=== PATIENT | female | born 1935 | race Caucasian/White ===

== ENCOUNTER 2018-04-06 16:25 | Inpatient (IN) | payer MEDICARE ==
[2018-04-06 17:24] LABS: Urine Bilirubin Negative (NEGATIVE); Urine Blood Negative /ul (NEGATIVE); Urine Ketone Negative (NEGATIVE); Urine Nitrite Negative (NEGATIVE); Urine Protein 30 mg/dL (NEGATIVE); Urine Specific Gravity 1.015 SP.GR. (1.005-1.010); Urine Urobilinogen Normal (NORMAL); Urine pH 5.5 pH (5.0-7.0)
[2018-04-06] MEDS ORDERED: KETOROLAC TROMETHAMINE 30 MG/ML VIAL IV ONE (17:29)
[2018-04-06] MEDS ORDERED: NORMAL SALINE 1,000 ML IV ONE (17:29)
[2018-04-06] MEDS ORDERED: ONDANSETRON HCL/PF 2 MG/ML VIAL IV ONE (17:29)
[2018-04-06] MEDS ORDERED: ONDANSETRON HCL/PF 2 MG/ML VIAL ONE (17:34)
[2018-04-06] MEDS ORDERED: KETOROLAC TROMETHAMINE 30 MG/ML VIAL ONE (17:34)
[2018-04-06 17:37] LABS: Urine Appearance Clear (CLEAR); Urine Bacteria TRACE; Urine Color Yellow
[2018-04-06 17:38] LABS: Urine Amorphous Sediment TRACE (NONE-FEW)
[2018-04-06 18:05] LABS: Hematocrit 32.2 % (37.0-47.0); Hemoglobin 10.3 gm/dL (12.5-16.0); Mean Cell Volume 81.5 fl (78-100); Mean Corpuscular Hemoglobin 26.1 pg (27-31); Mean Platelet Volume 9.2 fl (8-12.5); Neutrophil # 10.6 K/mm3 (1.3-6.0); Neutrophil % 89.7 % (42-75.0); Platelet Count 408 K/mm3 (150-450); Red Blood Count 3.95 M/mm3 (4.2-5.4); White Blood Count 11.9 K/mm3 (4.0-10.5)
[2018-04-06 18:16] LABS: Albumin * 2.5 gm/dl (3.4-5.0); BUN/Creatinine Ratio 30.5 (9.0-21.6); Bilirubin, Total 0.4 mg/dL (0.0-1.1); Ca. Corrected For Albumin 10.1 mg/dL (8.4-10.2); Calcium * 9.2 mg/dL (7.9-10.9); Total Protein 6.7 gm/dL (6.2-8.2)
[2018-04-06] MEDS ORDERED: POTASSIUM CHLORIDE IN WATER 100 ML IV ONE ×2 (18:31→23:15)
[2018-04-06] MEDS ORDERED: DIATRIZOATE MEGLUMINE, SODIUM 30 ML BTL PO ONE (19:41)
[2018-04-06] MEDS ORDERED: DIATRIZOATE MEGLUMINE, SODIUM 30 ML BTL ONE (19:44)
--- NOTE | 2018-04-06 20:00 | ERNOTE ---
ER Female HPI Date of Service: 04/06/18 Stated Complaint: UTI Presenting Symptoms: other - Blood in urine Time Seen by Provider: 04/06/18 17:22 Source: patient, family, RN notes reviewed Exam Limitations: other - Patient and son are poor historians Immunizations: IMMUNIZATION HX Immunizations Up to Date Yes History of Influenza Vaccine Yes Hx Pneumococcal Vaccination Yes Allergies/Adverse Reactions: Allergies pravastatin Adverse Reaction (Mild, Verified 04/06/18 16:35) Vomiting Home Medications: HOME MEDICATIONS Atorvastatin Calcium [Lipitor] 80 mg PO DAILY 12/15/15 [Last Taken Unknown] Calcium/Magnesium/Vit D3 [Calcium 500 mg Tablet] 1 each PO TID 12/15/15 [Last Taken Unknown] Chlorthalidone [Hygroton] 12.5 mg PO DAILY 12/15/15 [Last Taken Unknown] Cholecalciferol [Vitamin D] 1,000 unit PO DAILY 12/15/15 [Last Taken Unknown] Cyanocobalamin [Vitamin B-12] 1,000 mcg IJ Q30D 12/15/15 [Last Taken Unknown] Doxazosin Mesylate [Cardura] 1 mg PO HS 12/15/15 [Last Taken Unknown] Fenofibrate [Lofibra] 54 mg PO DAILY 12/15/15 [Last Taken Unknown] LORazepam [Ativan] 0.5 mg PO Q6H PRN 12/15/15 [Last Taken Unknown] Lisinopril [Zestril] 10 mg PO DAILY 12/15/15 [Last Taken 01/15/16 07:30] Metoprolol Succinate [Toprol Xl] 100 mg PO BID 12/15/15 [Last Taken 01/15/16 07: 30] Omeprazole [Prilosec] 20 mg PO DAILY 12/15/15 [Last Taken Unknown] Potassium Chloride [Klor-Con M10] 10 meq PO DAILY 12/15/15 [Last Taken Unknown] amLODIPine BESYLATE [Norvasc] 10 mg PO DAILY 12/15/15 [Last Taken 01/15/16 07:30 ] hydrALAZINE HCL [Apresoline] 25 mg PO BID 12/15/15 [Last Taken Unknown] - History of Present Illness Narrative: Ilana is a 82 year old female brought to the ED by her son for a possible urinary tract infection. The patient fell at home approximately 3 weeks ago. The son reports that she has been having blood in her urine since then, and at times has blood on her incontinence pads. She has also had back pain, lower abdominal pain, nausea and intermittent vomiting since. She was seen in another ER after her fall but it is not known what tests were done. The patient had a hysterectomy many years ago. She believes that her ovaries were removed at that time also, but she is not completely certain. Timing: Present: getting worse, intermittent Quality: Present: moderate, aching Onset Location: Present: suprapubic, other - low back Prior Abdominal Problems: Present: recent trauma Prior Treatment: Present: recently seen. Absent: currently on antibiotics Review of Systems - Review of Systems Constitutional: Present: fatigue, malaise, weight loss, other - poor appetite. Absent: fever EYE: Present: no symptoms reported ENT: Present: no symptoms reported Respiratory: Absent: shortness of breath, cough Cardiology: Absent: chest pain, palpitations, syncope Gastrointestinal/Abdominal: Present: nausea, vomiting, constipation, abdominal pain, eating less, drinking less. Absent: diarrhea Genitourinary: Present: hematuria. Absent: dysuria Musculoskeletal: Present: back pain. Absent: joint pain Skin: Absent: lesions, lumps Neurological: Absent: headache, dizziness/light-headedness Endocrine: Present: no symptoms reported Hematologic/Lymphatic: Absent: easy bruising, easy bleeding Psych: Present: no symptoms reported Medical History (Last Updated 04/06/18 @ 19:55 by Sinai Villa NP) History of hysterectomy Anxiety Depression GERD (gastroesophageal reflux disease) HTN (hypertension) Previous back surgery Surgical History: Surgical History (Last Updated 04/06/18 @ 16:35 by Van Tinajero RN) H/O heart artery stent Social History: Preferred Language Bahamian Smoking Status Never smoker Abuse History No History of abuse Psych History Hx of Anxiety,Currently on Meds Alcohol Use none Drug Use none Physical Exam - Physical Exam General Appearance: Present: alert, no apparent distress, thin, other - Pleasant , poor hygiene Head Exam: Present: normal inspection Neck: Present: normal inspection, nontender, supple Respiratory: Present: no respiratory distress, normal breath sounds, no accessory muscle use, lungs clear Cardiovascular/Chest: Present: regular rate, rhythm, normal peripheral pulses, systolic murmur Gastrointestinal/Abdominal: Present: normal bowel sounds, soft, tenderness - suprapubic, distended - mild, bloated appearing Pelvic Exam: Present: discharge - thick, yellow, blood tinged, other - pain with speculum exam, bimanual deferred Back Exam: Present: decreased range of motion, other - diffuse tenderness throughout lower back Extremity Exam: Present: normal inspection, normal range of motion, no edema Neurological Exam: Present: alert, oriented, normal mood/affect, no motor/ sensory deficits Skin Exam: Present: warm/dry, pallor ED Progress - Results and Orders Patient's Lab Results:: I have reviewed the patient's lab results. Results and Orders: Laboratory Tests 04/06/18 04/06/18 04/06/18 17:19 17:45 17:45 WBC 11.9 H RBC 3.95 L Hgb 10.3 L Hct 32.2 L MCV 81.5 MCH 26.1 L MCHC 32.0 RDW 19.0 H Plt Count 408 MPV 9.2 Immature Gran % (Auto) 1.40 H Immature Gran # (Auto) 0.17 H Neutrophils % 89.7 H Lymphocytes % 5.1 L Monocytes % 3.6 Eosinophils % 0.0 Basophils % 0.2 Nucleated RBC % 0.0 Neutrophils # 10.6 H Lymphocytes # 0.61 L Monocytes # 0.4 Eosinophils # 0.0 Absolute Basophils 0.0 Sodium 141 Plasma Sodium 142 Potassium 2.0 L* Chloride 103 Carbon Dioxide 30.0 Anion Gap 10.0 BUN 39 H Creatinine 1.28 Est GFR (Non-Af Amer) 42 L BUN/Creatinine Ratio 30.5 H Random Glucose 141 H Calcium 9.2 Calcium Adj for Albumin 10.1 Total Bilirubin 0.4 AST 20 ALT 10 L Alkaline Phosphatase 168 Total Protein 6.7 Albumin 2.5 L Urine Color Yellow Urine Appearance Clear Urine pH 5.5 Ur Specific [place] 1.015 Urine Protein 30 H Urine Glucose (UA) Negative Urine Ketones Negative Urine Blood Negative Urine Nitrate Negative Urine Bilirubin Negative Prot Sulfosalicylic Acd Negative Urine Urobilinogen Normal Ur Leukocyte Esterase 75 H Urine RBC 5-10 H Urine WBC 10-25 H Ur Epithelial Cells 0-5 Amorphous Sediment Trace Urine Bacteria Trace Urine Culture Comments Culture to follow - Vital Signs Patient's Vital Signs:: I have reviewed the patient's vital signs. Vital Signs: Vital Signs 04/06/18 16:26 04/06/18 16:53 04/06/18 17:12 Temperature 36.7 C Pulse Rate 96 89 88 Respiratory Rate 15 12 12 Blood Pressure 112/73 137/85 119/80 O2 Sat by Pulse Oximetry 94 99 97 04/06/18 17:40 04/06/18 17:56 04/06/18 18:59 Temperature Pulse Rate 81 84 88 Respiratory Rate 12 14 20 Blood Pressure 145/85 145/95 H 164/83 H O2 Sat by Pulse Oximetry 97 96 95 04/06/18 19:29 Temperature Pulse Rate 94 Respiratory Rate 16 Blood Pressure 162/80 H O2 Sat by Pulse Oximetry 97 - X-Ray X-Ray #1 X-Ray: abdomen Interpretation: Interp. by me X-ray Comments: Nonobstructive but abnormal bowel gas pattern - Progress/Reassessment Chief Complaint: Urinary Tract Problems Progress:: Unchanged Plan - Plan Plan: Toradol and Zofran given IV with some improvement in nausea, patient has not had any vomiting today. The source of her bleeding is not urinary as she had thought but is actually vaginal. Given the patient's remote history of a hysterectomy, I suspect that she has some sort of pelvic mass that has eroded through the vaginal wall. This was discussed with the patient. Her potassium is 2.0 and she is receiving 10 mEq IV currently. A CT of the abdomen and pelvis has been ordered, but this will be completed on the floor. Dr. Molina was contacted and the patient will be admitted. Departure Clinical Impression: Acute hypokalemia, Abnormal vaginal bleeding - Departure Disposition: Still a patient Condition: Serious
[2018-04-06] MEDS: traMADol HCL 50 MG TABLET PO PRN (23:47)
[2018-04-07] MEDS: POTASSIUM CHLORIDE IN WATER 100 ML IV SCH ×3 (02:00→04:03)
[2018-04-07] MEDS ORDERED: ACETAMINOPHEN WITH CODEINE 1 EACH TABLET PO PRN (10:36)
[2018-04-07 10:45] LABS: Hematocrit 28.4 % (37.0-47.0); Hemoglobin 8.7 gm/dL (12.5-16.0); Mean Corpuscular Hemoglobin 25.7 pg (27-31); Mean Corpuscular Hgb Conc 30.6 g/dl (32-36); Mean Platelet Volume 9.2 fl (8-12.5); Neutrophil # 7.4 K/mm3 (1.3-6.0); Neutrophil % 88.2 % (42-75.0); Platelet Count 320 K/mm3 (150-450); Red Blood Count 3.38 M/mm3 (4.2-5.4); Red Cell Distribution Width 19.3 % (11.5-14.0); White Blood Count 8.4 K/mm3 (4.0-10.5)
[2018-04-07] MEDS ORDERED: amLODIPine BESYLATE 5 MG TABLET PO SCH (10:45)
[2018-04-07] MEDS: amLODIPine BESYLATE 5 MG TABLET PO SCH (10:56)
[2018-04-07] MEDS: METOPROLOL TARTRATE 50 MG TABLET PO SCH ×2 (10:57→20:22)
[2018-04-07] MEDS: hydrALAZINE HCL 25 MG TABLET PO SCH ×2 (10:57→20:23)
--- NOTE | 2018-04-07 10:58 | HP ---
Chief Complaint - Chief Complaint Date of Service: 04/07/18 Time of Service: 08:20 Chief Complaint: Vaginal Bleeding History of Present Illness: Ilana is an 82 yo female that presents to the [facility] ER with 2 days of vaginal bleeding and discharge. She denies pain. No prior bladder, vaginal, or colon problems. She recalls her last colonoscopy being about 10 years ago and she was told she had diverticulosis. She denies any other bleeding. She chronically takes coumadin for atrial fibrillation. In the ER she had a vaginal exam that showed blood and yellow/brown discharge coming from an unknown source. A CT of the abdomen and pelvis was done showing a fistula in the pelvis communicating vagina to colon with a potential mass as well as the presence of diverticula. There was no evidence of diverticulitis. Medical History (Last Reviewed 04/14/18 @ 03:14 by Kiarra Baker RN) Acute renal failure (ARF) Anemia Anxiety Atrial fibrillation CAD (coronary artery disease) COPD (chronic obstructive pulmonary disease) Chronic kidney disease Dehydration Depression Esophageal stricture GERD (gastroesophageal reflux disease) HTN (hypertension) History 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 dilatation skilled nursing current use of anticoagulant therapy Osteoarthritis Surgical History: Surgical History (Last Reviewed 04/14/18 @ 03:14 by Kiarra Baker RN) H/O heart artery stent History of hysterectomy Previous back surgery Family History: Family History (Last Reviewed 04/14/18 @ 03:14 by Kiarra Baker RN) Father Myocardial infarction Hypertension Mother Colon cancer Social History: Patient Lives/Resources Home Utilized Occupation Retired Preferred Language Kazakh Do you have any jew or Yes: Hoahaoism cultural preference? Smoking Status Never smoker Have you smoked in the past 12 No months Do you dip or chew tobacco No Abuse History No History of abuse Psych History Hx of Anxiety,Currently on Meds Alcohol Use none Drug Use none Review Of Systems (GEN) - Review of Systems Generalized/Overall Review: Present: Weakness. Absent: Chills, Fever EENTM: Present: No Symptoms Reported Respiratory: Absent: Cough, Shortness of Breath Cardiac: Absent: Chest Pain, Edema, Palpitations, Syncope Abdominal: Absent: Nausea, Vomiting, Abdominal Pain, Constipation, Diarrhea, Melena, Bright blood from rectum Genitourinary: Present: Other - Vaginal Bleeding. Absent: Burning, Itching Musculoskeletal: Present: No Symptoms Reported Neurological: Present: No Symptoms Reported Skin: Present: No Symptoms Reported Endocrine: Present: No Symptoms Reported Immunizations: IMMUNIZATION HX Immunizations Up to Date Yes History of Influenza Vaccine Yes Hx Pneumococcal Vaccination Yes Allergies/Adverse Reactions: Allergies Allergy/AdvReac Type Severity Reaction Status Date / Time pravastatin AdvReac Mild Vomiting Verified 04/06/18 16:35 Home Medications: HOME MEDICATIONS amLODIPine BESYLATE [Norvasc] 5 mg PO DAILY 12/15/15 [Last Taken 04/13/18] hydrALAZINE HCL [Apresoline] 25 mg PO BID 12/15/15 [Last Taken 04/13/18] ALPRAZolam [Xanax] 0.25 mg PO Q6H PRN 04/07/18 [Last Taken 04/13/18] Acetaminophen with Codeine [Tylenol with Codeine #3 Tablet] 1 - 2 tab PO Q6H PRN 04/07/18 [Last Taken 04/13/18] Atorvastatin Calcium [Lipitor] 40 mg PO DAILY 04/07/18 [Last Taken 04/13/18] Citalopram Hydrobromide [Celexa] 10 mg PO DAILY 04/07/18 [Last Taken 04/13/18] Furosemide [Lasix] 20 mg PO BID 04/07/18 [Last Taken 04/13/18] Metoprolol Tartrate [Lopressor] 50 mg PO BID 04/07/18 [Last Taken 04/13/18] Pantoprazole Sodium [Protonix] 40 mg PO BID 04/07/18 [Last Taken 04/13/18] Folic Acid 1 mg PO DAILY #30 tab 04/20/18 [Last Taken Unknown] Exam - Exam Vital Signs: Vital Signs - Last Taken Temp 36.8 C 04/07/18 09:22 Pulse 101 H 04/07/18 09:22 Resp 18 04/07/18 09:22 BP 158/77 H 04/07/18 09:22 Pulse Ox 98 04/07/18 09:22 Constitutional: Present: Alert, Oriented x3, Cooperative ENT Exam: Present: hearing grossly normal Eye Exam: bilateral eye: normal inspection Respiratory: Present: lungs clear, normal breath sounds Cardiovascular/Chest: Present: no murmur, irregularly irregular Peripheral Pulses: radial (R): 2+, radial (L): 2+ Abdomen: Present: Normal bowel sounds, soft, nontender, nondistended, no rebound tenderness Extremity: Present: normal inspection Skin Exam: Present: normal color, warm/dry, no cyanosis Lymphatic: Present: no adenopathy Appearance: Present: appropriate appearance, appropriate insight Eye contact: Present: cooperative, good eye contact, normal speech Thoughts: Present: normal thought pattern, no apparent hallucination Diagnostic Studies: Abnormal Lab Results 04/06/18 04/06/18 04/06/18 Range/Units 17:19 17:45 17:45 WBC 11.9 H (4.0-10.5) K/mm3 RBC 3.95 L (4.2-5.4) M/mm3 Hgb 10.3 L (12.5-16.0) gm/dL Hct 32.2 L (37.0-47.0) % MCH 26.1 L (27-31) pg RDW 19.0 H (11.5-14.0) % Immature Gran % (Auto) 1.40 H (0.001-0.429) % Immature Gran # (Auto) 0.17 H (0.000-0.0310) K/mm3 Neutrophils % 89.7 H (42-75.0) % Lymphocytes % 5.1 L (20-51) % Neutrophils # 10.6 H (1.3-6.0) K/mm3 Lymphocytes # 0.61 L (1.5-3.5) k/mm3 Potassium 2.0 L* (3.4-4.6) mmol/L BUN 39 H (3-23) mg/dL Est GFR (Non-Af Amer) 42 L (60-130) mL/min BUN/Creatinine Ratio 30.5 H (9.0-21.6) Random Glucose 141 H (70-110) mg/dL ALT 10 L (19-67) U/L Albumin 2.5 L (3.4-5.0) gm/dl Urine Protein 30 H (NEGATIVE) mg/dL Ur Leukocyte Esterase 75 H (NEGATIVE) /ul Urine RBC 5-10 H (0-5) /hpf Urine WBC 10-25 H (0-5) /hpf Microbiology 04/06/18 15:40 Urine Culture - Preliminary Urine,Catheterized No Growth Laboratory Results WBC 11.9 K/mm3 (4.0-10.5) H 04/06/18 17:45 RBC 3.95 M/mm3 (4.2-5.4) L 04/06/18 17:45 Hgb 10.3 gm/dL (12.5-16.0) L 04/06/18 17:45 Hct 32.2 % (37.0-47.0) L 04/06/18 17:45 MCV 81.5 fl (78-100) 04/06/18 17:45 MCH 26.1 pg (27-31) L 04/06/18 17:45 MCHC 32.0 g/dl (32-36) 04/06/18 17:45 RDW 19.0 % (11.5-14.0) H 04/06/18 17:45 Plt Count 408 K/mm3 (150-450) 04/06/18 17:45 MPV 9.2 fl (8-12.5) 04/06/18 17:45 Immature Gran % (Auto) 1.40 % (0.001-0.429) H 04/06/18 17:45 Immature Gran # (Auto) 0.17 K/mm3 (0.000-0.0310) H 04/06/18 17:45 Neutrophils % 89.7 % (42-75.0) H 04/06/18 17:45 Lymphocytes % 5.1 % (20-51) L 04/06/18 17:45 Monocytes % 3.6 % (0.0-9) 04/06/18 17:45 Eosinophils % 0.0 % (0.0-3.0) 04/06/18 17:45 Basophils % 0.2 % (0.0-1.0) 04/06/18 17:45 Nucleated RBC % 0.0 k/mm3 (0-1) 04/06/18 17:45 Neutrophils # 10.6 K/mm3 (1.3-6.0) H 04/06/18 17:45 Lymphocytes # 0.61 k/mm3 (1.5-3.5) L 04/06/18 17:45 Monocytes # 0.4 k/mm3 (0.0-1.0) 04/06/18 17:45 Eosinophils # 0.0 k/mm3 (0.0-0.7) 04/06/18 17:45 Absolute Basophils 0.0 k/mm3 (0.0-0.1) 04/06/18 17:45 Sodium 141 mmol/L (132-142) 04/06/18 17:45 Plasma Sodium 142 mmol/L (130-142) 04/06/18 17:45 Potassium 2.0 mmol/L (3.4-4.6) L* 04/06/18 17:45 Chloride 103 mmol/L (97-106) 04/06/18 17:45 Carbon Dioxide 30.0 mmol/L (24-32.6) 04/06/18 17:45 Anion Gap 10.0 mmol/L (6.8-13.8) 04/06/18 17:45 BUN 39 mg/dL (3-23) H 04/06/18 17:45 Creatinine 1.28 mg/dL (0.4-1.4) 04/06/18 17:45 Est GFR (Non-Af Amer) 42 mL/min (60-130) L 04/06/18 17:45 BUN/Creatinine Ratio 30.5 (9.0-21.6) H 04/06/18 17:45 Random Glucose 141 mg/dL (70-110) H 04/06/18 17:45 Calcium 9.2 mg/dL (7.9-10.9) 04/06/18 17:45 Calcium Adj for Albumin 10.1 mg/dL (8.4-10.2) 04/06/18 17:45 Total Bilirubin 0.4 mg/dL (0.0-1.1) 04/06/18 17:45 AST 20 U/L (0-48) 04/06/18 17:45 ALT 10 U/L (19-67) L 04/06/18 17:45 Alkaline Phosphatase 168 U/L (50-170) 04/06/18 17:45 Total Protein 6.7 gm/dL (6.2-8.2) 04/06/18 17:45 Albumin 2.5 gm/dl (3.4-5.0) L 04/06/18 17:45 Urine Color Yellow 04/06/18 17:19 Urine Appearance Clear (CLEAR) 04/06/18 17:19 Urine pH 5.5 pH (5.0-7.0) 04/06/18 17:19 Ur Specific [place] 1.015 SP.GR. (1.005-1.010) 04/06/18 17:19 Urine Protein 30 mg/dL (NEGATIVE) H 04/06/18 17:19 Urine Glucose (UA) Negative mg/dL (NEGATIVE) 04/06/18 17:19 Urine Ketones Negative mg/dL (NEGATIVE) 04/06/18 17:19 Urine Blood Negative /ul (NEGATIVE) 04/06/18 17:19 Urine Nitrate Negative (NEGATIVE) 04/06/18 17:19 Urine Bilirubin Negative mg/dl (NEGATIVE) 04/06/18 17:19 Prot Sulfosalicylic Acd Negative mg/dL (0) 04/06/18 17:19 Urine Urobilinogen Normal EU/dl (NORMAL) 04/06/18 17:19 Ur Leukocyte Esterase 75 /ul (NEGATIVE) H 04/06/18 17:19 Urine RBC 5-10 /hpf (0-5) H 04/06/18 17:19 Urine WBC 10-25 /hpf (0-5) H 04/06/18 17:19 Ur Epithelial Cells 0-5 /hpf (0-5) 04/06/18 17:19 Amorphous Sediment Trace (NONE-FEW) 04/06/18 17:19 Urine Bacteria Trace (NONE) 04/06/18 17:19 Urine Culture Comments Culture to follow 04/06/18 17:19 Assessment/Plan - Narrative Narrative: Ilana is an 82 yo female with: 1) Hypokalemia - This appears to be secondary to poor dietary intake as she has not been eating well over the past week. Will replace and monitor. It is significantly low will take >2 midnights to replace, will admit to acute inpatient status to replace and monitor. 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 Will consult surgery, will make NPO for now. - Assessment/Plan (1) Colovaginal fistula Problem: Acute (2) Acute hypokalemia Problem: Acute (3) Abnormal vaginal bleeding Problem: Acute (4) Colonic mass Problem: Acute (5) Diverticulosis Problem: Chronic Qualifiers: Diverticulosis site: diverticulosis of large intestine (6) Atrial fibrillation Problem: Chronic Qualifiers: Atrial fibrillation type: chronic Qualified Code(s): I48.2 - Chronic atrial fibrillation
[2018-04-07 11:06] LABS: Albumin * 2.1 gm/dl (3.4-5.0); BUN/Creatinine Ratio 25.6 (9.0-21.6); Bilirubin, Total 0.4 mg/dL (0.0-1.1); Ca. Corrected For Albumin 9.6 mg/dL (8.4-10.2); Calcium * 8.4 mg/dL (7.9-10.9); Total Protein 5.5 gm/dL (6.2-8.2)
[2018-04-07 11:25] LABS: Prothrombin Time (Patient) 45.4 Seconds (9.0-11.0)
[2018-04-07 11:53] LABS: INR 4.47 INR (0.90-1.10)
[2018-04-07] MEDS: FUROSEMIDE 20 MG TABLET PO SCH ×2 (12:34→20:35)
--- NOTE | 2018-04-07 19:26 | CONS ---
[facility] - General Date of Service: 04/07/18 Source: patient, RN/, RN notes reviewed Exam Limitations: no limitations - History of Present Illness Initial Comments: She was brought to the emergency room by her son to investigate vaginal bleeding. She reports intermittent thin bloody vaginal discharge. She apparently has been having this off and on for some time but it has gotten more frequent. She states it is worse "if she stands for long time and feels like she has to go". It does not happen every time she sits on the commode to urinate or move her bowels. She has had a hysterectomy. She has had a colonoscopy but it was perhaps 10 years or so ago. She thinks it was done at the [facility]. They told her she would not need another one. She knows she has diverticulosis. She may have had diverticulitis in the past. She was treated for this by Dr. Rice with 2 antibiotics, 1 of them made her sick, so she did not take them. She was having pain at that time but has had not had pain or tenderness lately or with this new problem. She has had EGDs on 3 or 4 occasions. One was done in [place], the stretching did not work and she went to the [facility]. She has had dilation there at least twice--the last perhaps 4 years ago. She is still getting along fairly well from that but has to take small bites, chew thoroughly and drink liquids. She is on blood thinner for her A. fib. She bruises very easily She was found to have a low potassium. This is being corrected. Her INR today was 4.47. CT scan of the abdomen and pelvis reveals that most of her stomach is in her chest. 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 This seems to originate from the sigmoid colon with an area in the left pelvis which appears to contain contrast and not be bowel. There is also a cystic area in the right pelvis. Timing/Duration: unsure Severity: mild Allergies/Adverse Reactions: Allergies pravastatin Adverse Reaction (Mild, Verified 04/06/18 16:35) Vomiting Home Medications: Home Medications Medication Instructions Recorded Last Taken amLODIPine BESYLATE [Norvasc] 5 mg PO DAILY 12/15/15 01/15/16 07:30 hydrALAZINE HCL [Apresoline] 25 mg PO BID 12/15/15 Unknown ALPRAZolam [Xanax] 0.25 mg PO Q6H PRN 04/07/18 Unknown Acetaminophen with Codeine 1 - 2 tab PO Q6H PRN 04/07/18 Unknown [Tylenol with Codeine #3 Tablet] Atorvastatin Calcium [Lipitor] 40 mg PO DAILY 04/07/18 Unknown Citalopram Hydrobromide [Celexa] 10 mg PO DAILY 04/07/18 Unknown Clopidogrel Bisulfate [Plavix] 75 mg PO DAILY 04/07/18 Unknown Furosemide [Lasix] 20 mg PO BID 04/07/18 Unknown Metoprolol Tartrate [Lopressor] 50 mg PO BID 04/07/18 Unknown Pantoprazole Sodium [Protonix] 40 mg PO BID 04/07/18 Unknown Warfarin Sodium [Coumadin] 1 mg PO DAILY 04/07/18 Unknown Procedures Replacement of Left Lens with Synthetic Substitute, Percutaneous Approach (01/14) Replacement of Right Lens with Synthetic Substitute, Percutaneous Approach () Medications - Medications Current Medications: Current Medications Amlodipine Besylate (Norvasc) 5 mg PO DAILY FORD Stop: 05/07/18 11:01 Last Admin: 04/07/18 10:56 Dose: 5 mg Furosemide (Lasix) 20 mg PO BID FORD Stop: 05/07/18 10:46 Last Admin: 04/07/18 12:34 Dose: Not Given Hydralazine HCl (Apresoline) 25 mg PO BID FORD Stop: 05/07/18 10:46 Last Admin: 04/07/18 10:57 Dose: 25 mg Metoprolol Tartrate (Lopressor) 50 mg PO BID FORD Stop: 05/07/18 10:46 Last Admin: 04/07/18 10:57 Dose: 50 mg Tramadol HCl (Ultram) 50 mg PO Q6H PRN PRN Reason: Pain Stop: 05/06/18 22:31 Last Admin: 04/06/18 23:47 Dose: 50 mg Review of Systems - Review of Systems Generalized/Overall Review: Present: Fatigue. Absent: Chills, Fever EENTM: Present: No Symptoms Reported Respiratory: Absent: Shortness of Breath Cardiac: Absent: Chest Pain Abdominal: Present: Other - She takes a stool softener for her bowels which apparently alternate between hard and loose. She has not seen blood in her stool. Absent: Abdominal Pain Genitourinary: Absent: Burning Musculoskeletal: Present: No Symptoms Reported Neurological: Present: No Symptoms Reported Skin: Present: Bruising Physical Examination - Exam Vital Signs: Vital Signs - Last Taken Temp 36.8 C 04/07/18 16:21 Pulse 74 04/07/18 16:21 Resp 18 04/07/18 16:21 BP 118/62 04/07/18 16:21 Pulse Ox 96 04/07/18 16:21 O2 Oxygen Delivery Method Room Air Constitutional: Present: Alert, Oriented x3, Cooperative, No distress, Thin and frail ENT Exam: Present: normal ENT inspection Eye Exam: bilateral eye: normal inspection Neck: Present: supple Breasts: Present: Exam deferred Respiratory: Present: no respiratory distress Cardiovascular/Chest: Present: irregularly irregular Abdomen: Present: soft, nontender, other - She is very tympanitic to percussion and slightly protuberant. 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 Nursing notes state she ambulates with standby assist there is a gait belt and cane in the room Appearance: Present: appropriate appearance Eye contact: Present: cooperative, good eye contact, normal speech Thoughts: Present: normal thought pattern - Results and Findings: Lab/Microbiology results last 24 hrs: Abnormal/Pending Laboratory Last 24 HRS 04/07/18 04/07/18 04/07/18 10:27 10:27 10:25 RBC 3.38 L Hgb 8.7 L Hct 28.4 L MCH 25.7 L MCHC 30.6 L RDW 19.3 H Immature Gran % (Auto) 1.60 H Immature Gran # (Auto) 0.13 H Neutrophils % 88.2 H Lymphocytes % 5.7 L Neutrophils # 7.4 H Lymphocytes # 0.48 L PT 45.4 H INR (Anticoag Therapy) 4.47 H* Potassium 3.0 L D BUN/Creatinine Ratio 25.6 H ALT 10 L Total Protein 5.5 L Albumin 2.1 L Culture 04/06/18 15:40 Urine Culture - Preliminary Urine,Catheterized No Growth CT scan images were reviewed and report noted - Assessments/Findings (1) Colovaginal fistula Diagnosis(s): She has extensive diverticulosis and a possible past history of diverticulitis which might account for the origin of the colovesical fistula. Her body habitus and tortuosity of the sigmoid colon, which is lightly fixed in position , would make an exam very difficult and hazardous. Her current elevated INR would preclude any instrumentation at this point. She would be high risk for any surgical intervention. A pamphlet on diverticular disease was reviewed with her and given to her. I explained the nature of diverticulitis and colovesical fistula. She does not want any surgery and would prefer not to have endoscopy. Currently the white blood cell count has returned to normal and she has no tenderness. RECOMMENDATION: Her potassium is being corrected and her Coumadin has been held. I would defer any endoscopic evaluation of the colon at this point. Whether a vaginal exam would be helpful or not is unclear, and if nothing different will be done could be deferred at this time. She could be started on clear liquids with an Ensure supplement. This could be advanced if tolerated. I did recommend the use of Benefiber to her I will discuss the case with Dr. Molina and continue to follow the patient. Problem: Acute
[2018-04-07] MEDS: PANTOPRAZOLE SODIUM 40 MG TABLET.EC PO SCH (20:24)
[2018-04-07] MEDS ORDERED: POTASSIUM CHLORIDE 20 MEQ TABLET.SA PO ONE (20:32)
[2018-04-07] MEDS: ALPRAZolam 0.25 MG TABLET PO PRN (20:34)
[2018-04-08 06:06] LABS: INR 3.16 INR (0.90-1.10)
[2018-04-08] MEDS: traMADol HCL 50 MG TABLET PO PRN ×3 (06:51→19:08)
[2018-04-08] MEDS: PANTOPRAZOLE SODIUM 40 MG TABLET.EC PO SCH ×2 (06:51→20:54)
[2018-04-08] MEDS: CITALOPRAM HYDROBROMIDE 10 MG TABLET PO SCH (08:15)
[2018-04-08] MEDS: FUROSEMIDE 20 MG TABLET PO SCH ×2 (08:15→20:53)
[2018-04-08] MEDS: ROSUVASTATIN CALCIUM 20 MG TABLET PO SCH (08:15)
[2018-04-08] MEDS: hydrALAZINE HCL 25 MG TABLET PO SCH ×2 (08:16→20:52)
[2018-04-08] MEDS: amLODIPine BESYLATE 5 MG TABLET PO SCH (08:16)
[2018-04-08] MEDS: METOPROLOL TARTRATE 50 MG TABLET PO SCH ×2 (08:16→20:53)
[2018-04-08 09:02] LABS: Hematocrit 31.7 % (37.0-47.0); Hemoglobin 9.5 gm/dL (12.5-16.0); Mean Cell Volume 85.7 fl (78-100); Mean Corpuscular Hemoglobin 25.7 pg (27-31); Neutrophil # 9.8 K/mm3 (1.3-6.0); Neutrophil % 88.5 % (42-75.0); Platelet Count 343 K/mm3 (150-450); White Blood Count 11.1 K/mm3 (4.0-10.5)
[2018-04-08 09:45] LABS: Albumin * 2.1 gm/dl (3.4-5.0); Anion Gap 11.7 mmol/L (6.8-13.8); BUN/Creatinine Ratio 17.7 (9.0-21.6); Bilirubin, Total 0.5 mg/dL (0.0-1.1); Ca. Corrected For Albumin 10.1 mg/dL (8.4-10.2); Calcium * 8.9 mg/dL (7.9-10.9); Carbon Dioxide 24.7 mmol/L (24-32.6); Potassium 3.4 mmol/L (3.4-4.6); Total Protein 5.7 gm/dL (6.2-8.2)
[2018-04-08] MEDS: ALPRAZolam 0.25 MG TABLET PO PRN (20:53)
[2018-04-09 05:23] LABS: Prothrombin Time (Patient) 25.4 Seconds (9.0-11.0)
[2018-04-09 05:28] LABS: INR 2.52 INR (0.90-1.10)
[2018-04-09] MEDS: PANTOPRAZOLE SODIUM 40 MG TABLET.EC PO SCH (07:14)
[2018-04-09] MEDS: traMADol HCL 50 MG TABLET PO PRN (08:16)
[2018-04-09] MEDS: CITALOPRAM HYDROBROMIDE 10 MG TABLET PO SCH (08:18)
[2018-04-09] MEDS: METOPROLOL TARTRATE 50 MG TABLET PO SCH (08:18)
[2018-04-09] MEDS: amLODIPine BESYLATE 5 MG TABLET PO SCH (08:19)
[2018-04-09] MEDS: hydrALAZINE HCL 25 MG TABLET PO SCH (08:19)
[2018-04-09] MEDS: FUROSEMIDE 20 MG TABLET PO SCH (08:19)
[2018-04-09] MEDS: ROSUVASTATIN CALCIUM 20 MG TABLET PO SCH (08:20)
--- NOTE | 2018-04-09 08:34 | PN ---
Subjective - Date and Time Seen Date: 04/08/18 Time: 12:30 Subjective Narrative: Reports feeling well. No further vaginal discharge. She does not want to do any surgery for the fistula. Objective - Vitals Vitals: Last Vital Signs Selected Entries 04/08/18 07:17 Temperature 36.6 C Pulse Rate 72 Respiratory Rate 18 Blood Pressure 134/63 O2 Sat by Pulse Oximetry 96 Oxygen Delivery Method Room Air - Abnormal Lab Findings Abnormal Lab Findings: Abnormal Lab Results 04/08/18 04/08/18 Range/Units 08:40 08:40 WBC 11.1 H D (4.0-10.5) K/mm3 RBC 3.70 L (4.2-5.4) M/mm3 Hgb 9.5 L (12.5-16.0) gm/dL Hct 31.7 L (37.0-47.0) % MCH 25.7 L (27-31) pg MCHC 30.0 L (32-36) g/dl RDW 20.0 H (11.5-14.0) % Immature Gran % (Auto) 1.20 H (0.001-0.429) % Immature Gran # (Auto) 0.13 H (0.000-0.0310) K/mm3 Neutrophils % 88.5 H (42-75.0) % Lymphocytes % 5.7 L (20-51) % Neutrophils # 9.8 H (1.3-6.0) K/mm3 Lymphocytes # 0.63 L (1.5-3.5) k/mm3 PT (9.0-11.0) Seconds INR (Anticoag Therapy) (0.90-1.10) INR Chloride 107 H (97-106) mmol/L Est GFR (Non-Af Amer) 44 L D (60-130) mL/min Random Glucose 243 H D (70-110) mg/dL ALT 10 L (19-67) U/L Total Protein 5.7 L (6.2-8.2) gm/dL Albumin 2.1 L (3.4-5.0) gm/dl - Exam Constitutional: Present: Alert, Oriented x3, Cooperative ENT Exam: Present: hearing grossly normal Respiratory: Present: lungs clear, normal breath sounds Cardiovascular/Chest: Present: irregularly irregular Abdomen: Present: Normal bowel sounds, soft, nontender Skin Exam: Present: normal color, warm/dry, no cyanosis Assessment/Plan Plan Narrative: Potassium improved, still low with potassium of 3 today. Will continue to replace and monitor. Patient has discussed fistula with surgery. She declines any procedure. Her INR was elevated and this may have caused the vaginal bleeding. The fistula may have been present for some time. She wishes to proceed with no treatment for this at this time. - Problems/Diagnosis (1) Colovaginal fistula Problem: Acute (2) Acute hypokalemia Problem: Acute (3) Abnormal vaginal bleeding Problem: Acute (4) Colonic mass Problem: Acute (5) Diverticulosis Problem: Chronic Qualifiers: Diverticulosis site: diverticulosis of large intestine (6) Atrial fibrillation Problem: Chronic Qualifiers: Atrial fibrillation type: chronic Qualified Code(s): I48.2 - Chronic atrial fibrillation
--- NOTE | 2018-04-09 08:48 | DS ---
(1) Colovaginal fistula Problem: Acute (2) Acute hypokalemia Problem: Acute (3) Abnormal vaginal bleeding Problem: Acute (4) Colonic mass Problem: Acute (5) Diverticulosis Problem: Acute (6) Atrial fibrillation Problem: Chronic Qualifiers: Atrial fibrillation type: chronic Qualified Code(s): I48.2 - Chronic atrial fibrillation Description of Stay: Ilana is an 82 yo female that was admitted for hypokalemia of 2.0 and acute vaginal bleeding and discharge. Potassium was replaced. A CT was performed of her Abdomen and Pelvis showing a colovaginal fistula from either diverticula or colonic mass. General Surgery was consulted and discussed with the patient the options. She had an elevated INR of 4 on admission and it was discussed with her that any surgery would not be recommended at this time due to the elevated INR. Ilana expressed her wishes not to have any surgery or procedure. She reported not eating as well in the past week and this likely caused the low potassium and elevation in her INR. It is possible this fistula has been chronic and that the bleeding only occurred due to the elevated INR. Coumadin was held and INR monitored. It returned to her goal range of 2-3. She will be restarted on her Coumadin and she was encouraged to stay well nourished. The vaginal bleeding stopped and she felt well. She will be discharged to home today with home health with PT for strengthening. She will work on staying nourished and she will need an INR check early next week to adjust Coumadin as needed. She will be restarted on her home dose, but if her diet does not return to her baseline her coumadin dose will likely need to be adjusted. She was offered a follow up with general surgery but she declines any surgery or procedure in regards to her colon/fistula. Procedures Performed: none Results and Findings: Lab Pending Results 04/06/18 17:19: Urine Color Yellow, Urine Appearance Clear, Urine pH 5.5, Ur Specific [place] 1.015, Urine Protein 30 H, Urine Glucose (UA) Negative, Urine Ketones Negative, Urine Blood Negative, Urine Nitrate Negative, Urine Bilirubin Negative, Prot Sulfosalicylic Acd Negative, Urine Urobilinogen Normal, Ur Leukocyte Esterase 75 H, Urine RBC 5-10 H, Urine WBC 10-25 H, Ur Epithelial Cells 0-5, Amorphous Sediment Trace, Urine Bacteria Trace, Urine Culture Comments Culture to follow 04/06/18 17:45: WBC 11.9 H, RBC 3.95 L, Hgb 10.3 L, Hct 32.2 L, MCV 81.5, MCH 26.1 L, MCHC 32.0, RDW 19.0 H, Plt Count 408, MPV 9.2, Immature Gran % (Auto) 1.40 H, Immature Gran # (Auto) 0.17 H, Neutrophils % 89.7 H, Lymphocytes % 5.1 L , Monocytes % 3.6, Eosinophils % 0.0, Basophils % 0.2, Nucleated RBC % 0.0, Neutrophils # 10.6 H, Lymphocytes # 0.61 L, Monocytes # 0.4, Eosinophils # 0.0, Absolute Basophils 0.0 04/06/18 17:45: Sodium 141, Plasma Sodium 142, Potassium 2.0 L*, Chloride 103, Carbon Dioxide 30.0, Anion Gap 10.0, BUN 39 H, Creatinine 1.28, Est GFR (Non-Af Amer) 42 L, BUN/Creatinine Ratio 30.5 H, Random Glucose 141 H, Calcium 9.2, Calcium Adj for Albumin 10.1, Total Bilirubin 0.4, AST 20, ALT 10 L, Alkaline Phosphatase 168, Total Protein 6.7, Albumin 2.5 L 04/07/18 10:25: PT 45.4 H, INR (Anticoag Therapy) 4.47 H* 04/07/18 10:27: WBC 8.4 D, RBC 3.38 L, Hgb 8.7 L, Hct 28.4 L, MCV 84.0, MCH 25.7 L, MCHC 30.6 L, RDW 19.3 H, Plt Count 320, MPV 9.2, Immature Gran % (Auto) 1.60 H, Immature Gran # (Auto) 0.13 H, Neutrophils % 88.2 H, Lymphocytes % 5.7 L , Monocytes % 3.8, Eosinophils % 0.5, Basophils % 0.2, Nucleated RBC % 0.0, Neutrophils # 7.4 H, Lymphocytes # 0.48 L, Monocytes # 0.3, Eosinophils # 0.0, Absolute Basophils 0.0 04/07/18 10:27: Sodium 140, Plasma Sodium 140, Potassium 3.0 L D, Chloride 106, Carbon Dioxide 26.0, Anion Gap 11.0, BUN 23, Creatinine 0.90, Est GFR (Non-Af Amer) 64 D, BUN/Creatinine Ratio 25.6 H, Random Glucose 94 D, Calcium 8.4, Calcium Adj for Albumin 9.6, Total Bilirubin 0.4, AST 19, ALT 10 L, Alkaline Phosphatase 142, Total Protein 5.5 L, Albumin 2.1 L 04/08/18 05:55: PT 32.0 H, INR (Anticoag Therapy) 3.16 H 04/08/18 08:40: WBC 11.1 H D, RBC 3.70 L, Hgb 9.5 L, Hct 31.7 L, MCV 85.7, MCH 25.7 L, MCHC 30.0 L, RDW 20.0 H, Plt Count 343, MPV 9.0, Immature Gran % (Auto) 1.20 H, Immature Gran # (Auto) 0.13 H, Neutrophils % 88.5 H, Lymphocytes % 5.7 L , Monocytes % 3.2, Eosinophils % 0.9, Basophils % 0.5, Nucleated RBC % 0.0, Neutrophils # 9.8 H, Lymphocytes # 0.63 L, Monocytes # 0.4, Eosinophils # 0.1, Absolute Basophils 0.1 04/08/18 08:40: Sodium 140, Plasma Sodium 142, Potassium 3.4, Chloride 107 H, Carbon Dioxide 24.7, Anion Gap 11.7, BUN 22, Creatinine 1.24, Est GFR (Non-Af Amer) 44 L D, BUN/Creatinine Ratio 17.7, Random Glucose 243 H D, Calcium 8.9, Calcium Adj for Albumin 10.1, Total Bilirubin 0.5, AST 20, ALT 10 L, Alkaline Phosphatase 143, Total Protein 5.7 L, Albumin 2.1 L 04/09/18 05:10: PT 25.4 H, INR (Anticoag Therapy) 2.52 H Discharge Location: Home Disposition: Home Health Service Home Health Agency: [facility] Condition: Fair Face to Face Encounter completed per CMS Guidelines: Yes Discharge Activity: Activity as tolerated Discharge Diet: General/regular food Referrals: Lonnie Rice MD [Primary Care Provider] - One Week (Will need INR checked early next week.) Problem Oriented Discharge Instructions to Patient/Family: Hypokalemia Additional Patient Instructions (free text): -Please make TCM appointment unless snf discharge. Thank you! Leticia @ [phone]. [facility] new at discharge, please call and fax discharge orders. Resume prior Coumadin dosing and have INR checked 04/13/18. Complete Home Medications List: Complete Home Medication List: amLODIPine BESYLATE [Norvasc] 5 mg PO DAILY 12/15/15 hydrALAZINE HCL [Apresoline] 25 mg PO BID 12/15/15 ALPRAZolam [Xanax] 0.25 mg PO Q6H PRN 04/07/18 Acetaminophen with Codeine [Tylenol with Codeine #3 Tablet] 1 - 2 tab PO Q6H PRN 04/07/18 Atorvastatin Calcium [Lipitor] 40 mg PO DAILY 04/07/18 Citalopram Hydrobromide [Celexa] 10 mg PO DAILY 04/07/18 Clopidogrel Bisulfate [Plavix] 75 mg PO DAILY 04/07/18 Furosemide [Lasix] 20 mg PO BID 04/07/18 Metoprolol Tartrate [Lopressor] 50 mg PO BID 04/07/18 Pantoprazole Sodium [Protonix] 40 mg PO BID 04/07/18 Warfarin Sodium [Coumadin] 1 mg PO DAILY 04/07/18
[2018-04-09 11:00] VITALS: BP 158/67
== END 2018-04-09 11:10 | disposition home health service (06) | DRG 395 ==
LOC: ER 16:25 → MS 19:57
PROVIDERS: ADMIT Family Medicine; ATTEND Family Medicine
CPT/HCPCS: 36415; 74019; 74020; 74177; 80053; 81001; 85025; 85610; 87086; 96361; 96365; 96375; 99285; J2405

== ENCOUNTER 2018-04-14 02:32 | Inpatient (IN) | payer MEDICARE ==
--- NOTE | 2018-04-14 03:36 | ERNOTE ---
<Maureen Mcknight - Last Filed: 04/14/18 07:58> Abdominal HPI - Narrative Date of Service: 04/14/18 - General Chief Complaint: Abdominal Pain Time Seen by Provider: 04/14/18 03:33 Source: patient, family - Immun/Allergies/Home Medications Immunizatons: IMMUNIZATION HX Immunizations Up to Date Yes History of Influenza Vaccine Yes Hx Pneumococcal Vaccination Yes Allergies/Adverse Reactions: Allergies pravastatin Adverse Reaction (Mild, Verified 04/06/18 16:35) Vomiting Home Medications: HOME MEDICATIONS amLODIPine BESYLATE [Norvasc] 5 mg PO DAILY 12/15/15 [Last Taken 01/15/16 07:30] hydrALAZINE HCL [Apresoline] 25 mg PO BID 12/15/15 [Last Taken Unknown] ALPRAZolam [Xanax] 0.25 mg PO Q6H PRN 04/07/18 [Last Taken Unknown] Acetaminophen with Codeine [Tylenol with Codeine #3 Tablet] 1 - 2 tab PO Q6H PRN 04/07/18 [Last Taken Unknown] Atorvastatin Calcium [Lipitor] 40 mg PO DAILY 04/07/18 [Last Taken Unknown] Citalopram Hydrobromide [Celexa] 10 mg PO DAILY 04/07/18 [Last Taken Unknown] Clopidogrel Bisulfate [Plavix] 75 mg PO DAILY 04/07/18 [Last Taken Unknown] Furosemide [Lasix] 20 mg PO BID 04/07/18 [Last Taken Unknown] Metoprolol Tartrate [Lopressor] 50 mg PO BID 04/07/18 [Last Taken Unknown] Pantoprazole Sodium [Protonix] 40 mg PO BID 04/07/18 [Last Taken Unknown] Warfarin Sodium [Coumadin] 1 mg PO DAILY 04/07/18 [Last Taken Unknown] - History of Present Illness Narrative: Patient is a 82-year-old female who presents to the emergency room complaining of similar pain for the past several is. The patient was admitted to the hospital a week ago for a similar set a symptom of the time she was seen by Dr. Pugh, general surgery and after CAT scan was consistent with extensive diverticulosis. In addition she also had colovesical fistula. She was a candidate for surgery or colonoscopy at that time. She was discharged from the hospital and here she is. She reports being nauseated but no other symptom Associated Symptoms: Present: nausea. Absent: headache, back pain, chest pain, neck pain, diaphoresis, diarrhea-gross blood, diarrhea-mucous, fatigue, fever/ chills, heartburn, vomiting, loss of appetite, shortness of breath, swelling/ mass in abdomen, syncope, weakness Review of Systems - Review of Systems All Other Systems: All systems neg except as marked Medical History (Last Reviewed 04/14/18 @ 03:14 by Kiarra Baker RN) Acute renal failure (ARF) Anemia Anxiety Atrial fibrillation CAD (coronary artery disease) COPD (chronic obstructive pulmonary disease) Chronic kidney disease Dehydration Depression Esophageal stricture GERD (gastroesophageal reflux disease) HTN (hypertension) History 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 dilatation 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 current use of anticoagulant therapy Osteoarthritis Surgical History: Surgical History (Last Reviewed 04/14/18 @ 03:14 by Kiarra Baker RN) H/O heart artery stent History of hysterectomy Previous back surgery Family History: Family History (Last Reviewed 04/14/18 @ 03:14 by Kiarra Baker RN) Father Myocardial infarction Hypertension Mother Colon cancer Social History: Preferred Language Belgian Smoking Status Never smoker Have you smoked in the past 12 No months Abuse History No History of abuse Psych History Hx of Anxiety,Currently on Meds Alcohol Use none Drug Use none Physical Exam - Physical Exam General Appearance: Present: wd/wn, alert, no apparent distress Head Exam: Present: normal inspection, no evidence of injury Eye Exam: Normal inspection: bilateral, PERRL: bilateral, EOMI: bilateral Neck: Present: normal inspection, nontender Respiratory: Present: no respiratory distress, normal breath sounds Cardiovascular/Chest: Present: regular rate, rhythm, no murmur, normal peripheral pulses Gastrointestinal/Abdominal: Present: normal bowel sounds, other - appears to have diffuse tenderness of the abdomen when palpated. Abdominal contours. Appears scaphoid in nature. 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 - Vital Signs Patient's Vital Signs:: I have reviewed the patient's vital signs. Vital Signs: Vital Signs 04/14/18 02:38 Temperature 36.9 C Pulse Rate 86 Respiratory Rate 18 Blood Pressure 140/74 O2 Sat by Pulse Oximetry 97 - Progress/Reassessment Chief Complaint: Abdominal Pain - Transfer of Care Physician Sign Out: Maureen Mcknight Receiving Physician: Kelsie Fletcher Pending Results: CT/MRI results Departure Clinical Impression: Acute hypokalemia Pancreatitis, acute Qualifiers: Pancreatitis type: unspecified pancreatitis type Acute pancreatitis complication: unspecified Qualified Code(s): K85.90 - Acute pancreatitis without necrosis or infection, unspecified UTI (urinary tract infection) Qualifiers: Urinary tract infection type: acute cystitis Hematuria presence: with hematuria Qualified Code(s): N30.01 - Acute cystitis with hematuria Diverticulosis Qualifiers: Diverticulosis site: diverticulosis of large intestine Diverticulosis bleeding : diverticulosis without bleeding Qualified Code(s): K57.30 - Diverticulosis of large intestine without perforation or abscess without bleeding - Departure Disposition: Still a patient Condition: Stable <Kelsie Fletcher - Last Filed: 04/14/18 09:37> Abdominal HPI - Immun/Allergies/Home Medications Immunizatons: IMMUNIZATION HX Immunizations Up to Date Yes History of Influenza Vaccine Yes Hx Pneumococcal Vaccination Yes Medical History (Last Reviewed 04/14/18 @ 03:14 by Kiarra Baker RN) Acute renal failure (ARF) Anemia Anxiety Atrial fibrillation CAD (coronary artery disease) COPD (chronic obstructive pulmonary disease) Chronic kidney disease Dehydration Depression Esophageal stricture GERD (gastroesophageal reflux disease) HTN (hypertension) History 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 dilatation 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 current use of anticoagulant therapy Osteoarthritis Surgical History: Surgical History (Last Reviewed 04/14/18 @ 03:14 by Kiarra Baker, RN) H/O heart artery stent History of hysterectomy Previous back surgery Family History: Family History (Last Reviewed 04/14/18 @ 03:14 by Kiarra Baker, RN) Father Myocardial infarction Hypertension Mother Colon cancer Social History: Preferred Language Belgian Smoking Status Never smoker Have you smoked in the past 12 No months Abuse History No History of abuse Psych History Hx of Anxiety,Currently on Meds Alcohol Use none Drug Use none Physical Exam - Physical Exam General Appearance: Present: wd/wn, alert, no apparent distress Respiratory: Present: no respiratory distress, normal breath sounds Gastrointestinal/Abdominal: Present: normal bowel sounds, nondistended, soft, tenderness - upper abomen and suprapubic. Absent: guarding, rebound Neurological Exam: Present: alert, oriented, normal mood/affect Skin Exam: Present: normal color ED Progress - Results and Orders Patient's Lab Results:: I have reviewed the patient's lab results. - Vital Signs Patient's Vital Signs:: I have reviewed the patient's vital signs. Vital Signs: Vital Signs 04/14/18 02:38 04/14/18 02:47 04/14/18 03:44 Temperature 36.9 C Pulse Rate 86 84 77 Respiratory Rate 18 18 24 H Blood Pressure 140/74 136/75 130/69 O2 Sat by Pulse Oximetry 97 98 97 04/14/18 04:17 04/14/18 04:47 04/14/18 05:53 Temperature Pulse Rate 74 83 82 Respiratory Rate 22 H 22 H 20 Blood Pressure 140/71 141/70 131/60 O2 Sat by Pulse Oximetry 97 95 97 04/14/18 06:59 04/14/18 07:48 04/14/18 08:13 Temperature 36.7 C Pulse Rate 90 89 85 Respiratory Rate 20 21 H 17 Blood Pressure 128/86 142/82 142/85 O2 Sat by Pulse Oximetry 97 97 96 04/14/18 08:36 Temperature Pulse Rate 94 Respiratory Rate 22 H Blood Pressure 145/91 H O2 Sat by Pulse Oximetry 95 - CT/Ultrasound CT/Ultrasound Narrative: CT abdomen pelvis: pancreatic swelling concerning for pancreatitis, colonvaginal fistula, diverticulosis without diverticulitis - Progress/Reassessment Progress Note-Subjective: 04/14/18 08:53 discussed test results with patient, offered admission for pancreatitis, patient agreed states that she has had more upper abdominal pain for about a week was admitted for vaginal bleeding (felt to be due to colonvaginal fistula and over anticoagulation), no diverticulitis at that time, patient did not want any intervention, urine cultures neg 04/14/18 08:57 discussed with ivelisse Villalpando to admit for pancreatitis and UTI, keep NPO, start IV fluids, rocephin for UTI per correctional counselor/case manager [place]: acute admission
[2018-04-14 03:46] LABS: Hematocrit 31.7 % (37.0-47.0); Mean Cell Volume 83.2 fl (78-100); Mean Corpuscular Hemoglobin 26.2 pg (27-31); Mean Corpuscular Hgb Conc 31.5 g/dl (32-36); Mean Platelet Volume 8.7 fl (8-12.5); Neutrophil # 15.4 K/mm3 (1.3-6.0); Neutrophil % 92.9 % (42-75.0); Platelet Count 350 K/mm3 (150-450); Red Blood Count 3.81 M/mm3 (4.2-5.4); Red Cell Distribution Width 20.5 % (11.5-14.0); White Blood Count 16.6 K/mm3 (4.0-10.5)
[2018-04-14 03:59] LABS: Albumin * 2.4 gm/dl (3.4-5.0); Anion Gap 11.4 mmol/L (6.8-13.8); BUN/Creatinine Ratio 22.4 (9.0-21.6); Bilirubin, Total 0.4 mg/dL (0.0-1.1); Ca. Corrected For Albumin 9.4 mg/dL (8.4-10.2); Calcium * 8.4 mg/dL (7.9-10.9); Carbon Dioxide 27.8 mmol/L (24-32.6); Potassium 3.2 mmol/L (3.4-4.6); Total Protein 5.9 gm/dL (6.2-8.2)
[2018-04-14 04:09] LABS: Urine Bilirubin Negative (NEGATIVE); Urine Blood 50 /ul (NEGATIVE); Urine Ketone Negative (NEGATIVE); Urine Nitrite Negative (NEGATIVE); Urine Protein 30 mg/dL (NEGATIVE); Urine Specific Gravity 1.015 SP.GR. (1.005-1.010); Urine Urobilinogen Normal (NORMAL); Urine pH 5.5 pH (5.0-7.0)
[2018-04-14 04:15] LABS: Urine Appearance Slightly Cloudy (CLEAR); Urine Color Yellow
[2018-04-14 04:16] LABS: Urine Bacteria 2+
[2018-04-14] MEDS ORDERED: DIATRIZOATE MEGLUMINE, SODIUM 30 ML BTL ONE (04:52)
[2018-04-14] MEDS ORDERED: ONDANSETRON 4 MG TAB.RAPDIS ONE (04:52)
[2018-04-14] MEDS ORDERED: DIATRIZOATE MEGLUMINE, SODIUM 30 ML BTL PO ONE (04:53)
[2018-04-14] MEDS ORDERED: ONDANSETRON 4 MG TAB.RAPDIS PO ONE (04:54)
[2018-04-14 08:21] LABS: Prothrombin Time (Patient) 28.8 Seconds (9.0-11.0)
[2018-04-14 08:25] LABS: INR 2.85 INR (0.90-1.10)
[2018-04-14 08:50] LABS: Amylase * 893 U/L (25-115); Lipase 3445 U/L (73-393)
[2018-04-14] MEDS ORDERED: POTASSIUM CHLORIDE 40 MEQ in NORMAL SALINE 1,000 ML IV SCH (09:15)
[2018-04-14] MEDS: POTASSIUM CHLORIDE 40 MEQ in NORMAL SALINE 1,000 ML IV SCH ×2 (10:53→18:34)
--- NOTE | 2018-04-14 11:35 | HP ---
Chief Complaint - Chief Complaint Date of Service: 04/14/18 Time of Service: 11:35 Chief Complaint: abdominal pain History of Present Illness: Tirosint. Is an 81-year-old white female, patient of Dr. Rice, with past medical history of atrial fibrillation, coronary artery disease, COPD, chronic kidney disease, hypertension, diverticulosis, colovaginal fistula, who was admitted for abdominal pain. She describes the pain as 7-8/10, stomach ache like, diffuse. She has associated nausea but no vomiting, diarrhea, or constipation. She also denied fever and chills. The abdominal pain has been going on for several days and she was just recently discharged from our hospital for a colovaginal fistula. She was not a surgical candidate and she also did not want any aggressive intervention done. Her abdominal pain got worse and so she went back to our emergency room where a CT scan of her abdomen and pelvis showed possible acute pancreatitis. It also showed small gallstones. Her amylase and lipase were elevated. Her urinalysis showed urinary tract infection. She was then admitted for further evaluation and treatment. She is a DNR and wants only comfort care should the time comes. Medical History (Last Reviewed 04/14/18 @ 03:14 by Kiarra Baker RN) Acute renal failure (ARF) Anemia Anxiety Atrial fibrillation CAD (coronary artery disease) COPD (chronic obstructive pulmonary disease) Chronic kidney disease Dehydration Depression Esophageal stricture GERD (gastroesophageal reflux disease) HTN (hypertension) History 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 dilatation [facility] current use of anticoagulant therapy Osteoarthritis Surgical History: Surgical History (Last Reviewed 04/14/18 @ 03:14 by Kiarra Baker RN) H/O heart artery stent History of hysterectomy Previous back surgery Family History: Family History (Last Reviewed 04/14/18 @ 03:14 by Kiarra Baker RN) Father Myocardial infarction Hypertension Mother Colon cancer Social History: Preferred Language Bahamian Smoking Status Never smoker Have you smoked in the past 12 No months Abuse History No History of abuse Psych History Hx of Anxiety,Currently on Meds Alcohol Use none Drug Use none Review Of Systems (GEN) - Review of Systems Generalized/Overall Review: Present: Weakness. Absent: Chills, Fever Respiratory: Absent: Cough, Shortness of Breath, Orthopnea Cardiac: Absent: Chest Pain, Edema, Palpitations Abdominal: Present: Nausea, Abdominal Pain. Absent: Vomiting, Constipation, Diarrhea Genitourinary: Absent: Urgency, Frequency Musculoskeletal: Present: Joint Pain Immunizations: IMMUNIZATION HX Immunizations Up to Date Yes History of Influenza Vaccine Yes Hx Pneumococcal Vaccination Yes Allergies/Adverse Reactions: Allergies Allergy/AdvReac Type Severity Reaction Status Date / Time pravastatin AdvReac Mild Vomiting Verified 04/06/18 16:35 Home Medications: HOME MEDICATIONS amLODIPine BESYLATE [Norvasc] 5 mg PO DAILY 12/15/15 [Last Taken 04/13/18] hydrALAZINE HCL [Apresoline] 25 mg PO BID 12/15/15 [Last Taken 04/13/18] ALPRAZolam [Xanax] 0.25 mg PO Q6H PRN 04/07/18 [Last Taken 04/13/18] Acetaminophen with Codeine [Tylenol with Codeine #3 Tablet] 1 - 2 tab PO Q6H PRN 04/07/18 [Last Taken 04/13/18] Atorvastatin Calcium [Lipitor] 40 mg PO DAILY 04/07/18 [Last Taken 04/13/18] Citalopram Hydrobromide [Celexa] 10 mg PO DAILY 04/07/18 [Last Taken 04/13/18] Furosemide [Lasix] 20 mg PO BID 04/07/18 [Last Taken 04/13/18] Metoprolol Tartrate [Lopressor] 50 mg PO BID 04/07/18 [Last Taken 04/13/18] Pantoprazole Sodium [Protonix] 40 mg PO BID 04/07/18 [Last Taken 04/13/18] Warfarin Sodium [Coumadin] 2.5 mg PO DAILY 04/07/18 [Last Taken 04/13/18] Exam - Exam Vital Signs: Vital Signs - Last Taken Temp 36.7 C 04/14/18 08:13 Pulse 101 H 04/14/18 09:14 Resp 19 04/14/18 09:14 BP 147/76 04/14/18 09:14 Pulse Ox 97 04/14/18 09:14 Constitutional: Present: Oriented x3, Cooperative, Elderly, Thin and frail ENT Exam: Present: hearing grossly normal Eye Exam: bilateral eye: normal inspection, PERRL, EOMI Neck: Present: supple Respiratory: Present: normal breath sounds. Absent: No rales, No wheezing Cardiovascular/Chest: Present: no JVD, systolic murmur, extra beats Abdomen: Present: soft, tender - allover but mostly on LLQ, negative Traore sign , hypoactive Extremity: Present: no pedal edema, no calf tenderness Diagnostic Studies: Abnormal Lab Results 04/14/18 04/14/18 04/14/18 Range/Units 03:40 03:40 03:40 WBC 16.6 H (4.0-10.5) K/mm3 RBC 3.81 L (4.2-5.4) M/mm3 Hgb 10.0 L (12.5-16.0) gm/dL Hct 31.7 L (37.0-47.0) % MCH 26.2 L (27-31) pg MCHC 31.5 L (32-36) g/dl RDW 20.5 H (11.5-14.0) % Immature Gran % (Auto) 0.60 H (0.001-0.429) % Immature Gran # (Auto) 0.10 H (0.000-0.0310) K/mm3 Neutrophils % 92.9 H (42-75.0) % Lymphocytes % 3.3 L (20-51) % Neutrophils # 15.4 H (1.3-6.0) K/mm3 Lymphocytes # 0.55 L (1.5-3.5) k/mm3 PT (9.0-11.0) Seconds INR (Anticoag Therapy) (0.90-1.10) INR Potassium 3.2 L (3.4-4.6) mmol/L Chloride 96 L (97-106) mmol/L BUN 32 H (3-23) mg/dL Creatinine 1.43 H (0.4-1.4) mg/dL Est GFR (Non-Af Amer) 37 L (60-130) mL/min BUN/Creatinine Ratio 22.4 H (9.0-21.6) Random Glucose 129 H (70-110) mg/dL ALT 12 L (19-67) U/L Total Protein 5.9 L (6.2-8.2) gm/dL Albumin 2.4 L (3.4-5.0) gm/dl Amylase 893 H (25-115) U/L Lipase 3445 H (73-393) U/L Urine Protein (NEGATIVE) mg/dL Urine Blood (NEGATIVE) /ul Ur Leukocyte Esterase (NEGATIVE) /ul Urine RBC (0-5) /hpf Urine WBC (0-5) /hpf Urine Bacteria (NONE) 04/14/18 04/14/18 Range/Units 03:40 03:54 WBC (4.0-10.5) K/mm3 RBC (4.2-5.4) M/mm3 Hgb (12.5-16.0) gm/dL Hct (37.0-47.0) % MCH (27-31) pg MCHC (32-36) g/dl RDW (11.5-14.0) % Immature Gran % (Auto) (0.001-0.429) % Immature Gran # (Auto) (0.000-0.0310) K/mm3 Neutrophils % (42-75.0) % Lymphocytes % (20-51) % Neutrophils # (1.3-6.0) K/mm3 Lymphocytes # (1.5-3.5) k/mm3 PT 28.8 H (9.0-11.0) Seconds INR (Anticoag Therapy) 2.85 H (0.90-1.10) INR Potassium (3.4-4.6) mmol/L Chloride (97-106) mmol/L BUN (3-23) mg/dL Creatinine (0.4-1.4) mg/dL Est GFR (Non-Af Amer) (60-130) mL/min BUN/Creatinine Ratio (9.0-21.6) Random Glucose (70-110) mg/dL ALT (19-67) U/L Total Protein (6.2-8.2) gm/dL Albumin (3.4-5.0) gm/dl Amylase (25-115) U/L Lipase (73-393) U/L Urine Protein 30 H (NEGATIVE) mg/dL Urine Blood 50 H (NEGATIVE) /ul Ur Leukocyte Esterase 75 H (NEGATIVE) /ul Urine RBC 10-25 H (0-5) /hpf Urine WBC 10-25 H (0-5) /hpf Urine Bacteria 2+ H (NONE) Laboratory Results WBC 16.6 K/mm3 (4.0-10.5) H 04/14/18 03:40 RBC 3.81 M/mm3 (4.2-5.4) L 04/14/18 03:40 Hgb 10.0 gm/dL (12.5-16.0) L 04/14/18 03:40 Hct 31.7 % (37.0-47.0) L 04/14/18 03:40 MCV 83.2 fl (78-100) 04/14/18 03:40 MCH 26.2 pg (27-31) L 04/14/18 03:40 MCHC 31.5 g/dl (32-36) L 04/14/18 03:40 RDW 20.5 % (11.5-14.0) H 04/14/18 03:40 Plt Count 350 K/mm3 (150-450) 04/14/18 03:40 MPV 8.7 fl (8-12.5) 04/14/18 03:40 Immature Gran % (Auto) 0.60 % (0.001-0.429) H 04/14/18 03:40 Immature Gran # (Auto) 0.10 K/mm3 (0.000-0.0310) H 04/14/18 03:40 Neutrophils % 92.9 % (42-75.0) H 04/14/18 03:40 Lymphocytes % 3.3 % (20-51) L 04/14/18 03:40 Monocytes % 3.1 % (0.0-9) 04/14/18 03:40 Eosinophils % 0.0 % (0.0-3.0) 04/14/18 03:40 Basophils % 0.1 % (0.0-1.0) 04/14/18 03:40 Nucleated RBC % 0.0 k/mm3 (0-1) 04/14/18 03:40 Neutrophils # 15.4 K/mm3 (1.3-6.0) H 04/14/18 03:40 Lymphocytes # 0.55 k/mm3 (1.5-3.5) L 04/14/18 03:40 Monocytes # 0.5 k/mm3 (0.0-1.0) 04/14/18 03:40 Eosinophils # 0.0 k/mm3 (0.0-0.7) 04/14/18 03:40 Absolute Basophils 0.0 k/mm3 (0.0-0.1) 04/14/18 03:40 PT 28.8 Seconds (9.0-11.0) H 04/14/18 03:40 INR (Anticoag Therapy) 2.85 INR (0.90-1.10) H 04/14/18 03:40 Sodium 132 mmol/L (132-142) 04/14/18 03:40 Plasma Sodium 132 mmol/L (130-142) 04/14/18 03:40 Potassium 3.2 mmol/L (3.4-4.6) L 04/14/18 03:40 Chloride 96 mmol/L (97-106) L 04/14/18 03:40 Carbon Dioxide 27.8 mmol/L (24-32.6) 04/14/18 03:40 Anion Gap 11.4 mmol/L (6.8-13.8) 04/14/18 03:40 BUN 32 mg/dL (3-23) H 04/14/18 03:40 Creatinine 1.43 mg/dL (0.4-1.4) H 04/14/18 03:40 Est GFR (Non-Af Amer) 37 mL/min (60-130) L 04/14/18 03:40 BUN/Creatinine Ratio 22.4 (9.0-21.6) H 04/14/18 03:40 Random Glucose 129 mg/dL (70-110) H 04/14/18 03:40 Calcium 8.4 mg/dL (7.9-10.9) 04/14/18 03:40 Calcium Adj for Albumin 9.4 mg/dL (8.4-10.2) 04/14/18 03:40 Total Bilirubin 0.4 mg/dL (0.0-1.1) 04/14/18 03:40 AST 21 U/L (0-48) 04/14/18 03:40 ALT 12 U/L (19-67) L 04/14/18 03:40 Alkaline Phosphatase 147 U/L (50-170) 04/14/18 03:40 Total Protein 5.9 gm/dL (6.2-8.2) L 04/14/18 03:40 Albumin 2.4 gm/dl (3.4-5.0) L 04/14/18 03:40 Amylase 893 U/L (25-115) H 04/14/18 03:40 Lipase 3445 U/L (73-393) H 04/14/18 03:40 Urine Color Yellow 04/14/18 03:54 Urine Appearance Slightly cloudy (CLEAR) 04/14/18 03:54 Urine pH 5.5 pH (5.0-7.0) 04/14/18 03:54 Ur Specific [place] 1.015 SP.GR. (1.005-1.010) 04/14/18 03:54 Urine Protein 30 mg/dL (NEGATIVE) H 04/14/18 03:54 Urine Glucose (UA) Negative mg/dL (NEGATIVE) 04/14/18 03:54 Urine Ketones Negative mg/dL (NEGATIVE) 04/14/18 03:54 Urine Blood 50 /ul (NEGATIVE) H 04/14/18 03:54 Urine Nitrate Negative (NEGATIVE) 04/14/18 03:54 Urine Bilirubin Negative mg/dl (NEGATIVE) 04/14/18 03:54 Prot Sulfosalicylic Acd 1+ mg/dL (0) 04/14/18 03:54 Urine Urobilinogen Normal EU/dl (NORMAL) 04/14/18 03:54 Ur Leukocyte Esterase 75 /ul (NEGATIVE) H 04/14/18 03:54 Urine RBC 10-25 /hpf (0-5) H 04/14/18 03:54 Urine WBC 10-25 /hpf (0-5) H 04/14/18 03:54 Ur Epithelial Cells 0-5 /hpf (0-5) 04/14/18 03:54 Urine Bacteria 2+ (NONE) H 04/14/18 03:54 Urine Culture Comments Culture to follow 04/14/18 03:54 Assessment/Plan - Assessment/Plan (1) Abdominal pain Assessment: due to acute pancreatitis. continue with IV pain meds. Problem: Acute Qualifiers: Abdominal location: generalized Qualified Code(s): R10.84 - Generalized abdominal pain (2) Pancreatitis, acute Assessment: likely due to GB stones. does not take alcohol. will US of the Gb and biliary tree. if dilated bile ducts , will get an MRCP. Problem: Acute Qualifiers: Pancreatitis type: biliary Acute pancreatitis complication: unspecified Qualified Code(s): K85.10 - Biliary acute pancreatitis without necrosis or infection (3) UTI (urinary tract infection) Assessment: h/o colovaginal fistula. will cover with IV rocephin for now. Problem: Acute Qualifiers: Urinary tract infection type: acute cystitis Hematuria presence: with hematuria Qualified Code(s): N30.01 - Acute cystitis with hematuria (4) Colovaginal fistula Assessment: not a surgical candidate. Problem: Acute (5) Diverticulosis Problem: Acute (6) Atrial fibrillation Problem: Chronic Qualifiers: Atrial fibrillation type: chronic Qualified Code(s): I48.2 - Chronic atrial fibrillation (7) Acute hypokalemia Assessment: will replenish. Problem: Acute
[2018-04-14] MEDS: PANTOPRAZOLE SODIUM 40 MG in NORMAL SALINE 100 ML IV SCH (12:50)
[2018-04-14] MEDS: WARFARIN SODIUM 1 MG TABLET PO SCH (17:27)
[2018-04-14] MEDS: hydrALAZINE HCL 25 MG TABLET PO SCH (20:49)
[2018-04-15] MEDS: POTASSIUM CHLORIDE 40 MEQ in NORMAL SALINE 1,000 ML IV SCH ×3 (01:27→16:21)
[2018-04-15] MEDS: CLOPIDOGREL BISULFATE 75 MG TABLET PO SCH (08:36)
[2018-04-15] MEDS: amLODIPine BESYLATE 5 MG TABLET PO SCH (08:37)
[2018-04-15] MEDS: hydrALAZINE HCL 25 MG TABLET PO SCH ×2 (09:57→20:35)
[2018-04-15] MEDS: PANTOPRAZOLE SODIUM 40 MG in NORMAL SALINE 100 ML IV SCH (12:03)
[2018-04-15] MEDS: WARFARIN SODIUM 1 MG TABLET PO SCH (16:22)
[2018-04-15] MEDS: HYDROmorphone HCL 1 MG/ML DISP.SYRIN IV PRN (20:43)
[2018-04-15 21:04] LABS: Hemoglobin 8.3 gm/dL (12.5-16.0); Mean Cell Volume 89.2 fl (78-100); Mean Corpuscular Hemoglobin 26.4 pg (27-31); Mean Corpuscular Hgb Conc 29.6 g/dl (32-36); Mean Platelet Volume 8.8 fl (8-12.5); Neutrophil # 12.4 K/mm3 (1.3-6.0); Neutrophil % 93.8 % (42-75.0); Platelet Count 252 K/mm3 (150-450); Red Blood Count 3.14 M/mm3 (4.2-5.4); Red Cell Distribution Width 22.5 % (11.5-14.0); White Blood Count 13.2 K/mm3 (4.0-10.5)
[2018-04-15 21:24] LABS: Anion Gap 20.1 mmol/L (6.8-13.8); BUN/Creatinine Ratio 20.6 (9.0-21.6); Bilirubin, Total 0.5 mg/dL (0.0-1.1); Calcium * 8.7 mg/dL (7.9-10.9); Carbon Dioxide 16.3 mmol/L (24-32.6); Potassium 6.4 mmol/L (3.4-4.6); Total Protein 5.3 gm/dL (6.2-8.2)
--- NOTE | 2018-04-15 21:35 | PN ---
Subjective - Date and Time Seen Date: 04/15/18 Time: 21:31 Subjective Narrative: Patient does not feel like eating yet. Some epigastric discomfort. Objective - Review of Systems Generalized/Overall Review: Denies: Chills, Fever Respiratory: Denies: Cough, Shortness of Breath Cardiac: Denies: Chest Pain, Palpitations Abdominal: Reports: Abdominal Pain. Denies: Nausea, Vomiting Genitourinary Symptoms: Denies: Urgency, Frequency Musculoskeletal Complaints: Reports: Joint Pain - Vitals Vitals: Last Vital Signs Temp 37.9 C 04/15/18 20:37 Pulse 102 H 04/15/18 20:37 Resp 20 04/15/18 20:37 BP 152/71 H 04/15/18 20:37 Pulse Ox 96 04/15/18 20:37 - Abnormal Lab Findings Abnormal Lab Findings: Abnormal Lab Results 04/15/18 04/15/18 Range/Units 20:55 20:55 WBC 13.2 H D (4.0-10.5) K/mm3 RBC 3.14 L (4.2-5.4) M/mm3 Hgb 8.3 L (12.5-16.0) gm/dL Hct 28.0 L (37.0-47.0) % MCH 26.4 L (27-31) pg MCHC 29.6 L (32-36) g/dl RDW 22.5 H (11.5-14.0) % Immature Gran % (Auto) 0.60 H (0.001-0.429) % Immature Gran # (Auto) 0.08 H (0.000-0.0310) K/mm3 Neutrophils % 93.8 H (42-75.0) % Lymphocytes % 2.9 L (20-51) % Neutrophils # 12.4 H (1.3-6.0) K/mm3 Lymphocytes # 0.38 L (1.5-3.5) k/mm3 Sodium 146 H (132-142) mmol/L Plasma Sodium 145 H (130-142) mmol/L Potassium 6.4 H D (3.4-4.6) mmol/L Chloride 116 H (97-106) mmol/L Carbon Dioxide 16.3 L (24-32.6) mmol/L Anion Gap 20.1 H (6.8-13.8) mmol/L Est GFR (Non-Af Amer) 58 L D (60-130) mL/min Random Glucose 61 L D (70-110) mg/dL ALT 7 L (19-67) U/L Total Protein 5.3 L (6.2-8.2) gm/dL Albumin 2.0 L (3.4-5.0) gm/dl Amylase 220 H (25-115) U/L - Exam Constitutional: Present: Alert, Oriented x3, Cooperative, Elderly, Thin and frail ENT Exam: Present: hearing grossly normal Neck: Present: supple Respiratory: Present: decreased breath sounds, No rales, No wheezing Cardiovascular/Chest: Present: no JVD, no murmur, irregularly irregular Abdomen: Present: soft, nontender, distended - slightly, hypoactive Extremity: Present: no pedal edema, no calf tenderness Assessment/Plan - Problems/Diagnosis (1) Abdominal pain Problem: Acute Qualifiers: Abdominal location: generalized Qualified Code(s): R10.84 - Generalized abdominal pain Narrative: epigastric. in IV protonix. continue with pain meds PrN. (2) Pancreatitis, acute Problem: Acute Qualifiers: Pancreatitis type: biliary Acute pancreatitis complication: unspecified Qualified Code(s): K85.10 - Biliary acute pancreatitis without necrosis or infection Narrative: continue IVF and pain meds. US showed no acute cholecystitis or dilated bile ducts. ADDENDUM: Her Lipase is back to normal. will start clear liquids. (3) UTI (urinary tract infection) Problem: Acute Qualifiers: Urinary tract infection type: acute cystitis Hematuria presence: with hematuria Qualified Code(s): N30.01 - Acute cystitis with hematuria (4) Colovaginal fistula Problem: Acute (5) Diverticulosis Problem: Acute (6) Atrial fibrillation Problem: Chronic Qualifiers: Atrial fibrillation type: chronic Qualified Code(s): I48.2 - Chronic atrial fibrillation (7) Acute hypokalemia Problem: Resolved Narrative: K now on the high side- 6.4. d/c IVF with KCl. will get an EKG. will give kayexalate or IV Lasix.
[2018-04-15] MEDS: NORMAL SALINE 1,000 ML IV PRN (22:35)
[2018-04-16] MEDS: HYDROmorphone HCL 1 MG/ML DISP.SYRIN IV PRN ×3 (05:12→19:55)
[2018-04-16] MEDS: NORMAL SALINE 1,000 ML IV PRN (05:16)
[2018-04-16 05:25] LABS: Prothrombin Time (Patient) 44.3 Seconds (9.0-11.0)
[2018-04-16 05:46] LABS: INR 4.36 INR (0.90-1.10)
[2018-04-16 08:16] LABS: Hematocrit 31.4 % (37.0-47.0); Mean Cell Volume 91.5 fl (78-100); Mean Corpuscular Hemoglobin 26.2 pg (27-31); Mean Corpuscular Hgb Conc 28.7 g/dl (32-36); Neutrophil # 14.2 K/mm3 (1.3-6.0); Neutrophil % 90.7 % (42-75.0); Platelet Count 369 K/mm3 (150-450); Red Blood Count 3.43 M/mm3 (4.2-5.4); Red Cell Distribution Width 22.6 % (11.5-14.0); White Blood Count 15.7 K/mm3 (4.0-10.5)
[2018-04-16 08:19] LABS: Anion Gap 19.6 mmol/L (6.8-13.8); Carbon Dioxide 13.1 mmol/L (24-32.6); Estimated Creat Clear 37.1; Potassium 4.7 mmol/L (3.4-4.6)
--- NOTE | 2018-04-16 08:42 | PN ---
Subjective - Date and Time Seen Date: 04/16/18 Time: 08:38 Subjective Narrative: Tolerated clear liquid. has been having diarrhea. Objective - Review of Systems Generalized/Overall Review: Denies: Chills, Fever Respiratory: Denies: Cough, Shortness of Breath Cardiac: Denies: Chest Pain, Edema, Palpitations Abdominal: Reports: Diarrhea. Denies: Nausea, Vomiting Genitourinary Symptoms: Denies: Urgency, Frequency - Vitals Vitals: Last Vital Signs Temp 36.5 C 04/16/18 04:15 Pulse 102 H 04/16/18 04:15 Resp 16 04/16/18 04:15 BP 141/72 04/16/18 04:15 Pulse Ox 95 04/16/18 04:15 - Abnormal Lab Findings Abnormal Lab Findings: Abnormal Lab Results 04/15/18 04/15/18 04/16/18 Range/Units 20:55 20:55 05:05 WBC 13.2 H D (4.0-10.5) K/mm3 RBC 3.14 L (4.2-5.4) M/mm3 Hgb 8.3 L (12.5-16.0) gm/dL Hct 28.0 L (37.0-47.0) % MCH 26.4 L (27-31) pg MCHC 29.6 L (32-36) g/dl RDW 22.5 H (11.5-14.0) % Immature Gran % (Auto) 0.60 H (0.001-0.429) % Immature Gran # (Auto) 0.08 H (0.000-0.0310) K/mm3 Neutrophils % 93.8 H (42-75.0) % Lymphocytes % 2.9 L (20-51) % Neutrophils # 12.4 H (1.3-6.0) K/mm3 Lymphocytes # 0.38 L (1.5-3.5) k/mm3 PT 44.3 H (9.0-11.0) Seconds INR (Anticoag Therapy) 4.36 H* (0.90-1.10) INR Sodium 146 H (132-142) mmol/L Plasma Sodium 145 H (130-142) mmol/L Potassium 6.4 H D (3.4-4.6) mmol/L Chloride 116 H (97-106) mmol/L Carbon Dioxide 16.3 L (24-32.6) mmol/L Anion Gap 20.1 H (6.8-13.8) mmol/L Est GFR (Non-Af Amer) 58 L D (60-130) mL/min Random Glucose 61 L D (70-110) mg/dL ALT 7 L (19-67) U/L Total Protein 5.3 L (6.2-8.2) gm/dL Albumin 2.0 L (3.4-5.0) gm/dl Amylase 220 H (25-115) U/L 04/16/18 04/16/18 Range/Units 08:10 08:10 WBC 15.7 H (4.0-10.5) K/mm3 RBC 3.43 L (4.2-5.4) M/mm3 Hgb 9.0 L (12.5-16.0) gm/dL Hct 31.4 L (37.0-47.0) % MCH 26.2 L (27-31) pg MCHC 28.7 L (32-36) g/dl RDW 22.6 H (11.5-14.0) % Immature Gran % (Auto) 1.30 H (0.001-0.429) % Immature Gran # (Auto) 0.20 H (0.000-0.0310) K/mm3 Neutrophils % 90.7 H (42-75.0) % Lymphocytes % 5.7 L (20-51) % Neutrophils # 14.2 H (1.3-6.0) K/mm3 Lymphocytes # 0.89 L (1.5-3.5) k/mm3 PT (9.0-11.0) Seconds INR (Anticoag Therapy) (0.90-1.10) INR Sodium 145 H (132-142) mmol/L Plasma Sodium 145 H (130-142) mmol/L Potassium 4.7 H D (3.4-4.6) mmol/L Chloride 117 H (97-106) mmol/L Carbon Dioxide 13.1 L (24-32.6) mmol/L Anion Gap 19.6 H (6.8-13.8) mmol/L Est GFR (Non-Af Amer) (60-130) mL/min Random Glucose 114 H D (70-110) mg/dL ALT (19-67) U/L Total Protein (6.2-8.2) gm/dL Albumin (3.4-5.0) gm/dl Amylase (25-115) U/L - Exam Constitutional: Present: Alert, Oriented x3, Cooperative, Elderly, Thin and frail ENT Exam: Present: hearing grossly normal Neck: Present: supple Respiratory: Present: decreased breath sounds, No rales, No wheezing Cardiovascular/Chest: Present: no JVD, systolic murmur, irregularly irregular Abdomen: Present: soft, nontender, distended, hypoactive Extremity: Present: no pedal edema, no calf tenderness Assessment/Plan - Problems/Diagnosis (1) Abdominal pain Problem: Acute Qualifiers: Abdominal location: generalized Qualified Code(s): R10.84 - Generalized abdominal pain (2) Pancreatitis, acute Problem: Resolved Qualifiers: Pancreatitis type: biliary Acute pancreatitis complication: unspecified Qualified Code(s): K85.10 - Biliary acute pancreatitis without necrosis or infection Narrative: tlerated clear. will progress to full. (3) UTI (urinary tract infection) Problem: Acute Qualifiers: Urinary tract infection type: acute cystitis Hematuria presence: with hematuria Qualified Code(s): N30.01 - Acute cystitis with hematuria Narrative: UCS growing e. Coli and Klebsiella Pneumonia- sensitive to rocephin (4) Colovaginal fistula Problem: Acute Narrative: will try touch base with surgeon. (5) Diverticulosis Problem: Acute (6) Atrial fibrillation Problem: Chronic Qualifiers: Atrial fibrillation type: chronic Qualified Code(s): I48.2 - Chronic atrial fibrillation (7) Acute hypokalemia Problem: Resolved Narrative: K 4.7 today (8) Diarrhea Problem: Acute Qualifiers: Diarrhea type: presumed infectious Qualified Code(s): R19.7 - Diarrhea, unspecified Narrative: will do stool for culture and CDiff.
[2018-04-16] MEDS: CLOPIDOGREL BISULFATE 75 MG TABLET PO SCH (08:51)
[2018-04-16] MEDS: amLODIPine BESYLATE 5 MG TABLET PO SCH (08:51)
[2018-04-16] MEDS: hydrALAZINE HCL 25 MG TABLET PO SCH ×2 (08:52→20:55)
[2018-04-16] MEDS ORDERED: FUROSEMIDE 10 MG/ML VIAL IV ONE (09:00)
[2018-04-16] MEDS: FUROSEMIDE 10 MG/ML VIAL IV ONE ×2 (09:06→09:13)
[2018-04-16] MEDS: 0.5 NORMAL SALINE 1,000 ML IV PRN ×2 (11:24→19:51)
[2018-04-16] MEDS: PANTOPRAZOLE SODIUM 40 MG in NORMAL SALINE 100 ML IV SCH (11:26)
[2018-04-17] MEDS: 0.5 NORMAL SALINE 1,000 ML IV PRN ×3 (04:01→21:06)
[2018-04-17] MEDS: HYDROmorphone HCL 1 MG/ML DISP.SYRIN IV PRN (04:18)
[2018-04-17 05:40] LABS: Prothrombin Time (Patient) 57.5 Seconds (9.0-11.0)
[2018-04-17 06:00] LABS: INR 5.65 INR (0.90-1.10)
[2018-04-17 08:09] LABS: Hematocrit 31.8 % (37.0-47.0); Hemoglobin 9.3 gm/dL (12.5-16.0); Mean Cell Volume 89.3 fl (78-100); Mean Corpuscular Hemoglobin 26.1 pg (27-31); Mean Corpuscular Hgb Conc 29.2 g/dl (32-36); Neutrophil # 12.1 K/mm3 (1.3-6.0); Neutrophil % 89.3 % (42-75.0); Platelet Count 348 K/mm3 (150-450); Red Blood Count 3.56 M/mm3 (4.2-5.4); Red Cell Distribution Width 21.9 % (11.5-14.0); White Blood Count 13.5 K/mm3 (4.0-10.5)
[2018-04-17 08:18] LABS: Anion Gap 12.5 mmol/L (6.8-13.8); BUN/Creatinine Ratio 13.3 (9.0-21.6); Estimated Creat Clear 39.2; Potassium 3.5 mmol/L (3.4-4.6)
[2018-04-17] MEDS: amLODIPine BESYLATE 5 MG TABLET PO SCH (08:50)
[2018-04-17] MEDS: CLOPIDOGREL BISULFATE 75 MG TABLET PO SCH (08:50)
[2018-04-17] MEDS: hydrALAZINE HCL 25 MG TABLET PO SCH ×2 (08:50→21:07)
--- NOTE | 2018-04-17 10:47 | PN ---
Subjective - Date and Time Seen Date: 04/17/18 Time: 10:41 Subjective Narrative: Patient is complaining of back pain. Wants to know what can be done for her colovaginal fistula. Objective - Review of Systems Generalized/Overall Review: Reports: Weakness. Denies: Chills, Fever Respiratory: Denies: Cough, Shortness of Breath Cardiac: Denies: Chest Pain, Edema, Palpitations Abdominal: Denies: Nausea, Vomiting Musculoskeletal Complaints: Reports: Back Pain, Other - unsteady gait - Vitals Vitals: Last Vital Signs Temp 36.6 C 04/17/18 10:14 Pulse 105 H 04/17/18 10:14 Resp 18 04/17/18 10:14 BP 153/83 H 04/17/18 10:14 Pulse Ox 95 04/17/18 10:14 - Abnormal Lab Findings Abnormal Lab Findings: Abnormal Lab Results 04/17/18 04/17/18 04/17/18 Range/Units 05:30 07:51 07:51 WBC 13.5 H (4.0-10.5) K/mm3 RBC 3.56 L (4.2-5.4) M/mm3 Hgb 9.3 L (12.5-16.0) gm/dL Hct 31.8 L (37.0-47.0) % MCH 26.1 L (27-31) pg MCHC 29.2 L (32-36) g/dl RDW 21.9 H (11.5-14.0) % Immature Gran % (Auto) 1.00 H (0.001-0.429) % Immature Gran # (Auto) 0.13 H (0.000-0.0310) K/mm3 Neutrophils % 89.3 H (42-75.0) % Lymphocytes % 6.4 L (20-51) % Neutrophils # 12.1 H (1.3-6.0) K/mm3 Lymphocytes # 0.86 L (1.5-3.5) k/mm3 PT 57.5 H (9.0-11.0) Seconds INR (Anticoag Therapy) 5.65 H* (0.90-1.10) INR Chloride 110 H (97-106) mmol/L Carbon Dioxide 21.0 L (24-32.6) mmol/L - Exam Constitutional: Present: Alert, Oriented x3, Cooperative, Elderly, Thin and frail ENT Exam: Present: hearing grossly normal Neck: Present: supple Respiratory: Present: normal breath sounds, No rales, No wheezing Cardiovascular/Chest: Present: no JVD, no murmur, tachycardia, irregularly irregular Abdomen: Present: Normal bowel sounds, soft, tender, distended - slightly Extremity: Present: no pedal edema, no calf tenderness Assessment/Plan - Problems/Diagnosis (1) Abdominal pain Problem: Acute Qualifiers: Abdominal location: generalized Qualified Code(s): R10.84 - Generalized abdominal pain (2) Pancreatitis, acute Problem: Resolved Qualifiers: Pancreatitis type: biliary Acute pancreatitis complication: unspecified Qualified Code(s): K85.10 - Biliary acute pancreatitis without necrosis or infection (3) UTI (urinary tract infection) Problem: Acute Qualifiers: Urinary tract infection type: acute cystitis Hematuria presence: with hematuria Qualified Code(s): N30.01 - Acute cystitis with hematuria (4) Colovaginal fistula Problem: Acute (5) Diverticulosis Problem: Acute (6) Atrial fibrillation Problem: Chronic Qualifiers: Atrial fibrillation type: chronic Qualified Code(s): I48.2 - Chronic atrial fibrillation (7) Acute hypokalemia Problem: Resolved (8) Diarrhea Problem: Suspected Qualifiers: Diarrhea type: presumed infectious Qualified Code(s): R19.7 - Diarrhea, unspecified (9) Unsteady gait Problem: Acute Narrative: will refer to PT. will need a walker. (10) Low back pain Problem: Acute Narrative: will refer to PT
[2018-04-17] MEDS: PANTOPRAZOLE SODIUM 40 MG in NORMAL SALINE 100 ML IV SCH (12:29)
--- NOTE | 2018-04-17 15:08 | PN ---
Donald Note - Interim Date: 04/17/18 Time: 15:05 Narrative: 04/17/18 15:05 Her MMSE showed a score of 20/30. I talked to the son that Venkata talked to Dr. Rothman that theleast he can do is do a colostomy and hope the vaginal fistula closes off. This will prevent also recurrent UTI's . This is if they want ot be aggressive with thcare of his mother. He will think about it and talk with the mother.
[2018-04-17] MEDS: oxyCODONE HCL/ACETAMINOPHEN 1 TAB TABLET PO PRN ×2 (16:21→21:07)
[2018-04-18] MEDS: oxyCODONE HCL/ACETAMINOPHEN 1 TAB TABLET PO PRN ×4 (04:42→21:19)
[2018-04-18] MEDS: 0.5 NORMAL SALINE 1,000 ML IV PRN (05:20)
[2018-04-18 06:32] LABS: INR 3.55 INR (0.90-1.10)
[2018-04-18] MEDS: CLOPIDOGREL BISULFATE 75 MG TABLET PO SCH (08:53)
[2018-04-18] MEDS: hydrALAZINE HCL 25 MG TABLET PO SCH ×2 (08:54→21:19)
[2018-04-18] MEDS: amLODIPine BESYLATE 5 MG TABLET PO SCH (08:54)
[2018-04-18 09:25] LABS: Hematocrit 25.1 % (37.0-47.0); Mean Cell Volume 87.8 fl (78-100); Mean Corpuscular Hemoglobin 26.6 pg (27-31); Mean Corpuscular Hgb Conc 30.3 g/dl (32-36); Mean Platelet Volume 9.4 fl (8-12.5); Neutrophil # 8.7 K/mm3 (1.3-6.0); Neutrophil % 89.8 % (42-75.0); Platelet Count 251 K/mm3 (150-450); Red Blood Count 2.86 M/mm3 (4.2-5.4); Red Cell Distribution Width 20.9 % (11.5-14.0); White Blood Count 9.7 K/mm3 (4.0-10.5)
[2018-04-18 09:39] LABS: Hemoglobin 7.6 gm/dL (12.5-16.0)
--- NOTE | 2018-04-18 12:05 | PN ---
Subjective - Date and Time Seen Date: 04/18/18 Time: 12:02 Subjective Narrative: Patient is lightheaded and dizzy when she stands up and walk. She feels weak. Hb is down to 7.4. WBC back to normal . INR 3.55 Objective - Review of Systems Generalized/Overall Review: Reports: Weakness. Denies: Chills, Fever Respiratory: Denies: Shortness of Breath Cardiac: Denies: Chest Pain, Edema, Palpitations Abdominal: Denies: Nausea, Vomiting, Melena Genitourinary Symptoms: Denies: Urgency, Frequency, Hematuria Musculoskeletal Complaints: Reports: Joint Pain - Vitals Vitals: Last Vital Signs Temp 37.0 C 04/18/18 11:15 Pulse 127 H 04/18/18 11:15 Resp 16 04/18/18 11:15 BP 184/88 H 04/18/18 11:15 Pulse Ox 94 04/18/18 11:15 - Abnormal Lab Findings Abnormal Lab Findings: Abnormal Lab Results 04/18/18 04/18/18 Range/Units 05:40 Unknown RBC 2.86 L (4.2-5.4) M/mm3 Hgb 7.6 L* (12.5-16.0) gm/dL Hct 25.1 L (37.0-47.0) % MCH 26.6 L (27-31) pg MCHC 30.3 L (32-36) g/dl RDW 20.9 H (11.5-14.0) % Immature Gran % (Auto) 1.10 H (0.001-0.429) % Immature Gran # (Auto) 0.11 H (0.000-0.0310) K/mm3 Neutrophils % 89.8 H (42-75.0) % Lymphocytes % 4.5 L (20-51) % Neutrophils # 8.7 H (1.3-6.0) K/mm3 Lymphocytes # 0.44 L (1.5-3.5) k/mm3 PT 36.0 H (9.0-11.0) Seconds INR (Anticoag Therapy) 3.55 H (0.90-1.10) INR - Exam Constitutional: Present: Alert, Oriented x3, Cooperative, Elderly Neck: Present: supple Respiratory: Present: decreased breath sounds, No rales, No wheezing Cardiovascular/Chest: Present: no JVD, no murmur, irregularly irregular Abdomen: Present: Normal bowel sounds, nontender, no rebound tenderness, distended Extremity: Present: no pedal edema, no calf tenderness Assessment/Plan - Problems/Diagnosis (1) Abdominal pain Problem: Acute Qualifiers: Abdominal location: generalized Qualified Code(s): R10.84 - Generalized abdominal pain (2) Pancreatitis, acute Problem: Resolved Qualifiers: Pancreatitis type: biliary Acute pancreatitis complication: unspecified Qualified Code(s): K85.10 - Biliary acute pancreatitis without necrosis or infection (3) UTI (urinary tract infection) Problem: Acute Qualifiers: Urinary tract infection type: acute cystitis Hematuria presence: with hematuria Qualified Code(s): N30.01 - Acute cystitis with hematuria Narrative: Klebsiella Pneumonia and e. Coli sensitive to Rocephin. WBC back to normal. (4) Colovaginal fistula Problem: Acute Narrative: will make an appointment iw Dr. price as outpatient to talk about possible colostomy as an elective procedure. (5) Diverticulosis Problem: Acute (6) Atrial fibrillation Problem: Chronic Qualifiers: Atrial fibrillation type: chronic Qualified Code(s): I48.2 - Chronic atrial fibrillation (7) Acute hypokalemia Problem: Resolved (8) Diarrhea Problem: Suspected Qualifiers: Diarrhea type: presumed infectious Qualified Code(s): R19.7 - Diarrhea, unspecified (9) Unsteady gait Problem: Acute (10) Low back pain Problem: Acute (11) Anemia Problem: Acute Narrative: will do anemia work up and stool for occult blood. will give 2 units PRBC. possible discharge tomorrow or Friday.
[2018-04-18 12:26] LABS: Iron 19 mcg/dL (35-120); Transferrin Sat. (% Sat.) 15 % (15-55)
[2018-04-18 12:53] LABS: Folate 5.4 ng/mL (8.6-58.9)
[2018-04-18] MEDS: PANTOPRAZOLE SODIUM 40 MG in NORMAL SALINE 100 ML IV SCH (13:06)
[2018-04-18] MEDS ORDERED: METOPROLOL TARTRATE 1 MG/ML AMPUL IV ONE (13:54)
[2018-04-18] MEDS ORDERED: FUROSEMIDE 10 MG/ML VIAL IV ONE (16:00)
[2018-04-18] MEDS ORDERED: FUROSEMIDE 10 MG/ML VIAL ONE (18:23)
[2018-04-18] MEDS: METOPROLOL TARTRATE 25 MG TABLET PO SCH (21:20)
[2018-04-18] MEDS: POTASSIUM CHLORIDE 40 MEQ in NORMAL SALINE 1,000 ML IV SCH (21:31)
[2018-04-18 23:24] LABS: Hematocrit 39.2 % (37.0-47.0); Hemoglobin 12.8 gm/dL (12.5-16.0)
[2018-04-19] MEDS: oxyCODONE HCL/ACETAMINOPHEN 1 TAB TABLET PO PRN ×4 (04:01→20:24)
[2018-04-19 06:07] LABS: Prothrombin Time (Patient) 20.7 Seconds (9.0-11.0)
[2018-04-19 06:18] LABS: INR 2.05 INR (0.90-1.10)
[2018-04-19] MEDS: amLODIPine BESYLATE 5 MG TABLET PO SCH (08:20)
[2018-04-19] MEDS: CLOPIDOGREL BISULFATE 75 MG TABLET PO SCH (08:21)
[2018-04-19] MEDS: METOPROLOL TARTRATE 25 MG TABLET PO SCH (08:21)
[2018-04-19] MEDS: hydrALAZINE HCL 25 MG TABLET PO SCH ×2 (08:21→20:25)
--- NOTE | 2018-04-19 08:37 | PN ---
Subjective - Date and Time Seen Date: 04/19/18 Time: 08:30 Subjective Narrative: Patient received 2 units yesterday. BP on the high side. HR is in the 90's. Objective - Review of Systems Generalized/Overall Review: Reports: Weakness. Denies: Chills, Fever Respiratory: Denies: Cough, Shortness of Breath Cardiac: Denies: Chest Pain, Edema, Palpitations Abdominal: Denies: Nausea, Vomiting, Abdominal Pain Genitourinary Symptoms: Denies: Urgency, Frequency - Vitals Vitals: Last Vital Signs Temp 36.5 C 04/19/18 06:30 Pulse 95 04/19/18 08:21 Resp 12 04/19/18 06:30 BP 161/83 H 04/19/18 08:21 Pulse Ox 93 04/19/18 06:30 - Abnormal Lab Findings Abnormal Lab Findings: Abnormal Lab Results 04/18/18 04/18/18 04/18/18 Range/Units 05:40 05:40 12:00 RBC (4.2-5.4) M/mm3 Hgb (12.5-16.0) gm/dL Hct (37.0-47.0) % MCH (27-31) pg MCHC (32-36) g/dl RDW (11.5-14.0) % Immature Gran % (Auto) (0.001-0.429) % Immature Gran # (Auto) (0.000-0.0310) K/mm3 Neutrophils % (42-75.0) % Lymphocytes % (20-51) % Neutrophils # (1.3-6.0) K/mm3 Lymphocytes # (1.5-3.5) k/mm3 PT (9.0-11.0) Seconds INR (Anticoag Therapy) (0.90-1.10) INR Iron 19 L (35-120) mcg/dL TIBC 125 L (260-445) mcg/dL Folate 5.4 L (8.6-58.9) ng/mL Crossmatch See Detail 04/18/18 04/19/18 Range/Units Unknown 05:55 RBC 2.86 L (4.2-5.4) M/mm3 Hgb 7.6 L* (12.5-16.0) gm/dL Hct 25.1 L (37.0-47.0) % MCH 26.6 L (27-31) pg MCHC 30.3 L (32-36) g/dl RDW 20.9 H (11.5-14.0) % Immature Gran % (Auto) 1.10 H (0.001-0.429) % Immature Gran # (Auto) 0.11 H (0.000-0.0310) K/mm3 Neutrophils % 89.8 H (42-75.0) % Lymphocytes % 4.5 L (20-51) % Neutrophils # 8.7 H (1.3-6.0) K/mm3 Lymphocytes # 0.44 L (1.5-3.5) k/mm3 PT 20.7 H (9.0-11.0) Seconds INR (Anticoag Therapy) 2.05 H (0.90-1.10) INR Iron (35-120) mcg/dL TIBC (260-445) mcg/dL Folate (8.6-58.9) ng/mL Crossmatch - Exam Constitutional: Present: Alert, Oriented x3, Cooperative, Elderly, Thin and frail ENT Exam: Present: hearing grossly normal Neck: Present: supple Respiratory: Present: decreased breath sounds, No rales, No wheezing Cardiovascular/Chest: Present: no JVD, no murmur, irregularly irregular Abdomen: Present: Normal bowel sounds, soft, tender - sloght, distended - slight. Absent: rebound tenderness Extremity: Present: no pedal edema, no calf tenderness Assessment/Plan - Problems/Diagnosis (1) Abdominal pain Problem: Resolved Qualifiers: Abdominal location: generalized Qualified Code(s): R10.84 - Generalized abdominal pain (2) Pancreatitis, acute Problem: Resolved Qualifiers: Pancreatitis type: biliary Acute pancreatitis complication: unspecified Qualified Code(s): K85.10 - Biliary acute pancreatitis without necrosis or infection (3) UTI (urinary tract infection) Problem: Acute Qualifiers: Urinary tract infection type: acute cystitis Hematuria presence: with hematuria Qualified Code(s): N30.01 - Acute cystitis with hematuria Narrative: WBC down to normal. E.Mario and Klebsiella. Day #6 if IV rocephin. possible discharge tomorrow. (4) Colovaginal fistula Problem: Acute Narrative: will likely need colostomy (5) Diverticulosis Problem: Chronic Qualifiers: Diverticulosis site: diverticulosis of large intestine (6) Atrial fibrillation Problem: Chronic Qualifiers: Atrial fibrillation type: chronic Qualified Code(s): I48.2 - Chronic atrial fibrillation Narrative: had RVR yesterday (7) Acute hypokalemia Problem: Resolved (8) Diarrhea Problem: Resolved Qualifiers: Diarrhea type: presumed infectious Qualified Code(s): R19.7 - Diarrhea, unspecified (9) Unsteady gait Problem: Acute (10) Low back pain Problem: Acute (11) Anemia Problem: Acute Qualifiers: Anemia type: iron deficiency Narrative: will likely need colonoscopy/EGD as an outpatient (12) Dementia Problem: Acute Qualifiers: Dementia type: Alzheimer's disease Alzheimer's disease onset: late-onset Narrative: MMSE 20/30. keeps on forgetting what we discussed about what we are going to do aboput her colovaginafistula. I told her I already discussed with her son and will schedule her an appointment with Dr. Rothman when she gets discharge.
[2018-04-19 08:52] LABS: Hematocrit 41.4 % (37.0-47.0); Hemoglobin 13.6 gm/dL (12.5-16.0)
[2018-04-19 08:58] LABS: Anion Gap 10.7 mmol/L (6.8-13.8); BUN/Creatinine Ratio 11.3 (9.0-21.6); Calcium * 8.3 mg/dL (7.9-10.9); Estimated Creat Clear 44.1; Potassium 3.7 mmol/L (3.4-4.6)
[2018-04-19] MEDS ORDERED: METOPROLOL TARTRATE 25 MG TABLET PO ONE (09:00)
[2018-04-19] MEDS: PANTOPRAZOLE SODIUM 40 MG in NORMAL SALINE 100 ML IV SCH (11:35)
[2018-04-19] MEDS: METOPROLOL TARTRATE 50 MG TABLET PO SCH (20:24)
[2018-04-20] MEDS: oxyCODONE HCL/ACETAMINOPHEN 1 TAB TABLET PO PRN ×2 (04:12→13:11)
[2018-04-20 06:27] LABS: Prothrombin Time (Patient) 13.9 Seconds (9.0-11.0)
[2018-04-20 06:31] LABS: INR 1.39 INR (0.90-1.10)
--- NOTE | 2018-04-20 08:09 | DS ---
(1) Abdominal pain Problem: Resolved Qualifiers: Abdominal location: generalized Qualified Code(s): R10.84 - Generalized abdominal pain (2) Pancreatitis, acute Diagnosis(s): likely due to GB stone which spontaneously passed as lipase from 3000+ went back to normal the following day Problem: Resolved Qualifiers: Pancreatitis type: biliary Acute pancreatitis complication: unspecified Qualified Code(s): K85.10 - Biliary acute pancreatitis without necrosis or infection (3) UTI (urinary tract infection) Diagnosis(s): E.Coli and Klebsiella treated with Rocephin Problem: Resolved Qualifiers: Urinary tract infection type: acute cystitis Hematuria presence: with hematuria Qualified Code(s): N30.01 - Acute cystitis with hematuria (4) Colovaginal fistula Diagnosis(s): for possible colostomy on OPD basis electively Problem: Acute (5) Diverticulosis Problem: Chronic Qualifiers: Diverticulosis site: diverticulosis of large intestine (6) Atrial fibrillation Problem: Chronic Qualifiers: Atrial fibrillation type: chronic Qualified Code(s): I48.2 - Chronic atrial fibrillation (7) Acute hypokalemia Problem: Resolved (8) Diarrhea Problem: Resolved Qualifiers: Diarrhea type: presumed infectious Qualified Code(s): R19.7 - Diarrhea, unspecified (9) Unsteady gait Problem: Acute (10) Low back pain Problem: Acute (11) Anemia Diagnosis(s): s/p BT due to symptomatic anemia. will likely ly need endoscopic procedure on OPD basis. awaiting stool for occult blood. this could likely be due to anemia of chronic disease and folate deficieincy. ADDENDUM : patient was not able to give stool sample. Problem: Acute Qualifiers: Anemia type: iron deficiency (12) Dementia Problem: Acute Qualifiers: Dementia type: Alzheimer's disease Alzheimer's disease onset: late-onset Description of Stay: Ilana Nascimento, an 81-year-old white female, patient of Dr. Rice, with past medical history of atrial fibrillation, coronary artery disease, COPD , chronic kidney disease, hypertension, diverticulosis, colovaginal fistula, who was admitted for abdominal pain. She describes the pain as 7-8/10, stomach ache like, diffuse. She has associated nausea but no vomiting, diarrhea, or constipation. She also denied fever and chills. The abdominal pain has been going on for several days and she was just recently discharged from our hospital for a colovaginal fistula. She was not a surgical candidate and she also did not want any aggressive intervention done. Her abdominal pain got worse and so she went back to our emergency room where a CT scan of her abdomen and pelvis showed possible acute pancreatitis. It also showed small gallstones. Her amylase and lipase were elevated. Her urinalysis showed urinary tract infection. She was then admitted for further evaluation and treatment. She was a DNR and wants only comfort care should the time comes. Her lipase went back down to normal the following day likely due a GB stone which passed. Her GB US showed no acute cholecystitis and her biliary duct was not dilated. She was started on IV rocephin for UTI as well. It grew E.Coli and klebsiella. Her WBC notmalized on the 5 th day. her INR was went up to 5.8. She also had symptomatic anemia and received PRBC. She is stable now to be discharge and will make an appointment with Dr. Rothman for her colovaginalfistula and possible endoscopic procedure. She could not give us a sample for stool for occult blood today. Will also hold her Clopidrogel and Coumadin for now. Follow up with her PCP next week. She will need a follow up CBC and INR. Procedures Performed: none Results and Findings: Pending Mircobiology Results 04/16/18 Unknown Stool Stool Culture - Preliminary No Pathogens Isolated Lab Pending Results 04/14/18 03:40: WBC 16.6 H, RBC 3.81 L, Hgb 10.0 L, Hct 31.7 L, MCV 83.2, MCH 26.2 L, MCHC 31.5 L, RDW 20.5 H, Plt Count 350, MPV 8.7, Immature Gran % (Auto) 0.60 H, Immature Gran # (Auto) 0.10 H, Neutrophils % 92.9 H, Lymphocytes % 3.3 L , Monocytes % 3.1, Eosinophils % 0.0, Basophils % 0.1, Nucleated RBC % 0.0, Neutrophils # 15.4 H, Lymphocytes # 0.55 L, Monocytes # 0.5, Eosinophils # 0.0, Absolute Basophils 0.0 04/14/18 03:40: Sodium 132, Plasma Sodium 132, Potassium 3.2 L, Chloride 96 L, Carbon Dioxide 27.8, Anion Gap 11.4, BUN 32 H, Creatinine 1.43 H, Est GFR (Non- Af Amer) 37 L, BUN/Creatinine Ratio 22.4 H, Random Glucose 129 H, Calcium 8.4, Calcium Adj for Albumin 9.4, Total Bilirubin 0.4, AST 21, ALT 12 L, Alkaline Phosphatase 147, Total Protein 5.9 L, Albumin 2.4 L 04/14/18 03:40: Amylase 893 H, Lipase 3445 H 04/14/18 03:40: PT 28.8 H, INR (Anticoag Therapy) 2.85 H 04/14/18 03:54: Urine Color Yellow, Urine Appearance Slightly cloudy, Urine pH 5.5, Ur Specific [place] 1.015, Urine Protein 30 H, Urine Glucose (UA) Negative , Urine Ketones Negative, Urine Blood 50 H, Urine Nitrate Negative, Urine Bilirubin Negative, Prot Sulfosalicylic Acd 1+, Urine Urobilinogen Normal, Ur Leukocyte Esterase 75 H, Urine RBC 10-25 H, Urine WBC 10-25 H, Ur Epithelial Cells 0-5, Urine Bacteria 2+ H, Urine Culture Comments Culture to follow 04/15/18 20:55: WBC 13.2 H D, RBC 3.14 L, Hgb 8.3 L, Hct 28.0 L, MCV 89.2, MCH 26.4 L, MCHC 29.6 L, RDW 22.5 H, Plt Count 252, MPV 8.8, Immature Gran % (Auto) 0.60 H, Immature Gran # (Auto) 0.08 H, Neutrophils % 93.8 H, Lymphocytes % 2.9 L , Monocytes % 2.7, Eosinophils % 0.0, Basophils % 0.0, Nucleated RBC % 0.0, Neutrophils # 12.4 H, Lymphocytes # 0.38 L, Monocytes # 0.4, Eosinophils # 0.0, Absolute Basophils 0.0 04/15/18 20:55: Sodium 146 H, Plasma Sodium 145 H, Potassium 6.4 H D, Chloride 116 H, Carbon Dioxide 16.3 L, Anion Gap 20.1 H, BUN 20, Creatinine 0.97, Est GFR (Non-Af Amer) 58 L D, BUN/Creatinine Ratio 20.6, Random Glucose 61 L D, Calcium 8.7, Calcium Adj for Albumin 10.0, Total Bilirubin 0.5, AST 20, ALT 7 L , Alkaline Phosphatase 137, Total Protein 5.3 L, Albumin 2.0 L, Amylase 220 H, Lipase 200 04/16/18 05:05: PT 44.3 H, INR (Anticoag Therapy) 4.36 H* 04/16/18 08:10: Sodium 145 H, Plasma Sodium 145 H, Potassium 4.7 H D, Chloride 117 H, Carbon Dioxide 13.1 L, Anion Gap 19.6 H, BUN 19, Creatinine 0.95, Est GFR (Non-Af Amer) 60, BUN/Creatinine Ratio 20.0, Random Glucose 114 H D, Calcium 9.0 04/16/18 08:10: WBC 15.7 H, RBC 3.43 L, Hgb 9.0 L, Hct 31.4 L, MCV 91.5, MCH 26.2 L, MCHC 28.7 L, RDW 22.6 H, Plt Count 369, MPV 9.0, Immature Gran % (Auto) 1.30 H, Immature Gran # (Auto) 0.20 H, Neutrophils % 90.7 H, Lymphocytes % 5.7 L , Monocytes % 2.2, Eosinophils % 0.0, Basophils % 0.1, Nucleated RBC % 0.0, Neutrophils # 14.2 H, Lymphocytes # 0.89 L, Monocytes # 0.4, Eosinophils # 0.0, Absolute Basophils 0.0 04/16/18 : Stl C.difficile Tox A&B Negative 04/17/18 05:30: PT 57.5 H, INR (Anticoag Therapy) 5.65 H* 04/17/18 07:51: WBC 13.5 H, RBC 3.56 L, Hgb 9.3 L, Hct 31.8 L, MCV 89.3, MCH 26.1 L, MCHC 29.2 L, RDW 21.9 H, Plt Count 348, MPV 9.0, Immature Gran % (Auto) 1.00 H, Immature Gran # (Auto) 0.13 H, Neutrophils % 89.3 H, Lymphocytes % 6.4 L , Monocytes % 2.9, Eosinophils % 0.2, Basophils % 0.2, Nucleated RBC % 0.0, Neutrophils # 12.1 H, Lymphocytes # 0.86 L, Monocytes # 0.4, Eosinophils # 0.0, Absolute Basophils 0.0 04/17/18 07:51: Sodium 140, Plasma Sodium 140, Potassium 3.5 D, Chloride 110 H , Carbon Dioxide 21.0 L, Anion Gap 12.5, BUN 12, Creatinine 0.90, Est GFR (Non- Af Amer) 64, BUN/Creatinine Ratio 13.3, Random Glucose 105, Calcium 9.0 04/18/18 05:40: PT 36.0 H, INR (Anticoag Therapy) 3.55 H 04/18/18 05:40: Iron 19 L, TIBC 125 L, Transferrin % Sat 04/18/18 05:40: Ferritin 237, Vitamin B12 970, Folate 5.4 L 04/18/18 12:00: Blood Type O Positive, Antibody Screen Negative, Crossmatch See Detail 04/18/18 23:20: Hgb 12.8, Hct 39.2 04/18/18 : WBC 9.7 D, RBC 2.86 L, Hgb 7.6 L*, Hct 25.1 L, MCV 87.8, MCH 26.6 L , MCHC 30.3 L, RDW 20.9 H, Plt Count 251, MPV 9.4, Immature Gran % (Auto) 1.10 H , Immature Gran # (Auto) 0.11 H, Neutrophils % 89.8 H, Lymphocytes % 4.5 L, Monocytes % 4.1, Eosinophils % 0.4, Basophils % 0.1, Nucleated RBC % 0.0, Neutrophils # 8.7 H, Lymphocytes # 0.44 L, Monocytes # 0.4, Eosinophils # 0.0, Absolute Basophils 0.0 04/19/18 05:55: PT 20.7 H, INR (Anticoag Therapy) 2.05 H 04/19/18 : Hgb 13.6, Hct 41.4 04/19/18 : Sodium 135, Plasma Sodium 135, Potassium 3.7, Chloride 105, Carbon Dioxide 23.0 L, Anion Gap 10.7, BUN 9, Creatinine 0.80, Est GFR (Non-Af Amer) 73 , BUN/Creatinine Ratio 11.3, Random Glucose 88, Calcium 8.3 04/20/18 06:00: PT 13.9 H, INR (Anticoag Therapy) 1.39 H Discharge Location: Home Disposition: Home Health Service Home Health Agency: [facility] Condition: Stable Discharge Activity: Activity as tolerated Discharge Diet: General/regular food Referrals: Lonnie Rice MD [Primary Care Provider] - Additional Patient Instructions (free text): Resume [facility] at discharge. Nursing, bath aide, PT. Please call her nurse, Angela, with report at [phone]. She will see patient tomorrow. Follow up with Dr. Rice 04/27 at 11:30am. Follow up with Dr. Rothman 04/29 at 1:30pm. Prescriptions (Any new or edited meds): Folic Acid 1 mg PO DAILY #30 tab Complete Home Medications List: Complete Home Medication List: amLODIPine BESYLATE [Norvasc] 5 mg PO DAILY 12/15/15 hydrALAZINE HCL [Apresoline] 25 mg PO BID 12/15/15 ALPRAZolam [Xanax] 0.25 mg PO Q6H PRN 04/07/18 Acetaminophen with Codeine [Tylenol with Codeine #3 Tablet] 1 - 2 tab PO Q6H PRN 04/07/18 Atorvastatin Calcium [Lipitor] 40 mg PO DAILY 04/07/18 Citalopram Hydrobromide [Celexa] 10 mg PO DAILY 04/07/18 Furosemide [Lasix] 20 mg PO BID 04/07/18 Metoprolol Tartrate [Lopressor] 50 mg PO BID 04/07/18 Pantoprazole Sodium [Protonix] 40 mg PO BID 04/07/18 Folic Acid 1 mg PO DAILY #30 tab 04/20/18
[2018-04-20] MEDS: hydrALAZINE HCL 25 MG TABLET PO SCH (09:34)
[2018-04-20] MEDS: METOPROLOL TARTRATE 50 MG TABLET PO SCH (09:34)
[2018-04-20] MEDS: amLODIPine BESYLATE 5 MG TABLET PO SCH (09:35)
[2018-04-20] MEDS: CLOPIDOGREL BISULFATE 75 MG TABLET PO SCH (09:35)
[2018-04-20] MEDS ORDERED: FOLIC ACID 1 MG TABLET PO SCH (11:15)
[2018-04-20] MEDS: PANTOPRAZOLE SODIUM 40 MG in NORMAL SALINE 100 ML IV SCH (11:55)
[2018-04-20 15:28] VITALS: BP 158/85
== END 2018-04-20 16:00 | disposition home health service (06) | DRG 439 ==
LOC: ER 02:32 → MS 09:06
PROVIDERS: ADMIT Internal Medicine; ATTEND Internal Medicine
CPT/HCPCS: 36415; 74177; 76705; 80048; 80053; 81001; 82150; 82607; 82728; 82746; 83540; 83550; 83690; 84466; 85014; 85018; 85025; 85610; 86850; 86900; 87045; 87046; 87077; 87086; 87186; 87493; 93005; 96365; 97116; 97162; 99283; P9016

== ENCOUNTER 2018-08-05 19:32 | Observation (INO) ==
--- NOTE | 2018-08-05 20:10 | ERNOTE ---
Medical Problem HPI - General Chief Complaint: General Assessment Time Seen by Provider: 08/05/18 19:50 Source: patient Exam Limitations: no limitations - Immun/Allergies/Home Medications Immunizations: IMMUNIZATION HX Immunizations Up to Date Yes History of Influenza Vaccine Yes Hx Pneumococcal Vaccination Yes Allergies/Adverse Reactions: Allergies pravastatin Adverse Reaction (Mild, Verified 08/05/18 19:45) Vomiting Home Medications: HOME MEDICATIONS hydrALAZINE HCL [Apresoline] 25 mg PO BID 12/15/15 [Last Taken 04/13/18] ALPRAZolam [Xanax] 0.25 mg PO Q6H PRN 04/07/18 [Last Taken 04/13/18] Acetaminophen with Codeine [Tylenol with Codeine #3 Tablet] 1 - 2 tab PO Q6H PRN 04/07/18 [Last Taken 04/13/18] Atorvastatin Calcium [Lipitor] 40 mg PO DAILY 04/07/18 [Last Taken 04/13/18] Citalopram Hydrobromide [Celexa] 10 mg PO DAILY 04/07/18 [Last Taken 04/13/18] Furosemide [Lasix] 20 mg PO BID 04/07/18 [Last Taken 04/13/18] Metoprolol Tartrate [Lopressor] 50 mg PO BID 04/07/18 [Last Taken 04/13/18] Pantoprazole Sodium [Protonix] 40 mg PO BID 04/07/18 [Last Taken 04/13/18] Potassium Chloride [K-Dur] 20 meq PO DAILY #10 tab 05/13/18 [Last Taken Unknown] Sulfamethoxazole/Trimethoprim [Bactrim Ds] 1 tab PO BID #14 tab 05/13/18 [Last Taken Unknown] folic acid 1 mg tablet 1 mg PO DAILY #30 tab 05/13/18 [Last Taken Unknown] Ciprofloxacin HCl [Cipro] 250 mg PO BID #10 tab 07/29/18 [Last Taken Unknown] - History of Present History Narrative: Pt was seen in this ED approx a week ago and given cipro for UTI. She states she has only gotten worse. She is very fatigued Timing: getting worse Severity: moderate Review of Systems - Review of Systems Constitutional: Present: recent illness. Absent: fever, chills EYE: Absent: vision changes ENT: Absent: nasal drainage Respiratory: Present: cough - minimal. Absent: shortness of breath Cardiology: Absent: chest pain Gastrointestinal/Abdominal: Present: nausea, diarrhea, abdominal pain Genitourinary: Present: hematuria. Absent: frequency Musculoskeletal: Present: muscle pain. Absent: back pain Skin: Absent: rash Endocrine: Present: unexplained weight loss. Absent: excessive sweating Hematologic/Lymphatic: Present: easy bruising Medical History (Last Reviewed 08/05/18 @ 20:05 by Reji Rogers DO) Acute renal failure (ARF) Anemia Anxiety Atrial fibrillation CAD (coronary artery disease) COPD (chronic obstructive pulmonary disease) Chronic kidney disease Dehydration Depression Esophageal stricture GERD (gastroesophageal reflux disease) HTN (hypertension) History 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 dilatation [facility] current use of anticoagulant therapy Osteoarthritis UTI (urinary tract infection) Surgical History: Surgical History (Last Reviewed 08/05/18 @ 20:06 by Reji Rogers DO) H/O heart artery stent History of hysterectomy Previous back surgery Family History: Family History (Last Reviewed 08/05/18 @ 20:06 by Reji Rogers DO) Father Myocardial infarction Hypertension Mother Colon cancer Social History: Preferred Language Guatem[place] Smoking Status Never smoker Abuse History No History of abuse Psych History Hx of Anxiety,Currently on Meds Alcohol Use none Drug Use none (Last Updated 05/01/18 @ 13:01 by Juan Rothman MD) No Social History Section defined Physical Exam - Physical Exam General Appearance: Present: wd/wn, alert, no apparent distress Head Exam: Present: normal inspection, no evidence of injury Eye Exam: Normal inspection: bilateral, PERRL: bilateral Ears, Nose, Throat: Present: normal ENT inspection, normal pharynx Neck: Present: normal inspection, nontender, supple Respiratory: Present: no respiratory distress, normal breath sounds, lungs clear Cardiovascular/Chest: Present: regular rate, rhythm, no murmur, normal peripheral pulses Gastrointestinal/Abdominal: Present: nondistended, soft, tenderness - diffuse, abnormal bowel sounds - hyperactive. Absent: guarding, rebound Back Exam: Present: normal inspection, no CVA tenderness, no vertebral tenderness Extremity Exam: Present: normal inspection Neurological Exam: Present: alert, oriented, normal mood/affect, no motor/sensory deficits Skin Exam: Present: warm/dry, other - mulitple bruises on forearms bilaterally Progress - Results and Orders Patient's Lab Results:: I have reviewed the patient's lab results. Results and Orders: Laboratory Tests 08/05/18 08/05/18 08/05/18 20:20 20:20 20:21 WBC 13.3 H Hgb 12.9 Hct 41.1 Plt Count 363 Neutrophils % 86.8 H Sodium 138 Potassium 4.7 H Chloride 103 Carbon Dioxide 23.3 L BUN 62 H D Creatinine 1.77 H D Random Glucose 126 H Calcium 8.7 Total Bilirubin 0.2 AST 29 ALT 18 L Alkaline Phosphatase 360 H Total Protein 5.6 L Albumin 1.6 L Urine Color Urine Appearance Urine pH Ur Specific [place] Urine Protein Urine Glucose (UA) Urine Ketones Urine Blood Urine Nitrate Urine Bilirubin Urine Urobilinogen Ur Leukocyte Esterase Urine RBC Urine WBC Ur Epithelial Cells Urine Bacteria Hyaline Casts Urine Culture Comments Influenza Type A Ag Negative Influenza Type B Ag Negative 08/05/18 20:55 WBC Hgb Hct Plt Count Neutrophils % Sodium Potassium Chloride Carbon Dioxide BUN Creatinine Random Glucose Calcium Total Bilirubin AST ALT Alkaline Phosphatase Total Protein Albumin Urine Color Yellow Urine Appearance Clear Urine pH 5.0 Ur Specific [place] 1.020 Urine Protein Negative Urine Glucose (UA) Negative Urine Ketones Negative Urine Blood Negative Urine Nitrate Negative Urine Bilirubin Negative Urine Urobilinogen Normal Ur Leukocyte Esterase Negative Urine RBC None seen Urine WBC None seen Ur Epithelial Cells Trace Urine Bacteria Trace Hyaline Casts 0-5 H Urine Culture Comments Culture to follow Influenza Type A Ag Influenza Type B Ag - Vital Signs Patient's Vital Signs:: I have reviewed the patient's vital signs. Vital Signs: Vital Signs 08/05/18 19:36 Temperature 36.6 C Pulse Rate 65 Respiratory Rate 22 H Blood Pressure 143/83 O2 Sat by Pulse Oximetry 100 - CT/Ultrasound CT/Ultrasound Narrative: Ct abd/ pelvis with oral contrast: large right and moderate left pleural effusion with associated dependent atelectasis. new aspirated oral contrast in the lower lobe bronchi bilateral worse on the left. otherwise unchanged from previous scans. - Progress/Reassessment Chief Complaint: General Assessment Progress:: Unchanged Progress Note-Subjective: 08/06/18 01:[address] Molina and he agrees with observation admission. Departure Clinical Impression: Pleural effusion Aspiration into lower respiratory tract Qualifiers: Encounter type: initial encounter Qualified Code(s): T17.800A - Unspecified foreign body in other parts of respiratory tract causing asphyxiation, initial encounter - Departure Disposition: Still a patient Condition: Good
[2018-08-05 20:21] LABS: Hematocrit 41.1 % (37.0-47.0); Hemoglobin 12.9 gm/dL (12.5-16.0); Mean Corpuscular Hgb Conc 31.4 g/dl (32-36); Neutrophil # 11.5 K/mm3 (1.3-6.0); Neutrophil % 86.8 % (42-75.0); Platelet Count 363 K/mm3 (150-450); Red Blood Count 4.03 M/mm3 (4.2-5.4); Red Cell Distribution Width 15.9 % (11.5-14.0); White Blood Count 13.3 K/mm3 (4.0-10.5)
[2018-08-05 20:35] LABS: Albumin * 1.6 gm/dl (3.4-5.0); Anion Gap 16.4 mmol/L (6.8-13.8); Bilirubin, Total 0.2 mg/dL (0.0-1.1); Ca. Corrected For Albumin 10.3 mg/dL (8.4-10.2); Calcium * 8.7 mg/dL (7.9-10.9); Carbon Dioxide 23.3 mmol/L (24-32.6); Potassium 4.7 mmol/L (3.4-4.6); Total Protein 5.6 gm/dL (6.2-8.2)
[2018-08-05 20:59] LABS: Urine Bilirubin Negative (NEGATIVE); Urine Blood Negative /ul (NEGATIVE); Urine Ketone Negative (NEGATIVE); Urine Nitrite Negative (NEGATIVE); Urine Protein Negative (NEGATIVE); Urine Urobilinogen Normal (NORMAL)
[2018-08-05 21:07] LABS: Urine Appearance Clear (CLEAR); Urine Color Yellow; Urine RBC None Seen /hpf (0-5); Urine WBC None Seen /hpf (0-5)
[2018-08-05 21:08] LABS: Urine Bacteria TRACE; Urine Hyaline Cast 0-5 /LPF
[2018-08-05] MEDS ORDERED: DIATRIZOATE MEGLUMINE, SODIUM 30 ML BTL PO ONE (23:01)
[2018-08-06] MEDS ORDERED: NORMAL SALINE 500 ML IV ONE (00:45)
[2018-08-06] MEDS: NORMAL SALINE 1,000 ML IV PRN ×2 (04:03→18:49)
[2018-08-06] MEDS ORDERED: ALPRAZolam 0.25 MG TABLET PO PRN (08:31)
[2018-08-06 08:58] LABS: Hematocrit 39.5 % (37.0-47.0); Hemoglobin 12.5 gm/dL (12.5-16.0); Mean Cell Volume 100.3 fl (78-100); Mean Corpuscular Hemoglobin 31.7 pg (27-31); Mean Corpuscular Hgb Conc 31.6 g/dl (32-36); Mean Platelet Volume 8.9 fl (8-12.5); Neutrophil # 13.2 K/mm3 (1.3-6.0); Neutrophil % 92.1 % (42-75.0); Platelet Count 295 K/mm3 (150-450); Red Blood Count 3.94 M/mm3 (4.2-5.4); Red Cell Distribution Width 15.9 % (11.5-14.0); White Blood Count 14.3 K/mm3 (4.0-10.5)
[2018-08-06 09:10] LABS: Albumin * 1.4 gm/dl (3.4-5.0); Anion Gap 15.1 mmol/L (6.8-13.8); BUN/Creatinine Ratio 39.7 (9.0-21.6); Bilirubin, Total 0.2 mg/dL (0.0-1.1); Ca. Corrected For Albumin 10.2 mg/dL (8.4-10.2); Calcium * 8.4 mg/dL (7.9-10.9); Carbon Dioxide 22.8 mmol/L (24-32.6); Potassium 3.9 mmol/L (3.4-4.6)
[2018-08-06] MEDS: hydrALAZINE HCL 25 MG TABLET PO SCH ×2 (09:58→20:39)
[2018-08-06] MEDS: FOLIC ACID 1 MG TABLET PO SCH (09:58)
[2018-08-06] MEDS: METOPROLOL TARTRATE 50 MG TABLET PO SCH ×2 (09:58→20:40)
[2018-08-06] MEDS: CITALOPRAM HYDROBROMIDE 10 MG TABLET PO SCH (09:58)
[2018-08-06] MEDS: PANTOPRAZOLE SODIUM 40 MG TABLET.EC PO SCH ×2 (09:58→20:44)
[2018-08-06] MEDS: ACETAMINOPHEN WITH CODEINE 1 EACH TABLET PO PRN ×2 (10:02→18:49)
[2018-08-06] MEDS ORDERED: ROSUVASTATIN CALCIUM 20 MG TABLET PO SCH (21:00)
--- NOTE | 2018-08-06 21:08 | HP ---
Chief Complaint - Chief Complaint Date of Service: 08/06/18 Time of Service: 15:00 Chief Complaint: Abdominal Pain History of Present Illness: Ilana is an 83 yo female that presented to the [facility] ER with abdominal pain and increasing fatigue. She was evaluated with labs and a CT. During the CT she had a choking episode while drinking the contrast and imaging showed possible aspiration of contrast. She had no respiratory distress following episode. ER contacted medicine to monitor the patient's respiratory status over night due to aspiration of contrast. She currently denies coughing, shortness of breath, or chest pain. She has known gall bladder disease and has previously spoken with surgery about this. 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 She has no interest in surgery at this time. 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 Smoking Status Never smoker Have you smoked in the past 12 No months Do you dip or chew tobacco No Abuse History No History of abuse Psych History Hx of Anxiety,Currently on Meds Alcohol Use none Drug Use none (Last Updated 05/01/18 @ 13:01 by Juan Rothman MD) No Social History Section defined Review Of Systems (GEN) - Review of Systems Generalized/Overall Review: Present: Weakness, Fatigue. Absent: Chills, Fever EENTM: Present: No Symptoms Reported Respiratory: Absent: Cough, Shortness of Breath, Stridor, Wheezing Cardiac: Absent: Chest Pain, Edema, Palpitations Abdominal: Present: Abdominal Pain. Absent: Nausea, Vomiting Genitourinary: Present: No Symptoms Reported Musculoskeletal: Present: No Symptoms Reported Neurological: Present: No Symptoms Reported Skin: Present: No Symptoms Reported Immunizations: IMMUNIZATION HX Immunizations Up to Date Yes History of Influenza Vaccine Yes Hx Pneumococcal Vaccination Yes Allergies/Adverse Reactions: Allergies Allergy/AdvReac Type Severity Reaction Status Date / Time pravastatin AdvReac Mild Vomiting Verified 08/05/18 19:45 Home Medications: HOME MEDICATIONS hydrALAZINE HCL [Apresoline] 25 mg PO BID 12/15/15 [Last Taken 08/06/18] ALPRAZolam [Xanax] 0.25 mg PO Q6H PRN 04/07/18 [Last Taken 04/13/18] Atorvastatin Calcium [Lipitor] 40 mg PO DAILY 04/07/18 [Last Taken 08/06/18] Citalopram Hydrobromide [Celexa] 10 mg PO DAILY 04/07/18 [Last Taken 08/06/18] Furosemide [Lasix] 20 mg PO BID 04/07/18 [Last Taken 04/13/18] Metoprolol Tartrate [Lopressor] 50 mg PO BID 04/07/18 [Last Taken 08/06/18] Pantoprazole Sodium [Protonix] 40 mg PO BID 04/07/18 [Last Taken 08/06/18] Potassium Chloride [K-Dur] 20 meq PO DAILY #10 tab 05/13/18 [Last Taken Unknown] Sulfamethoxazole/Trimethoprim [Bactrim Ds] 1 tab PO BID #14 tab 05/13/18 [Last Taken Unknown] folic acid 1 mg tablet 1 mg PO DAILY #30 tab 05/13/18 [Last Taken 08/06/18] Wheat Dextrin [Benefiber] 1 ea PO QAM 08/06/18 [Last Taken Unknown] Acetaminophen with Codeine [Tylenol with Codeine #3 Tablet] 1 - 2 tab PO Q6H PRN #60 tab 08/07/18 [Last Taken Unknown] Exam - Exam Vital Signs: Vital Signs - Last Taken Temp 36.4 C 08/06/18 21:00 Pulse 76 08/06/18 21:00 Resp 16 08/06/18 21:00 BP 152/70 H 08/06/18 21:00 Pulse Ox 100 08/06/18 21:00 Constitutional: Present: Alert, Oriented x3, Cooperative ENT Exam: Present: hearing grossly normal Eye Exam: bilateral eye: normal inspection Respiratory: Present: lungs clear, normal breath sounds Cardiovascular/Chest: Present: regular rate, rhythm, no murmur Abdomen: Present: Normal bowel sounds, soft, nontender, nondistended Skin Exam: Present: normal color, warm/dry, no cyanosis Diagnostic Studies: Abnormal Lab Results 08/05/18 08/06/18 08/06/18 Range/Units 20:55 08:45 08:45 WBC 14.3 H (4.0-10.5) K/mm3 RBC 3.94 L (4.2-5.4) M/mm3 MCV 100.3 H (78-100) fl MCH 31.7 H (27-31) pg MCHC 31.6 L (32-36) g/dl RDW 15.9 H (11.5-14.0) % Immature Gran % (Auto) 0.60 H (0.001-0.429) % Immature Gran # (Auto) 0.08 H (0.000-0.0310) K/mm3 Neutrophils % 92.1 H (42-75.0) % Lymphocytes % 5.0 L (20-51) % Neutrophils # 13.2 H (1.3-6.0) K/mm3 Lymphocytes # 0.71 L (1.5-3.5) k/mm3 Chloride 108 H (97-106) mmol/L Carbon Dioxide 22.8 L (24-32.6) mmol/L Anion Gap 15.1 H (6.8-13.8) mmol/L BUN 60 H (3-23) mg/dL Creatinine 1.51 H (0.4-1.4) mg/dL Est GFR (Non-Af Amer) 35 L D (60-130) mL/min BUN/Creatinine Ratio 39.7 H (9.0-21.6) Alkaline Phosphatase 382 H (50-170) U/L Total Protein 5.0 L (6.2-8.2) gm/dL Albumin 1.4 L (3.4-5.0) gm/dl Hyaline Casts 0-5 H (NONE) /LPF Laboratory Results WBC 14.3 K/mm3 (4.0-10.5) H 08/06/18 08:45 RBC 3.94 M/mm3 (4.2-5.4) L 08/06/18 08:45 Hgb 12.5 gm/dL (12.5-16.0) 08/06/18 08:45 Hct 39.5 % (37.0-47.0) 08/06/18 08:45 MCV 100.3 fl (78-100) H 08/06/18 08:45 MCH 31.7 pg (27-31) H 08/06/18 08:45 MCHC 31.6 g/dl (32-36) L 08/06/18 08:45 RDW 15.9 % (11.5-14.0) H 08/06/18 08:45 Plt Count 295 K/mm3 (150-450) 08/06/18 08:45 MPV 8.9 fl (8-12.5) 08/06/18 08:45 Immature Gran % (Auto) 0.60 % (0.001-0.429) H 08/06/18 08:45 Immature Gran # (Auto) 0.08 K/mm3 (0.000-0.0310) H 08/06/18 08:45 Neutrophils % 92.1 % (42-75.0) H 08/06/18 08:45 Lymphocytes % 5.0 % (20-51) L 08/06/18 08:45 Monocytes % 2.2 % (0.0-9) 08/06/18 08:45 Eosinophils % 0.0 % (0.0-3.0) 08/06/18 08:45 Basophils % 0.1 % (0.0-1.0) 08/06/18 08:45 Nucleated RBC % 0.0 k/mm3 (0-1) 08/06/18 08:45 Neutrophils # 13.2 K/mm3 (1.3-6.0) H 08/06/18 08:45 Lymphocytes # 0.71 k/mm3 (1.5-3.5) L 08/06/18 08:45 Monocytes # 0.3 k/mm3 (0.0-1.0) 08/06/18 08:45 Eosinophils # 0.0 k/mm3 (0.0-0.7) 08/06/18 08:45 Absolute Basophils 0.0 k/mm3 (0.0-0.1) 08/06/18 08:45 Sodium 142 mmol/L (132-142) 08/06/18 08:45 Plasma Sodium 142 mmol/L (130-142) 08/06/18 08:45 Potassium 3.9 mmol/L (3.4-4.6) 08/06/18 08:45 Chloride 108 mmol/L (97-106) H 08/06/18 08:45 Carbon Dioxide 22.8 mmol/L (24-32.6) L 08/06/18 08:45 Anion Gap 15.1 mmol/L (6.8-13.8) H 08/06/18 08:45 BUN 60 mg/dL (3-23) H 08/06/18 08:45 Creatinine 1.51 mg/dL (0.4-1.4) H 08/06/18 08:45 Est GFR (Non-Af Amer) 35 mL/min (60-130) L D 08/06/18 08:45 BUN/Creatinine Ratio 39.7 (9.0-21.6) H 08/06/18 08:45 Random Glucose 77 mg/dL (70-110) D 08/06/18 08:45 Calcium 8.4 mg/dL (7.9-10.9) 08/06/18 08:45 Calcium Adj for Albumin 10.2 mg/dL (8.4-10.2) 08/06/18 08:45 Total Bilirubin 0.2 mg/dL (0.0-1.1) 08/06/18 08:45 AST 33 U/L (0-48) 08/06/18 08:45 ALT 19 U/L (19-67) 08/06/18 08:45 Alkaline Phosphatase 382 U/L (50-170) H 08/06/18 08:45 Total Protein 5.0 gm/dL (6.2-8.2) L 08/06/18 08:45 Albumin 1.4 gm/dl (3.4-5.0) L 08/06/18 08:45 Urine Color Yellow 08/05/18 20:55 Urine Appearance Clear (CLEAR) 08/05/18 20:55 Urine pH 5.0 pH (5.0-7.0) 08/05/18 20:55 Ur Specific [place] 1.020 SP.GR. (1.005-1.010) 08/05/18 20:55 Urine Protein Negative mg/dL (NEGATIVE) 08/05/18 20:55 Urine Glucose (UA) Negative mg/dL (NEGATIVE) 08/05/18 20:55 Urine Ketones Negative mg/dL (NEGATIVE) 08/05/18 20:55 Urine Blood Negative /ul (NEGATIVE) 08/05/18 20:55 Urine Nitrate Negative (NEGATIVE) 08/05/18 20:55 Urine Bilirubin Negative mg/dl (NEGATIVE) 08/05/18 20:55 Urine Urobilinogen Normal EU/dl (NORMAL) 08/05/18 20:55 Ur Leukocyte Esterase Negative /ul (NEGATIVE) 08/05/18 20:55 Urine RBC None seen /hpf (0-5) 08/05/18 20:55 Urine WBC None seen /hpf (0-5) 08/05/18 20:55 Ur Epithelial Cells Trace /hpf (0-5) 08/05/18 20:55 Urine Bacteria Trace (NONE) 08/05/18 20:55 Hyaline Casts 0-5 /LPF (NONE) H 08/05/18 20:55 Urine Culture Comments Culture to follow 08/05/18 20:55 Influenza Type A Ag Negative (NEGATIVE) 08/05/18 20:21 Influenza Type B Ag Negative (NEGATIVE) 08/05/18 20:21 Assessment/Plan - Narrative Narrative: Ilana is an 83 yo female with aspiration of contrast material. She is having no respiratory symptoms. Will admit to observation and monitor respi ratory status. Cholelithiasis and fistula are chronic. Discussed again that if these cause her more problems and she decides to consider surgery we would have her talk with surgery again. Will give albuterol nebulizers prn, however not currently having any respiratory symptoms. - Assessment/Plan (1) Aspiration into lower respiratory tract Problem: Acute Qualifiers: Encounter type: initial encounter Qualified Code(s): T17.800A - Unspecified foreign body in other parts of respiratory tract causing asphyxiation, initial encounter (2) Colovaginal fistula Problem: Chronic (3) Pleural effusion Problem: Chronic (4) Cholelithiasis Problem: Chronic Qualifiers: Cholelithiasis location: gallbladder Cholecystitis presence: without cholecystitis Biliary obstruction: without biliary obstruction Qualified Code(s): K80.20 - Calculus of gallbladder without cholecystitis without obstruction
[2018-08-07] MEDS: hydrALAZINE HCL 25 MG TABLET PO SCH (08:18)
[2018-08-07] MEDS: CITALOPRAM HYDROBROMIDE 10 MG TABLET PO SCH (08:19)
[2018-08-07] MEDS: FOLIC ACID 1 MG TABLET PO SCH (08:19)
[2018-08-07] MEDS: METOPROLOL TARTRATE 50 MG TABLET PO SCH (08:19)
[2018-08-07] MEDS: PANTOPRAZOLE SODIUM 40 MG TABLET.EC PO SCH (08:19)
[2018-08-07] MEDS: NORMAL SALINE 1,000 ML IV PRN (08:21)
--- NOTE | 2018-08-07 13:28 | DS ---
(1) Aspiration into lower respiratory tract Problem: Acute Qualifiers: Encounter type: initial encounter Qualified Code(s): T17.800A - Unspecified foreign body in other parts of respiratory tract causing asphyxiation, initial encounter (2) Cholelithiasis Problem: Chronic Qualifiers: Cholelithiasis location: gallbladder Cholecystitis presence: without cholecystitis Biliary obstruction: without biliary obstruction Qualified Code(s): K80.20 - Calculus of gallbladder without cholecystitis without obstruction (3) Pleural effusion Problem: Chronic (4) Colovaginal fistula Problem: Chronic Description of Stay: Ilana is an 83 yo female that was admitted to observation after suspected aspiration of contrast that she was drinking for abdominal/pelvis CT scan. She was having the scan for abdominal pain. The CT scan showed abdominal pain was likely caused from cholelithiasis without obstruction. Discussed with patient that she will likely continue to have symptoms unless the gall bladder is surgically removed. Ilana is currently not interested in surgery and will see how things go. During her observation she had no respiratory distress. She will be discharged to home. She is weak and will continue to work with strengthening with home health. Procedures Performed: none Results and Findings: Pending Mircobiology Results 08/05/18 20:55 Urine,Catheterized Urine Culture - Preliminary No Growth Lab Pending Results 08/05/18 20:20: WBC 13.3 H, RBC 4.03 L, Hgb 12.9, Hct 41.1, MCV 102.0 H, MCH 32.0 H, MCHC 31.4 L, RDW 15.9 H, Plt Count 363, MPV 9.0, Immature Gran % (Auto) 0.50 H, Immature Gran # (Auto) 0.06 H, Neutrophils % 86.8 H, Lymphocytes % 8.8 L, Monocytes % 3.7, Eosinophils % 0.1, Basophils % 0.1, Nucleated RBC % 0.0, Neutrophils # 11.5 H, Lymphocytes # 1.17 L, Monocytes # 0.5, Eosinophils # 0.0, Absolute Basophils 0.0 08/05/18 20:20: Sodium 138, Plasma Sodium 138, Potassium 4.7 H, Chloride 103, Carbon Dioxide 23.3 L, Anion Gap 16.4 H, BUN 62 H D, Creatinine 1.77 H D, Est GFR (Non-Af Amer) 29 L D, BUN/Creatinine Ratio 35.0 H, Random Glucose 126 H, Calcium 8.7, Calcium Adj for Albumin 10.3 H, Total Bilirubin 0.2, AST 29, ALT 18 L, Alkaline Phosphatase 360 H, Total Protein 5.6 L, Albumin 1.6 L 08/05/18 20:21: Influenza Type A Ag Negative, Influenza Type B Ag Negative 08/05/18 20:55: Urine Color Yellow, Urine Appearance Clear, Urine pH 5.0, Ur Specific [place] 1.020, Urine Protein Negative, Urine Glucose (UA) Negative, Urine Ketones Negative, Urine Blood Negative, Urine Nitrate Negative, Urine Bilirubin Negative, Urine Urobilinogen Normal, Ur Leukocyte Esterase Negative, Urine RBC None seen, Urine WBC None seen, Ur Epithelial Cells Trace, Urine Bacteria Trace, Hyaline Casts 0-5 H, Urine Culture Comments Culture to follow 08/06/18 08:45: WBC 14.3 H, RBC 3.94 L, Hgb 12.5, Hct 39.5, MCV 100.3 H, MCH 31.7 H, MCHC 31.6 L, RDW 15.9 H, Plt Count 295, MPV 8.9, Immature Gran % (Auto) 0.60 H, Immature Gran # (Auto) 0.08 H, Neutrophils % 92.1 H, Lymphocytes % 5.0 L, Monocytes % 2.2, Eosinophils % 0.0, Basophils % 0.1, Nucleated RBC % 0.0, Neutrophils # 13.2 H, Lymphocytes # 0.71 L, Monocytes # 0.3, Eosinophils # 0.0, Absolute Basophils 0.0 08/06/18 08:45: Sodium 142, Plasma Sodium 142, Potassium 3.9, Chloride 108 H, Carbon Dioxide 22.8 L, Anion Gap 15.1 H, BUN 60 H, Creatinine 1.51 H, Est GFR (Non-Af Amer) 35 L D, BUN/Creatinine Ratio 39.7 H, Random Glucose 77 D, Calcium 8.4, Calcium Adj for Albumin 10.2, Total Bilirubin 0.2, AST 33, ALT 19, Alkaline Phosphatase 382 H, Total Protein 5.0 L, Albumin 1.4 L Discharge Location: Home Disposition: Home Health Service Home Health Agency: [facility] Condition: Good Discharge Activity: Activity as tolerated Discharge Diet: Low fat/chol Referrals: Lonnie Rice MD [Primary Care Provider] - One Week Problem Oriented Discharge Instructions to Patient/Family: Cholelithiasis, [id number] Additional Patient Instructions (free text): -Please make TCM appointment unless residential discharge. Thank you! Leticia @ ext:[phone]. [facility] on going, please call and fax discharge information. Prescriptions (Any new or edited meds): Acetaminophen with Codeine [Tylenol with Codeine #3 Tablet] 1 - 2 tab PO Q6H PRN #60 tablet PRN Reason: Pain Complete Home Medications List: Complete Home Medication List: hydrALAZINE HCL [Apresoline] 25 mg PO BID 12/15/15 ALPRAZolam [Xanax] 0.25 mg PO Q6H PRN 04/07/18 Atorvastatin Calcium [Lipitor] 40 mg PO DAILY 04/07/18 Citalopram Hydrobromide [Celexa] 10 mg PO DAILY 04/07/18 Furosemide [Lasix] 20 mg PO BID 04/07/18 Metoprolol Tartrate [Lopressor] 50 mg PO BID 04/07/18 Pantoprazole Sodium [Protonix] 40 mg PO BID 04/07/18 Potassium Chloride [K-Dur] 20 meq PO DAILY #10 tab 05/13/18 Sulfamethoxazole/Trimethoprim [Bactrim Ds] 1 tab PO BID #14 tab 05/13/18 folic acid 1 mg tablet 1 mg PO DAILY #30 tab 05/13/18 Wheat Dextrin [Benefiber] 1 ea PO QAM 08/06/18 Acetaminophen with Codeine [Tylenol with Codeine #3 Tablet] 1 - 2 tab PO Q6H PRN #60 tablet 08/07/18
[2018-08-07 14:07] VITALS: BP 138/65
== END 2018-08-07 14:55 | disposition home health service (06) ==
LOC: ER 19:32 → MS 19:32
PROVIDERS: ADMIT Family Medicine; ATTEND Family Medicine
CPT/HCPCS: 36415; 74019; 74020; 74176; 80053; 81001; 85025; 87086; 87400; 87449; 96365; 96366; 99285; G0378

== ENCOUNTER 2018-12-08 22:57 | Inpatient (IN) ==
[2018-12-08] MEDS ORDERED: ALBUTEROL SULFATE/IPRATROPIUM 3 ML NEBU IH ONE (23:12)
--- NOTE | 2018-12-08 23:13 | ERNOTE ---
Dyspnea - General Presenting Symptoms: shortness of breath Time Seen by Provider: 12/08/18 23:00 Source: patient Exam Limitations: no limitations - Immun/Allergies/Home Medications Immunizations: IMMUNIZATION HX Immunizations Up to Date Yes History of Influenza Vaccine Yes Hx Pneumococcal Vaccination Yes Allergies/Adverse Reactions: Allergies pravastatin Adverse Reaction (Mild, Verified 08/05/18 19:45) Vomiting Home Medications: HOME MEDICATIONS Citalopram Hydrobromide [Celexa] 10 mg PO DAILY 04/07/18 [Last Taken 08/06/18] Furosemide [Lasix] 20 mg PO BID 04/07/18 [Last Taken 04/13/18] Metoprolol Tartrate [Lopressor] 100 mg PO BID 04/07/18 [Last Taken 08/06/18] Pantoprazole Sodium [Protonix] 40 mg PO BID 04/07/18 [Last Taken 08/06/18] folic acid 1 mg tablet 1 mg PO DAILY #30 tab 05/13/18 [Last Taken 08/06/18] Amlodipine Besylate 2.5 mg PO DAILY 12/08/18 [Last Taken Unknown] - History of Present Illness Narrative: Pt had onset of difficulty breathing this evening. Brought in by EMS she was given 2 albuterol treatments with only limited benefit. Severity: severe Treatment QUALITY SYSTEMS MANAGER: paramedics, albuterol Initiating event: Reports: other - Pt states she did miss a dose of medications this morning. Frequency of episodes: Reports: occassional episodes Modifying Factors - (Improves): Reports: albuterol, oxygen Modifying Factors (Worsens): Reports: activity Associated Symptoms-Dyspnea: Denies: fever/chills Review of Systems - Review of Systems Constitutional: Absent: recent illness, fever ENT: Absent: nose congestion, nasal drainage Respiratory: Present: See HPI, shortness of breath, cough Cardiology: Absent: chest pain, palpitations Gastrointestinal/Abdominal: Absent: nausea, vomiting Neurological: Present: dizziness/light-headedness Endocrine: Absent: excessive sweating Psych: Present: anxiety Medical History (Updated 12/09/18 @ 01:50 by Reji Rogers DO) Acute renal failure (ARF) Anemia Anxiety Atrial fibrillation CAD (coronary artery disease) COPD (chronic obstructive pulmonary disease) Chronic kidney disease Dehydration Depression Esophageal stricture GERD (gastroesophageal reflux disease) HTN (hypertension) History 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 dilatation [facility] current use of anticoagulant therapy Osteoarthritis UTI (urinary tract infection) Surgical History: Surgical History (Updated 08/20/18 @ 00:54 by Joseph Molina DO) H/O heart artery stent History of hysterectomy Previous back surgery Family History: Family History (Last Reviewed 12/09/18 @ 05:36 by Reji Rogers DO) Father Myocardial infarction Hypertension Mother Colon cancer Social History: Preferred Language Faroese Smoking Status Never smoker Abuse History No History of abuse Psych History Hx of Anxiety,Currently on Meds (Last Updated 05/01/18 @ 13:01 by Juan Rothman MD) No Social History Section defined Physical Exam - Physical Exam General Appearance: Present: wd/wn, alert, no apparent distress Head Exam: Present: normal inspection, no evidence of injury Respiratory: Present: accessory muscle use, wheezing - inspiratory and expiratory throughout Cardiovascular/Chest: Present: tachycardia Gastrointestinal/Abdominal: Present: normal bowel sounds, nontender, nondistended, soft Back Exam: Present: normal inspection, normal range of motion Extremity Exam: Present: normal inspection, normal range of motion, no edema Neurological Exam: Present: alert, oriented, normal mood/affect, no motor/sensory deficits Skin Exam: Present: normal color, warm/dry Lymphatic Exam: Present: no adenopathy Progress - Results and Orders Patient's Lab Results:: I have reviewed the patient's lab results. Results and Orders: Laboratory Tests 12/08/18 12/08/18 12/08/18 23:19 23:19 23:35 WBC 20.2 H Hgb 12.3 L Hct 40.7 Plt Count 494 H Neutrophils % 83.1 H pCO2 48.1 H pO2 54.5 L ABG pH 7.26 L ABG O2 Sat (Measured) 83.4 L Sodium 138 Potassium 3.7 Chloride 101 BUN 38 H Creatinine 1.49 H Random Glucose 196 H Calcium 9.1 Total Bilirubin 0.2 AST 25 ALT 13 L Alkaline Phosphatase 139 Total Protein 7.6 Albumin 2.8 L Laboratory Tests 12/08/18 23:19 Lactic Acid, Venous 2.3 H* - Vital Signs Patient's Vital Signs:: I have reviewed the patient's vital signs. - EKG EKG #1 EKG: NSR, nonspecific ST T wave changes EKG read: Interp. by me - X-Ray X-Ray #1 X-Ray: chest Interpretation: Interp. by me - bilateral pleural effusions - Progress/Reassessment Progress:: Improved Progress Note-Subjective: 12/09/18 01:[address] Weir and she agrees with admission. Lasix 40 mg IV given and Rocephin started in the ER. Departure Clinical Impression: Hypoxia Pneumonia Qualifiers: Pneumonia type: due to unspecified organism Laterality: right Lung location: lower lobe of lung Qualified Code(s): J18.1 - Lobar pneumonia, unspecified organism CHF (congestive heart failure) Qualifiers: Heart failure type: systolic Heart failure chronicity: acute on chronic Qualified Code(s): I50.23 - Acute on chronic systolic (congestive) heart failure Sepsis Qualifiers: Sepsis type: sepsis due to unspecified organism Qualified Code(s): A41.9 - Sepsis, unspecified organism - Departure Disposition: Still a patient Condition: Fair
[2018-12-08 23:23] LABS: Hematocrit 40.7 % (37.0-47.0); Hemoglobin 12.3 gm/dL (12.5-16.0); Mean Cell Volume 92.1 fl (78-100); Mean Corpuscular Hemoglobin 27.8 pg (27-31); Mean Corpuscular Hgb Conc 30.2 g/dl (32-36); Mean Platelet Volume 9.3 fl (8-12.5); Neutrophil # 16.8 K/mm3 (1.3-6.0); Neutrophil % 83.1 % (42-75.0); Platelet Count 494 K/mm3 (150-450); Red Blood Count 4.42 M/mm3 (4.2-5.4); Red Cell Distribution Width 15.9 % (11.5-14.0); White Blood Count 20.2 K/mm3 (4.0-10.5)
[2018-12-08 23:37] LABS: Albumin * 2.8 gm/dl (3.4-5.0); Anion Gap 17.1 mmol/L (6.8-13.8); BUN/Creatinine Ratio 25.5 (9.0-21.6); Bilirubin, Total 0.2 mg/dL (0.0-1.1); Ca. Corrected For Albumin 9.7 mg/dL (8.4-10.2); Calcium * 9.1 mg/dL (7.9-10.9); Carbon Dioxide 23.6 mmol/L (24-32.6); Potassium 3.7 mmol/L (3.4-4.6); Total Protein 7.6 gm/dL (6.2-8.2)
[2018-12-09] MEDS ORDERED: cefTRIAXone SODIUM 1,000 MG/100 ML BAG IV ONE (01:36)
[2018-12-09] MEDS ORDERED: FUROSEMIDE 10 MG/ML VIAL IV ONE (01:36)
[2018-12-09] MEDS ORDERED: ALBUTEROL SULFATE 2.5 MG/0.5 ML VIAL.NEB IH PRN (02:06)
[2018-12-09] MEDS: ALBUTEROL SULFATE/IPRATROPIUM 3 ML NEBU IH SCH ×2 (07:19→13:00)
[2018-12-09] MEDS: amLODIPine BESYLATE 5 MG TABLET PO SCH (08:47)
[2018-12-09] MEDS: METOPROLOL TARTRATE 100 MG TABLET PO SCH ×2 (08:48→21:06)
[2018-12-09] MEDS ORDERED: ALBUTEROL SULFATE/IPRATROPIUM 3 ML NEBU IH SCH (09:00)
[2018-12-09] MEDS: ACETAMINOPHEN 500 MG TABLET PO PRN ×2 (10:24→17:37)
--- NOTE | 2018-12-09 10:58 | HP ---
Chief Complaint - Chief Complaint Date of Service: 12/09/18 Time of Service: 09:40 Chief Complaint: Cough and SOB History of Present Illness: 83-year-old female with a past medical history of acute renal failure, anemia, atrial fibrillation, CAD, CKD, COPD, depression, GERD, hypertension, osteoarthritis presents with complaints of a 2 to 3-day history of shortness of breath associated with nonproductive cough. She states that at home she experienced worsening cough and shortness of breath when lying flat.She states her symptoms worsened overnight and she was brought to the emergency department by EMS. Chest x-ray positive for pulmonary vascular congestion. Lactic acid of 2.3., BNP 21,000. She received a dose of 40 mg Lasix IV in the emergency department. She was admitted for CHF exacerbation. Medical History (Updated 12/09/18 @ 11:06 by Ricarda Ward MD) Acute renal failure (ARF) Anemia Anxiety Atrial fibrillation CAD (coronary artery disease) COPD (chronic obstructive pulmonary disease) Chronic kidney disease Dehydration Depression Esophageal stricture GERD (gastroesophageal reflux disease) HTN (hypertension) History 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 dilatation [facility] current use of anticoagulant therapy Osteoarthritis UTI (urinary tract infection) Surgical History: Surgical History (Updated 08/20/18 @ 00:54 by Joseph Molina DO) H/O heart artery stent History of hysterectomy Previous back surgery Family History: Family History (Last Reviewed 12/09/18 @ 05:36 by Reji Rogers DO) Father Myocardial infarction Hypertension Mother Colon cancer Social History: Patient Lives/Resources With Son Utilized 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 Smoking Status Never smoker Have you smoked in the past 12 No months Do you dip or chew tobacco No Abuse History No History of abuse Psych History Hx of Anxiety,Currently on Meds Alcohol Use none Drug Use none (Last Updated 05/01/18 @ 13:01 by Juan Rothman MD) No Social History Section defined Review Of Systems (GEN) - Review of Systems Generalized/Overall Review: Absent: Chills, Fever EENTM: Absent: Eye Pain Respiratory: Present: Cough - Nonproductive, Shortness of Breath Cardiac: Absent: Chest Pain Abdominal: Absent: Abdominal Pain Musculoskeletal: Present: Back Pain Misc: All systems neg except as marked Immunizations: IMMUNIZATION HX Immunizations Up to Date Yes History of Influenza Vaccine Yes Hx Pneumococcal Vaccination Yes Allergies/Adverse Reactions: Allergies Allergy/AdvReac Type Severity Reaction Status Date / Time pravastatin AdvReac Mild Vomiting Verified 08/05/18 19:45 Home Medications: HOME MEDICATIONS Citalopram Hydrobromide [Celexa] 10 mg PO DAILY 04/07/18 [Last Taken 08/06/18] Furosemide [Lasix] 20 mg PO BID 04/07/18 [Last Taken 04/13/18] Metoprolol Tartrate [Lopressor] 100 mg PO BID 04/07/18 [Last Taken 08/06/18] Pantoprazole Sodium [Protonix] 40 mg PO BID 04/07/18 [Last Taken 08/06/18] folic acid 1 mg tablet 1 mg PO DAILY #30 tab 05/13/18 [Last Taken 08/06/18] Amlodipine Besylate 2.5 mg PO DAILY 12/08/18 [Last Taken Unknown] Exam - Exam Vital Signs: Vital Signs - Last Taken Temp 36.5 C 12/09/18 06:34 Pulse 85 12/09/18 08:48 Resp 26 H 12/09/18 06:34 BP 178/97 H 12/09/18 08:48 Pulse Ox 90 L 12/09/18 06:34 Constitutional: Present: Alert, Cooperative, No distress, Elderly, Thin and frail. Absent: Well nourished ENT Exam: Present: hearing grossly normal, moist mucous membranes Eye Exam: bilateral eye: normal inspection Neck: Present: non-tender, trachea midline. Absent: lymphadenopathy (R), lymphadenopathy (L) Back Exam: Present: normal inspection Respiratory: Present: no respiratory distress, crackles, No wheezing. Absent: rhonchi Cardiovascular/Chest: Present: regular rate, rhythm, no edema, no murmur Peripheral Pulses: dorsalis-pedis (R): 1+, dorsalis-pedis (L): 1+ Abdomen: Present: Normal bowel sounds, soft, nontender Extremity: Present: no pedal edema Skin Exam: Present: normal color, warm/dry Neurologic: Present: alert, normal mood/affect Appearance: Present: appropriate appearance, appropriate insight Eye contact: Present: cooperative, good eye contact Thoughts: Present: normal thought pattern, normal mood /affect Diagnostic Studies: Abnormal Lab Results 12/08/18 12/08/18 12/08/18 Range/Units 23:19 23:19 23:19 WBC 20.2 H (4.0-10.5) K/mm3 Hgb 12.3 L (12.5-16.0) gm/dL MCHC 30.2 L (32-36) g/dl RDW 15.9 H (11.5-14.0) % Plt Count 494 H (150-450) K/mm3 Immature Gran % (Auto) 0.80 H (0.001-0.429) % Immature Gran # (Auto) 0.17 H (0.000-0.0310) K/mm3 Neutrophils % 83.1 H (42-75.0) % Lymphocytes % 10.8 L (20-51) % Neutrophils # 16.8 H (1.3-6.0) K/mm3 Absolute Basophils 0.2 H (0.0-0.1) k/mm3 pCO2 (32.0-45.0) mmHg pO2 (83.0-108.0) mmHg Base Excess (-2.0-3.0) mmol/L ABG pH (7.35-7.45) ABG O2 Sat (Measured) (94.0-98.0) % Carbon Dioxide 23.6 L (24-32.6) mmol/L Anion Gap 17.1 H (6.8-13.8) mmol/L BUN 38 H (3-23) mg/dL Creatinine 1.49 H (0.4-1.4) mg/dL Est GFR (Non-Af Amer) 35 L (60-130) mL/min BUN/Creatinine Ratio 25.5 H (9.0-21.6) Random Glucose 196 H (70-110) mg/dL Lactic Acid, Venous (0.4-2.0) mmol/L ALT 13 L (19-67) U/L B-Natriuretic Peptide 36758 H (5-550) pg/mL Albumin 2.8 L (3.4-5.0) gm/dl 12/08/18 12/08/18 Range/Units 23:19 23:35 WBC (4.0-10.5) K/mm3 Hgb (12.5-16.0) gm/dL MCHC (32-36) g/dl RDW (11.5-14.0) % Plt Count (150-450) K/mm3 Immature Gran % (Auto) (0.001-0.429) % Immature Gran # (Auto) (0.000-0.0310) K/mm3 Neutrophils % (42-75.0) % Lymphocytes % (20-51) % Neutrophils # (1.3-6.0) K/mm3 Absolute Basophils (0.0-0.1) k/mm3 pCO2 48.1 H (32.0-45.0) mmHg pO2 54.5 L (83.0-108.0) mmHg Base Excess -6.0 L (-2.0-3.0) mmol/L ABG pH 7.26 L (7.35-7.45) ABG O2 Sat (Measured) 83.4 L (94.0-98.0) % Carbon Dioxide (24-32.6) mmol/L Anion Gap (6.8-13.8) mmol/L BUN (3-23) mg/dL Creatinine (0.4-1.4) mg/dL Est GFR (Non-Af Amer) (60-130) mL/min BUN/Creatinine Ratio (9.0-21.6) Random Glucose (70-110) mg/dL Lactic Acid, Venous 2.3 H* (0.4-2.0) mmol/L ALT (19-67) U/L B-Natriuretic Peptide (5-550) pg/mL Albumin (3.4-5.0) gm/dl Laboratory Results WBC 20.2 K/mm3 (4.0-10.5) H 12/08/18 23:19 RBC 4.42 M/mm3 (4.2-5.4) 12/08/18 23:19 Hgb 12.3 gm/dL (12.5-16.0) L 12/08/18 23:19 Hct 40.7 % (37.0-47.0) 12/08/18 23:19 MCV 92.1 fl (78-100) 12/08/18 23:19 MCH 27.8 pg (27-31) 12/08/18 23:19 MCHC 30.2 g/dl (32-36) L 12/08/18 23:19 RDW 15.9 % (11.5-14.0) H 12/08/18 23:19 Plt Count 494 K/mm3 (150-450) H 12/08/18 23:19 MPV 9.3 fl (8-12.5) 12/08/18 23:19 Immature Gran % (Auto) 0.80 % (0.001-0.429) H 12/08/18 23:19 Immature Gran # (Auto) 0.17 K/mm3 (0.000-0.0310) H 12/08/18 23:19 83.1 % (42-75.0) H 12/08/18 23:19 10.8 % (20-51) L 12/08/18 23:19 3.7 % (0.0-9) 12/08/18 23:19 0.7 % (0.0-3.0) 12/08/18 23:19 0.9 % (0.0-1.0) 12/08/18 23:19 Nucleated RBC % 0.0 k/mm3 (0-1) 12/08/18 23:19 16.8 K/mm3 (1.3-6.0) H 12/08/18 23:19 2.18 k/mm3 (1.5-3.5) 12/08/18 23:19 0.7 k/mm3 (0.0-1.0) 12/08/18 23:19 0.1 k/mm3 (0.0-0.7) 12/08/18 23:19 Absolute Basophils 0.2 k/mm3 (0.0-0.1) H 12/08/18 23:19 pCO2 48.1 mmHg (32.0-45.0) H 12/08/18 23:35 pO2 54.5 mmHg (83.0-108.0) L 12/08/18 23:35 HCO3 21.1 mmol/L (21.0-28.0) 12/08/18 23:35 Total CO2 22.5 mmol/L (19.0-24.0) 12/08/18 23:35 Base Excess -6.0 mmol/L (-2.0-3.0) L 12/08/18 23:35 ABG pH 7.26 (7.35-7.45) L 12/08/18 23:35 ABG O2 Sat (Measured) 83.4 % (94.0-98.0) L 12/08/18 23:35 Sodium 138 mmol/L (132-142) 12/08/18 23:19 140 mmol/L (130-142) 12/08/18 23:19 Potassium 3.7 mmol/L (3.4-4.6) 12/08/18 23:19 Chloride 101 mmol/L (97-106) 12/08/18 23:19 Carbon Dioxide 23.6 mmol/L (24-32.6) L 12/08/18 23:19 17.1 mmol/L (6.8-13.8) H 12/08/18 23:19 BUN 38 mg/dL (3-23) H 12/08/18 23:19 1.49 mg/dL (0.4-1.4) H 12/08/18 23:19 Est GFR (Non-Af Amer) 35 mL/min (60-130) L 12/08/18 23:19 25.5 (9.0-21.6) H 12/08/18 23:19 196 mg/dL (70-110) H 12/08/18 23:19 1.4 mmol/L (0.4-2.0) 12/09/18 04:01 Calcium 9.1 mg/dL (7.9-10.9) 12/08/18 23:19 Calcium Adj for Albumin 9.7 mg/dL (8.4-10.2) 12/08/18 23:19 0.2 mg/dL (0.0-1.1) 12/08/18 23:19 AST 25 U/L (0-48) 12/08/18 23:19 ALT 13 U/L (19-67) L 12/08/18 23:19 139 U/L (50-170) 12/08/18 23:19 B-Natriuretic Peptide 01260 pg/mL (5-550) H 12/08/18 23:19 7.6 gm/dL (6.2-8.2) 12/08/18 23:19 2.8 gm/dl (3.4-5.0) L 12/08/18 23:19 Assessment/Plan - Narrative Narrative: 83-year-old female with a past medical history of acute renal failure, anemia, atrial fibrillation, CAD, CKD, COPD, depression, GERD, hypertension, osteoarthritis presents with complaints of a 2 to 3-day history of shortness of breath associated with nonproductive cough. She states that at home she experienced worsening cough and shortness of breath when lying flat.She states her symptoms worsened overnight and she was brought to the emergency department by EMS. Chest x-ray positive for pulmonary vascular congestion. Lactic acid of 2.3., BNP 21,000. She received a dose of 40 mg Lasix IV in the emergency department. She was admitted for CHF exacerbation. - Assessment/Plan (1) CHF (congestive heart failure) Assessment: Lasix 40 mg IV daily. Titrate off oxygen as tolerated, monitor I's and O's. Problem: Acute Qualifiers: Heart failure type: systolic Heart failure chronicity: acute on chronic Qualified Code(s): I50.23 - Acute on chronic systolic (congestive) heart failure (2) Leukocytosis Assessment: Continue with etiology unclear. No pneumonia noted on chest x-ray. She is afebrile. Awaiting blood culture results Problem: Acute (3) Atrial fibrillation Assessment: Rate controlled continue home medications. Problem: Chronic Qualifiers: Atrial fibrillation type: chronic (4) Low back pain Assessment: Chronic resume home medication, Tylenol. Problem: Acute Qualifiers: Chronicity: chronic (5) Hypoxia Assessment: Likely secondary to the CHF, wean off of oxygen as tolerated. Problem: Acute (6) CKD (chronic kidney disease) stage 3, GFR 30-59 ml/min Assessment: She has worsened since May 2018. Continue to monitor CMP. Problem: Acute (7) Malnourished Assessment: Her BMI is 15, patient states she does not have a good appetite and has always been slim. We will liberate her diet and place her on a pured diet per dietitcian recommendations. Problem: Chronic Qualifiers: Malnutrition type: protein-calorie malnutrition (8) GERD (gastroesophageal reflux disease) Assessment: Resume home medication, Protonix. Problem: Chronic
[2018-12-09] MEDS ORDERED: LISINOPRIL 5 MG TABLET PO ONE (12:03)
[2018-12-09] MEDS ORDERED: FUROSEMIDE 20 MG TABLET PO SCH (17:00)
[2018-12-09] MEDS ORDERED: METOPROLOL TARTRATE 50 MG TABLET PO SCH (21:00)
[2018-12-09] MEDS: PANTOPRAZOLE SODIUM 40 MG TABLET.EC PO SCH (21:07)
[2018-12-10] MEDS: ACETAMINOPHEN 500 MG TABLET PO PRN ×2 (05:34→12:53)
[2018-12-10 05:57] LABS: Hemoglobin 10.7 gm/dL (12.5-16.0); Mean Cell Volume 89.5 fl (78-100); Mean Corpuscular Hemoglobin 27.4 pg (27-31); Mean Corpuscular Hgb Conc 30.6 g/dl (32-36); Mean Platelet Volume 9.4 fl (8-12.5); Neutrophil # 5.7 K/mm3 (1.3-6.0); Neutrophil % 74.2 % (42-75.0); Platelet Count 330 K/mm3 (150-450); Red Blood Count 3.91 M/mm3 (4.2-5.4); Red Cell Distribution Width 16.3 % (11.5-14.0); White Blood Count 7.7 K/mm3 (4.0-10.5)
[2018-12-10 06:18] LABS: Albumin * 2.3 gm/dl (3.4-5.0); Anion Gap 9.7 mmol/L (6.8-13.8); Bilirubin, Total 0.3 mg/dL (0.0-1.1); Ca. Corrected For Albumin 10.2 mg/dL (8.4-10.2); Calcium * 9.2 mg/dL (7.9-10.9); Carbon Dioxide 28.8 mmol/L (24-32.6); Potassium 3.5 mmol/L (3.4-4.6); Total Protein 6.1 gm/dL (6.2-8.2)
[2018-12-10] MEDS: ALBUTEROL SULFATE/IPRATROPIUM 3 ML NEBU IH SCH ×2 (07:24)
[2018-12-10] MEDS ORDERED: AMLODIPINE BESYLATE 2.5 MG PO SCH (09:00)
[2018-12-10] MEDS: PANTOPRAZOLE SODIUM 40 MG TABLET.EC PO SCH ×2 (09:15→21:24)
[2018-12-10] MEDS: CITALOPRAM HYDROBROMIDE 10 MG TABLET PO SCH (09:15)
[2018-12-10] MEDS: FOLIC ACID 1 MG TABLET PO SCH (09:15)
[2018-12-10] MEDS: METOPROLOL TARTRATE 100 MG TABLET PO SCH ×2 (09:15→21:23)
[2018-12-10] MEDS: amLODIPine BESYLATE 5 MG TABLET PO SCH (09:16)
[2018-12-10] MEDS: FUROSEMIDE 10 MG/ML VIAL IV SCH (09:24)
[2018-12-10] MEDS ORDERED: ALBUTEROL SULFATE/IPRATROPIUM 3 ML NEBU IH PRN (10:44)
--- NOTE | 2018-12-10 10:58 | PN ---
Subjective - Date and Time Seen Date: 12/10/18 Time: 09:45 Subjective Narrative: She states she feels better. She is no longer requiring oxygen supplementation. Objective - Review of Systems Generalized/Overall Review: Denies: Fever Respiratory: Denies: Shortness of Breath Cardiac: Denies: Chest Pain Abdominal: Denies: Abdominal Pain Misc: All systems neg except as marked - Vitals Vitals: Last Vital Signs Temp 37.0 C 12/10/18 07:00 Pulse 85 12/10/18 09:24 Resp 20 12/10/18 07:34 BP 176/88 H 12/10/18 09:24 Pulse Ox 97 12/10/18 07:24 - Abnormal Lab Findings Abnormal Lab Findings: Abnormal Lab Results 12/10/18 12/10/18 Range/Units 05:53 05:53 RBC 3.91 L (4.2-5.4) M/mm3 Hgb 10.7 L (12.5-16.0) gm/dL Hct 35.0 L (37.0-47.0) % MCHC 30.6 L (32-36) g/dl RDW 16.3 H (11.5-14.0) % Immature Gran % (Auto) 0.60 H (0.001-0.429) % Immature Gran # (Auto) 0.05 H (0.000-0.0310) K/mm3 Lymphocytes % 14.5 L (20-51) % Lymphocytes # 1.12 L (1.5-3.5) k/mm3 BUN 30 H (3-23) mg/dL Est GFR (Non-Af Amer) 45 L D (60-130) mL/min BUN/Creatinine Ratio 25.0 H (9.0-21.6) ALT 12 L (19-67) U/L Total Protein 6.1 L (6.2-8.2) gm/dL Albumin 2.3 L (3.4-5.0) gm/dl - Exam Constitutional: Present: Alert, Cooperative, Elderly, Thin and frail ENT Exam: Present: hearing grossly normal Neck: Absent: lymphadenopathy (R), lymphadenopathy (L) Respiratory: Present: no respiratory distress, no accessory muscle use, crackles - Bilateral bases, No wheezing Cardiovascular/Chest: Present: normal peripheral pulses, no edema, irregularly irregular Abdomen: Present: Normal bowel sounds, soft, nontender Extremity: Present: no pedal edema Skin Exam: Present: normal color, warm/dry Neurologic: Present: alert, normal mood/affect Appearance: Present: appropriate appearance, appropriate insight Eye contact: Present: cooperative, good eye contact Thoughts: Present: normal thought pattern, normal mood /affect Assessment/Plan Plan Narrative: 83-year-old female with a past medical history of acute renal failure, anemia, atrial fibrillation, CAD, CKD, COPD, depression, GERD, hypertension, osteoarthritis presents with complaints of a 2 to 3-day history of shortness of breath associated with nonproductive cough. She states that at home she experienced worsening cough and shortness of breath when lying flat.She states her symptoms worsened overnight and she was brought to the emergency department by EMS. Chest x-ray positive for pulmonary vascular congestion. Lactic acid of 2.3., BNP 21,000. She received a dose of 40 mg Lasix IV in the emergency department. She was admitted for CHF exacerbation. Her shortness of breath is improved with IV Lasix. She is no longer requiring oxygen supplementation. - Problems/Diagnosis (1) CHF (congestive heart failure) Problem: Acute Qualifiers: Heart failure type: systolic Heart failure chronicity: acute on chronic Qualified Code(s): I50.23 - Acute on chronic systolic (congestive) heart failure Narrative: Improved, she is no longer on oxygen supplementation. She has mild crackles in bilateral bases, continue with Lasix 40 mg IV daily. (2) Leukocytosis Problem: Resolved (3) Atrial fibrillation Problem: Chronic Qualifiers: Atrial fibrillation type: chronic Qualified Code(s): I48.2 - Chronic atrial fibrillation (4) Low back pain Problem: Chronic Qualifiers: Chronicity: chronic (5) Hypoxia Problem: Resolved (6) CKD (chronic kidney disease) stage 3, GFR 30-59 ml/min Problem: Chronic Narrative: Renal function has improved his diuresis. (7) Malnourished Problem: Chronic Qualifiers: Malnutrition type: protein-calorie malnutrition Narrative: Continue diet per dietitian recommendations. (8) GERD (gastroesophageal reflux disease) Problem: Chronic Narrative: Continue home meds. (9) Hypertension Problem: Chronic Qualifiers: Hypertension type: essential hypertension Qualified Code(s): I10 - Essential (primary) hypertension Narrative: Blood pressure has been elevated. I will start lisinopril 10 mg daily.
[2018-12-10] MEDS ORDERED: LISINOPRIL 5 MG TABLET PO SCH (11:00)
[2018-12-10] MEDS: ENOXAPARIN SODIUM 30 MG/0.3 ML SYRG SC SCH (11:09)
[2018-12-10] MEDS: LISINOPRIL 10 MG TABLET PO SCH (11:42)
[2018-12-10 12:05] LABS: Urine Bilirubin Negative (NEGATIVE); Urine Ketone Negative (NEGATIVE); Urine Nitrite Negative (NEGATIVE); Urine Protein 30 mg/dL (NEGATIVE); Urine Urobilinogen Normal (NORMAL); Urine pH 5.5 pH (5.0-7.0)
[2018-12-10 12:12] LABS: Urine Appearance Clear (CLEAR); Urine Blood 5 /ul (NEGATIVE); Urine Color Pale Yellow
[2018-12-10 12:13] LABS: Urine Bacteria 1+; Urine RBC TRACE /hpf (0-5); Urine WBC TRACE /hpf (0-5)
[2018-12-11] MEDS: ACETAMINOPHEN 500 MG TABLET PO PRN ×3 (01:54→18:41)
[2018-12-11] MEDS: PANTOPRAZOLE SODIUM 40 MG TABLET.EC PO SCH ×2 (06:39→20:41)
[2018-12-11 07:33] LABS: Anion Gap 11.4 mmol/L (6.8-13.8); BUN/Creatinine Ratio 25.4 (9.0-21.6); Calcium * 9.9 mg/dL (7.9-10.9); Carbon Dioxide 26.4 mmol/L (24-32.6); Estimated Creat Clear 30.4; Potassium 3.8 mmol/L (3.4-4.6)
[2018-12-11] MEDS: CITALOPRAM HYDROBROMIDE 10 MG TABLET PO SCH (08:05)
[2018-12-11] MEDS: amLODIPine BESYLATE 5 MG TABLET PO SCH (08:05)
[2018-12-11] MEDS: METOPROLOL TARTRATE 100 MG TABLET PO SCH ×2 (08:05→20:41)
[2018-12-11] MEDS: FOLIC ACID 1 MG TABLET PO SCH (08:05)
[2018-12-11] MEDS: LISINOPRIL 10 MG TABLET PO SCH (08:09)
[2018-12-11] MEDS: FUROSEMIDE 10 MG/ML VIAL IV SCH (09:51)
[2018-12-11] MEDS: ENOXAPARIN SODIUM 30 MG/0.3 ML SYRG SC SCH (09:55)
--- NOTE | 2018-12-11 09:55 | PN ---
Subjective - Date and Time Seen Date: 12/11/18 Time: 09:40 Subjective Narrative: She states she feels nauseous but has not vomited. She also feels anxious about going home and getting sick again. Objective - Review of Systems Generalized/Overall Review: Denies: Fever EENTM: Denies: Ear Pain Respiratory: Denies: Shortness of Breath Cardiac: Denies: Chest Pain Abdominal: Reports: Nausea. Denies: Vomiting, Abdominal Pain Musculoskeletal Complaints: Reports: Back Pain Neurological: Reports: Anxiety Misc: All systems neg except as marked - Vitals Vitals: Last Vital Signs Temp 36.6 C 12/11/18 02:06 Pulse 73 12/11/18 09:42 Resp 18 12/11/18 09:42 BP 168/84 H 12/11/18 09:42 Pulse Ox 92 L 12/11/18 09:42 - Abnormal Lab Findings Abnormal Lab Findings: Abnormal Lab Results 12/10/18 12/11/18 Range/Units 12:00 07:20 BUN 29 H (3-23) mg/dL Est GFR (Non-Af Amer) 48 L (60-130) mL/min BUN/Creatinine Ratio 25.4 H (9.0-21.6) Urine Protein 30 H (NEGATIVE) mg/dL Urine Blood 5 H (NEGATIVE) /ul Ur Leukocyte Esterase 75 H (NEGATIVE) /ul Urine WBC Trace H (0-5) /hpf Urine Bacteria 1+ H (NONE) - Exam Constitutional: Present: Alert, Cooperative, Well developed, No distress, Elderly, Thin and frail ENT Exam: Present: hearing grossly normal Neck: Present: supple, trachea midline. Absent: lymphadenopathy (R), lymphadenopathy (L) Respiratory: Present: lungs clear, no respiratory distress, No wheezing. Absent: crackles, rhonchi Cardiovascular/Chest: Present: regular rate, rhythm, no edema, no murmur Abdomen: Present: Normal bowel sounds, soft, nontender Extremity: Present: no pedal edema Skin Exam: Present: normal color, warm/dry Appearance: Present: appropriate appearance Eye contact: Present: cooperative, good eye contact Thoughts: Present: normal thought pattern, normal mood /affect Assessment/Plan Plan Narrative: 83-year-old female with a past medical history of acute renal failure, anemia, atrial fibrillation, CAD, CKD, COPD, depression, GERD, hypertension, osteoarthritis presents with complaints of a 2 to 3-day history of shortness of breath associated with nonproductive cough. She states that at home she experienced worsening cough and shortness of breath when lying flat.She states her symptoms worsened overnight and she was brought to the emergency department by EMS. Chest x-ray positive for pulmonary vascular congestion. Lactic acid of 2.3., BNP 21,000. She received a dose of 40 mg Lasix IV in the emergency department. She was admitted for CHF exacerbation. Her shortness of breath is improved with IV Lasix. She began to have desaturation of her oxygenation overnight and was placed back on 1 L of oxygen via nasal cannula. She states she does feel anxious and would like medication to help her calm down. I will give her an extra dose of lisinopril 10 mg today, hold IV Lasix because her lungs sound clear, give 1 dose of Xanax 0.25 mg, give her 1 dose of Zofran. - Problems/Diagnosis (1) CHF (congestive heart failure) Problem: Acute Qualifiers: Heart failure type: systolic Heart failure chronicity: acute on chronic Qualified Code(s): I50.23 - Acute on chronic systolic (congestive) heart failure Narrative: Improved, lungs are clear, wean off of oxygen as tolerated, resume home dose of Lasix on discharge. (2) Leukocytosis Problem: Resolved Narrative: Resolved, etiology unclear, may have been secondary to hemoconcentration. (3) Atrial fibrillation Problem: Chronic Qualifiers: Atrial fibrillation type: chronic Qualified Code(s): I48.2 - Chronic atrial fibrillation Narrative: Rate controlled continue current meds. (4) Low back pain Problem: Chronic Qualifiers: Chronicity: chronic Narrative: Chronic no change to medications. (5) Hypoxia Problem: Resolved Narrative: Likely secondary to hypoventilation and anxiety. Her oxygenation improves when she sits up and takes deep breaths. We will try to wean off of oxygen as tolerated. She ambulated with physical therapy yesterday without oxygen and did well. (6) CKD (chronic kidney disease) stage 3, GFR 30-59 ml/min Problem: Chronic Narrative: Improve renal function with diuresis. (7) Malnourished Problem: Chronic Qualifiers: Malnutrition type: protein-calorie malnutrition Narrative: Continue to encourage oral intake. Continue with liberal diet. (8) GERD (gastroesophageal reflux disease) Problem: Chronic Narrative: Stable continue current medications. (9) Hypertension Problem: Chronic Qualifiers: Hypertension type: essential hypertension Qualified Code(s): I10 - Essential (primary) hypertension Narrative: Blood pressure continues to be elevated but has improved with the addition of lisinopril. I will increase lisinopril to 20 mg a day, continue with amlodipine 2.5 mg daily and metoprolol 100 mg twice daily.
[2018-12-11] MEDS ORDERED: LISINOPRIL 10 MG TABLET PO SCH ×2 (10:00→10:15)
[2018-12-11] MEDS ORDERED: ALPRAZolam 0.25 MG TABLET PO ONE (10:00)
[2018-12-11] MEDS ORDERED: ONDANSETRON 4 MG TAB.RAPDIS PO ONE (10:00)
[2018-12-12] MEDS: ACETAMINOPHEN 500 MG TABLET PO PRN ×3 (05:53→19:05)
[2018-12-12] MEDS: PANTOPRAZOLE SODIUM 40 MG TABLET.EC PO SCH ×2 (07:00→20:35)
[2018-12-12] MEDS: METOPROLOL TARTRATE 100 MG TABLET PO SCH ×2 (08:24→20:34)
[2018-12-12] MEDS: CITALOPRAM HYDROBROMIDE 10 MG TABLET PO SCH (08:24)
[2018-12-12] MEDS: LISINOPRIL 20 MG TABLET PO SCH (08:25)
[2018-12-12] MEDS: amLODIPine BESYLATE 5 MG TABLET PO SCH (08:25)
[2018-12-12] MEDS: FUROSEMIDE 20 MG TABLET PO SCH (08:25)
[2018-12-12] MEDS: FOLIC ACID 1 MG TABLET PO SCH (08:25)
[2018-12-12] MEDS: ENOXAPARIN SODIUM 30 MG/0.3 ML SYRG SC SCH (08:44)
[2018-12-12] MEDS: ONDANSETRON 4 MG TAB.RAPDIS PO PRN (12:24)
--- NOTE | 2018-12-12 14:38 | PN ---
Subjective - Date and Time Seen Date: 12/12/18 Time: 14:23 Subjective Narrative: I still have shortness of breath Objective Objective Narrative: 83-year-old female with past medical history of CHF, atrial fibrillation, low back pain, COPD, chronic kidney disease stage III, GERD, hypertension admitted for CHF exacerbation with bilateral pleural effusion as well as hypoxia was evaluated at bedside and was found to be afebrile and in no acute distress. Patient reports feeling better but says that she still has occasional shortness of breath especially on exertion and mild movement. Weaning off of oxygen was attempted yesterday but was not successful because patient desaturated down to 81 left on room air. Oxygen was left to 1 L and with that she maintain adequate saturation. Nursing staff report an episode of severe bradycardia last night and desaturating when she fell asleep. Therefore plan discharge was canceled and we will keep patient overnight and keep her on telemetry. Patient was walked without oxygen by nursing staff and reached a maximum saturation of 88 which might be her baseline. We will keep her on the saturometry to watch her oxygen levels. - Review of Systems Generalized/Overall Review: Reports: No Symptoms Reported EENTM: Reports: No Symptoms Reported Respiratory: Reports: Cough, Shortness of Breath Cardiac: Reports: No Symptoms Reported Abdominal: Reports: No Symptoms Reported Genitourinary Symptoms: Reports: No Symptoms Reported Musculoskeletal Complaints: Reports: No Symptoms Reported Neurological: Reports: No Symptoms Reported Skin: Reports: No Symptoms Reported Endocrine: Reports: No Symptoms Reported - Vitals Vitals: Last Vital Signs Temp 36.8 C 12/12/18 10:02 Pulse 60 12/12/18 10:02 Resp 24 H 12/12/18 10:02 BP 131/66 12/12/18 10:02 Pulse Ox 90 L 12/12/18 14:01 - Exam Constitutional: Present: Alert, Oriented x3, Cooperative, Well developed, Well nourished, No distress ENT Exam: Present: normal ENT inspection, hearing grossly normal, pharynx normal, TMs normal Neck: Present: non-tender, full range of motion, supple, normal inspection, trachea midline Breasts: Present: Exam deferred Respiratory: Present: chest non-tender, no respiratory distress, decreased breath sounds Cardiovascular/Chest: Present: normal peripheral pulses, regular rate, rhythm, no chest tenderness, no edema, no gallop, no JVD, no murmur, no rub Abdomen: Present: Normal bowel sounds, soft, nontender, nondistended, no rebound tenderness, no hepatospenomegaly, no masses /Rectal: Present: Exam deferred Extremity: Present: normal range of motion, non-tender, normal inspection, no pedal edema, no calf tenderness Skin Exam: Present: normal color, warm/dry, no cyanosis Lymphatic: Present: no adenopathy Neurologic: Present: web methods developer II-XII nml as tested Appearance: Present: appropriate appearance Eye contact: Present: cooperative, good eye contact, normal speech Thoughts: Present: normal thought pattern Assessment/Plan Plan Narrative: We will keep patient for an additional night for monitoring with telemetry. Orders to wean oxygen have been placed we will reevaluate her saturation. In the meantime patient will continue to receive daily Lasix and [id number] breathing treatments. - Problems/Diagnosis (1) Atrial fibrillation Problem: Chronic Qualifiers: Atrial fibrillation type: chronic Qualified Code(s): I48.2 - Chronic atrial fibrillation (2) Pleural effusion Problem: Acute (3) CHF (congestive heart failure) Problem: Chronic Qualifiers: Heart failure type: systolic Heart failure chronicity: acute on chronic Qualified Code(s): I50.23 - Acute on chronic systolic (congestive) heart failure (4) CKD (chronic kidney disease) stage 3, GFR 30-59 ml/min Problem: Chronic (5) Malnourished Problem: Chronic Qualifiers: Malnutrition type: protein-calorie malnutrition (6) GERD (gastroesophageal reflux disease) Problem: Chronic (7) Hypertension Problem: Chronic Qualifiers: Hypertension type: essential hypertension Qualified Code(s): I10 - Essential (primary) hypertension
[2018-12-12] MEDS: ALBUTEROL SULFATE/IPRATROPIUM 3 ML NEBU IH SCH ×2 (17:59→22:59)
[2018-12-13] MEDS: ALBUTEROL SULFATE/IPRATROPIUM 3 ML NEBU IH SCH ×4 (02:16→14:03)
[2018-12-13] MEDS: ACETAMINOPHEN 500 MG TABLET PO PRN (02:18)
[2018-12-13] MEDS: ONDANSETRON 4 MG TAB.RAPDIS PO PRN ×2 (05:58→10:18)
[2018-12-13 06:21] LABS: Hematocrit 33.6 % (37.0-47.0); Hemoglobin 10.1 gm/dL (12.5-16.0); Mean Cell Volume 90.8 fl (78-100); Mean Corpuscular Hemoglobin 27.3 pg (27-31); Mean Corpuscular Hgb Conc 30.1 g/dl (32-36); Mean Platelet Volume 9.2 fl (8-12.5); Neutrophil # 5.2 K/mm3 (1.3-6.0); Neutrophil % 73.7 % (42-75.0); Platelet Count 284 K/mm3 (150-450); Red Cell Distribution Width 16.2 % (11.5-14.0); White Blood Count 7.1 K/mm3 (4.0-10.5)
[2018-12-13 06:36] LABS: Albumin * 2.1 gm/dl (3.4-5.0); Anion Gap 10.5 mmol/L (6.8-13.8); Bilirubin, Total 0.3 mg/dL (0.0-1.1); Ca. Corrected For Albumin 9.9 mg/dL (8.4-10.2); Calcium * 8.7 mg/dL (7.9-10.9); Carbon Dioxide 29.8 mmol/L (24-32.6); Potassium 4.3 mmol/L (3.4-4.6); Total Protein 5.7 gm/dL (6.2-8.2)
[2018-12-13] MEDS: PANTOPRAZOLE SODIUM 40 MG TABLET.EC PO SCH (07:03)
[2018-12-13] MEDS: CITALOPRAM HYDROBROMIDE 10 MG TABLET PO SCH (09:04)
[2018-12-13] MEDS: LISINOPRIL 20 MG TABLET PO SCH (09:05)
[2018-12-13] MEDS: ENOXAPARIN SODIUM 30 MG/0.3 ML SYRG SC SCH (09:05)
[2018-12-13] MEDS: amLODIPine BESYLATE 5 MG TABLET PO SCH (09:05)
[2018-12-13] MEDS: FUROSEMIDE 20 MG TABLET PO SCH (09:05)
[2018-12-13] MEDS: METOPROLOL TARTRATE 100 MG TABLET PO SCH (09:05)
[2018-12-13] MEDS: FOLIC ACID 1 MG TABLET PO SCH (09:05)
[2018-12-13] MEDS ORDERED: SULFAMETHOXAZOLE/TRIMETHOPRIM 1 TAB TABLET PO SCH (11:30)
--- NOTE | 2018-12-13 11:57 | PN ---
Subjective - Date and Time Seen Date: 12/13/18 Time: 11:43 Subjective Narrative: I still get shortness of breath, and have burning on urination. Objective Objective Narrative: 83-year-old female with past medical history of CHF, atrial fibrillation, low back pain, COPD, chronic kidney disease stage III, GERD, hypertension admitted for CHF exacerbation with bilateral pleural effusion as well as hypoxia was evaluated at bedside and was found to be afebrile and in no acute distress. Patient continues to be oxygen dependent especially at night and worse when she falls asleep. Her oxygen saturation drops to the early 80s and sometimes below 80 when she is sleeping. I believe patient should be evaluated for at home oxygen and also should undergo a sleep study but neither 1 of those services are available to us during the weekend. Therefore we will keep patient additional day and keep her on oxygen until orders for at home oxygen can be placed. Her PCP return to the morning and will receive a full report on the patient. Patient was also found to have a UTI on urine culture, upon questioning she admits to having burning on urination, so Bactrim was added to her treatment. - Review of Systems Generalized/Overall Review: Reports: No Symptoms Reported EENTM: Reports: No Symptoms Reported Respiratory: Reports: Shortness of Breath Cardiac: Reports: No Symptoms Reported Abdominal: Reports: No Symptoms Reported Genitourinary Symptoms: Reports: Burning Musculoskeletal Complaints: Reports: No Symptoms Reported Neurological: Reports: No Symptoms Reported Skin: Reports: No Symptoms Reported Endocrine: Reports: No Symptoms Reported - Vitals Vitals: Last Vital Signs Temp 36.8 C 12/13/18 10:30 Pulse 96 12/13/18 10:30 Resp 18 12/13/18 10:30 BP 146/73 12/13/18 10:30 Pulse Ox 93 12/13/18 10:50 - Abnormal Lab Findings Abnormal Lab Findings: Abnormal Lab Results 12/13/18 12/13/18 Range/Units 05:45 05:45 RBC 3.70 L (4.2-5.4) M/mm3 Hgb 10.1 L (12.5-16.0) gm/dL Hct 33.6 L (37.0-47.0) % MCHC 30.1 L (32-36) g/dl RDW 16.2 H (11.5-14.0) % Lymphocytes % 15.7 L (20-51) % Basophils % 1.1 H (0.0-1.0) % Lymphocytes # 1.11 L (1.5-3.5) k/mm3 BUN 35 H (3-23) mg/dL Est GFR (Non-Af Amer) 43 L (60-130) mL/min BUN/Creatinine Ratio 28.0 H (9.0-21.6) Random Glucose 114 H (70-110) mg/dL ALT 10 L (19-67) U/L Total Protein 5.7 L (6.2-8.2) gm/dL Albumin 2.1 L (3.4-5.0) gm/dl - Exam Constitutional: Present: Alert, Oriented x3, Cooperative, Well developed, No distress, Elderly, Thin and frail ENT Exam: Present: normal ENT inspection, hearing grossly normal, pharynx normal, TMs normal Neck: Present: non-tender, full range of motion, supple, normal inspection, trachea midline Breasts: Present: Exam deferred Respiratory: Present: no respiratory distress, no accessory muscle use, decreased breath sounds, No rales, No wheezing Cardiovascular/Chest: Present: normal peripheral pulses, regular rate, rhythm, no chest tenderness, no edema, no gallop Abdomen: Present: Normal bowel sounds, soft, nontender, nondistended, no rebound tenderness, no hepatospenomegaly, no masses /Rectal: Present: Exam deferred Extremity: Present: normal range of motion, non-tender, normal inspection, no pedal edema, no calf tenderness, normal capillary refill, pelvis stable Skin Exam: Present: normal color, warm/dry, no cyanosis Lymphatic: Present: no adenopathy Neurologic: Present: 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 Antibiotics were added to treatment for UTI. Patient will be handed over to her PCP in the morning. - Problems/Diagnosis (1) Atrial fibrillation Problem: Chronic Qualifiers: Atrial fibrillation type: chronic Qualified Code(s): I48.2 - Chronic atrial fibrillation (2) Pleural effusion Problem: Acute (3) CHF (congestive heart failure) Problem: Chronic Qualifiers: Heart failure type: systolic Heart failure chronicity: acute on chronic Qualified Code(s): I50.23 - Acute on chronic systolic (congestive) heart failure (4) CKD (chronic kidney disease) stage 3, GFR 30-59 ml/min Problem: Chronic (5) Malnourished Problem: Chronic Qualifiers: Malnutrition type: protein-calorie malnutrition (6) GERD (gastroesophageal reflux disease) Problem: Chronic (7) Hypertension Problem: Chronic Qualifiers: Hypertension type: essential hypertension Qualified Code(s): I10 - Essential (primary) hypertension (8) UTI (urinary tract infection) Problem: Acute
--- NOTE | 2018-12-13 12:37 | DS ---
(1) Atrial fibrillation Problem: Chronic Qualifiers: Atrial fibrillation type: chronic Qualified Code(s): I48.2 - Chronic atrial fibrillation (2) Pleural effusion Problem: Acute (3) CHF (congestive heart failure) Problem: Chronic Qualifiers: Heart failure type: systolic Heart failure chronicity: acute on chronic Qualified Code(s): I50.23 - Acute on chronic systolic (congestive) heart failure (4) CKD (chronic kidney disease) stage 3, GFR 30-59 ml/min Problem: Chronic (5) Malnourished Problem: Chronic Qualifiers: Malnutrition type: protein-calorie malnutrition (6) GERD (gastroesophageal reflux disease) Problem: Chronic (7) Hypertension Problem: Chronic Qualifiers: Hypertension type: essential hypertension Qualified Code(s): I10 - Essential (primary) hypertension (8) UTI (urinary tract infection) Problem: Acute Description of Stay: 83-year-old female with past medical history of CHF, atrial fibrillation, low back pain, COPD, chronic kidney disease stage III, GERD, hype rtension admitted for CHF exacerbation with bilateral pleural effusion as well as hypoxia was evaluated at bedside and was found to be afebrile and in no acute distress. Patient's oxygen saturation has improved however she continues to desaturate when she falls asleep at night, therefore arrangement for at home oxygen by mental care were made and a oxygen saturation is to be delivered to her home this evening. Patient is instructed to use the oxygen at night to maintain her oxygen saturation when she falls asleep. She continues to maintain stable vitals crackles on auscultation has resolved but she continues to have decreased breath sounds at lung bases and her vitals are stable. Patient was found to have a UTI on urine culture therefore oral antibiotics were added we will discharge her with a prescription for the antibiotics to continue at home. Repeat chest x-ray that was done last night demonstrate improvement of her bilateral pleural effusion and resolution of her vascular congestion. There was however a mild decrease in her GFR and a small increase in her BUN, given these findings we will discharge patient home with instructions to follow-up with her PCP and undergo CMP for reevaluation of kidney function in a week. Procedures Performed: none Results and Findings: Pending Mircobiology Results 12/09/18 01:25 Blood Blood Culture - Preliminary NO GROWTH AFTER 48 HOURS 12/08/18 23:19 Blood Blood Culture - Preliminary NO GROWTH AFTER 48 HOURS Lab Pending Results 12/08/18 23:19: WBC 20.2 H, RBC 4.42, Hgb 12.3 L, Hct 40.7, MCV 92.1, MCH 27.8, MCHC 30.2 L, RDW 15.9 H, Plt Count 494 H, MPV 9.3, Immature Gran % (Auto) 0.80 H, Immature Gran # (Auto) 0.17 H, Neutrophils % 83.1 H, Lymphocytes % 10.8 L, Monocytes % 3.7, Eosinophils % 0.7, Basophils % 0.9, Nucleated RBC % 0.0, Neutrophils # 16.8 H, Lymphocytes # 2.18, Monocytes # 0.7, Eosinophils # 0.1, Absolute Basophils 0.2 H 12/08/18 23:19: Sodium 138, Plasma Sodium 140, Potassium 3.7, Chloride 101, Carbon Dioxide 23.6 L, Anion Gap 17.1 H, BUN 38 H, Creatinine 1.49 H, Est GFR (Non-Af Amer) 35 L, BUN/Creatinine Ratio 25.5 H, Random Glucose 196 H, Calcium 9.1, Calcium Adj for Albumin 9.7, Total Bilirubin 0.2, AST 25, ALT 13 L, Alkaline Phosphatase 139, Total Protein 7.6, Albumin 2.8 L 12/08/18 23:19: B-Natriuretic Peptide [id number] H 12/08/18 23:19: Lactic Acid, Venous 2.3 H* 12/08/18 23:35: pCO2 48.1 H, pO2 54.5 L, HCO3 21.1, Total CO2 22.5, Base Excess -6.0 L, ABG pH 7.26 L, ABG O2 Sat (Measured) 83.4 L 12/09/18 04:01: Lactic Acid, Venous 1.4 12/10/18 03:20: Stl C.difficile Tox A&B Negative 12/10/18 05:53: WBC 7.7 D, RBC 3.91 L, Hgb 10.7 L, Hct 35.0 L, MCV 89.5, MCH 27.4, MCHC 30.6 L, RDW 16.3 H, Plt Count 330, MPV 9.4, Immature Gran % (Auto) 0.60 H, Immature Gran # (Auto) 0.05 H, Neutrophils % 74.2, Lymphocytes % 14.5 L, Monocytes % 7.6, Eosinophils % 2.1, Basophils % 1.0, Nucleated RBC % 0.0, Neutrophils # 5.7, Lymphocytes # 1.12 L, Monocytes # 0.6, Eosinophils # 0.2, Absolute Basophils 0.1 12/10/18 05:53: Sodium 140, Plasma Sodium 140, Potassium 3.5, Chloride 105, Carbon Dioxide 28.8, Anion Gap 9.7, BUN 30 H, Creatinine 1.20, Est GFR (Non-Af Amer) 45 L D, BUN/Creatinine Ratio 25.0 H, Random Glucose 90 D, Calcium 9.2, Calcium Adj for Albumin 10.2, Total Bilirubin 0.3, AST 18, ALT 12 L, Alkaline Phosphatase 99, Total Protein 6.1 L, Albumin 2.3 L 12/10/18 12:00: Urine Color Pale yellow, Urine Appearance Clear, Urine pH 5.5, Ur Specific [place] 1.020, Urine Protein 30 H, Urine Glucose (UA) Negative, Urine Ketones Negative, Urine Blood 5 H, Urine Nitrate Negative, Urine Bilirubin Negative, Prot Sulfosalicylic Acd Negative, Urine Urobilinogen Normal, Ur Leukocyte Esterase 75 H, Urine RBC Trace, Urine WBC Trace H, Ur Epithelial Cells 0-5, Urine Bacteria 1+ H, Urine Culture Comments Culture to follow 12/11/18 07:20: Sodium 136, Plasma Sodium 136, Potassium 3.8, Chloride 102, Carbon Dioxide 26.4, Anion Gap 11.4, BUN 29 H, Creatinine 1.14, Est GFR (Non-Af Amer) 48 L, BUN/Creatinine Ratio 25.4 H, Random Glucose 107, Calcium 9.9 12/13/18 05:45: WBC 7.1, RBC 3.70 L, Hgb 10.1 L, Hct 33.6 L, MCV 90.8, MCH 27.3, MCHC 30.1 L, RDW 16.2 H, Plt Count 284, MPV 9.2, Immature Gran % (Auto) 0.30, Immature Gran # (Auto) 0.02, Neutrophils % 73.7, Lymphocytes % 15.7 L, Monocytes % 7.2, Eosinophils % 2.0, Basophils % 1.1 H, Nucleated RBC % 0.0, Neutrophils # 5.2, Lymphocytes # 1.11 L, Monocytes # 0.5, Eosinophils # 0.1, Absolute Basophils 0.1 12/13/18 05:45: Sodium 139, Plasma Sodium 139, Potassium 4.3, Chloride 103, Carbon Dioxide 29.8, Anion Gap 10.5, BUN 35 H, Creatinine 1.25, Est GFR (Non-Af Amer) 43 L, BUN/Creatinine Ratio 28.0 H, Random Glucose 114 H, Calcium 8.7, Calcium Adj for Albumin 9.9, Total Bilirubin 0.3, AST 18, ALT 10 L, Alkaline Phosphatase 80, Total Protein 5.7 L, Albumin 2.1 L Discharge Location: Home Disposition: Home Health Service Home Health Agency: [facility] Condition: Fair Face to Face Encounter completed per [facility] Guidelines: No Discharge Activity: Activity as tolerated Discharge Diet: General/regular food Referrals: Lonnie Rice MD [Primary Care Provider] - Additional Patient Instructions (free text): [facility] ongoing, please call and fax discharge information. María is her nurse. Please call report and fax orders upon discharge. Prescriptions (Any new or edited meds): Sulfamethoxazole/Trimethoprim [Bactrim Ds] 1 tab PO BID 5 Days #10 tab Furosemide [Lasix] 20 mg PO DAILY 30 Days #30 tab Lisinopril [Zestril] 20 mg PO DAILY 30 Days #30 tab Complete Home Medications List: Complete Home Medication List: Citalopram Hydrobromide [Celexa] 10 mg PO DAILY 04/07/18 Metoprolol Tartrate [Lopressor] 100 mg PO BID 04/07/18 Pantoprazole Sodium [Protonix] 40 mg PO BID 04/07/18 folic acid 1 mg tablet 1 mg PO DAILY #30 tab 05/13/18 Amlodipine Besylate 2.5 mg PO DAILY 12/08/18 Furosemide [Lasix] 20 mg PO DAILY 30 Days #30 tab 12/13/18 Lisinopril [Zestril] 20 mg PO DAILY 30 Days #30 tab 12/13/18 Sulfamethoxazole/Trimethoprim [Bactrim Ds] 1 tab PO BID 5 Days #10 tab 12/13/18
[2018-12-13 15:33] VITALS: BP 144/71
== END 2018-12-13 14:25 | disposition home health service (06) | DRG 291 ==
LOC: ER 22:57 → MS 12-09 01:45
PROVIDERS: ADMIT Internal Medicine; ATTEND Internal Medicine
DX: I48.2 Chronic atrial fibrillation; R09.02 Hypoxemia; K21.9 Gastro-esophageal reflux disease without esophagitis; M54.5 Low back pain; I13.0 Hypertensive heart and chronic kidney disease with heart failure and stage 1 through stage 4 chronic kidney disease, or unspecified chronic kidney disease; N39.0 Urinary tract infection, site not specified; N18.3 Chronic kidney disease, stage 3 (moderate); I50.23 Acute on chronic systolic (congestive) heart failure; J44.9 Chronic obstructive pulmonary disease, unspecified; B96.89 Other specified bacterial agents as the cause of diseases classified elsewhere; J90 Pleural effusion, not elsewhere classified; D72.829 Elevated white blood cell count, unspecified; E46 Unspecified protein-calorie malnutrition
CPT/HCPCS: 36415; 36600; 71010; 71020; 71045; 71046; 80048; 80053; 81001; 82803; 83519; 83605; 83880; 85025; 87040; 87077; 87081; 87086; 87186; 87493; 93005; 94640; 94664; 94760; 96374; 97161; 99285

== ENCOUNTER 2019-01-24 07:15 | Inpatient (IN) ==
[2019-01-24] MEDS ORDERED: DILTIAZEM HCL 5 MG/ML VIAL IV ONE (07:25)
[2019-01-24] MEDS ORDERED: DILTIAZEM HCL 125 MG in DEXTROSE 5 % IN WATER 100 ML IV PRN ×2 (07:25)
--- NOTE | 2019-01-24 07:25 | ERNOTE ---
Dyspnea - Date Date of Service: 01/24/19 - General Presenting Symptoms: shortness of breath, difficulty of breathing Time Seen by Provider: 01/24/19 07:20 Source: patient, EMS - Immun/Allergies/Home Medications Immunizations: IMMUNIZATION HX Immunizations Up to Date Yes History of Influenza Vaccine Yes Hx Pneumococcal Vaccination Yes Allergies/Adverse Reactions: Allergies pravastatin Adverse Reaction (Mild, Verified 01/17/19 15:13) Vomiting Home Medications: HOME MEDICATIONS Citalopram Hydrobromide [Celexa] 10 mg PO DAILY 04/07/18 [Last Taken 08/06/18] Metoprolol Tartrate [Lopressor] 100 mg PO BID 04/07/18 [Last Taken 08/06/18] Pantoprazole Sodium [Protonix] 40 mg PO BID 04/07/18 [Last Taken 08/06/18] folic acid 1 mg tablet 1 mg PO DAILY #30 tab 05/13/18 [Last Taken 08/06/18] Amlodipine Besylate 2.5 mg PO DAILY 12/08/18 [Last Taken Unknown] Furosemide [Lasix] 40 mg PO DAILY 01/17/19 [Last Taken Unknown] - History of Present Illness Narrative: This is an 83-year-old female with a history of COPD on home oxygen, CHF, A. fib, coming from home. Patient was feeling fine a couple of days ago. Last night was feeling mildly short of breath. Worse when she lays down. She is had a bit of a cough which is nonproductive. She woke up this morning it really difficult for her to catch her breath. She is normally on 2 L of oxygen but had it bumped up by her son. Still having difficulty breathing. No fever. She did have some nausea this morning but no vomiting. No swelling in her legs or abdominal distention. She denies any chest pain or pain down her neck and arm. She has some pain in her back which is chronic for her. Patient says that this feels like when she had CHF in the past. Review of Systems - Review of Systems Constitutional: Present: no symptoms reported EYE: Present: no symptoms reported ENT: Present: no symptoms reported Respiratory: Present: See HPI, shortness of breath, cough Cardiology: Present: See HPI. Absent: chest pain, palpitations, syncope, edema, claudication Gastrointestinal/Abdominal: Present: nausea. Absent: vomiting, constipation, abdominal pain Genitourinary: Present: no symptoms reported Musculoskeletal: Present: no symptoms reported Skin: Present: no symptoms reported Neurological: Present: no symptoms reported Endocrine: Present: no symptoms reported Hematologic/Lymphatic: Present: no symptoms reported Psych: Present: no symptoms reported All Other Systems: All systems neg except as marked Medical History (Updated 01/24/19 @ 08:23 by Garrett Cooper MD) Acute renal failure (ARF) Anemia Anxiety Atrial fibrillation CAD (coronary artery disease) COPD (chronic obstructive pulmonary disease) Chronic kidney disease Dehydration Depression Esophageal stricture GERD (gastroesophageal reflux disease) HTN (hypertension) 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 Osteoarthritis UTI (urinary tract infection) Surgical History: Surgical History (Updated 08/20/18 @ 00:54 by Joseph Molina DO) H/O heart artery stent History of hysterectomy Previous back surgery Family History: Family History (Last Reviewed 01/24/19 @ 07:36 by Madina Lewis RN) Father Myocardial infarction Hypertension Mother Colon cancer Social History: Preferred Language Maced[place] Smoking Status Never smoker Abuse History No History of abuse Psych History Hx of Anxiety,Currently on Meds (Last Updated 05/01/18 @ 13:01 by Juan Rothman MD) No Social History Section defined Physical Exam - Physical Exam General Appearance: Present: wd/wn, alert, no apparent distress, other - Very thin frail looking female in no distress sitting upright in bed Head Exam: Present: normal inspection, no evidence of injury Eye Exam: Normal inspection: bilateral, PERRL: bilateral, EOMI: bilateral Ears, Nose, Throat: Present: normal ENT inspection, normal pharynx Neck: Present: normal inspection, other - I do not detect any JVD. Respiratory: Present: other - Patient has crackles half-way up bilaterally. Expi ratory wheezes are noted. Poor air entry. Slightly tachypneic around 24 Cardiovascular/Chest: Present: other - Irregularly irregular, tachycardic. Unable to appreciate any murmurs Gastrointestinal/Abdominal: Present: normal bowel sounds, nontender, nondistended, soft Back Exam: Present: normal inspection, normal range of motion, no CVA tenderness Extremity Exam: Present: normal inspection, non-tender, no edema Neurological Exam: Present: alert, oriented, normal mood/affect, no motor/sensory deficits Skin Exam: Present: normal color, warm/dry Lymphatic Exam: Present: no adenopathy Progress - Results and Orders Patient's Lab Results:: I have reviewed the patient's lab results. - Vital Signs Patient's Vital Signs:: I have reviewed the patient's vital signs. - EKG EKG #1 EKG read: Interp. by me EKG Comments: EKG demonstrates A. fib with RVR rate of 130. QRS axis is vertical at [address] elevation. T waves present anteriorly. T waves are normal. - X-Ray X-Ray #1 X-Ray: chest Interpretation: Interp. by me X-ray Comments: Chest x-ray demonstrates bilateral effusions which were present previously. There appears to be a right lower lung airspace disease. This x-ray does show increased vascular prominence. This is consistent with failure as well. - Progress/Reassessment Progress:: Unchanged Progress Note-Subjective: 01/24/19 08:20 Patient's heart rate is better on the Cardizem drip at 5 mg/h, she is been increased on her oxygen a bit. Plan - Plan Plan: 83-year-old female with a history of CHF with a cough elevated white count and elevated lactic acid and what appears to be airspace disease. A diagnosis of pneumonia is pretty much expected. She also appears to have failure on the x- ray with a BNP of 16,000. He does not have a fever. Should her tachycardia is due to the A. fib. She has underlying airspace disease. She is put on double coverage for antipseudomonal with Zosyn and Levaquin. I am not aggressively hydrating her to attempt to correct a lactic acidosis in this patient who appears to be in failure as well. She is going to need to be monitored in the ICU. Departure Clinical Impression: Pneumonia Qualifiers: Pneumonia type: due to unspecified organism Laterality: bilateral Lung location: unspecified part of lung Qualified Code(s): J18.9 - Pneumonia, unspecified organism CHF (congestive heart failure) Qualifiers: Heart failure type: unspecified Heart failure chronicity: unspecified Qualified Code(s): I50.9 - Heart failure, unspecified Afib Qualifiers: Atrial fibrillation type: chronic Qualified Code(s): I48.2 - Chronic atrial fibrillation - Departure Disposition: Still a patient Condition: Fair Referrals: Lonnie Rice MD [Primary Care Provider] -
[2019-01-24 07:42] LABS: Hemoglobin 11.4 gm/dL (12.5-16.0); Mean Corpuscular Hemoglobin 27.6 pg (27-31); Mean Platelet Volume 9.3 fl (8-12.5); Neutrophil # 12.7 K/mm3 (1.3-6.0); Neutrophil % 76.9 % (42-75.0); Platelet Count 349 K/mm3 (150-450); Red Blood Count 4.13 M/mm3 (4.2-5.4); Red Cell Distribution Width 19.9 % (11.5-14.0); White Blood Count 16.5 K/mm3 (4.0-10.5)
[2019-01-24 07:52] LABS: INR 0.99 INR (0.92-1.08); Prothrombin Time (Patient) 9.8 Seconds (9.1-10.7)
[2019-01-24 08:03] LABS: ALT 13 U/L (19-67); AST 24 U/L (0-48); Albumin * 2.7 gm/dl (3.4-5.0); Alkaline Phosphatase * 125 U/L (50-170); Anion Gap 18.4 mmol/L (6.8-13.8); BNP * 15870 pg/mL (5-550); BUN/Creatinine Ratio 32.7 (9.0-21.6); Bilirubin, Total 0.3 mg/dL (0.0-1.1); Blood Urea Nitrogen 36 mg/dL (3-23); Ca. Corrected For Albumin 10.2 mg/dL (8.4-10.2); Calcium * 9.5 mg/dL (7.9-10.9); Carbon Dioxide 24.7 mmol/L (24-32.6); Chloride 102 mmol/L (97-106); Glucose * 166 mg/dL (70-110); Potassium 4.1 mmol/L (3.4-4.6); Sodium 141 mmol/L (132-142); Total Protein 7.3 gm/dL (6.2-8.2); Troponin I Less than 0.017 ng/mL (0.00-0.10)
[2019-01-24] MEDS ORDERED: PIPERACILLIN SODIUM/TAZOBACTAM 3.375 GM in DEXTROSE 5 % IN WATER 100 ML IV ONE ×2 (08:09)
[2019-01-24] MEDS ORDERED: LEVOFLOXACIN IN DEXTROSE 5 % 500 MG/100 ML BAG IV SCH (08:15)
[2019-01-24] MEDS ORDERED: FUROSEMIDE 10 MG/ML VIAL IV ONE (10:21)
--- NOTE | 2019-01-24 10:42 | HP ---
Chief Complaint - Chief Complaint Date of Service: 01/24/19 Time of Service: 10:31 Chief Complaint: short of breath, nausea History of Present Illness: Patient reported feeling nauseated and short of breath since yesterday. She has a PMHx of afib, CHF, chronic renal disease, CAD, and dementia. She has swelling of her feet. Denies cough or CP. In the ED, her HR was in the 130's, and CXR showed pleural effusion. She was requiring oxygen via venti-mask to maintain sats. She was given 10 mg IV cardizem and started on a cardizem drip. She was also given a dose of levaquin and zosyn in the ED. She had an elevated lactate up to 2.7. Procalcitonin was 0.52. She also reported difficulty urinating. Medical History (Updated 01/24/19 @ 10:42 by Denise Rivera DO) Acute renal failure (ARF) Anemia Anxiety Atrial fibrillation CAD (coronary artery disease) COPD (chronic obstructive pulmonary disease) Chronic kidney disease Dehydration Depression Esophageal stricture GERD (gastroesophageal reflux disease) HTN (hypertension) History 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 dilatation correction current use of anticoagulant therapy Osteoarthritis UTI (urinary tract infection) Surgical History: Surgical History (Updated 08/20/18 @ 00:54 by Joseph Molina DO) H/O heart artery stent History of hysterectomy Previous back surgery Family History: Family History (Last Reviewed 01/24/19 @ 10:41 by Isabella Brown RN) Father Myocardial infarction Hypertension Mother Colon cancer Social History: Preferred Language Upper Sorbian Do you have any holiness or No cultural preference? Smoking Status Never smoker Have you smoked in the past 12 No months Do you dip or chew tobacco No Abuse History No History of abuse Psych History Hx of Anxiety,Currently on Meds Alcohol Use none Drug Use none (Last Updated 05/01/18 @ 13:01 by Juan Rothman MD) No Social History Section defined Review Of Systems (GEN) - Review of Systems Generalized/Overall Review: Absent: Fever Respiratory: Present: Shortness of Breath. Absent: Cough Cardiac: Present: Edema - feet. Absent: Chest Pain Abdominal: Present: Nausea. Absent: Diarrhea Genitourinary: Present: Retention Musculoskeletal: Present: No Symptoms Reported Neurological: Present: No Symptoms Reported Skin: Present: No Symptoms Reported Immunizations: IMMUNIZATION HX Immunizations Up to Date Yes History of Influenza Vaccine Yes Hx Pneumococcal Vaccination Yes Allergies/Adverse Reactions: Allergies Allergy/AdvReac Type Severity Reaction Status Date / Time pravastatin AdvReac Mild Vomiting Verified 01/17/19 15:13 Home Medications: HOME MEDICATIONS Citalopram Hydrobromide [Celexa] 10 mg PO DAILY 04/07/18 [Last Taken 08/06/18] Metoprolol Tartrate [Lopressor] 100 mg PO BID 04/07/18 [Last Taken 08/06/18] Pantoprazole Sodium [Protonix] 40 mg PO BID 04/07/18 [Last Taken 08/06/18] folic acid 1 mg tablet 1 mg PO DAILY #30 tab 05/13/18 [Last Taken 08/06/18] Amlodipine Besylate 2.5 mg PO DAILY 12/08/18 [Last Taken Unknown] Furosemide [Lasix] 40 mg PO DAILY 01/17/19 [Last Taken Unknown] Exam - Exam Vital Signs: Vital Signs - Last Taken Temp 36.6 C 01/24/19 09:59 Pulse 96 01/24/19 09:59 Resp 26 H 01/24/19 09:59 BP 170/89 H 01/24/19 09:59 Pulse Ox 94 01/24/19 09:59 Constitutional: Present: Alert, Cooperative, Elderly, Thin and frail Respiratory: Present: decreased breath sounds - absent breath sounds in bilateral bases, other - wearing venti-mask on 15L Cardiovascular/Chest: Present: irregularly irregular - HR 89 Abdomen: Present: soft, nontender /Rectal: Present: Exam deferred Extremity: Present: pedal edema - 2+ bilaterally of the feet Eye contact: Present: cooperative Diagnostic Studies: Abnormal Lab Results 01/24/19 01/24/19 01/24/19 Range/Units 07:25 07:25 07:25 WBC 16.5 H (4.0-10.5) K/mm3 RBC 4.13 L (4.2-5.4) M/mm3 Hgb 11.4 L (12.5-16.0) gm/dL MCHC 30.0 L (32-36) g/dl RDW 19.9 H (11.5-14.0) % Immature Gran % (Auto) 0.50 H (0.001-0.429) % Immature Gran # (Auto) 0.08 H (0.000-0.0310) K/mm3 Neutrophils % 76.9 H (42-75.0) % Lymphocytes % 17.2 L (20-51) % Neutrophils # 12.7 H (1.3-6.0) K/mm3 Anion Gap 18.4 H (6.8-13.8) mmol/L BUN 36 H (3-23) mg/dL Est GFR (Non-Af Amer) 50 L D (60-130) mL/min BUN/Creatinine Ratio 32.7 H (9.0-21.6) Random Glucose 166 H (70-110) mg/dL Lactic Acid, Venous 2.7 H* (0.4-2.0) mmol/L ALT 13 L (19-67) U/L B-Natriuretic Peptide 27957 H (5-550) pg/mL Albumin 2.7 L (3.4-5.0) gm/dl Laboratory Results WBC 16.5 K/mm3 (4.0-10.5) H 01/24/19 07:25 RBC 4.13 M/mm3 (4.2-5.4) L 01/24/19 07:25 Hgb 11.4 gm/dL (12.5-16.0) L 01/24/19 07:25 Hct 38.0 % (37.0-47.0) 01/24/19 07:25 MCV 92.0 fl (78-100) 01/24/19 07:25 MCH 27.6 pg (27-31) 01/24/19 07:25 MCHC 30.0 g/dl (32-36) L 01/24/19 07:25 RDW 19.9 % (11.5-14.0) H 01/24/19 07:25 Plt Count 349 K/mm3 (150-450) 01/24/19 07:25 MPV 9.3 fl (8-12.5) 01/24/19 07:25 Immature Gran % (Auto) 0.50 % (0.001-0.429) H 01/24/19 07:25 Immature Gran # (Auto) 0.08 K/mm3 (0.000-0.0310) H 01/24/19 07:25 76.9 % (42-75.0) H 01/24/19 07:25 17.2 % (20-51) L 01/24/19 07:25 3.1 % (0.0-9) 01/24/19 07:25 1.5 % (0.0-3.0) 01/24/19 07:25 0.8 % (0.0-1.0) 01/24/19 07:25 Nucleated RBC % 0.0 k/mm3 (0-1) 01/24/19 07:25 12.7 K/mm3 (1.3-6.0) H 01/24/19 07:25 2.83 k/mm3 (1.5-3.5) 01/24/19 07:25 0.5 k/mm3 (0.0-1.0) 01/24/19 07:25 0.2 k/mm3 (0.0-0.7) 01/24/19 07:25 Absolute Basophils 0.1 k/mm3 (0.0-0.1) 01/24/19 07:25 PT 9.8 Seconds (9.1-10.7) 01/24/19 07:25 INR (Anticoag Therapy) 0.99 INR (0.92-1.08) 01/24/19 07:25 Sodium 141 mmol/L (132-142) 01/24/19 07:25 142 mmol/L (130-142) 01/24/19 07:25 Potassium 4.1 mmol/L (3.4-4.6) 01/24/19 07:25 Chloride 102 mmol/L (97-106) 01/24/19 07:25 Carbon Dioxide 24.7 mmol/L (24-32.6) 01/24/19 07:25 18.4 mmol/L (6.8-13.8) H 01/24/19 07:25 BUN 36 mg/dL (3-23) H 01/24/19 07:25 1.10 mg/dL (0.4-1.4) 01/24/19 07:25 Est GFR (Non-Af Amer) 50 mL/min (60-130) L D 01/24/19 07:25 32.7 (9.0-21.6) H 01/24/19 07:25 166 mg/dL (70-110) H 01/24/19 07:25 2.7 mmol/L (0.4-2.0) H* 01/24/19 07:25 Calcium 9.5 mg/dL (7.9-10.9) 01/24/19 07:25 Calcium Adj for Albumin 10.2 mg/dL (8.4-10.2) 01/24/19 07:25 0.3 mg/dL (0.0-1.1) 01/24/19 07:25 AST 24 U/L (0-48) 01/24/19 07:25 ALT 13 U/L (19-67) L 01/24/19 07:25 125 U/L (50-170) 01/24/19 07:25 Less than 0.017 ng/mL (0.00-0.10) 01/24/19 07:25 B-Natriuretic Peptide 31017 pg/mL (5-550) H 01/24/19 07:25 7.3 gm/dL (6.2-8.2) 01/24/19 07:25 2.7 gm/dl (3.4-5.0) L 01/24/19 07:25 Assessment/Plan - Assessment/Plan (1) CHF exacerbation Assessment: She was given 80 IV lasix on arrival to the [facility], and her oxygen requirements [place]. [place] [id number], her SOB is likely due to CHF exacerbation. Her home lasix dose is 40 daily. Will reassess her need for increased lasix in the morning. Problem: Acute (2) Sepsis Assessment: She is getting fluids with her antibiotics. She was not given sepsis fluids in the ED due to her fluid overload. Procalcitonin of 0.52, indicating possible systemic infection. Lactate of 2.7. She was given zosyn and levaquin in the ED, and rocephin had been ordered, to start this evening. Her BP is no longer decreased, and she is afebrile. She is not currently meeting sepsis criteria. UA pending. She had significant pleural effusions on CXR, which could be obscuring a pneumonia. Problem: Suspected (3) Atrial fibrillation Assessment: Her initial heart rate was up to the 130's, which improved after IV cardizem. She was on a cardizem drip briefly, and this has been stopped. Home metoprolol given, and her rate is now in the 80's. If she maintains this over the next few hours, can transfer over to med/surg. Problem: Chronic Qualifiers: Atrial fibrillation type: chronic Qualified Code(s): I48.2 - Chronic atrial fibrillation (4) Pleural effusion Assessment: Likely due to CHF. If she does not improve with lasix, may require thoracentesis. Problem: Acute (5) Dementia Problem: Chronic Qualifiers: Dementia type: Alzheimer's disease Alzheimer's disease onset: late-onset (6) CKD (chronic kidney disease) stage 3, GFR 30-59 ml/min Problem: Chronic (7) GERD (gastroesophageal reflux disease) Problem: Chronic (8) Hypertension Problem: Chronic Qualifiers: Hypertension type: essential hypertension Qualified Code(s): I10 - Essential (primary) hypertension
[2019-01-24] MEDS: METOPROLOL TARTRATE 100 MG TABLET PO SCH ×2 (11:10→20:30)
[2019-01-24] MEDS ORDERED: ACETAMINOPHEN 325 MG TABLET PO PRN (12:08)
[2019-01-24 13:42] LABS: Urine Appearance Clear (CLEAR); Urine Bilirubin Negative (NEGATIVE); Urine Blood Negative /ul (NEGATIVE); Urine Color Yellow; Urine Ketone Negative (NEGATIVE); Urine Nitrite Negative (NEGATIVE); Urine Protein 100 mg/dL (NEGATIVE); Urine Urobilinogen Normal (NORMAL); Urine pH 5.5 pH (5.0-7.0)
[2019-01-24 13:43] LABS: Urine Bacteria None Seen; Urine RBC None Seen /hpf (0-5); Urine WBC None Seen /hpf (0-5)
[2019-01-24] MEDS: LISINOPRIL 20 MG TABLET PO SCH (14:57)
[2019-01-24] MEDS: amLODIPine BESYLATE 5 MG TABLET PO SCH (14:57)
[2019-01-24] MEDS ORDERED: ONDANSETRON HCL 4 MG TABLET PO PRN (15:38)
[2019-01-24] MEDS ORDERED: LISINOPRIL 20 MG TABLET PO ONE (19:49)
[2019-01-24] MEDS ORDERED: LISINOPRIL 10 MG TABLET ONE (20:28)
[2019-01-24] MEDS: PANTOPRAZOLE SODIUM 40 MG TABLET.EC PO SCH (20:30)
[2019-01-24] MEDS: ACETAMINOPHEN 325 MG TABLET PO PRN (21:59)
[2019-01-25] MEDS: ACETAMINOPHEN 325 MG TABLET PO PRN (05:39)
[2019-01-25] MEDS: PANTOPRAZOLE SODIUM 40 MG TABLET.EC PO SCH ×2 (06:42→20:09)
[2019-01-25] MEDS: amLODIPine BESYLATE 5 MG TABLET PO SCH ×2 (06:46→08:01)
[2019-01-25] MEDS: LISINOPRIL 20 MG TABLET PO SCH ×2 (06:46→08:01)
[2019-01-25] MEDS: METOPROLOL TARTRATE 100 MG TABLET PO SCH ×3 (06:46→20:09)
[2019-01-25 06:50] LABS: Hematocrit 32.6 % (37.0-47.0); Hemoglobin 9.9 gm/dL (12.5-16.0); Mean Cell Volume 90.6 fl (78-100); Mean Corpuscular Hemoglobin 27.5 pg (27-31); Mean Corpuscular Hgb Conc 30.4 g/dl (32-36); Mean Platelet Volume 9.6 fl (8-12.5); Neutrophil # 7.7 K/mm3 (1.3-6.0); Neutrophil % 82.2 % (42-75.0); Platelet Count 286 K/mm3 (150-450); Red Cell Distribution Width 19.8 % (11.5-14.0); White Blood Count 9.3 K/mm3 (4.0-10.5)
[2019-01-25 06:56] LABS: Albumin * 2.2 gm/dl (3.4-5.0); Anion Gap 9.5 mmol/L (6.8-13.8); BUN/Creatinine Ratio 25.9 (9.0-21.6); Bilirubin, Total 0.5 mg/dL (0.0-1.1); Ca. Corrected For Albumin 10.2 mg/dL (8.4-10.2); Calcium * 9.1 mg/dL (7.9-10.9); Carbon Dioxide 30.3 mmol/L (24-32.6); Potassium 3.8 mmol/L (3.4-4.6); Total Protein 6.1 gm/dL (6.2-8.2)
[2019-01-25] MEDS: CITALOPRAM HYDROBROMIDE 10 MG TABLET PO SCH (08:01)
[2019-01-25] MEDS: FUROSEMIDE 40 MG TABLET PO SCH (08:01)
[2019-01-25] MEDS ORDERED: LEVOFLOXACIN IN DEXTROSE 5 % 500 MG/100 ML BAG IV SCH (08:15)
[2019-01-25] MEDS ORDERED: amLODIPine BESYLATE 5 MG TABLET PO SCH (09:00)
[2019-01-25] MEDS ORDERED: FUROSEMIDE 10 MG/ML VIAL IV ONE (09:02)
--- NOTE | 2019-01-25 09:17 | PN ---
Subjective - Date and Time Seen Date: 01/25/19 Time: 09:01 Subjective Narrative: She reports feeling better this morning, but still has some nausea. She has been able to eat. She can hear herself wheeze. She is able to walk to the bathroom. She has been weaned to NC. She feels like her feet are puffy. Objective - Review of Systems Generalized/Overall Review: Denies: Fever Respiratory: Reports: Cough, Shortness of Breath, Wheezing Cardiac: Reports: Edema. Denies: Chest Pain Abdominal: Reports: Nausea. Denies: Vomiting Genitourinary Symptoms: Reports: No Symptoms Reported Musculoskeletal Complaints: Reports: No Symptoms Reported - Vitals Vitals: Last Vital Signs Temp 36.8 C 01/25/19 07:51 Pulse 74 01/25/19 08:01 Resp 18 01/25/19 07:51 BP 124/64 01/25/19 08:01 Pulse Ox 95 01/25/19 07:51 - Abnormal Lab Findings Abnormal Lab Findings: Abnormal Lab Results 01/24/19 01/24/19 01/24/19 Range/Units 10:43 10:43 13:12 RBC (4.2-5.4) M/mm3 Hgb (12.5-16.0) gm/dL Hct (37.0-47.0) % MCHC (32-36) g/dl RDW (11.5-14.0) % Immature Gran % (Auto) (0.001-0.429) % Immature Gran # (Auto) (0.000-0.0310) K/mm3 Neutrophils % (42-75.0) % Lymphocytes % (20-51) % Basophils % (0.0-1.0) % Neutrophils # (1.3-6.0) K/mm3 Lymphocytes # (1.5-3.5) k/mm3 BUN (3-23) mg/dL Est GFR (Non-Af Amer) (60-130) mL/min BUN/Creatinine Ratio (9.0-21.6) Lactic Acid, Venous 2.3 H* (0.4-2.0) mmol/L ALT (19-67) U/L Total Protein (6.2-8.2) gm/dL Albumin (3.4-5.0) gm/dl Procalcitonin 0.52 H (0.05-0.50) ng/mL Urine Protein 100 H (NEGATIVE) mg/dL Prot Sulfosalicylic Acd 3+ H (0) mg/dL 01/25/19 01/25/19 Range/Units 06:26 06:26 RBC 3.60 L (4.2-5.4) M/mm3 Hgb 9.9 L (12.5-16.0) gm/dL Hct 32.6 L (37.0-47.0) % MCHC 30.4 L (32-36) g/dl RDW 19.8 H (11.5-14.0) % Immature Gran % (Auto) 0.50 H (0.001-0.429) % Immature Gran # (Auto) 0.05 H (0.000-0.0310) K/mm3 Neutrophils % 82.2 H (42-75.0) % Lymphocytes % 10.3 L (20-51) % Basophils % 1.3 H (0.0-1.0) % Neutrophils # 7.7 H (1.3-6.0) K/mm3 Lymphocytes # 0.96 L (1.5-3.5) k/mm3 BUN 30 H (3-23) mg/dL Est GFR (Non-Af Amer) 47 L (60-130) mL/min BUN/Creatinine Ratio 25.9 H (9.0-21.6) Lactic Acid, Venous (0.4-2.0) mmol/L ALT 12 L (19-67) U/L Total Protein 6.1 L (6.2-8.2) gm/dL Albumin 2.2 L (3.4-5.0) gm/dl Procalcitonin (0.05-0.50) ng/mL Urine Protein (NEGATIVE) mg/dL Prot Sulfosalicylic Acd (0) mg/dL - Exam Constitutional: Present: Alert, Cooperative, Elderly, Thin and frail Respiratory: Present: no respiratory distress, decreased breath sounds - absent breath sounds in her bilateral bases. Absent: wheezing Cardiovascular/Chest: Present: regular rate, rhythm, systolic murmur Abdomen: Present: soft, nontender - trace pedal edema Appearance: Present: appropriate appearance, appropriate insight Assessment/Plan - Problems/Diagnosis (1) CHF exacerbation Problem: Acute Narrative: Improved after 80 mg IV lasix yesterday. She still hears herself wheeze, and still has absent lung sounds bilaterally. Will restart her home dose of 40 mg po lasix, and give an additional 20 mg IV lasix today. Chart review shows her pleural effusions were present in December. Possible DC home tomorrow. She reports having an extended long-term stay earlier, and went home November 02. With repeated hospitalizations, she may be a hospice candidate, but will defer this to her PCP. (2) Sepsis Problem: Suspected Narrative: She met sepsis criteria briefly in the ED, and this has resolved. Less likely to have been septic, since she improved significantly after lasix. However, will cover her for pneumonia with rocephin. (3) Atrial fibrillation Problem: Chronic Qualifiers: Atrial fibrillation type: chronic Qualified Code(s): I48.2 - Chronic atrial fibrillation Narrative: Probably paroxysmal. EKG from last month showed sinus rhythm, and she is back in sinus rhythm since yesterday. continue metoprolol. she is not anticoagulated. She reports being on a blood thinner in the past, and had significant difficulty regulating it, implying she was on coumadin. She was told by her PCP that she did not need it anymore, and it was stopped. Would recommend continued anticoagulation discussions with her PCP. (4) Pleural effusion Problem: Chronic (5) Dementia Problem: Chronic Qualifiers: Dementia type: Alzheimer's disease Alzheimer's disease onset: late-onset (6) CKD (chronic kidney disease) stage 3, GFR 30-59 ml/min Problem: Chronic (7) GERD (gastroesophageal reflux disease) Problem: Chronic (8) Hypertension Problem: Chronic Qualifiers: Hypertension type: essential hypertension Qualified Code(s): I10 - Essential (primary) hypertension Narrative: Her BP was elevated yesterday afternoon. She was given an extra dose of 20 mg lisinopril with improvement. continue home lisinopril and amlodipine. (9) Severe malnutrition Problem: Chronic Narrative: Will add ensure. 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 (10) Cardiac murmur Problem: Chronic Narrative: She reports this is chronic. No echo available in her chart, but her PCP is outside our organization. Since she is improving, no need to obtain echo during this hospital stay.
[2019-01-25] MEDS ORDERED: amLODIPine BESYLATE 5 MG TABLET PO ONE (15:00)
[2019-01-25] MEDS ORDERED: ENOXAPARIN SODIUM 30 MG/0.3 ML SYRG SC SCH (15:00)
[2019-01-26] MEDS: ACETAMINOPHEN 325 MG TABLET PO PRN (06:44)
[2019-01-26] MEDS: PANTOPRAZOLE SODIUM 40 MG TABLET.EC PO SCH (06:45)
--- NOTE | 2019-01-26 07:54 | DS ---
(1) CHF exacerbation Problem: Resolved (2) Sepsis Problem: Resolved (3) Atrial fibrillation Problem: Chronic Qualifiers: Atrial fibrillation type: paroxysmal Qualified Code(s): I48.0 - Paroxysmal atrial fibrillation (4) Pleural effusion Problem: Chronic (5) Dementia Problem: Chronic Qualifiers: Dementia type: Alzheimer's disease Alzheimer's disease onset: late-onset (6) CKD (chronic kidney disease) stage 3, GFR 30-59 ml/min Problem: Chronic (7) GERD (gastroesophageal reflux disease) Problem: Chronic (8) Hypertension Problem: Chronic Qualifiers: Hypertension type: essential hypertension Qualified Code(s): I10 - Essential (primary) hypertension (9) Severe malnutrition Problem: Chronic (10) Cardiac murmur Problem: Chronic Description of Stay: Patient reported feeling nauseated and short of breath since the day before admission. She has a PMHx of afib, CHF, chronic renal disease, CAD, and dementia. She has swelling of her feet. Denies cough or CP. In the ED, her HR was in the 130's, and CXR showed pleural effusion. She was requiring oxygen via venti-mask to maintain sats. She was given 10 mg IV cardizem and started on a cardizem drip. She was also given a dose of levaquin and zosyn in the ED. She had an elevated lactate up to 2.7. Procalcitonin was 0.52. Her lactate resolved. The cardizem was only needed for a short term. She technically met sepsis criteria for about 1/2 hour. Her BP quickly increased, and the low BP readings may have been erroneous. She felt better after getting 80 mg IV lasix, and her presentation was thought to be secondary to fluid overload, but pneumonia is also a possibility given her increased procalcitonin. She was continued on Rocephin while here, and transitioned to cefdinir on discharge. She reports frequently eating canned soup at home, which could contribute. Her heart rate converted back to sinus rhythm. She had frequent BP readings of 180's/upper 90's. Her amlodipine was increased to 5 mg. Paroxysmal afib and anticoagulation was discussed with her. She reports being on a medication in the past, and there was difficulty regulating her levels, and it was stopped by her PCP. Recommend having continued conversations regarding anticoagulation. Procedures Performed: none Results and Findings: Pending Mircobiology Results 01/24/19 07:41 Blood Blood Culture - Preliminary NO GROWTH 24 HOURS 01/24/19 07:25 Blood Blood Culture - Preliminary NO GROWTH 24 HOURS Lab Pending Results 01/24/19 07:25: WBC 16.5 H, RBC 4.13 L, Hgb 11.4 L, Hct 38.0, MCV 92.0, MCH 27.6, MCHC 30.0 L, RDW 19.9 H, Plt Count 349, MPV 9.3, Immature Gran % (Auto) 0.50 H, Immature Gran # (Auto) 0.08 H, Neutrophils % 76.9 H, Lymphocytes % 17.2 L, Monocytes % 3.1, Eosinophils % 1.5, Basophils % 0.8, Nucleated RBC % 0.0, Neutrophils # 12.7 H, Lymphocytes # 2.83, Monocytes # 0.5, Eosinophils # 0.2, Absolute Basophils 0.1 01/24/19 07:25: PT 9.8, INR (Anticoag Therapy) 0.99 01/24/19 07:25: Sodium 141, Plasma Sodium 142, Potassium 4.1, Chloride 102, Carbon Dioxide 24.7, Anion Gap 18.4 H, BUN 36 H, Creatinine 1.10, Est GFR (Non- Af Amer) 50 L D, BUN/Creatinine Ratio 32.7 H, Random Glucose 166 H, Calcium 9.5, Calcium Adj for Albumin 10.2, Total Bilirubin 0.3, AST 24, ALT 13 L, Alkaline Phosphatase 125, Troponin I Less than 0.017, B-Natriuretic Peptide 38863 H, Total Protein 7.3, Albumin 2.7 L 01/24/19 07:25: Lactic Acid, Venous 2.7 H* 01/24/19 10:43: Lactic Acid, Venous 2.3 H* 01/24/19 10:43: Procalcitonin 0.52 H 01/24/19 13:12: Urine Color Yellow, Urine Appearance Clear, Urine pH 5.5, Ur Specific [place] 1.020, Urine Protein 100 H, Urine Glucose (UA) Negative, Urine Ketones Negative, Urine Blood Negative, Urine Nitrate Negative, Urine Bilirubin Negative, Prot Sulfosalicylic Acd 3+ H, Urine Urobilinogen Normal, Ur Leukocyte Esterase Negative, Urine RBC None seen, Urine WBC None seen, Ur Epithelial Cells None seen, Urine Bacteria None seen, Urine Culture Comments No culture indicated 01/24/19 13:21: Lactic Acid, Venous 2.0 01/25/19 06:26: WBC 9.3 D, RBC 3.60 L, Hgb 9.9 L, Hct 32.6 L, MCV 90.6, MCH 27.5, MCHC 30.4 L, RDW 19.8 H, Plt Count 286, MPV 9.6, Immature Gran % (Auto) 0.50 H, Immature Gran # (Auto) 0.05 H, Neutrophils % 82.2 H, Lymphocytes % 10.3 L, Monocytes % 4.7, Eosinophils % 1.0, Basophils % 1.3 H, Nucleated RBC % 0.0, Neutrophils # 7.7 H, Lymphocytes # 0.96 L, Monocytes # 0.4, Eosinophils # 0.1, Absolute Basophils 0.1 01/25/19 06:26: Sodium 138, Plasma Sodium 138, Potassium 3.8, Chloride 102, Carbon Dioxide 30.3, Anion Gap 9.5, BUN 30 H, Creatinine 1.16, Est GFR (Non-Af Amer) 47 L, BUN/Creatinine Ratio 25.9 H, Random Glucose 96 D, Calcium 9.1, Calcium Adj for Albumin 10.2, Total Bilirubin 0.5, AST 20, ALT 12 L, Alkaline Phosphatase 86, Total Protein 6.1 L, Albumin 2.2 L Discharge Location: Home Disposition: Home Health Service Condition: Fair Discharge Activity: Activity as tolerated Discharge Diet: Low salt Referrals: Lonnie Rice MD [Primary Care Provider] - (Patient reports having an appointment with her PCP on of this week. If verified, this would suffice for her follow up visit. ) Additional Patient Instructions (free text): Resume services with [facility] . Her nurse is María. Please call report and fax orders upon discharge. Prescriptions (Any new or edited meds): Cefdinir 300 mg PO BID #10 cap amLODIPine BESYLATE [Norvasc] 5 mg PO DAILY #30 tab Complete Home Medications List: Complete Home Medication List: Citalopram Hydrobromide [Celexa] 10 mg PO DAILY 04/07/18 Metoprolol Tartrate [Lopressor] 100 mg PO BID 04/07/18 Pantoprazole Sodium [Protonix] 40 mg PO BID 04/07/18 folic acid 1 mg tablet 1 mg PO DAILY #30 tab 05/13/18 Furosemide [Lasix] 40 mg PO DAILY 01/17/19 Acetaminophen [Tylenol] 650 mg PO Q6H PRN 01/24/19 Lisinopril 20 mg PO DAILY 01/24/19 Ondansetron HCl [Zofran] 4 mg PO Q6H PRN 01/24/19 Cefdinir 300 mg PO BID #10 cap 01/26/19 amLODIPine BESYLATE [Norvasc] 5 mg PO DAILY #30 tab 01/26/19
[2019-01-26] MEDS: METOPROLOL TARTRATE 100 MG TABLET PO SCH (08:46)
[2019-01-26] MEDS: FUROSEMIDE 40 MG TABLET PO SCH (08:46)
[2019-01-26] MEDS: LISINOPRIL 20 MG TABLET PO SCH (08:46)
[2019-01-26] MEDS: CITALOPRAM HYDROBROMIDE 10 MG TABLET PO SCH (08:47)
[2019-01-26] MEDS ORDERED: amLODIPine BESYLATE 5 MG TABLET PO SCH (09:00)
[2019-01-26 11:35] VITALS: BP 152/85
== END 2019-01-26 11:20 | disposition home health service (06) | DRG 291 ==
LOC: ER 07:15 → MS 08:25 → SCU 09:21 → MS 13:05 → SCU 13:24 → MS 16:32
PROVIDERS: ADMIT Family Medicine; ATTEND Family Medicine
CPT/HCPCS: 36415; 71010; 71045; 80053; 81001; 83519; 83605; 83880; 84145; 84484; 85025; 85610; 87040; 93005; 96365; 96375; 99285

== ENCOUNTER 2019-04-15 19:48 | Inpatient (IN) ==
--- NOTE | 2019-04-15 21:10 | ERNOTE ---
Abdominal HPI - Narrative Date of Service: 04/15/19 - General Chief Complaint: Abdominal Pain Time Seen by Provider: 04/15/19 20:56 Source: patient - Immun/Allergies/Home Medications Immunizatons: IMMUNIZATION HX Immunizations Up to Date Yes History of Influenza Vaccine Yes Hx Pneumococcal Vaccination No Allergies/Adverse Reactions: Allergies pravastatin Adverse Reaction (Mild, Verified 04/15/19 19:57) Vomiting Home Medications: HOME MEDICATIONS Citalopram Hydrobromide [Celexa] 10 mg PO DAILY 04/07/18 [Last Taken 08/06/18] Metoprolol Tartrate [Lopressor] 100 mg PO BID 04/07/18 [Last Taken 02/19/19 08 :00] Pantoprazole Sodium [Protonix] 40 mg PO BID 04/07/18 [Last Taken 02/19/19 08:00] folic acid 1 mg tablet 1 mg PO DAILY #30 tab 05/13/18 [Last Taken 08/06/18] Furosemide [Lasix] 40 mg PO BID 01/17/19 [Last Taken 02/19/19 08:00] Acetaminophen [Tylenol] 650 mg PO Q6H PRN 01/24/19 [Last Taken Unknown] Lisinopril 20 mg PO DAILY 01/24/19 [Last Taken 02/19/19 08:00] Ondansetron HCl [Zofran] 4 mg PO Q6H PRN 01/24/19 [Last Taken Unknown] Acetaminophen [Tylenol 8 Hour] 650 mg PO TID PRN 02/19/19 [Last Taken Unknown] Aspirin [Aspirin Chewable] 81 mg PO DAILY 04/15/19 [Last Taken Unknown] Atorvastatin Calcium [Lipitor] 20 mg PO HS 04/15/19 [Last Taken Unknown] Spironolactone 25 mg PO DAILY 04/15/19 [Last Taken Unknown] hydrALAZINE HCL [Apresoline] 10 mg PO BID 04/15/19 [Last Taken Unknown] - History of Present Illness Narrative: This is an 83-year-old female who comes in from the [facility] [facility]. The patient has been having uncontrollable diarrhea for the last 2 days, started on Friday. She says it is to the point where she will be sleeping and wake up knowing that she has to defecate but before she can even wake up completely she has soiled herself. She gets some mild crampy abdominal pain before the bowel movements. Bowel movements have been more when she eats. Her appetite spend up crest for the last few days. No fever. She says when she wakes up in the morning she does feel generally weak. She does does not feel her normal self. No blood in the stool. No chest pain or shortness of breath. No leg swelling. No vomiting or nausea. No other complaints Review of Systems - Review of Systems Constitutional: Present: no symptoms reported EYE: Present: no symptoms reported ENT: Present: no symptoms reported Respiratory: Present: no symptoms reported Cardiology: Present: no symptoms reported Gastrointestinal/Abdominal: Present: nausea, vomiting, diarrhea, abdominal pain - Abdominal pain is only when she is going to have a bowel movement, eating less Genitourinary: Present: no symptoms reported Musculoskeletal: Present: no symptoms reported Skin: Present: no symptoms reported Neurological: Present: other - Generalized weakness and she wakes up Endocrine: Present: no symptoms reported Hematologic/Lymphatic: Present: no symptoms reported Psych: Present: no symptoms reported All Other Systems: All systems neg except as marked Medical History (Updated 04/15/19 @ 23:24 by Garrett Cooper MD) Acute renal failure (ARF) Anemia Anxiety Atrial fibrillation CAD (coronary artery disease) COPD (chronic obstructive pulmonary disease) Chronic kidney disease Dehydration Depression Esophageal stricture GERD (gastroesophageal reflux disease) HTN (hypertension) History 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 dilatation skilled nursing current use of anticoagulant therapy Osteoarthritis UTI (urinary tract infection) Surgical History: Surgical History (Updated 08/20/18 @ 00:54 by Joseph Molina DO) H/O heart artery stent History of hysterectomy Previous back surgery Family History: Family History (Last Reviewed 04/15/19 @ 19:56 by Alyse Bowser) Father Myocardial infarction Hypertension Mother Colon cancer Social History: (Last Reviewed 04/15/19 @ 19:57 by Alyse Bowser) Social History: household members: children current occupational status: retired Service: No Tobacco: Smoking Status: Never smoker Alcohol: alcohol intake: never Substance Use: substance use type: does not use Dietary Habits: caffeine: Yes Personal Safety: victim of physical abuse: No victim of emotional abuse: No Physical Exam - Physical Exam General Appearance: Present: wd/wn, alert, no apparent distress Head Exam: Present: normal inspection, no evidence of injury Eye Exam: Normal inspection: bilateral, PERRL: bilateral, EOMI: bilateral Ears, Nose, Throat: Present: normal ENT inspection, normal pharynx Neck: Present: normal inspection, nontender Respiratory: Present: no respiratory distress, normal breath sounds, chest nontender, lungs clear Cardiovascular/Chest: Present: regular rate, rhythm, no murmur Gastrointestinal/Abdominal: Present: normal bowel sounds, nontender, nondistended, soft Back Exam: Present: normal inspection, normal range of motion, no CVA tenderness, no vertebral tenderness Extremity Exam: Present: normal inspection, non-tender, normal range of motion, no edema Neurological Exam: Present: alert, oriented, normal mood/affect, no motor/sensory deficits Skin Exam: Present: normal color, warm/dry Lymphatic Exam: Present: no adenopathy Progress - Results and Orders Patient's Lab Results:: I have reviewed the patient's lab results. - Vital Signs Patient's Vital Signs:: I have reviewed the patient's vital signs. Vital Signs: Vital Signs 04/15/19 19:53 Temperature 37 C Pulse Rate 75 Respiratory Rate 18 Blood Pressure 152/78 H O2 Sat by Pulse Oximetry 98 - EKG EKG #1 EKG read: Interp. by me EKG Comments: EKG demonstrates sinus rhythm ventricular rate of 64. Normal axis. Normal intervals. No ST elevation. No T wave inversions. - Progress/Reassessment Chief Complaint: Abdominal Pain Plan - Plan Plan: This is an 83-year-old female who came to the ER with diarrhea that she cannot control. She is found to be in acute renal failure with a significant UTI. Now having symptoms of UTI. Hemodynamically stable. I think aggressive hydration with antibiotics would be appropriate. I am going to admit her to the hospital. I am waiting for callback from Dr. Ward \ Dr. Best is graciously agreed to admit the patient. Agrees with fluids and antibiotics. Departure Clinical Impression: Acute renal failure Qualifiers: Acute renal failure type: unspecified Qualified Code(s): N17.9 - Acute kidney failure, unspecified Urinary tract infection Qualifiers: Urinary tract infection type: acute cystitis Hematuria presence: without hematuria Qualified Code(s): N30.00 - Acute cystitis without hematuria - Departure Disposition: Still a patient Condition: Stable
[2019-04-15 21:29] LABS: Urine Bilirubin Negative (NEGATIVE); Urine Blood 250 /ul (NEGATIVE); Urine Ketone Negative (NEGATIVE); Urine Nitrite Negative (NEGATIVE); Urine Protein Negative (NEGATIVE); Urine Urobilinogen Normal (NORMAL)
[2019-04-15 21:37] LABS: Urine Appearance Cloudy (CLEAR); Urine Color Pale Yellow
[2019-04-15 21:38] LABS: Urine Bacteria 2+
[2019-04-15 21:49] LABS: Hemoglobin 8.7 gm/dL (12.5-16.0); Mean Cell Volume 89.2 fl (78-100); Mean Corpuscular Hemoglobin 27.7 pg (27-31); Mean Corpuscular Hgb Conc 31.1 g/dl (32-36); Mean Platelet Volume 10.2 fl (8-12.5); Neutrophil # 9.2 K/mm3 (1.3-6.0); Neutrophil % 81.4 % (42-75.0); Platelet Count 294 K/mm3 (150-450); Red Blood Count 3.14 M/mm3 (4.2-5.4); Red Cell Distribution Width 14.9 % (11.5-14.0); White Blood Count 11.4 K/mm3 (4.0-10.5)
[2019-04-15 22:01] LABS: Albumin * 2.7 gm/dl (3.4-5.0); BUN/Creatinine Ratio 42.7 (9.0-21.6); Bilirubin, Total 0.3 mg/dL (0.0-1.1); Ca. Corrected For Albumin 10.2 mg/dL (8.4-10.2); Calcium * 9.5 mg/dL (7.9-10.9); Carbon Dioxide 27.9 mmol/L (24-32.6); Potassium 5.9 mmol/L (3.4-4.6); Total Protein 6.9 gm/dL (6.2-8.2)
[2019-04-15] MEDS ORDERED: PHENAZOPYRIDINE HCL 100 MG TABLET PO ONE (23:17)
[2019-04-15] MEDS ORDERED: cefTRIAXone SODIUM 1,000 MG/100 ML BAG IV ONE (23:17)
[2019-04-16] MEDS: NORMAL SALINE 1,000 ML IV PRN ×2 (02:18→15:44)
[2019-04-16 06:11] LABS: Estimated Creat Clear 13.1
[2019-04-16 06:12] LABS: Anion Gap 12.7 mmol/L (6.8-13.8); Calcium * 9.3 mg/dL (7.9-10.9); Carbon Dioxide 28.7 mmol/L (24-32.6); Potassium 5.4 mmol/L (3.4-4.6)
[2019-04-16] MEDS ORDERED: ONDANSETRON HCL 4 MG TABLET PO PRN (10:19)
--- NOTE | 2019-04-16 10:19 | HP ---
Chief Complaint - Chief Complaint Date of Service: 04/16/19 Time of Service: 09:13 Chief Complaint: Diarrhea and abdominal pain for 3 days History of Present Illness: 83-year-old female with a past medical history of atrial fibrillation, coronary artery disease, chronic kidney disease, COPD, anemia, anxiety, depression, GERD, hypertension, osteoarthritis presents from home with complaints of diarrhea, abdominal pain and weakness for the past 3 days. Symptoms associated with dizziness. She states that she was having 3-4 watery bowel movements per day. She states every time she ate she would have a bowel movement. She presented to the emergency department and was admitted with acute on chronic kidney disease. BUN of 128 and creatinine of 3 which is up from her baseline creatinine of 1.1. She was admitted for IV fluid hydration. She is also found to have a positive urinalysis and started on ceftriaxone. Medical History (Updated 04/16/19 @ 10:19 by Ricarda Ward MD) Acute renal failure (ARF) Anemia Anxiety Atrial fibrillation CAD (coronary artery disease) COPD (chronic obstructive pulmonary disease) Chronic kidney disease Dehydration Depression Esophageal stricture GERD (gastroesophageal reflux disease) HTN (hypertension) History 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 dilatation [facility] current use of anticoagulant therapy Osteoarthritis UTI (urinary tract infection) Surgical History: Surgical History (Updated 08/20/18 @ 00:54 by Joseph Molina DO) H/O heart artery stent History of hysterectomy Previous back surgery Family History: Family History (Last Reviewed 04/16/19 @ 00:45 by Swetha Martines RN) Father Myocardial infarction Hypertension Mother Colon cancer Social History: (Last Reviewed 04/16/19 @ 00:45 by Swetha Martines RN) Social History: household members: children current occupational status: retired Service: No Tobacco: Smoking Status: Never smoker Alcohol: alcohol intake: never Substance Use: substance use type: does not use Dietary Habits: caffeine: Yes Personal Safety: victim of physical abuse: No victim of emotional abuse: No Review Of Systems (GEN) - Review of Systems Generalized/Overall Review: Present: Weakness. Absent: Chills, Fever EENTM: Absent: Eye Pain, Ear Pain Respiratory: Absent: Shortness of Breath Cardiac: Absent: Chest Pain Abdominal: Present: Diarrhea. Absent: Nausea, Vomiting, Abdominal Pain Misc: All systems neg except as marked Immunizations: IMMUNIZATION HX Immunizations Up to Date Yes History of Influenza Vaccine Yes Hx Pneumococcal Vaccination No Allergies/Adverse Reactions: Allergies Allergy/AdvReac Type Severity Reaction Status Date / Time pravastatin AdvReac Mild Vomiting Verified 04/15/19 19:57 Home Medications: HOME MEDICATIONS Citalopram Hydrobromide [Celexa] 10 mg PO DAILY 04/07/18 [Last Taken 08/06/18] Metoprolol Tartrate [Lopressor] 100 mg PO BID 04/07/18 [Last Taken 02/19/19 08:00] Pantoprazole Sodium [Protonix] 40 mg PO BID 04/07/18 [Last Taken 02/19/19 08:00] Furosemide [Lasix] 40 mg PO BID 01/17/19 [Last Taken 02/19/19 08:00] Acetaminophen [Tylenol] 650 mg PO Q6H PRN 01/24/19 [Last Taken Unknown] Lisinopril 40 mg PO DAILY 01/24/19 [Last Taken 02/19/19 08:00] Ondansetron HCl [Zofran] 4 mg PO Q6H PRN 01/24/19 [Last Taken Unknown] Acetaminophen [Tylenol 8 Hour] 650 mg PO TID PRN 02/19/19 [Last Taken Unknown] Aspirin [Aspirin Chewable] 81 mg PO DAILY 04/15/19 [Last Taken Unknown] Atorvastatin Calcium [Lipitor] 20 mg PO HS 04/15/19 [Last Taken Unknown] Spironolactone 25 mg PO DAILY 04/15/19 [Last Taken Unknown] hydrALAZINE HCL [Apresoline] 10 mg PO BID 04/15/19 [Last Taken Unknown] Folic Acid 1 mg PO DAILY 04/16/19 [Last Taken 04/15/19 09:00] Exam - Exam Vital Signs: Vital Signs - Last Taken Temp 36.5 C 04/16/19 06:42 Pulse 70 04/16/19 06:42 Resp 20 04/16/19 06:42 BP 144/65 04/16/19 06:42 Pulse Ox 100 04/16/19 06:42 Constitutional: Present: Alert, Cooperative, Well developed, Well nourished, Elderly ENT Exam: Present: hearing grossly normal, moist mucous membranes Eye Exam: bilateral eye: normal inspection, PERRL, EOMI Neck: Present: non-tender, trachea midline. Absent: lymphadenopathy (R), lymphadenopathy (L) Back Exam: Present: normal inspection, no CVA tenderness, no vertebral tend erness Respiratory: Present: lungs clear, no respiratory distress, no accessory muscle use, No wheezing. Absent: crackles, rhonchi Cardiovascular/Chest: Present: normal peripheral pulses, regular rate, rhythm, no murmur Peripheral Pulses: dorsalis-pedis (R): 1+, dorsalis-pedis (L): 1+ Abdomen: Present: Normal bowel sounds, soft, nontender Extremity: Present: non-tender, no pedal edema Skin Exam: Present: normal color, warm/dry Neurologic: Present: alert, normal mood/affect Appearance: Present: appropriate appearance, appropriate insight Eye contact: Present: cooperative, good eye contact Thoughts: Present: normal thought pattern, normal mood /affect Diagnostic Studies: Abnormal Lab Results 04/15/19 04/15/19 04/15/19 Range/Units 21:20 21:40 21:45 WBC 11.4 H (4.0-10.5) K/mm3 RBC 3.14 L (4.2-5.4) M/mm3 Hgb 8.7 L (12.5-16.0) gm/dL Hct 28.0 L (37.0-47.0) % MCHC 31.1 L (32-36) g/dl RDW 14.9 H (11.5-14.0) % Immature Gran # (Auto) 0.04 H (0.000-0.0310) K/mm3 Neutrophils % 81.4 H (42-75.0) % Lymphocytes % 10.1 L (20-51) % Neutrophils # 9.2 H (1.3-6.0) K/mm3 Lymphocytes # 1.15 L (1.5-3.5) k/mm3 Potassium 5.9 H D (3.4-4.6) mmol/L Chloride 92 L (97-106) mmol/L Anion Gap 20.0 H (6.8-13.8) mmol/L BUN 128 H D (3-23) mg/dL Creatinine 3.00 H D (0.4-1.4) mg/dL Est GFR (Non-Af Amer) 16 L D (60-130) mL/min BUN/Creatinine Ratio 42.7 H (9.0-21.6) ALT 0 L (19-67) U/L Albumin 2.7 L (3.4-5.0) gm/dl Urine Blood 250 H (NEGATIVE) /ul Ur Leukocyte Esterase 500 H (NEGATIVE) /ul Urine RBC 10-25 H (0-5) /hpf Urine WBC 10-25 H (0-5) /hpf Urine Bacteria 2+ H (NONE) 04/16/19 Range/Units 05:50 WBC (4.0-10.5) K/mm3 RBC (4.2-5.4) M/mm3 Hgb (12.5-16.0) gm/dL Hct (37.0-47.0) % MCHC (32-36) g/dl RDW (11.5-14.0) % Immature Gran # (Auto) (0.000-0.0310) K/mm3 Neutrophils % (42-75.0) % Lymphocytes % (20-51) % Neutrophils # (1.3-6.0) K/mm3 Lymphocytes # (1.5-3.5) k/mm3 Potassium 5.4 H (3.4-4.6) mmol/L Chloride (97-106) mmol/L Anion Gap (6.8-13.8) mmol/L BUN 122 H (3-23) mg/dL Creatinine 2.65 H (0.4-1.4) mg/dL Est GFR (Non-Af Amer) 18 L (60-130) mL/min BUN/Creatinine Ratio 46.0 H (9.0-21.6) ALT (19-67) U/L Albumin (3.4-5.0) gm/dl Urine Blood (NEGATIVE) /ul Ur Leukocyte Esterase (NEGATIVE) /ul Urine RBC (0-5) /hpf Urine WBC (0-5) /hpf Urine Bacteria (NONE) Laboratory Results WBC 11.4 K/mm3 (4.0-10.5) H 04/15/19 21:40 RBC 3.14 M/mm3 (4.2-5.4) L 04/15/19 21:40 Hgb 8.7 gm/dL (12.5-16.0) L 04/15/19 21:40 Hct 28.0 % (37.0-47.0) L 04/15/19 21:40 MCV 89.2 fl (78-100) 04/15/19 21:40 MCH 27.7 pg (27-31) 04/15/19 21:40 MCHC 31.1 g/dl (32-36) L 04/15/19 21:40 RDW 14.9 % (11.5-14.0) H 04/15/19 21:40 Plt Count 294 K/mm3 (150-450) 04/15/19 21:40 MPV 10.2 fl (8-12.5) 04/15/19 21:40 Immature Gran % (Auto) 0.40 % (0.001-0.429) 04/15/19 21:40 Immature Gran # (Auto) 0.04 K/mm3 (0.000-0.0310) H 04/15/19 21:40 81.4 % (42-75.0) H 04/15/19 21:40 10.1 % (20-51) L 04/15/19 21:40 6.3 % (0.0-9) 04/15/19 21:40 1.3 % (0.0-3.0) 04/15/19 21:40 0.5 % (0.0-1.0) 04/15/19 21:40 Nucleated RBC % 0.0 k/mm3 (0-1) 04/15/19 21:40 9.2 K/mm3 (1.3-6.0) H 04/15/19 21:40 1.15 k/mm3 (1.5-3.5) L 04/15/19 21:40 0.7 k/mm3 (0.0-1.0) 04/15/19 21:40 0.2 k/mm3 (0.0-0.7) 04/15/19 21:40 Absolute Basophils 0.1 k/mm3 (0.0-0.1) 04/15/19 21:40 Sodium 134 mmol/L (132-142) 04/16/19 05:50 134 mmol/L (130-142) 04/16/19 05:50 Potassium 5.4 mmol/L (3.4-4.6) H 04/16/19 05:50 Chloride 98 mmol/L (97-106) 04/16/19 05:50 Carbon Dioxide 28.7 mmol/L (24-32.6) 04/16/19 05:50 12.7 mmol/L (6.8-13.8) 04/16/19 05:50 BUN 122 mg/dL (3-23) H 04/16/19 05:50 2.65 mg/dL (0.4-1.4) H 04/16/19 05:50 Est GFR (Non-Af Amer) 18 mL/min (60-130) L 04/16/19 05:50 46.0 (9.0-21.6) H 04/16/19 05:50 86 mg/dL (70-110) 04/16/19 05:50 Calcium 9.3 mg/dL (7.9-10.9) 04/16/19 05:50 Calcium Adj for Albumin 10.2 mg/dL (8.4-10.2) 04/15/19 21:45 0.3 mg/dL (0.0-1.1) 04/15/19 21:45 AST 15 U/L (0-48) 04/15/19 21:45 ALT 0 U/L (19-67) L 04/15/19 21:45 84 U/L (50-170) 04/15/19 21:45 6.9 gm/dL (6.2-8.2) 04/15/19 21:45 2.7 gm/dl (3.4-5.0) L 04/15/19 21:45 Pale yellow 04/15/19 21:20 Cloudy (CLEAR) 04/15/19 21:20 5.0 pH (5.0-7.0) 04/15/19 21:20 Ur Specific Spencer 1.010 SP.GR. (1.005-1.010) 04/15/19 21:20 Negative mg/dL (NEGATIVE) 04/15/19 21:20 Negative mg/dL (NEGATIVE) 04/15/19 21:20 Negative mg/dL (NEGATIVE) 04/15/19 21:20 250 /ul (NEGATIVE) H 04/15/19 21:20 Negative (NEGATIVE) 04/15/19 21:20 Negative mg/dl (NEGATIVE) 04/15/19 21:20 Normal EU/dl (NORMAL) 04/15/19 21:20 Ur Leukocyte Esterase 500 /ul (NEGATIVE) H 04/15/19 21:20 10-25 /hpf (0-5) H 04/15/19 21:20 10-25 /hpf (0-5) H 04/15/19 21:20 Ur Epithelial Cells 0-5 /hpf (0-5) 04/15/19 21:20 2+ (NONE) H 04/15/19 21:20 Culture to follow 04/15/19 21:20 Stl C.difficile Tox A&B Negative (Negative) 04/15/19 23:00 Assessment/Plan - Narrative Narrative: 83-year-old female with a past medical history of atrial fibrillation, coronary artery disease, chronic kidney disease, COPD, anemia, anxiety, depression, GERD, hypertension, osteoarthritis presents from home with complaints of diarrhea, abdominal pain and weakness for the past 3 days. Symptoms associated with dizziness. She states that she was having 3-4 watery bowel movements per day. She states every time she ate she would have a bowel movement. She presented to the emergency department and was admitted with acute on chronic kidney disease. BUN of 128 and creatinine of 3 which is up from her baseline creatinine of 1.1. She was admitted for IV fluid hydration. She is also found to have a positive urinalysis and started on ceftriaxone. - Assessment/Plan (1) Acute kidney injury superimposed on chronic kidney disease Problem: Acute (2) Dehydration Problem: Acute (3) UTI (urinary tract infection) Problem: Acute Qualifiers: Urinary tract infection type: acute cystitis (4) Atrial fibrillation Problem: Chronic Qualifiers: Atrial fibrillation type: chronic Qualified Code(s): I48.2 - Chronic atrial fibrillation (5) Abdominal pain Problem: Acute Qualifiers: (6) Diarrhea Problem: Acute Qualifiers: (7) CHF (congestive heart failure) Problem: Chronic Qualifiers: (8) CKD (chronic kidney disease) stage 3, GFR 30-59 ml/min Problem: Chronic (9) Hypertension Problem: Chronic Qualifiers:
[2019-04-16] MEDS: LISINOPRIL 40 MG TABLET PO SCH (10:59)
[2019-04-16] MEDS: ENOXAPARIN SODIUM 30 MG/0.3 ML SYRG SC SCH (10:59)
[2019-04-16] MEDS: METOPROLOL TARTRATE 100 MG TABLET PO SCH ×2 (10:59→20:36)
[2019-04-16] MEDS: ACETAMINOPHEN 650 MG TABLET PO PRN (18:00)
[2019-04-16] MEDS: PANTOPRAZOLE SODIUM 40 MG TABLET.EC PO SCH (20:35)
[2019-04-16] MEDS: ROSUVASTATIN CALCIUM 10 MG TABLET PO SCH (20:35)
[2019-04-16] MEDS: hydrALAZINE HCL 10 MG TABLET PO SCH (20:36)
[2019-04-16] MEDS ORDERED: FUROSEMIDE 40 MG TABLET PO SCH (21:00)
[2019-04-17] MEDS: NORMAL SALINE 1,000 ML IV PRN ×2 (05:32→18:26)
[2019-04-17 06:01] LABS: Hematocrit 30.9 % (37.0-47.0); Hemoglobin 9.4 gm/dL (12.5-16.0); Mean Cell Volume 90.6 fl (78-100); Mean Corpuscular Hemoglobin 27.6 pg (27-31); Mean Corpuscular Hgb Conc 30.4 g/dl (32-36); Mean Platelet Volume 9.6 fl (8-12.5); Neutrophil # 5.5 K/mm3 (1.3-6.0); Neutrophil % 75.8 % (42-75.0); Platelet Count 209 K/mm3 (150-450); Red Blood Count 3.41 M/mm3 (4.2-5.4); Red Cell Distribution Width 14.7 % (11.5-14.0); White Blood Count 7.2 K/mm3 (4.0-10.5)
[2019-04-17 06:07] LABS: Albumin * 2.2 gm/dl (3.4-5.0); Anion Gap 12.1 mmol/L (6.8-13.8); BUN/Creatinine Ratio 54.8 (9.0-21.6); Bilirubin, Total 0.2 mg/dL (0.0-1.1); Ca. Corrected For Albumin 10.2 mg/dL (8.4-10.2); Calcium * 9.1 mg/dL (7.9-10.9); Carbon Dioxide 26.7 mmol/L (24-32.6); Potassium 4.8 mmol/L (3.4-4.6)
[2019-04-17] MEDS: ACETAMINOPHEN 650 MG TABLET PO PRN ×2 (06:32→19:49)
[2019-04-17] MEDS: PANTOPRAZOLE SODIUM 40 MG TABLET.EC PO SCH ×2 (06:33→20:03)
[2019-04-17] MEDS: hydrALAZINE HCL 10 MG TABLET PO SCH ×2 (09:00→20:03)
[2019-04-17] MEDS: ENOXAPARIN SODIUM 30 MG/0.3 ML SYRG SC SCH (09:00)
[2019-04-17] MEDS: METOPROLOL TARTRATE 100 MG TABLET PO SCH ×2 (09:00→20:03)
[2019-04-17] MEDS: ASPIRIN 81 MG TAB.CHEW PO SCH (09:00)
[2019-04-17] MEDS: LISINOPRIL 40 MG TABLET PO SCH (09:00)
[2019-04-17] MEDS: FOLIC ACID 1 MG TABLET PO SCH (09:00)
[2019-04-17] MEDS: CITALOPRAM HYDROBROMIDE 10 MG TABLET PO SCH (09:00)
--- NOTE | 2019-04-17 11:49 | PN ---
Subjective - Date and Time Seen Date: 04/17/19 Time: 11:46 Subjective Narrative: I feel better than when I came Objective - Review of Systems Generalized/Overall Review: Reports: No Symptoms Reported EENTM: Reports: No Symptoms Reported Respiratory: Reports: No Symptoms Reported Cardiac: Reports: No Symptoms Reported Abdominal: Reports: No Symptoms Reported Genitourinary Symptoms: Reports: No Symptoms Reported Musculoskeletal Complaints: Reports: No Symptoms Reported Neurological: Reports: No Symptoms Reported Skin: Reports: No Symptoms Reported Endocrine: Reports: No Symptoms Reported - Vitals Vitals: Last Vital Signs Temp 36.6 C 04/17/19 08:31 Pulse 68 04/17/19 09:00 Resp 22 H 04/17/19 08:31 BP 153/73 H 04/17/19 09:00 Pulse Ox 98 04/17/19 08:31 - Abnormal Lab Findings Abnormal Lab Findings: Abnormal Lab Results 04/17/19 04/17/19 Range/Units 05:52 05:52 RBC 3.41 L (4.2-5.4) M/mm3 Hgb 9.4 L (12.5-16.0) gm/dL Hct 30.9 L (37.0-47.0) % MCHC 30.4 L (32-36) g/dl RDW 14.7 H (11.5-14.0) % Neutrophils % 75.8 H (42-75.0) % Lymphocytes % 12.2 L (20-51) % Eosinophils % 3.1 H (0.0-3.0) % Lymphocytes # 0.88 L (1.5-3.5) k/mm3 Potassium 4.8 H (3.4-4.6) mmol/L Chloride 107 H (97-106) mmol/L BUN 91 H (3-23) mg/dL Creatinine 1.66 H D (0.4-1.4) mg/dL Est GFR (Non-Af Amer) 31 L D (60-130) mL/min BUN/Creatinine Ratio 54.8 H (9.0-21.6) ALT 0 L (19-67) U/L Total Protein 6.0 L (6.2-8.2) gm/dL Albumin 2.2 L (3.4-5.0) gm/dl - Exam Constitutional: Present: Alert, Oriented x3, Cooperative, Well developed, No dis tress, Elderly, Thin and frail ENT Exam: Present: normal ENT inspection, hearing grossly normal, pharynx normal Neck: Present: non-tender, full range of motion, supple, normal inspection, trachea midline Breasts: Present: Exam deferred Respiratory: Present: chest non-tender, lungs clear, normal breath sounds, no respiratory distress, no accessory muscle use Cardiovascular/Chest: Present: normal peripheral pulses, regular rate, rhythm, no chest tenderness, no edema, no gallop, no JVD, no murmur, no rub Abdomen: Present: Normal bowel sounds, soft, nontender, nondistended, no rebound tenderness, no hepatospenomegaly, no masses /Rectal: Present: Exam deferred Extremity: Present: normal range of motion, non-tender, normal inspection, no pedal edema, no calf tenderness Skin Exam: Present: normal color, warm/dry, no cyanosis Lymphatic: Present: no adenopathy 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 Upon waking she denied any abdominal pain and had normal bowel sounds, she also reports feeling better than when she came. Nursing staff report multiple episodes of loose stools during the night but there were no watery diarrhea. Urine culture is positive for the growth of 2 gram-negative organism we will continue with IV cefepime. Her kidney function has improved since starting IV hydration, will continue this at a low rate to avoid fluid overload given her cardiac history and advanced age. In the meantime we will continue to monitor her closely. - Problems/Diagnosis (1) Atrial fibrillation Problem: Chronic Qualifiers: Atrial fibrillation type: chronic Qualified Code(s): I48.2 - Chronic atrial fibrillation (2) UTI (urinary tract infection) Problem: Acute Qualifiers: Urinary tract infection type: acute cystitis (3) Anemia Problem: Acute Qualifiers: Anemia type: iron deficiency (4) CKD (chronic kidney disease) stage 3, GFR 30-59 ml/min Problem: Chronic (5) Malnourished Problem: Chronic Qualifiers: Malnutrition type: protein-calorie malnutrition (6) Hypertension Problem: Chronic Qualifiers: (7) Acute kidney injury superimposed on chronic kidney disease Problem: Acute (8) Dehydration Problem: Acute (9) Loose stools Problem: Acute
[2019-04-17] MEDS: SPIRONOLACTONE 25 MG TABLET PO SCH (12:12)
[2019-04-17] MEDS: ROSUVASTATIN CALCIUM 10 MG TABLET PO SCH (20:03)
[2019-04-18 07:06] LABS: Hematocrit 29.4 % (37.0-47.0); Hemoglobin 8.8 gm/dL (12.5-16.0); Mean Corpuscular Hemoglobin 27.2 pg (27-31); Mean Corpuscular Hgb Conc 29.9 g/dl (32-36); Mean Platelet Volume 9.6 fl (8-12.5); Neutrophil # 4.1 K/mm3 (1.3-6.0); Neutrophil % 71.6 % (42-75.0); Platelet Count 186 K/mm3 (150-450); Red Blood Count 3.23 M/mm3 (4.2-5.4); Red Cell Distribution Width 14.9 % (11.5-14.0); White Blood Count 5.7 K/mm3 (4.0-10.5)
[2019-04-18 07:24] LABS: Albumin * 1.9 gm/dl (3.4-5.0); Anion Gap 10.7 mmol/L (6.8-13.8); BUN/Creatinine Ratio 44.7 (9.0-21.6); Bilirubin, Total 0.1 mg/dL (0.0-1.1); Ca. Corrected For Albumin 10.2 mg/dL (8.4-10.2); Calcium * 8.8 mg/dL (7.9-10.9); Carbon Dioxide 26.9 mmol/L (24-32.6); Potassium 4.6 mmol/L (3.4-4.6); Total Protein 5.3 gm/dL (6.2-8.2)
[2019-04-18] MEDS: PANTOPRAZOLE SODIUM 40 MG TABLET.EC PO SCH (07:31)
[2019-04-18] MEDS: hydrALAZINE HCL 10 MG TABLET PO SCH (08:22)
[2019-04-18] MEDS: SPIRONOLACTONE 25 MG TABLET PO SCH (08:22)
[2019-04-18] MEDS: FOLIC ACID 1 MG TABLET PO SCH (08:22)
[2019-04-18] MEDS: LISINOPRIL 40 MG TABLET PO SCH (08:22)
[2019-04-18] MEDS: CITALOPRAM HYDROBROMIDE 10 MG TABLET PO SCH (08:22)
[2019-04-18] MEDS: METOPROLOL TARTRATE 100 MG TABLET PO SCH (08:22)
[2019-04-18] MEDS: ASPIRIN 81 MG TAB.CHEW PO SCH (08:22)
[2019-04-18] MEDS: ENOXAPARIN SODIUM 30 MG/0.3 ML SYRG SC SCH (10:29)
[2019-04-18] MEDS: ACETAMINOPHEN 650 MG TABLET PO PRN ×2 (10:35→16:13)
--- NOTE | 2019-04-18 13:44 | DS ---
(1) Atrial fibrillation Problem: Chronic Qualifiers: Atrial fibrillation type: chronic Qualified Code(s): I48.2 - Chronic atrial fibrillation (2) UTI (urinary tract infection) Problem: Resolved Qualifiers: Urinary tract infection type: acute cystitis (3) Anemia Problem: Acute Qualifiers: Anemia type: iron deficiency (4) CKD (chronic kidney disease) stage 3, GFR 30-59 ml/min Problem: Chronic (5) Malnourished Problem: Chronic Qualifiers: Malnutrition type: protein-calorie malnutrition (6) Hypertension Problem: Chronic Qualifiers: Hypertension type: essential hypertension Qualified Code(s): I10 - Essential (primary) hypertension (7) Acute kidney injury superimposed on chronic kidney disease Problem: Resolved (8) Dehydration Problem: Resolved (9) Loose stools Problem: Resolved Date of Discharge:: 04/18/19 Description of Stay: 83-year-old female admitted for dehydration, UTI, and generalized weakness acute kidney injury superimposed on chronic kidney disease, and diarrhea was evaluated at bedside was found to be afebrile and in no acute distress. Patient reports feeling much better, her weakness has resolved and there has been no recurrence of diarrhea. This morning's lab demonstrate return of her kidney function back to her baseline and response to IV hydration. Patient's UTI was treated according to sensitivity report, she denies any burning on urination or urinary frequency. Given these findings we will discharge patient home with instructions to follow-up with her PCP in a week.` ` Procedures Performed: none Results and Findings: Pending Mircobiology Results 04/15/19 23:00 Stool Stool Culture - Preliminary No Pathogens Isolated Lab Pending Results 04/15/19 21:20: Urine Color Pale yellow, Urine Appearance Cloudy, Urine pH 5.0, Ur Specific [place] 1.010, Urine Protein Negative, Urine Glucose (UA) Negative, Urine Ketones Negative, Urine Blood 250 H, Urine Nitrate Negative, Urine Bilirubin Negative, Urine Urobilinogen Normal, Ur Leukocyte Esterase 500 H, Urine RBC 10-25 H, Urine WBC 10-25 H, Ur Epithelial Cells 0-5, Urine Bacteria 2+ H, Urine Culture Comments Culture to follow 04/15/19 21:40: WBC 11.4 H, RBC 3.14 L, Hgb 8.7 L, Hct 28.0 L, MCV 89.2, MCH 27.7, MCHC 31.1 L, RDW 14.9 H, Plt Count 294, MPV 10.2, Immature Gran % (Auto) 0.40, Immature Gran # (Auto) 0.04 H, Neutrophils % 81.4 H, Lymphocytes % 10.1 L, Monocytes % 6.3, Eosinophils % 1.3, Basophils % 0.5, Nucleated RBC % 0.0, Neutrophils # 9.2 H, Lymphocytes # 1.15 L, Monocytes # 0.7, Eosinophils # 0.2, Absolute Basophils 0.1 04/15/19 21:45: Sodium 134, Plasma Sodium 134, Potassium 5.9 H D, Chloride 92 L, Carbon Dioxide 27.9, Anion Gap 20.0 H, BUN 128 H D, Creatinine 3.00 H D, Est GFR (Non-Af Amer) 16 L D, BUN/Creatinine Ratio 42.7 H, Random Glucose 101, Calcium 9.5, Calcium Adj for Albumin 10.2, Total Bilirubin 0.3, AST 15, ALT 0 L, Alkaline Phosphatase 84, Total Protein 6.9, Albumin 2.7 L 04/15/19 23:00: Stl C.difficile Tox A&B Negative 04/16/19 05:50: Sodium 134, Plasma Sodium 134, Potassium 5.4 H, Chloride 98, Carbon Dioxide 28.7, Anion Gap 12.7, BUN 122 H, Creatinine 2.65 H, Est GFR (Non- Af Amer) 18 L, BUN/Creatinine Ratio 46.0 H, Random Glucose 86, Calcium 9.3 04/17/19 05:52: WBC 7.2 D, RBC 3.41 L, Hgb 9.4 L, Hct 30.9 L, MCV 90.6, MCH 27.6, MCHC 30.4 L, RDW 14.7 H, Plt Count 209, MPV 9.6, Immature Gran % (Auto) 0.30, Immature Gran # (Auto) 0.02, Neutrophils % 75.8 H, Lymphocytes % 12.2 L, Monocytes % 8.0, Eosinophils % 3.1 H, Basophils % 0.6, Nucleated RBC % 0.0, Neutrophils # 5.5, Lymphocytes # 0.88 L, Monocytes # 0.6, Eosinophils # 0.2, Absolute Basophils 0.0 04/17/19 05:52: Sodium 141, Plasma Sodium 141, Potassium 4.8 H, Chloride 107 H, Carbon Dioxide 26.7, Anion Gap 12.1, BUN 91 H, Creatinine 1.66 H D, Est GFR (Non-Af Amer) 31 L D, BUN/Creatinine Ratio 54.8 H, Random Glucose 101, Calcium 9.1, Calcium Adj for Albumin 10.2, Total Bilirubin 0.2, AST 14, ALT 0 L, Alkaline Phosphatase 77, Total Protein 6.0 L, Albumin 2.2 L 04/18/19 07:03: WBC 5.7 D, RBC 3.23 L, Hgb 8.8 L, Hct 29.4 L, MCV 91.0, MCH 27.2, MCHC 29.9 L, RDW 14.9 H, Plt Count 186, MPV 9.6, Immature Gran % (Auto) 0.20, Immature Gran # (Auto) 0.01, Neutrophils % 71.6, Lymphocytes % 15.5 L, Monocytes % 8.1, Eosinophils % 3.7 H, Basophils % 0.9, Nucleated RBC % 0.0, Neutrophils # 4.1, Lymphocytes # 0.88 L, Monocytes # 0.5, Eosinophils # 0.2, Absolute Basophils 0.1 04/18/19 07:03: Sodium 143 H, Plasma Sodium 143 H, Potassium 4.6, Chloride 110 H, Carbon Dioxide 26.9, Anion Gap 10.7, BUN 59 H, Creatinine 1.32, Est GFR (Non- Af Amer) 41 L D, BUN/Creatinine Ratio 44.7 H, Random Glucose 92, Calcium 8.8, Calcium Adj for Albumin 10.2, Total Bilirubin 0.1, AST 12, ALT 0 L, Alkaline Phosphatase 66, Total Protein 5.3 L, Albumin 1.9 L Discharge Location: Home Disposition: Home self-care Condition: Stable Face to Face Encounter completed per CMS Guidelines: No Discharge Activity: Activity as tolerated Discharge Diet: General/regular food Referrals: Lonnie Rice MD [Primary Care Provider] - Additional Patient Instructions (free text): -Please make TCM appointment unless halfway discharge, or if following up with outside provider. Thank you! Leticia @ [phone] or Denise at [phone]. *Resume [facility]. Please call report and fax records upon discharge. Her nurse is María. Complete Home Medications List: Complete Home Medication List: Citalopram Hydrobromide [Celexa] 10 mg PO DAILY 04/07/18 Metoprolol Tartrate [Lopressor] 100 mg PO BID 04/07/18 Pantoprazole Sodium [Protonix] 40 mg PO BID 04/07/18 Furosemide [Lasix] 40 mg PO BID 01/17/19 Acetaminophen [Tylenol] 650 mg PO Q6H PRN 01/24/19 Lisinopril 40 mg PO DAILY 01/24/19 Ondansetron HCl [Zofran] 4 mg PO Q6H PRN 01/24/19 Acetaminophen [Tylenol 8 Hour] 650 mg PO TID PRN 02/19/19 Aspirin [Aspirin Chewable] 81 mg PO DAILY 04/15/19 Atorvastatin Calcium [Lipitor] 20 mg PO HS 04/15/19 Spironolactone 25 mg PO DAILY 04/15/19 hydrALAZINE HCL [Apresoline] 10 mg PO BID 04/15/19 Folic Acid 1 mg PO DAILY 04/16/19
[2019-04-18 18:54] VITALS: BP 138/80
== END 2019-04-18 18:55 | disposition home or self-care (01) | DRG 683 ==
LOC: ER 19:48 → MS 23:23
PROVIDERS: ADMIT Internal Medicine; ATTEND Internal Medicine
CPT/HCPCS: 36415; 80048; 80053; 81001; 85025; 87045; 87046; 87077; 87086; 87186; 87493; 93005; 99285

== ENCOUNTER 2019-04-23 11:29 | Observation (INO) ==
--- NOTE | 2019-04-23 11:56 | ERNOTE ---
ER Female HPI Date of Service: 04/23/19 Stated Complaint: abd pain Presenting Symptoms: other - Not feeling well Time Seen by Provider: 04/23/19 11:55 Source: patient, RN notes reviewed, past records Exam Limitations: no limitations Immunizations: IMMUNIZATION HX Immunizations Up to Date Yes History of Influenza Vaccine Yes Hx Pneumococcal Vaccination No Allergies/Adverse Reactions: Allergies pravastatin Adverse Reaction (Mild, Verified 04/23/19 11:46) Vomiting Home Medications: HOME MEDICATIONS Citalopram Hydrobromide [Celexa] 10 mg PO DAILY 04/07/18 [Last Taken 08/06/18] Metoprolol Tartrate [Lopressor] 100 mg PO BID 04/07/18 [Last Taken 02/19/19 08:00] Pantoprazole Sodium [Protonix] 40 mg PO BID 04/07/18 [Last Taken 02/19/19 08:00] Furosemide [Lasix] 40 mg PO BID 01/17/19 [Last Taken 02/19/19 08:00] Acetaminophen [Tylenol] 650 mg PO Q6H PRN 01/24/19 [Last Taken Unknown] Lisinopril 40 mg PO DAILY 01/24/19 [Last Taken 02/19/19 08:00] Ondansetron HCl [Zofran] 4 mg PO Q6H PRN 01/24/19 [Last Taken Unknown] Acetaminophen [Tylenol 8 Hour] 650 mg PO TID PRN 02/19/19 [Last Taken Unknown] Aspirin [Aspirin Chewable] 81 mg PO DAILY 04/15/19 [Last Taken Unknown] Atorvastatin Calcium [Lipitor] 20 mg PO HS 04/15/19 [Last Taken Unknown] Spironolactone 25 mg PO DAILY 04/15/19 [Last Taken Unknown] hydrALAZINE HCL [Apresoline] 10 mg PO BID 04/15/19 [Last Taken Unknown] Folic Acid 1 mg PO DAILY 04/16/19 [Last Taken 04/15/19 09:00] - History of Present Illness Narrative: Ilana is a 83 year old female brought to the ED from home for worsening symptoms after being discharged from the hospital 5 days ago. She was hospitalized with acute on chronic renal failure and a UTI. She had also been having diarrhea, which continues. She reports that she had to stop taking her antibiotic (Bactrim) because it was upsetting her stomach. She denies urinary symptoms. She admits to not eating or drinking much since she got home. Date (Duration): 04/18/19 Timing: Present: getting worse Prior Abdominal Problems: Present: similar symptoms Prior Treatment: Present: recently hospitalized. Absent: currently on antibiotics Review of Systems - Review of Systems Constitutional: Present: recent illness, fatigue, malaise. Absent: fever EYE: Present: no symptoms reported ENT: Present: no symptoms reported Respiratory: Absent: shortness of breath, cough Cardiology: Absent: chest pain, edema Gastrointestinal/Abdominal: Present: nausea, diarrhea, abdominal pain, eating less, drinking less. Absent: vomiting Genitourinary: Absent: frequency, dysuria Musculoskeletal: Absent: muscle pain, joint pain Skin: Absent: rash, lesions Neurological: Present: dizziness/light-headedness. 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 Osteoarthritis UTI (urinary tract infection) Surgical History: Surgical History (Updated 08/20/18 @ 00:54 by Joseph Molina DO) H/O heart artery stent History of hysterectomy Previous back surgery Family History: Family History (Last Reviewed 04/23/19 @ 13:14 by Sinai Villa NP) Father Myocardial infarction Hypertension Mother Colon cancer Social History: (Last Reviewed 04/23/19 @ 13:14 by Sinai Villa NP) Social History: household members: children current occupational status: retired Service: No Tobacco: Smoking Status: Never smoker Alcohol: alcohol intake: never Substance Use: substance use type: does not use Dietary Habits: caffeine: Yes Personal Safety: victim of physical abuse: No victim of emotional abuse: No Physical Exam - Physical Exam General Appearance: Present: alert, mild distress, cachetic Head Exam: Present: normal inspection Eye Exam: Normal inspection: bilateral Neck: Present: normal inspection, nontender, supple Respiratory: Present: no respiratory distress, no accessory muscle use, crackles - Faint, bilateral bases Cardiovascular/Chest: Present: regular rate, rhythm, no murmur Gastrointestinal/Abdominal: Present: nontender, nondistended, soft Back Exam: Present: normal inspection, no CVA tenderness Extremity Exam: Present: normal inspection, non-tender, no edema Neurological Exam: Present: alert, oriented, normal mood/affect, no motor/sensory deficits Skin Exam: Present: normal color, warm/dry Progress - Results and Orders Patient's Lab Results:: I have reviewed the patient's lab results. - Vital Signs Patient's Vital Signs:: I have reviewed the patient's vital signs. Vital Signs: Vital Signs 04/23/19 11:44 Temperature 36.6 C Pulse Rate 88 Respiratory Rate 19 Blood Pressure 155/82 H O2 Sat by Pulse Oximetry 96 - Progress/Reassessment Chief Complaint: Genitourinary Problem Progress:: Unchanged Plan - Plan Plan: Renal function has again declined - creatinine was 3 on 04/15, had improved to 1.32 on 04/18 when discharged and is now 2.41. WBC had normalized as well and is now 11,000. Cath UA again shows a likely UTI. The patient was given a liter of IV NS and Zofran 4mg. She reports that her stomach feels a little better. Dr. Whitmore was contacted and the patient will be admitted to observation status on med/surg. Rocephin 1 Gm IVPB ordered. Departure Clinical Impression: UTI (urinary tract infection) Qualifiers: Urinary tract infection type: site unspecified Hematuria presence: without hematuria Qualified Code(s): N39.0 - Urinary tract infection, site not specified Acute on chronic renal failure Qualifiers: Acute renal failure type: unspecified Chronic kidney disease stage: unspecified stage Qualified Code(s): N17.9 - Acute kidney failure, unspecified; N18.9 - Chronic kidney disease, unspecified - Departure Disposition: Still a patient Condition: Fair Referrals: Lonnie Rice MD [Primary Care Provider] -
[2019-04-23] MEDS ORDERED: NORMAL SALINE 1,000 ML IV ONE (12:14)
[2019-04-23] MEDS ORDERED: ONDANSETRON HCL/PF 2 MG/ML VIAL IV ONE (12:14)
[2019-04-23 12:40] LABS: Hematocrit 37.8 % (37.0-47.0); Hemoglobin 12.1 gm/dL (12.5-16.0); Mean Cell Volume 85.7 fl (78-100); Mean Corpuscular Hemoglobin 27.4 pg (27-31); Mean Platelet Volume 9.8 fl (8-12.5); Neutrophil # 9.6 K/mm3 (1.3-6.0); Neutrophil % 86.5 % (42-75.0); Platelet Count 327 K/mm3 (150-450); Red Blood Count 4.41 M/mm3 (4.2-5.4); Red Cell Distribution Width 15.3 % (11.5-14.0); White Blood Count 11.1 K/mm3 (4.0-10.5)
[2019-04-23 12:45] LABS: Albumin * 3.1 gm/dl (3.4-5.0); Anion Gap 16.2 mmol/L (6.8-13.8); BUN/Creatinine Ratio 27.4 (9.0-21.6); Bilirubin, Total 0.3 mg/dL (0.0-1.1); Ca. Corrected For Albumin 9.6 mg/dL (8.4-10.2); Calcium * 9.2 mg/dL (7.9-10.9); Carbon Dioxide 25.4 mmol/L (24-32.6); Potassium 4.6 mmol/L (3.4-4.6); Total Protein 7.5 gm/dL (6.2-8.2)
[2019-04-23 13:42] LABS: Urine Bilirubin Negative (NEGATIVE); Urine Blood 50 /ul (NEGATIVE); Urine Ketone Negative (NEGATIVE); Urine Nitrite Negative (NEGATIVE); Urine Protein Negative (NEGATIVE); Urine Urobilinogen Normal (NORMAL)
[2019-04-23 13:49] LABS: Urine Appearance Clear (CLEAR); Urine Bacteria TRACE; Urine Color Yellow; Urine RBC 0-5 /hpf (0-5)
[2019-04-23] MEDS ORDERED: cefTRIAXone SODIUM 1,000 MG/100 ML BAG IV ONE (14:12)
--- NOTE | 2019-04-23 17:01 | HP ---
Chief Complaint - Chief Complaint Date of Service: 04/23/19 Time of Service: 15:30 Chief Complaint: weakness, general debillitation, nausea, abdominal pain, acute on chronic renal failure History of Present Illness: Ilana López is an 83-year-old female who represents to the emergency room in a generalized weakened condition with nausea and abdominal pain. She was in the hospital a couple of weeks ago for dehydration and was discovered to have a urinary tract infection. The culture grew out E. coli and providentia both of which were sensitive to Rocephin. Urinalysis again shows positive leukocyte esterase with about 50 white cells per hpf. Trace of bacteria. Urine is set up on a culture again. She will be started back on Rocephin. Her renal status showed that she was very dehydrated on admission last time with a creatinine of 3.0. With rehydration the creatinine had dropped to 1.3 at discharge. It is back to 2.7 on admission. Her sodium is low at 127. She is very thin. She is cold and having trouble getting warmed up. She received a liter of normal saline in the emergency room and her nausea and abdominal pain have resolved. She lives alone at home but I do not think there is a very good job of taking care of herself. 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 Osteoarthritis UTI (urinary tract infection) Surgical History: Surgical History (Updated 08/20/18 @ 00:54 by Joseph Molina DO) H/O heart artery stent History of hysterectomy Previous back surgery Family History: Family History (Last Reviewed 04/23/19 @ 15:53 by Subha Cesar RN) Father Myocardial infarction Hypertension Mother Colon cancer Social History: (Last Reviewed 04/23/19 @ 15:53 by Subha Cesar RN) Social History: household members: children current occupational status: retired Service: No Tobacco: Smoking Status: Never smoker Alcohol: alcohol intake: never Substance Use: substance use type: does not use Dietary Habits: caffeine: Yes Personal Safety: victim of physical abuse: No victim of emotional abuse: No Review Of Systems (GEN) - Review of Systems Generalized/Overall Review: Present: Weakness, Malaise, Fatigue EENTM: Present: No Symptoms Reported Respiratory: Present: No Symptoms Reported Cardiac: Present: No Symptoms Reported Abdominal: Present: Nausea, Abdominal Pain Genitourinary: Present: Incontinent Musculoskeletal: Present: No Symptoms Reported Neurological: Present: No Symptoms Reported Skin: Present: No Symptoms Reported Endocrine: Present: No Symptoms Reported Immunizations: IMMUNIZATION HX Immunizations Up to Date Yes History of Influenza Vaccine Yes Hx Pneumococcal Vaccination No Allergies/Adverse Reactions: Allergies Allergy/AdvReac Type Severity Reaction Status Date / Time pravastatin AdvReac Mild Vomiting Verified 04/23/19 15:53 Home Medications: HOME MEDICATIONS Citalopram Hydrobromide [Celexa] 10 mg PO DAILY 04/07/18 [Last Taken 08/06/18] Metoprolol Tartrate [Lopressor] 100 mg PO BID 04/07/18 [Last Taken 02/19/19 08:00] Pantoprazole Sodium [Protonix] 40 mg PO BID 04/07/18 [Last Taken 02/19/19 08:00] Furosemide [Lasix] 40 mg PO BID 01/17/19 [Last Taken 02/19/19 08:00] Acetaminophen [Tylenol] 650 mg PO Q6H PRN 01/24/19 [Last Taken Unknown] Lisinopril 40 mg PO DAILY 01/24/19 [Last Taken 02/19/19 08:00] Ondansetron HCl [Zofran] 4 mg PO Q6H PRN 01/24/19 [Last Taken Unknown] Aspirin [Aspirin Chewable] 81 mg PO DAILY 04/15/19 [Last Taken Unknown] Atorvastatin Calcium [Lipitor] 20 mg PO HS 04/15/19 [Last Taken Unknown] Spironolactone 25 mg PO DAILY 04/15/19 [Last Taken Unknown] hydrALAZINE HCL [Apresoline] 10 mg PO BID 04/15/19 [Last Taken Unknown] Folic Acid 1 mg PO DAILY 04/16/19 [Last Taken 04/15/19 09:00] Exam - Exam Vital Signs: Vital Signs - Last Taken Temp 36.7 C 04/23/19 15:59 Pulse 84 04/23/19 15:59 Resp 16 04/23/19 15:59 BP 117/75 04/23/19 15:59 Pulse Ox 100 04/23/19 15:59 Constitutional: Present: Alert, Oriented x3, Cooperative, Thin and frail ENT Exam: Present: normal ENT inspection Eye Exam: bilateral eye: normal inspection, PERRL, EOMI Neck: Present: non-tender, limited range of motion Back Exam: Present: decreased range of motion, other - Moderate to severe rotoscoliosis Breasts: Present: Nontender Respiratory: Present: chest non-tender, lungs clear, normal breath sounds, no respiratory distress Cardiovascular/Chest: Present: normal peripheral pulses, regular rate, rhythm, no chest tenderness, no edema, no gallop, no JVD, no murmur, no rub, extra beats Peripheral Pulses: carotid (R): 2+, carotid (L): 2+, radial (R): 2+, radial (L): 2+ Abdomen: Present: Normal bowel sounds, soft, nontender, nondistended, no rebound tenderness, no hepatospenomegaly, no masses /Rectal: Present: Exam deferred Extremity: Present: normal range of motion, non-tender, normal inspection, no pedal edema, no calf tenderness, normal capillary refill Skin Exam: Present: normal color, warm/dry, no cyanosis Lymphatic: Present: no adenopathy 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, normal cerebellar test, no motor/sensory deficits, alert, normal mood/affect, oriented x 3 Appearance: Present: appropriate appearance, appropriate insight, neat, no memory impairment Eye contact: Present: cooperative, good eye contact, normal speech Thoughts: Present: normal thought pattern, no apparent hallucination Diagnostic Studies: Abnormal Lab Results 04/23/19 04/23/19 04/23/19 Range/Units 12:20 12:20 13:16 WBC 11.1 H (4.0-10.5) K/mm3 Hgb 12.1 L (12.5-16.0) gm/dL RDW 15.3 H (11.5-14.0) % Immature Gran # (Auto) 0.04 H (0.000-0.0310) K/mm3 Neutrophils % 86.5 H (42-75.0) % Lymphocytes % 7.1 L (20-51) % Neutrophils # 9.6 H (1.3-6.0) K/mm3 Lymphocytes # 0.79 L (1.5-3.5) k/mm3 Sodium 128 L (132-142) mmol/L Chloride 91 L (97-106) mmol/L Anion Gap 16.2 H (6.8-13.8) mmol/L BUN 66 H (3-23) mg/dL Creatinine 2.41 H D (0.4-1.4) mg/dL Est GFR (Non-Af Amer) 20 L D (60-130) mL/min BUN/Creatinine Ratio 27.4 H (9.0-21.6) Random Glucose 197 H (70-110) mg/dL ALT 7 L (19-67) U/L Albumin 3.1 L (3.4-5.0) gm/dl Urine Blood 50 H (NEGATIVE) /ul Ur Leukocyte Esterase 500 H (NEGATIVE) /ul Urine WBC 5-10 H (0-5) /hpf Laboratory Results WBC 11.1 K/mm3 (4.0-10.5) H 04/23/19 12:20 RBC 4.41 M/mm3 (4.2-5.4) 04/23/19 12:20 Hgb 12.1 gm/dL (12.5-16.0) L 04/23/19 12:20 Hct 37.8 % (37.0-47.0) 04/23/19 12:20 MCV 85.7 fl (78-100) 04/23/19 12:20 MCH 27.4 pg (27-31) 04/23/19 12:20 MCHC 32.0 g/dl (32-36) 04/23/19 12:20 RDW 15.3 % (11.5-14.0) H 04/23/19 12:20 Plt Count 327 K/mm3 (150-450) 04/23/19 12:20 MPV 9.8 fl (8-12.5) 04/23/19 12:20 Immature Gran % (Auto) 0.40 % (0.001-0.429) 04/23/19 12:20 Immature Gran # (Auto) 0.04 K/mm3 (0.000-0.0310) H 04/23/19 12:20 86.5 % (42-75.0) H 04/23/19 12:20 7.1 % (20-51) L 04/23/19 12:20 5.0 % (0.0-9) 04/23/19 12:20 0.4 % (0.0-3.0) 04/23/19 12:20 0.6 % (0.0-1.0) 04/23/19 12:20 Nucleated RBC % 0.0 k/mm3 (0-1) 04/23/19 12:20 9.6 K/mm3 (1.3-6.0) H 04/23/19 12:20 0.79 k/mm3 (1.5-3.5) L 04/23/19 12:20 0.6 k/mm3 (0.0-1.0) 04/23/19 12:20 0.0 k/mm3 (0.0-0.7) 04/23/19 12:20 Absolute Basophils 0.1 k/mm3 (0.0-0.1) 04/23/19 12:20 Sodium 128 mmol/L (132-142) L 04/23/19 12:20 130 mmol/L (130-142) 04/23/19 12:20 Potassium 4.6 mmol/L (3.4-4.6) 04/23/19 12:20 Chloride 91 mmol/L (97-106) L 04/23/19 12:20 Carbon Dioxide 25.4 mmol/L (24-32.6) 04/23/19 12:20 16.2 mmol/L (6.8-13.8) H 04/23/19 12:20 BUN 66 mg/dL (3-23) H 04/23/19 12:20 2.41 mg/dL (0.4-1.4) H D 04/23/19 12:20 Est GFR (Non-Af Amer) 20 mL/min (60-130) L D 04/23/19 12:20 27.4 (9.0-21.6) H 04/23/19 12:20 197 mg/dL (70-110) H 04/23/19 12:20 Calcium 9.2 mg/dL (7.9-10.9) 04/23/19 12:20 Calcium Adj for Albumin 9.6 mg/dL (8.4-10.2) 04/23/19 12:20 0.3 mg/dL (0.0-1.1) 04/23/19 12:20 AST 20 U/L (0-48) 04/23/19 12:20 ALT 7 U/L (19-67) L 04/23/19 12:20 103 U/L (50-170) 04/23/19 12:20 7.5 gm/dL (6.2-8.2) 04/23/19 12:20 3.1 gm/dl (3.4-5.0) L 04/23/19 12:20 Yellow 04/23/19 13:16 Clear (CLEAR) 04/23/19 13:16 6.0 pH (5.0-7.0) 04/23/19 13:16 Ur Specific [place] 1.010 SP.GR. (1.005-1.010) 04/23/19 13:16 Negative mg/dL (NEGATIVE) 04/23/19 13:16 Negative mg/dL (NEGATIVE) 04/23/19 13:16 Negative mg/dL (NEGATIVE) 04/23/19 13:16 50 /ul (NEGATIVE) H 04/23/19 13:16 Negative (NEGATIVE) 04/23/19 13:16 Negative mg/dl (NEGATIVE) 04/23/19 13:16 Normal EU/dl (NORMAL) 04/23/19 13:16 Ur Leukocyte Esterase 500 /ul (NEGATIVE) H 04/23/19 13:16 0-5 /hpf (0-5) 04/23/19 13:16 5-10 /hpf (0-5) H 04/23/19 13:16 Ur Epithelial Cells 0-5 /hpf (0-5) 04/23/19 13:16 Trace (NONE) 04/23/19 13:16 Culture to follow 04/23/19 13:16 Assessment/Plan - Narrative Narrative: 1. Rehydration with IV fluids 2. Restart Rocephin 1 g IV piggyback. 3. Reculture urine 4. Reassess renal status tomorrow morning 5. PT to evaluate skills for independent living and ambulatory skills. - Assessment/Plan (1) Nausea Problem: Acute (2) UTI (urinary tract infection) Problem: Resolved Qualifiers: Urinary tract infection type: acute cystitis Hematuria presence: without hematuria Qualified Code(s): N30.00 - Acute cystitis without hematuria (3) Leukocytosis Problem: Resolved Qualifiers: Leukocytosis type: other Qualified Code(s): D72.828 - Other elevated white blood cell count (4) CKD (chronic kidney disease) stage 3, GFR 30-59 ml/min Problem: Chronic (5) Malnourished Problem: Chronic Qualifiers: Malnutrition type: protein-calorie malnutrition Protein-calorie malnutrition severity: severe Qualified Code(s): E43 - Unspecified severe protein-calorie malnutrition (6) UTI (urinary tract infection) Problem: Acute Qualifiers: Urinary tract infection type: site unspecified Hematuria presence: without hematuria Qualified Code(s): N39.0 - Urinary tract infection, site not specified (7) Dehydration Problem: Acute (8) Acute on chronic renal failure Problem: Acute Qualifiers: Acute renal failure type: unspecified Chronic kidney disease stage: unspecified stage Qualified Code(s): N17.9 - Acute kidney failure, unspecified; N18.9 - Chronic kidney disease, unspecified
[2019-04-23] MEDS ORDERED: ONDANSETRON HCL 4 MG TABLET PO PRN (17:05)
[2019-04-23] MEDS: METOPROLOL TARTRATE 100 MG TABLET PO SCH (21:07)
[2019-04-23] MEDS: PANTOPRAZOLE SODIUM 40 MG TABLET.EC PO SCH (21:07)
[2019-04-24 05:50] LABS: Hematocrit 31.4 % (37.0-47.0); Hemoglobin 9.8 gm/dL (12.5-16.0); Mean Cell Volume 86.7 fl (78-100); Mean Corpuscular Hemoglobin 27.1 pg (27-31); Mean Corpuscular Hgb Conc 31.2 g/dl (32-36); Neutrophil # 5.4 K/mm3 (1.3-6.0); Neutrophil % 76.2 % (42-75.0); Platelet Count 202 K/mm3 (150-450); Red Blood Count 3.62 M/mm3 (4.2-5.4); Red Cell Distribution Width 15.4 % (11.5-14.0); White Blood Count 7.1 K/mm3 (4.0-10.5)
[2019-04-24 06:05] LABS: Albumin * 2.3 gm/dl (3.4-5.0); Anion Gap 11.5 mmol/L (6.8-13.8); BUN/Creatinine Ratio 31.3 (9.0-21.6); Bilirubin, Total 0.2 mg/dL (0.0-1.1); Ca. Corrected For Albumin 9.7 mg/dL (8.4-10.2); Calcium * 8.7 mg/dL (7.9-10.9); Potassium 4.5 mmol/L (3.4-4.6)
[2019-04-24] MEDS: PANTOPRAZOLE SODIUM 40 MG TABLET.EC PO SCH ×2 (07:34→20:02)
[2019-04-24] MEDS: CITALOPRAM HYDROBROMIDE 10 MG TABLET PO SCH (08:40)
[2019-04-24] MEDS: METOPROLOL TARTRATE 100 MG TABLET PO SCH ×2 (08:40→20:01)
[2019-04-24] MEDS: LISINOPRIL 40 MG TABLET PO SCH (08:40)
[2019-04-24] MEDS: FOLIC ACID 1 MG TABLET PO SCH (08:40)
[2019-04-24] MEDS: ASPIRIN 81 MG TAB.CHEW PO SCH (08:40)
[2019-04-24] MEDS: ACETAMINOPHEN 325 MG TABLET PO PRN ×2 (08:41→20:01)
[2019-04-24] MEDS ORDERED: NORMAL SALINE 500 ML IV PRN (12:46)
--- NOTE | 2019-04-24 14:23 | PN ---
Subjective - Date and Time Seen Date: 04/24/19 Time: 09:30 Subjective Narrative: Ilana had an uneventful night and is feeling some better today. She denies any chest discomfort. Reportedly she had pulseless V. tach which should have required chest compressions CPR but she has no symptoms of that. She has a persistent leukocytosis and white count is up to 14,400 today etiology is unknown. Her troponin was 40 and her BNP was extremely high but these were measured after having synchronized cardioversion. She is in normal sinus rhythm today I do not hear any murmurs rubs or significant dysrhythmia. Objective - Review of Systems Generalized/Overall Review: Reports: Weakness EENTM: Reports: No Symptoms Reported Respiratory: Reports: No Symptoms Reported Cardiac: Reports: No Symptoms Reported Abdominal: Reports: No Symptoms Reported Genitourinary Symptoms: Reports: No Symptoms Reported Musculoskeletal Complaints: Reports: No Symptoms Reported Neurological: Reports: Weakness Skin: Reports: No Symptoms Reported Endocrine: Reports: No Symptoms Reported - Vitals Vitals: Last Vital Signs Temp 37.2 C 04/24/19 12:23 Pulse 66 04/24/19 12:23 Resp 18 04/24/19 12:23 BP 179/73 H 04/24/19 12:23 Pulse Ox 98 04/24/19 12:23 - Abnormal Lab Findings Abnormal Lab Findings: Abnormal Lab Results 04/23/19 04/24/19 04/24/19 Range/Units 17:15 05:47 05:47 RBC 3.62 L (4.2-5.4) M/mm3 Hgb 9.8 L (12.5-16.0) gm/dL Hct 31.4 L (37.0-47.0) % MCHC 31.2 L (32-36) g/dl RDW 15.4 H (11.5-14.0) % Neutrophils % 76.2 H (42-75.0) % Lymphocytes % 10.2 L (20-51) % Monocytes % 10.0 H (0.0-9) % Basophils % 1.1 H (0.0-1.0) % Lymphocytes # 0.72 L (1.5-3.5) k/mm3 BUN 65 H (3-23) mg/dL Creatinine 2.08 H (0.4-1.4) mg/dL Est GFR (Non-Af Amer) 24 L (60-130) mL/min BUN/Creatinine Ratio 31.3 H (9.0-21.6) ALT 4 L (19-67) U/L Total Protein 6.0 L (6.2-8.2) gm/dL Albumin 2.3 L (3.4-5.0) gm/dl Lipase 42 L (73-393) U/L - EKG/Xray Findings EKG read: Reviewed by me Interpretation: Reviewed by me - Exam Constitutional: Present: Alert, Oriented x3, Cooperative, Well developed, Well nourished, No distress, Elderly ENT Exam: Present: normal ENT inspection, hearing grossly normal, pharynx normal Neck: Present: non-tender, full range of motion, supple Breasts: Present: Exam deferred Respiratory: Present: chest non-tender, lungs clear, normal breath sounds, no respiratory distress, no accessory muscle use Cardiovascular/Chest: Present: normal peripheral pulses, regular rate, rhythm, no chest tenderness, no edema, no gallop, no JVD, no murmur, no rub Abdomen: Present: Normal bowel sounds, soft, nontender, nondistended, no rebound tenderness, no hepatospenomegaly, no masses /Rectal: Present: Exam deferred Extremity: Present: normal range of motion, non-tender, normal inspection, no pedal edema Skin Exam: Present: normal color, warm/dry, no cyanosis Lymphatic: Present: no adenopathy Neurologic: Present: nurse receptionist II-XII nml as tested, normal cerebellar test, no motor/sensory deficits Appearance: Present: appropriate appearance, appropriate insight, neat Eye contact: Present: cooperative, good eye contact, normal speech Thoughts: Present: normal thought pattern, no apparent hallucination Assessment/Plan - Problems/Diagnosis (1) Nausea Problem: Acute (2) UTI (urinary tract infection) Problem: Resolved Qualifiers: Urinary tract infection type: acute cystitis Hematuria presence: without hematuria Qualified Code(s): N30.00 - Acute cystitis without hematuria (3) Leukocytosis Problem: Resolved Qualifiers: Leukocytosis type: other Qualified Code(s): D72.828 - Other elevated white blood cell count (4) CKD (chronic kidney disease) stage 3, GFR 30-59 ml/min Problem: Chronic (5) Malnourished Problem: Chronic Qualifiers: Malnutrition type: protein-calorie malnutrition Protein-calorie malnutrition severity: severe Qualified Code(s): E43 - Unspecified severe protein-calorie malnutrition (6) UTI (urinary tract infection) Problem: Acute Qualifiers: Urinary tract infection type: site unspecified Hematuria presence: without hematuria Qualified Code(s): N39.0 - Urinary tract infection, site not specified (7) Dehydration Problem: Acute (8) Acute on chronic renal failure Problem: Acute Qualifiers: Acute renal failure type: unspecified Chronic kidney disease stage: unspecified stage Qualified Code(s): N17.9 - Acute kidney failure, unspecified; N18.9 - Chronic kidney disease, unspecified
[2019-04-24 14:35] LABS: Anion Gap 10.8 mmol/L (6.8-13.8); BUN/Creatinine Ratio 33.5 (9.0-21.6); Calcium * 8.2 mg/dL (7.9-10.9); Estimated Creat Clear 18.1; Potassium 4.8 mmol/L (3.4-4.6)
--- NOTE | 2019-04-24 15:02 | PN ---
Subjective - Date and Time Seen Date: 04/24/19 Time: 09:50 Subjective Narrative: Ilana continues to have problems with nausea off and on today. She did eat about 25% of her breakfast but did not eat much lunch. She says she still feels weak and nauseous and and does not feel like going home and does not think she can take care of herself yet. Therefore I am going to keep her until tomorrow and take the time to further rehydrate her and hopefully improve her renal status. She had a 500 cc bolus of normal saline this afternoon which improved her EGFR from 2427. The creatinine is still high at 2.08 this morning. Objective - Review of Systems Generalized/Overall Review: Reports: Weakness, Malaise EENTM: Reports: No Symptoms Reported Respiratory: Reports: No Symptoms Reported Cardiac: Reports: No Symptoms Reported Abdominal: Reports: Nausea, Abdominal Pain. Denies: Vomiting Genitourinary Symptoms: Reports: No Symptoms Reported Musculoskeletal Complaints: Reports: No Symptoms Reported Neurological: Reports: Weakness Endocrine: Reports: No Symptoms Reported - Vitals Vitals: Last Vital Signs Temp 37.1 C 04/24/19 14:35 Pulse 65 04/24/19 14:35 Resp 16 04/24/19 14:35 BP 170/74 H 04/24/19 14:35 Pulse Ox 100 04/24/19 14:35 - Abnormal Lab Findings Abnormal Lab Findings: Abnormal Lab Results 04/23/19 04/24/19 04/24/19 Range/Units 17:15 05:47 05:47 RBC 3.62 L (4.2-5.4) M/mm3 Hgb 9.8 L (12.5-16.0) gm/dL Hct 31.4 L (37.0-47.0) % MCHC 31.2 L (32-36) g/dl RDW 15.4 H (11.5-14.0) % Neutrophils % 76.2 H (42-75.0) % Lymphocytes % 10.2 L (20-51) % Monocytes % 10.0 H (0.0-9) % Basophils % 1.1 H (0.0-1.0) % Lymphocytes # 0.72 L (1.5-3.5) k/mm3 Potassium (3.4-4.6) mmol/L BUN 65 H (3-23) mg/dL Creatinine 2.08 H (0.4-1.4) mg/dL Est GFR (Non-Af Amer) 24 L (60-130) mL/min BUN/Creatinine Ratio 31.3 H (9.0-21.6) Random Glucose (70-110) mg/dL ALT 4 L (19-67) U/L Total Protein 6.0 L (6.2-8.2) gm/dL Albumin 2.3 L (3.4-5.0) gm/dl Lipase 42 L (73-393) U/L 04/24/19 Range/Units 14:24 RBC (4.2-5.4) M/mm3 Hgb (12.5-16.0) gm/dL Hct (37.0-47.0) % MCHC (32-36) g/dl RDW (11.5-14.0) % Neutrophils % (42-75.0) % Lymphocytes % (20-51) % Monocytes % (0.0-9) % Basophils % (0.0-1.0) % Lymphocytes # (1.5-3.5) k/mm3 Potassium 4.8 H (3.4-4.6) mmol/L BUN 64 H (3-23) mg/dL Creatinine 1.91 H (0.4-1.4) mg/dL Est GFR (Non-Af Amer) 27 L (60-130) mL/min BUN/Creatinine Ratio 33.5 H (9.0-21.6) Random Glucose 115 H (70-110) mg/dL ALT (19-67) U/L Total Protein (6.2-8.2) gm/dL Albumin (3.4-5.0) gm/dl Lipase (73-393) U/L - Exam Constitutional: Present: Alert, Oriented x3, Cooperative, Elderly, Thin and f rail ENT Exam: Present: normal ENT inspection, hearing grossly normal, pharynx normal Neck: Present: non-tender, full range of motion Breasts: Present: Exam deferred Respiratory: Present: chest non-tender, lungs clear, normal breath sounds, no respiratory distress, no accessory muscle use, respiratory distress Cardiovascular/Chest: Present: normal peripheral pulses, regular rate, rhythm, no chest tenderness, no edema, no gallop, no JVD, no murmur, no rub Abdomen: Present: Normal bowel sounds, soft, nontender, nondistended, no rebound tenderness, no hepatospenomegaly /Rectal: Present: Exam deferred Extremity: Present: normal range of motion, non-tender, normal inspection, no pedal edema, no calf tenderness, normal capillary refill Skin Exam: Present: normal color, warm/dry, no cyanosis, other - Turgor is decreased but improving Lymphatic: Present: no adenopathy Neurologic: Present: admitting officer II-XII nml as tested, no motor/sensory deficits, alert, normal mood/affect, oriented x 3 Appearance: Present: appropriate appearance, appropriate insight, neat, no memory impairment, denies illness Eye contact: Present: cooperative, good eye contact, normal speech, avoids eye contact Thoughts: Present: normal thought pattern, no apparent hallucination Assessment/Plan Plan Narrative: 1. Hydrate orally and with another liter of normal saline to be infused at 250 cc/h. 2. Recheck morning lab 3. Probable discharge tomorrow. She is just not ready to go today. - Problems/Diagnosis (1) Nausea Problem: Acute (2) UTI (urinary tract infection) Problem: Resolved Qualifiers: Urinary tract infection type: acute cystitis Hematuria presence: without hematuria Qualified Code(s): N30.00 - Acute cystitis without hematuria (3) Leukocytosis Problem: Resolved Qualifiers: Leukocytosis type: other Qualified Code(s): D72.828 - Other elevated white blood cell count (4) CKD (chronic kidney disease) stage 3, GFR 30-59 ml/min Problem: Chronic (5) Malnourished Problem: Chronic Qualifiers: Malnutrition type: protein-calorie malnutrition Protein-calorie malnutrition severity: severe Qualified Code(s): E43 - Unspecified severe protein-calorie malnutrition (6) UTI (urinary tract infection) Problem: Acute Qualifiers: Urinary tract infection type: site unspecified Hematuria presence: without hematuria Qualified Code(s): N39.0 - Urinary tract infection, site not specified (7) Dehydration Problem: Acute (8) Acute on chronic renal failure Problem: Acute Qualifiers: Acute renal failure type: unspecified Chronic kidney disease stage: unspecified stage Qualified Code(s): N17.9 - Acute kidney failure, unspecified; N18.9 - Chronic kidney disease, unspecified
[2019-04-24] MEDS: NORMAL SALINE 1,000 ML IV PRN ×2 (15:18→19:33)
[2019-04-25] MEDS: ACETAMINOPHEN 325 MG TABLET PO PRN ×2 (06:36→16:04)
[2019-04-25 06:39] LABS: Hematocrit 31.3 % (37.0-47.0); Hemoglobin 9.8 gm/dL (12.5-16.0); Mean Cell Volume 88.7 fl (78-100); Mean Corpuscular Hemoglobin 27.8 pg (27-31); Mean Corpuscular Hgb Conc 31.3 g/dl (32-36); Mean Platelet Volume 9.7 fl (8-12.5); Neutrophil # 4.4 K/mm3 (1.3-6.0); Neutrophil % 67.7 % (42-75.0); Platelet Count 203 K/mm3 (150-450); Red Blood Count 3.53 M/mm3 (4.2-5.4); Red Cell Distribution Width 15.5 % (11.5-14.0); White Blood Count 6.5 K/mm3 (4.0-10.5)
[2019-04-25 06:51] LABS: Albumin * 2.3 gm/dl (3.4-5.0); Anion Gap 10.9 mmol/L (6.8-13.8); BUN/Creatinine Ratio 32.9 (9.0-21.6); Bilirubin, Total 0.2 mg/dL (0.0-1.1); Ca. Corrected For Albumin 9.4 mg/dL (8.4-10.2); Calcium * 8.4 mg/dL (7.9-10.9); Carbon Dioxide 27.5 mmol/L (24-32.6); Potassium 4.4 mmol/L (3.4-4.6); Total Protein 5.8 gm/dL (6.2-8.2)
[2019-04-25] MEDS: PANTOPRAZOLE SODIUM 40 MG TABLET.EC PO SCH ×2 (07:12→20:16)
[2019-04-25] MEDS: LISINOPRIL 40 MG TABLET PO SCH (09:25)
[2019-04-25] MEDS: ASPIRIN 81 MG TAB.CHEW PO SCH (09:28)
[2019-04-25] MEDS: CITALOPRAM HYDROBROMIDE 10 MG TABLET PO SCH (09:28)
[2019-04-25] MEDS: METOPROLOL TARTRATE 100 MG TABLET PO SCH ×2 (09:28→20:16)
[2019-04-25] MEDS: FOLIC ACID 1 MG TABLET PO SCH (09:28)
[2019-04-25] MEDS ORDERED: ONDANSETRON HCL 4 MG TABLET PO PRN (11:17)
--- NOTE | 2019-04-25 17:00 | PN ---
Subjective - Date and Time Seen Date: 04/25/19 Time: 09:40 Objective - Review of Systems Generalized/Overall Review: Reports: Weakness, Malaise EENTM: Reports: No Symptoms Reported Respiratory: Reports: No Symptoms Reported Cardiac: Reports: No Symptoms Reported Abdominal: Reports: Nausea Genitourinary Symptoms: Reports: No Symptoms Reported Musculoskeletal Complaints: Reports: No Symptoms Reported Neurological: Reports: No Symptoms Reported Skin: Reports: No Symptoms Reported Endocrine: Reports: No Symptoms Reported - Vitals Vitals: Last Vital Signs Temp 36.7 C 04/25/19 14:34 Pulse 67 04/25/19 14:34 Resp 18 04/25/19 14:34 BP 142/67 04/25/19 14:34 Pulse Ox 97 04/25/19 14:34 - Abnormal Lab Findings Abnormal Lab Findings: Abnormal Lab Results 04/25/19 04/25/19 Range/Units 06:00 06:37 RBC 3.53 L (4.2-5.4) M/mm3 Hgb 9.8 L (12.5-16.0) gm/dL Hct 31.3 L (37.0-47.0) % MCHC 31.3 L (32-36) g/dl RDW 15.5 H (11.5-14.0) % Lymphocytes % 17.5 L (20-51) % Monocytes % 9.2 H (0.0-9) % Eosinophils % 4.5 H (0.0-3.0) % Lymphocytes # 1.14 L (1.5-3.5) k/mm3 BUN 49 H (3-23) mg/dL Creatinine 1.49 H D (0.4-1.4) mg/dL Est GFR (Non-Af Amer) 35 L D (60-130) mL/min BUN/Creatinine Ratio 32.9 H (9.0-21.6) ALT 7 L (19-67) U/L Total Protein 5.8 L (6.2-8.2) gm/dL Albumin 2.3 L (3.4-5.0) gm/dl - Exam Constitutional: Present: Alert, Oriented x3, Cooperative, Well developed, Well nourished, No distress ENT Exam: Present: normal ENT inspection, hearing grossly normal, pharynx normal, TMs normal Neck: Present: non-tender, full range of motion, supple, normal inspection Breasts: Present: Exam deferred Respiratory: Present: chest non-tender, lungs clear, normal breath sounds Cardiovascular/Chest: Present: normal peripheral pulses, regular rate, rhythm, no chest tenderness, no edema, no gallop, no JVD, no murmur Abdomen: Present: Normal bowel sounds, soft, nontender /Rectal: Present: Exam deferred, External genitalia normal Extremity: Present: normal range of motion, non-tender, normal inspection, no pedal edema Skin Exam: Present: normal color, warm/dry, no cyanosis Neurologic: Present: functional consultant II-XII nml as tested Appearance: Present: appropriate appearance, appropriate insight, neat Eye contact: Present: cooperative, good eye contact, normal speech Thoughts: Present: normal thought pattern, no apparent hallucination Assessment/Plan Plan Narrative: 1. Continue current therapy with gradual rehydration. Continue to monitor renal status. 2. Anticipate discharge to home tomorrow - Problems/Diagnosis (1) Nausea Problem: Acute (2) CKD (chronic kidney disease) stage 3, GFR 30-59 ml/min Problem: Chronic (3) Malnourished Problem: Chronic Qualifiers: Malnutrition type: protein-calorie malnutrition Protein-calorie malnutrition severity: severe Qualified Code(s): E43 - Unspecified severe protein-calorie malnutrition (4) UTI (urinary tract infection) Problem: Acute Qualifiers: Urinary tract infection type: site unspecified Hematuria presence: without hematuria Qualified Code(s): N39.0 - Urinary tract infection, site not specif ied (5) Dehydration Problem: Acute (6) Acute on chronic renal failure Problem: Acute Qualifiers: Acute renal failure type: unspecified Chronic kidney disease stage: unspecified stage Qualified Code(s): N17.9 - Acute kidney failure, unspecified; N18.9 - Chronic kidney disease, unspecified
[2019-04-26 06:08] LABS: Hematocrit 31.2 % (37.0-47.0); Hemoglobin 9.7 gm/dL (12.5-16.0); Mean Cell Volume 88.9 fl (78-100); Mean Corpuscular Hemoglobin 27.6 pg (27-31); Mean Corpuscular Hgb Conc 31.1 g/dl (32-36); Mean Platelet Volume 9.6 fl (8-12.5); Neutrophil % 72.1 % (42-75.0); Platelet Count 194 K/mm3 (150-450); Red Blood Count 3.51 M/mm3 (4.2-5.4); Red Cell Distribution Width 15.5 % (11.5-14.0); White Blood Count 6.9 K/mm3 (4.0-10.5)
[2019-04-26 07:04] LABS: Albumin * 2.3 gm/dl (3.4-5.0); Anion Gap 12.1 mmol/L (6.8-13.8); BUN/Creatinine Ratio 32.2 (9.0-21.6); Bilirubin, Total 0.2 mg/dL (0.0-1.1); Ca. Corrected For Albumin 9.7 mg/dL (8.4-10.2); Calcium * 8.7 mg/dL (7.9-10.9); Carbon Dioxide 26.6 mmol/L (24-32.6); Potassium 4.7 mmol/L (3.4-4.6); Total Protein 5.7 gm/dL (6.2-8.2)
[2019-04-26] MEDS: PANTOPRAZOLE SODIUM 40 MG TABLET.EC PO SCH (07:08)
[2019-04-26] MEDS: ACETAMINOPHEN 325 MG TABLET PO PRN (07:08)
[2019-04-26] MEDS: FOLIC ACID 1 MG TABLET PO SCH (09:33)
[2019-04-26] MEDS: CITALOPRAM HYDROBROMIDE 10 MG TABLET PO SCH (09:33)
[2019-04-26] MEDS: ASPIRIN 81 MG TAB.CHEW PO SCH (09:35)
[2019-04-26] MEDS: METOPROLOL TARTRATE 100 MG TABLET PO SCH (09:36)
[2019-04-26] MEDS: LISINOPRIL 40 MG TABLET PO SCH (09:36)
--- NOTE | 2019-04-26 11:36 | DS ---
(1) Dehydration Problem: Acute (2) Nausea Problem: Resolved (3) CKD (chronic kidney disease) stage 3, GFR 30-59 ml/min Problem: Chronic (4) Malnourished Problem: Chronic Qualifiers: Malnutrition type: protein-calorie malnutrition Protein-calorie malnutrition severity: severe Qualified Code(s): E43 - Unspecified severe protein-calorie malnutrition (5) UTI (urinary tract infection) Problem: Acute Qualifiers: Urinary tract infection type: site unspecified Hematuria presence: without hematuria Qualified Code(s): N39.0 - Urinary tract infection, site not specified (6) Acute on chronic renal failure Problem: Acute Qualifiers: Acute renal failure type: unspecified Chronic kidney disease stage: unspecified stage Qualified Code(s): N17.9 - Acute kidney failure, unspecified; N18.9 - Chronic kidney disease, unspecified Date of Discharge:: 04/26/19 Description of Stay: This 83-year-old female was admitted for generalized weakness, nausea with vomiting, anemia, and was under treatment for a UTI which grew out a small colony (less than 10,000 per hpf) of Proteus prineri. She has been gradually rehydrated as she was extremely dehydrated on admission. She has not had any diuretic therapy since admission. Her renal status has improved from 20-35 yesterday and is at 45 today. Her protein and albumin have been very low and the albumin has stayed at about 2.3 each day. She has had nausea every day until today. Each morning she wakes up with nausea and is been having difficulty eating. I suspect the nausea is from her severe dehydration she had on admission. This morning she is alert and conversant and in no distress. She is looking forward to going home today. Procedures Performed: none Results and Findings: Lab Pending Results 04/23/19 12:20: WBC 11.1 H, RBC 4.41, Hgb 12.1 L, Hct 37.8, MCV 85.7, MCH 27.4, MCHC 32.0, RDW 15.3 H, Plt Count 327, MPV 9.8, Immature Gran % (Auto) 0.40, Immature Gran # (Auto) 0.04 H, Neutrophils % 86.5 H, Lymphocytes % 7.1 L, Monocytes % 5.0, Eosinophils % 0.4, Basophils % 0.6, Nucleated RBC % 0.0, Neutrophils # 9.6 H, Lymphocytes # 0.79 L, Monocytes # 0.6, Eosinophils # 0.0, Absolute Basophils 0.1 04/23/19 12:20: Sodium 128 L, Plasma Sodium 130, Potassium 4.6, Chloride 91 L, Carbon Dioxide 25.4, Anion Gap 16.2 H, BUN 66 H, Creatinine 2.41 H D, Est GFR ( Non-Af Amer) 20 L D, BUN/Creatinine Ratio 27.4 H, Random Glucose 197 H, Calcium 9.2, Calcium Adj for Albumin 9.6, Total Bilirubin 0.3, AST 20, ALT 7 L, Alkaline Phosphatase 103, Total Protein 7.5, Albumin 3.1 L 04/23/19 13:16: Urine Color Yellow, Urine Appearance Clear, Urine pH 6.0, Ur Specific [place] 1.010, Urine Protein Negative, Urine Glucose (UA) Negative, Urine Ketones Negative, Urine Blood 50 H, Urine Nitrate Negative, Urine Bilirubin Negative, Urine Urobilinogen Normal, Ur Leukocyte Esterase 500 H, Urine RBC 0-5, Urine WBC 5-10 H, Ur Epithelial Cells 0-5, Urine Bacteria Trace, Urine Culture Comments Culture to follow 04/23/19 17:15: Lipase 42 L 04/23/19 17:15: Magnesium 1.8 04/23/19 17:15: Mean Blood Glucose 114, Hemoglobin A1c 6.0 04/24/19 05:47: WBC 7.1 D, RBC 3.62 L, Hgb 9.8 L, Hct 31.4 L, MCV 86.7, MCH 27.1, MCHC 31.2 L, RDW 15.4 H, Plt Count 202, MPV 10.0, Immature Gran % (Auto) 0.40, Immature Gran # (Auto) 0.03, Neutrophils % 76.2 H, Lymphocytes % 10.2 L, Monocytes % 10.0 H, Eosinophils % 2.1, Basophils % 1.1 H, Nucleated RBC % 0.0, Neutrophils # 5.4, Lymphocytes # 0.72 L, Monocytes # 0.7, Eosinophils # 0.2, Absolute Basophils 0.1 04/24/19 05:47: Sodium 133, Plasma Sodium 133, Potassium 4.5, Chloride 99, Carbon Dioxide 27.0, Anion Gap 11.5, BUN 65 H, Creatinine 2.08 H, Est GFR (Non- Af Amer) 24 L, BUN/Creatinine Ratio 31.3 H, Random Glucose 99 D, Calcium 8.7, Calcium Adj for Albumin 9.7, Total Bilirubin 0.2, AST 17, ALT 4 L, Alkaline Phosphatase 81, Total Protein 6.0 L, Albumin 2.3 L 04/24/19 14:24: Sodium 132, Plasma Sodium 132, Potassium 4.8 H, Chloride 98, Carbon Dioxide 28.0, Anion Gap 10.8, BUN 64 H, Creatinine 1.91 H, Est GFR (Non- Af Amer) 27 L, BUN/Creatinine Ratio 33.5 H, Random Glucose 115 H, Calcium 8.2 04/25/19 06:00: WBC 6.5, RBC 3.53 L, Hgb 9.8 L, Hct 31.3 L, MCV 88.7, MCH 27.8, MCHC 31.3 L, RDW 15.5 H, Plt Count 203, MPV 9.7, Immature Gran % (Auto) 0.20, Immature Gran # (Auto) 0.01, Neutrophils % 67.7, Lymphocytes % 17.5 L, Monocytes % 9.2 H, Eosinophils % 4.5 H, Basophils % 0.9, Nucleated RBC % 0.0, Neutrophils # 4.4, Lymphocytes # 1.14 L, Monocytes # 0.6, Eosinophils # 0.3, Absolute Basophils 0.1 04/25/19 06:37: Sodium 136, Plasma Sodium 136, Potassium 4.4, Chloride 102, Carbon Dioxide 27.5, Anion Gap 10.9, BUN 49 H, Creatinine 1.49 H D, Est GFR (Non-Af Amer) 35 L D, BUN/Creatinine Ratio 32.9 H, Random Glucose 97, Calcium 8.4, Calcium Adj for Albumin 9.4, Total Bilirubin 0.2, AST 21, ALT 7 L, Alkaline Phosphatase 80, Total Protein 5.8 L, Albumin 2.3 L 04/26/19 05:50: WBC 6.9, RBC 3.51 L, Hgb 9.7 L, Hct 31.2 L, MCV 88.9, MCH 27.6, MCHC 31.1 L, RDW 15.5 H, Plt Count 194, MPV 9.6, Immature Gran % (Auto) 0.40, Immature Gran # (Auto) 0.03, Neutrophils % 72.1, Lymphocytes % 14.6 L, Monocytes % 8.4, Eosinophils % 3.6 H, Basophils % 0.9, Nucleated RBC % 0.0, Neutrophils # 5.0, Lymphocytes # 1.00 L, Monocytes # 0.6, Eosinophils # 0.3, Absolute Basophils 0.1 04/26/19 05:50: Sodium 137, Plasma Sodium 137, Potassium 4.7 H, Chloride 103, Carbon Dioxide 26.6, Anion Gap 12.1, BUN 39 H, Creatinine 1.21, Est GFR (Non-Af Amer) 45 L D, BUN/Creatinine Ratio 32.2 H, Random Glucose 97, Calcium 8.7, Calcium Adj for Albumin 9.7, Total Bilirubin 0.2, AST 20, ALT 9 L, Alkaline Phosphatase 78, Total Protein 5.7 L, Albumin 2.3 L Discharge Location: Home Disposition: Home Health Service [facility] Agency: [facility] Condition: Fair Face to Face Encounter completed per [facility] Guidelines: No Discharge Activity: Activity as tolerated Discharge Diet: General/regular food, Other - Add Ensure plus 3 times daily between meals Referrals: Lonnie Rice MD [Primary Care Provider] - Additional Patient Instructions (free text): [facility] ongoing. Call María (home health nurse) at [phone]. Home health PT/OT to eval and treat Fax H&P, medications, and discharge summary/orders and call report upon discharge. Please make TCM appointment unless long term discharge, or if following up with outside provider. Thank you! Leticia @ [phone] or Denise at [phone]. She is to weigh daily and record and take that to her next office visit with Dr. Rice sometime next week. She is to add Ensure plus 3 times daily between meals. Complete Home Medications List: Complete Home Medication List: Citalopram Hydrobromide [Celexa] 10 mg PO DAILY 04/07/18 Metoprolol Tartrate [Lopressor] 100 mg PO BID 04/07/18 Pantoprazole Sodium [Protonix] 40 mg PO BID 04/07/18 Furosemide [Lasix] 20 mg PO DAILY 01/17/19 Acetaminophen [Tylenol] 650 mg PO Q6H PRN 01/24/19 Lisinopril 20 mg PO DAILY 01/24/19 Ondansetron HCl [Zofran] 4 mg PO Q6H PRN 01/24/19 Aspirin [Aspirin Chewable] 81 mg PO DAILY 04/15/19 Spironolactone 25 mg PO DAILY 04/15/19 hydrALAZINE HCL [Apresoline] 10 mg PO BID 04/15/19 Folic Acid 1 mg PO DAILY 04/16/19 Ciprofloxacin HCl 250 mg PO DAILY 5 Days #5 tab 04/26/19
[2019-04-26 12:58] VITALS: BP 156/78
== END 2019-04-26 13:25 | disposition home health service (06) ==
LOC: MS 11:29 → ER 11:29 → MS 14:48
PROVIDERS: ADMIT Family Medicine; ATTEND Family Medicine
DX: E87.6 Hypokalemia; E86.0 Dehydration; N18.3 Chronic kidney disease, stage 3 (moderate); N17.9 Acute kidney failure, unspecified; E43 Unspecified severe protein-calorie malnutrition; R11.0 Nausea; N39.0 Urinary tract infection, site not specified; R73.9 Hyperglycemia, unspecified; D72.828 Other elevated white blood cell count
CPT/HCPCS: 36415; 80048; 80053; 81001; 83036; 83690; 83735; 85025; 87077; 87086; 87186; 96361; 96365; 96366; 99285; G0378; J2405

== ENCOUNTER 2019-07-05 11:47 | Observation (INO) ==
--- NOTE | 2019-07-05 12:14 | ERNOTE ---
Medical Problem HPI - Narrative Date of Service: 07/05/19 - General Chief Complaint: General Assessment Time Seen by Provider: 07/05/19 11:59 Source: patient Exam Limitations: no limitations - Immun/Allergies/Home Medications Immunizations: IMMUNIZATION HX Immunizations Up to Date Yes History of Influenza Vaccine Yes Hx Pneumococcal Vaccination No Allergies/Adverse Reactions: Allergies pravastatin Adverse Reaction (Mild, Verified 04/23/19 15:53) Vomiting Home Medications: HOME MEDICATIONS Citalopram Hydrobromide [Celexa] 10 mg PO DAILY 04/07/18 [Last Taken 08/06/18] Metoprolol Tartrate [Lopressor] 100 mg PO BID 04/07/18 [Last Taken 02/19/19 08:00] Pantoprazole Sodium [Protonix] 40 mg PO BID 04/07/18 [Last Taken 02/19/19 08:00] Furosemide [Lasix] 20 mg PO DAILY 01/17/19 [Last Taken 02/19/19 08:00] Acetaminophen [Tylenol] 650 mg PO Q6H PRN 01/24/19 [Last Taken Unknown] Lisinopril 20 mg PO DAILY 01/24/19 [Last Taken 02/19/19 08:00] Ondansetron HCl [Zofran] 4 mg PO Q6H PRN 01/24/19 [Last Taken Unknown] Aspirin [Aspirin Chewable] 81 mg PO DAILY 04/15/19 [Last Taken Unknown] Spironolactone 25 mg PO DAILY 04/15/19 [Last Taken Unknown] hydrALAZINE HCL [Apresoline] 10 mg PO BID 04/15/19 [Last Taken Unknown] Folic Acid 1 mg PO DAILY 04/16/19 [Last Taken 04/15/19 09:00] Ciprofloxacin HCl 500 mg PO BID #20 tab 05/02/19 [Last Taken Unknown] - Pain Score Pain Score #1 Pain Score: 0 - History of Present History Narrative: The patient is a 83 year old female who presents for weakness which has been worsening for past 2-3 days. There are associated symptoms of nausea, poor appetite and visual hallucinations. The patient denies pain. There are no alleviating factors. There are no aggravating factors. Previous treatments have included: current treatment with oral Vanco for CDiff. The past medical history includes: depression, anxiety, GERD, HTN, AFib, ARF, CAD, COPD and anemia. The social history is negative. The patient has had no known ill contacts. Patient was dx with CDiff in June and has been ongoing treatment since onset. Patient states 2-3 days ago began seeing boxes floating on the wall. Patient states that diet has been poor due to fatigue and nausea. Review of Systems - Review of Systems Constitutional: Present: recent illness, fatigue. Absent: fever, chills EYE: Present: no symptoms reported ENT: Present: no symptoms reported. Absent: ear pain, nasal drainage, sore throat Respiratory: Present: cough. Absent: shortness of breath Cardiology: Present: no symptoms reported. Absent: chest pain Gastrointestinal/Abdominal: Present: nausea, eating less, drinking less. Absent: vomiting, diarrhea, abdominal pain Genitourinary: Present: decreased urinary output. Absent: dysuria Musculoskeletal: Present: no symptoms reported Skin: Present: no symptoms reported. 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 Osteoarthritis UTI (urinary tract infection) Surgical History: Surgical History (Last Reviewed 07/05/19 @ 12:10 by MALICK Blum) H/O heart artery stent History of hysterectomy Previous back surgery Family History: Family History (Last Reviewed 07/05/19 @ 12:10 by MALICK Blum) Father Myocardial infarction Hypertension Mother Colon cancer Social History: (Last Reviewed 07/05/19 @ 12:10 by MALICK Blum) Social History: household members: children current occupational status: retired Service: No Tobacco: Smoking Status: Never smoker Alcohol: alcohol intake: never Substance Use: substance use type: does not use Dietary Habits: caffeine: Yes Personal Safety: victim of physical abuse: No victim of emotional abuse: No Physical Exam - Physical Exam General Appearance: Present: wd/wn, alert, mild distress Head Exam: Present: normal inspection, no evidence of injury Eye Exam: Normal inspection: bilateral, PERRL: bilateral Ears, Nose, Throat: Present: dry mucous membranes Neck: Present: normal inspection Respiratory: Present: no respiratory distress, no accessory muscle use, crackles - left base, intermittent Cardiovascular/Chest: Present: regular rate, rhythm, extra beats, systolic murmur Gastrointestinal/Abdominal: Present: normal bowel sounds, nontender, nondistended, soft, no organomegaly Extremity Exam: Present: no edema Neurological Exam: Present: alert, oriented, normal mood/affect, no motor/sensory deficits Skin Exam: Present: warm/dry, cyanosis - fingers, pallor Progress - Date and Time Seen: Date and Time: 07/05/19 14:25 Discussed case with , does not feel that patient meets criteria for admission and states he was painted a picture of patient being more critical by home health. States he would like to follow up with patient this week for recheck. 07/05/19 15:46 Due to elevation to BNP along with patient symptoms discussed case with . After discussion will admit patient observation for CHF for diuretics with continued monitoring. Patient verbalized understanding and agrees with plan of care. made aware of patient's follow up appt scheduled with on Friday07/07/19 10:30. - Results and Orders Patient's Lab Results:: I have reviewed the patient's lab results. - Vital Signs Patient's Vital Signs:: I have reviewed the patient's vital signs. Vital Signs: Vital Signs 07/05/19 11:56 Temperature 36.5 C Pulse Rate 76 Respiratory Rate 17 Blood Pressure 182/79 H - EKG EKG #1 EKG: NSR - rate 72 EKG read: Reviewed by me - X-Ray X-Ray #1 X-Ray: chest Interpretation: Reviewed by me X-ray Comments: IMPRESSION: 1. Improved hypoinflation, and improved bilateral basilar atelectasis/scarring. Small bilateral pleural fluid still remaining. 2. Stable cardiomegaly and other findings are as above. Electronically signed by Aquiles Bajwa M.D X-Ray #2 X-Ray: abdomen Interpretation: Reviewed by me X-ray Comments: IMPRESSION: 1. Abnormal bowel gas pattern suggestive of colitis. 2. Additional comments are as above. Electronically signed by Aquiles Bajwa M.D.. - Progress/Reassessment Chief Complaint: General Assessment Departure Clinical Impression: CHF (congestive heart failure) Qualifiers: Heart failure type: unspecified Heart failure chronicity: acute on chronic Qualified Code(s): I50.9 - Heart failure, unspecified - Departure Disposition: Still a patient Condition: Good
[2019-07-05 12:40] LABS: Hematocrit 36.3 % (37.0-47.0); Hemoglobin 10.9 gm/dL (12.5-16.0); Mean Corpuscular Hemoglobin 28.2 pg (27-31); Mean Platelet Volume 9.7 fl (8-12.5); Neutrophil # 7.3 K/mm3 (1.3-6.0); Neutrophil % 81.8 % (42-75.0); Platelet Count 428 K/mm3 (150-450); Red Blood Count 3.86 M/mm3 (4.2-5.4); Red Cell Distribution Width 16.6 % (11.5-14.0); White Blood Count 8.9 K/mm3 (4.0-10.5)
[2019-07-05 13:25] LABS: Urine Bilirubin 6 mg/dl (NEGATIVE); Urine Blood 250 /ul (NEGATIVE); Urine Ketone Negative (NEGATIVE); Urine Nitrite Negative (NEGATIVE); Urine Protein 100 mg/dL (NEGATIVE); Urine Urobilinogen Normal (NORMAL); Urine pH 5.5 pH (5.0-7.0)
[2019-07-05 13:43] LABS: Urine Appearance Cloudy (CLEAR); Urine Color Amber
[2019-07-05 13:44] LABS: Urine Bacteria 3+; Urine RBC 25-50 /hpf (0-5); Urine WBC 25-50 /hpf (0-5); Urine Yeast TRACE
[2019-07-05 13:57] LABS: ALT 9 U/L (19-67); AST 14 U/L (0-48); Albumin * 2.7 gm/dl (3.4-5.0); Alkaline Phosphatase * 112 U/L (50-170); Amylase * 45 U/L (25-115); Anion Gap 14.2 mmol/L (6.8-13.8); BUN/Creatinine Ratio 23.9 (9.0-21.6); Bilirubin, Total 0.2 mg/dL (0.0-1.1); Blood Urea Nitrogen 33 mg/dL (3-23); Ca. Corrected For Albumin 9.5 mg/dL (8.4-10.2); Calcium * 8.8 mg/dL (7.9-10.9); Carbon Dioxide 21.7 mmol/L (24-32.6); Chloride 106 mmol/L (97-106); Glucose * 95 mg/dL (70-110); Lipase 103 U/L (73-393); Potassium 3.9 mmol/L (3.4-4.6); Sodium 138 mmol/L (132-142); Total Protein 6.6 gm/dL (6.2-8.2); Troponin I Less than 0.017 ng/mL (0.00-0.10)
[2019-07-05 14:23] LABS: BNP * Greater than 35000 pg/mL (5-550)
[2019-07-05] MEDS ORDERED: FUROSEMIDE 10 MG/ML VIAL IV ONE (14:56)
[2019-07-05] MEDS ORDERED: ONDANSETRON HCL 4 MG TABLET PO PRN (22:31)
[2019-07-05] MEDS ORDERED: ACETAMINOPHEN 325 MG TABLET PO PRN (22:31)
[2019-07-05] MEDS ORDERED: METOPROLOL TARTRATE 50 MG TABLET PO SCH (22:45)
[2019-07-05] MEDS: hydrALAZINE HCL 10 MG TABLET PO SCH (23:00)
[2019-07-05] MEDS: PANTOPRAZOLE SODIUM 40 MG TABLET.EC PO SCH (23:01)
--- NOTE | 2019-07-05 23:17 | HP ---
Chief Complaint - Chief Complaint Date of Service: 07/05/19 Time of Service: 17:30 Chief Complaint: Weakness History of Present Illness: Ilana is an 83 yo female that presented to the [facility] ER with worsening weakness, abdominal, and back pain. She denies any recent change in medication, diet, or activity. No fever, chills, nausea, or vomiting. She reports no chest pain or shortness of breath. No bowel or bladder change. In the ER bloodwork was unremarkable. Urine is suspicious for UTI and she does have a history of frequent UTIs. Her last urine culture grew enterococcus. She has not been on antibiotics recently. Medical History (Last Reviewed 07/05/19 @ 19:30 by Abbey Hu RN) Acute renal failure (ARF) Anemia Anxiety Atrial fibrillation CAD (coronary artery disease) COPD (chronic obstructive pulmonary disease) Chronic kidney disease Dehydration Depression Esophageal stricture GERD (gastroesophageal reflux disease) HTN (hypertension) History 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 dilatation half-way current use of anticoagulant therapy Osteoarthritis UTI (urinary tract infection) Surgical History: Surgical History (Last Reviewed 07/05/19 @ 19:29 by Abbey Hu RN) H/O heart artery stent History of hysterectomy Previous back surgery Family History: Family History (Last Reviewed 07/05/19 @ 19:30 by Abbey Hu RN) Father Myocardial infarction Hypertension Mother Colon cancer Social History: (Last Reviewed 07/05/19 @ 19:30 by Abbey Hu RN) Social History: household members: children current occupational status: retired Service: No Tobacco: Smoking Status: Never smoker Alcohol: alcohol intake: never Substance Use: substance use type: does not use Dietary Habits: caffeine: Yes Personal Safety: victim of physical abuse: No victim of emotional abuse: No Review Of Systems (GEN) - Review of Systems Generalized/Overall Review: Present: Weakness. Absent: Chills, Fever EENTM: Present: No Symptoms Reported Respiratory: Absent: Cough, Shortness of Breath Cardiac: Absent: Chest Pain, Edema Abdominal: Absent: Nausea, Vomiting Genitourinary: Absent: Burning, Urgency, Frequency, Hematuria Musculoskeletal: Present: No Symptoms Reported Neurological: Present: No Symptoms Reported Skin: Present: No Symptoms Reported Endocrine: Present: No Symptoms Reported Immunizations: IMMUNIZATION HX Immunizations Up to Date Yes History of Influenza Vaccine Yes Hx Pneumococcal Vaccination No Allergies/Adverse Reactions: Allergies Allergy/AdvReac Type Severity Reaction Status Date / Time pravastatin AdvReac Mild Vomiting Verified 04/23/19 15:53 Home Medications: HOME MEDICATIONS Citalopram Hydrobromide [Celexa] 10 mg PO DAILY 04/07/18 [Last Taken 08/06/18] Metoprolol Tartrate [Lopressor] 100 mg PO BID 04/07/18 [Last Taken 02/19/19 08:00] Pantoprazole Sodium [Protonix] 40 mg PO BID 04/07/18 [Last Taken 02/19/19 08:00] Furosemide [Lasix] 20 mg PO DAILY 01/17/19 [Last Taken 02/19/19 08:00] Acetaminophen [Tylenol] 650 mg PO Q6H PRN 01/24/19 [Last Taken Unknown] Lisinopril 20 mg PO DAILY 01/24/19 [Last Taken 02/19/19 08:00] Ondansetron HCl [Zofran] 4 mg PO Q6H PRN 01/24/19 [Last Taken Unknown] Aspirin [Aspirin Chewable] 81 mg PO DAILY 04/15/19 [Last Taken Unknown] Spironolactone 25 mg PO DAILY 04/15/19 [Last Taken Unknown] hydrALAZINE HCL [Apresoline] 10 mg PO BID 04/15/19 [Last Taken Unknown] Folic Acid 1 mg PO DAILY 04/16/19 [Last Taken 04/15/19 09:00] Ciprofloxacin HCl 500 mg PO BID #20 tab 05/02/19 [Last Taken Unknown] Exam - Exam Vital Signs: Vital Signs - Last Taken Temp 36.6 C 07/05/19 19:39 Pulse 73 07/05/19 23:01 Resp 16 07/05/19 19:39 BP 171/87 H 07/05/19 23:01 Pulse Ox 94 07/05/19 19:39 Constitutional: Present: Alert, Oriented x3, Cooperative, No distress ENT Exam: Present: hearing grossly normal Eye Exam: bilateral eye: normal inspection Respiratory: Present: lungs clear, normal breath sounds, no respiratory distress Cardiovascular/Chest: Present: regular rate, rhythm, no murmur Peripheral Pulses: radial (R): 2+, radial (L): 2+ Abdomen: Present: Normal bowel sounds, soft, nontender, nondistended, no rebound tenderness, no hepatospenomegaly, no masses Extremity: Present: normal inspection Skin Exam: Present: normal color, warm/dry, no cyanosis Lymphatic: Present: no adenopathy Neurologic: Present: alert, normal mood/affect, oriented x 3 Appearance: Present: appropriate appearance, appropriate insight Eye contact: Present: cooperative, good eye contact Thoughts: Present: normal thought pattern, no apparent hallucination Diagnostic Studies: Abnormal Lab Results 07/05/19 07/05/19 07/05/19 Range/Units 12:30 12:30 13:18 RBC 3.86 L (4.2-5.4) M/mm3 Hgb 10.9 L (12.5-16.0) gm/dL Hct 36.3 L (37.0-47.0) % MCHC 30.0 L (32-36) g/dl RDW 16.6 H (11.5-14.0) % Neutrophils % 81.8 H (42-75.0) % Lymphocytes % 9.5 L (20-51) % Basophils % 1.1 H (0.0-1.0) % Neutrophils # 7.3 H (1.3-6.0) K/mm3 Lymphocytes # 0.85 L (1.5-3.5) k/mm3 Carbon Dioxide 21.7 L (24-32.6) mmol/L Anion Gap 14.2 H (6.8-13.8) mmol/L BUN 33 H (3-23) mg/dL Est GFR (Non-Af Amer) 39 L (60-130) mL/min BUN/Creatinine Ratio 23.9 H (9.0-21.6) ALT 9 L (19-67) U/L B-Natriuretic Peptide Greater [place] 52552 H (5-550) pg/mL Albumin 2.7 L (3.4-5.0) gm/dl Urine Protein 100 H (NEGATIVE) mg/dL Urine Blood 250 H (NEGATIVE) /ul Urine Bilirubin 6 H (NEGATIVE) mg/dl Urine Ictotest Positive H (NEGATIVE) Prot Sulfosalicylic Acd 2+ H (0) mg/dL Ur Leukocyte Esterase 100 H (NEGATIVE) /ul Urine RBC 25-50 H (0-5) /hpf Urine WBC 25-50 H (0-5) /hpf Ur Epithelial Cells 10-25 H (0-5) /hpf Urine Bacteria 3+ H (NONE) Stool Occult Blood 07/05/19 Range/Units 13:18 RBC (4.2-5.4) M/mm3 Hgb (12.5-16.0) gm/dL Hct (37.0-47.0) % MCHC (32-36) g/dl RDW (11.5-14.0) % Neutrophils % (42-75.0) % Lymphocytes % (20-51) % Basophils % (0.0-1.0) % Neutrophils # (1.3-6.0) K/mm3 Lymphocytes # (1.5-3.5) k/mm3 Carbon Dioxide (24-32.6) mmol/L Anion Gap (6.8-13.8) mmol/L BUN (3-23) mg/dL Est GFR (Non-Af Amer) (60-130) mL/min BUN/Creatinine Ratio (9.0-21.6) ALT (19-67) U/L B-Natriuretic Peptide (5-550) pg/mL Albumin (3.4-5.0) gm/dl Urine Protein (NEGATIVE) mg/dL Urine Blood (NEGATIVE) /ul Urine Bilirubin (NEGATIVE) mg/dl Urine Ictotest (NEGATIVE) Prot Sulfosalicylic Acd (0) mg/dL Ur Leukocyte Esterase (NEGATIVE) /ul Urine RBC (0-5) /hpf Urine WBC (0-5) /hpf Ur Epithelial Cells (0-5) /hpf Urine Bacteria (NONE) Stool Occult Blood Positive H Laboratory Results WBC 8.9 K/mm3 (4.0-10.5) 07/05/19 12:30 RBC 3.86 M/mm3 (4.2-5.4) L 07/05/19 12:30 Hgb 10.9 gm/dL (12.5-16.0) L 07/05/19 12:30 Hct 36.3 % (37.0-47.0) L 07/05/19 12:30 MCV 94.0 fl (78-100) 07/05/19 12:30 MCH 28.2 pg (27-31) 07/05/19 12:30 MCHC 30.0 g/dl (32-36) L 07/05/19 12:30 RDW 16.6 % (11.5-14.0) H 07/05/19 12:30 Plt Count 428 K/mm3 (150-450) 07/05/19 12:30 MPV 9.7 fl (8-12.5) 07/05/19 12:30 Immature Gran % (Auto) 0.30 % (0.001-0.429) 07/05/19 12:30 Immature Gran # (Auto) 0.03 K/mm3 (0.000-0.0310) 07/05/19 12:30 Neutrophils % 81.8 % (42-75.0) H 07/05/19 12:30 Lymphocytes % 9.5 % (20-51) L 07/05/19 12:30 Monocytes % 4.8 % (0.0-9) 07/05/19 12:30 Eosinophils % 2.5 % (0.0-3.0) 07/05/19 12:30 Basophils % 1.1 % (0.0-1.0) H 07/05/19 12:30 Nucleated RBC % 0.0 k/mm3 (0-1) 07/05/19 12:30 Neutrophils # 7.3 K/mm3 (1.3-6.0) H 07/05/19 12:30 Lymphocytes # 0.85 k/mm3 (1.5-3.5) L 07/05/19 12:30 Monocytes # 0.4 k/mm3 (0.0-1.0) 07/05/19 12:30 Eosinophils # 0.2 k/mm3 (0.0-0.7) 07/05/19 12:30 Absolute Basophils 0.1 k/mm3 (0.0-0.1) 07/05/19 12:30 Sodium 138 mmol/L (132-142) 07/05/19 12:30 Plasma Sodium 138 mmol/L (130-142) 07/05/19 12:30 Potassium 3.9 mmol/L (3.4-4.6) D 07/05/19 12:30 Chloride 106 mmol/L (97-106) 07/05/19 12:30 Carbon Dioxide 21.7 mmol/L (24-32.6) L 07/05/19 12:30 Anion Gap 14.2 mmol/L (6.8-13.8) H 07/05/19 12:30 BUN 33 mg/dL (3-23) H 07/05/19 12:30 Creatinine 1.38 mg/dL (0.4-1.4) 07/05/19 12:30 Est GFR (Non-Af Amer) 39 mL/min (60-130) L 07/05/19 12:30 BUN/Creatinine Ratio 23.9 (9.0-21.6) H 07/05/19 12:30 Random Glucose 95 mg/dL (70-110) 07/05/19 12:30 Calcium 8.8 mg/dL (7.9-10.9) 07/05/19 12:30 Calcium Adj for Albumin 9.5 mg/dL (8.4-10.2) 07/05/19 12:30 Total Bilirubin 0.2 mg/dL (0.0-1.1) 07/05/19 12:30 AST 14 U/L (0-48) 07/05/19 12:30 ALT 9 U/L (19-67) L 07/05/19 12:30 Alkaline Phosphatase 112 U/L (50-170) 07/05/19 12:30 Troponin I Less than 0.017 ng/mL (0.00-0.10) 07/05/19 12:30 B-Natriuretic Peptide Greater than 66168 pg/mL (5-550) H 07/05/19 12:30 Total Protein 6.6 gm/dL (6.2-8.2) 07/05/19 12:30 Albumin 2.7 gm/dl (3.4-5.0) L 07/05/19 12:30 Amylase 45 U/L (25-115) 07/05/19 12:30 Lipase 103 U/L (73-393) 07/05/19 12:30 Urine Color [place] 07/05/19 13:18 Urine Appearance Cloudy (CLEAR) 07/05/19 13:18 Urine pH 5.5 pH (5.0-7.0) 07/05/19 13:18 Ur Specific [place] 1.020 SP.GR. (1.005-1.010) 07/05/19 13:18 Urine Protein 100 mg/dL (NEGATIVE) H 07/05/19 13:18 Urine Glucose (UA) Negative mg/dL (NEGATIVE) 07/05/19 13:18 Urine Ketones Negative mg/dL (NEGATIVE) 07/05/19 13:18 Urine Blood 250 /ul (NEGATIVE) H 07/05/19 13:18 Urine Nitrate Negative (NEGATIVE) 07/05/19 13:18 Urine Bilirubin 6 mg/dl (NEGATIVE) H 07/05/19 13:18 Urine Ictotest Positive (NEGATIVE) H 07/05/19 13:18 Prot Sulfosalicylic Acd 2+ mg/dL (0) H 07/05/19 13:18 Urine Urobilinogen Normal EU/dl (NORMAL) 07/05/19 13:18 Ur Leukocyte Esterase 100 /ul (NEGATIVE) H 07/05/19 13:18 Urine RBC 25-50 /hpf (0-5) H 07/05/19 13:18 Urine WBC 25-50 /hpf (0-5) H 07/05/19 13:18 Ur Epithelial Cells 10-25 /hpf (0-5) H 07/05/19 13:18 Urine Bacteria 3+ (NONE) H 07/05/19 13:18 Urine Yeast Trace (NONE) 07/05/19 13:18 Urine Culture Comments Culture to follow 07/05/19 13:18 Stool Occult Blood Positive H 07/05/19 13:18 Stl C.difficile Tox A&B Negative (Negative) 07/05/19 14:02 Assessment/Plan - Narrative Narrative: Ilana is an 83 yo female with worsening weakness, abdominal pain, and back pain. Her urine is suspicious for for UTI and may be the cause for abdominal pain, back pain, and weakness. Will hold off on antibiotics at this time until preliminary culture returns. BNP is elevated but no shortness of breath or edema suggestive of CHF. Will admit to observation. Will consult PT for weakness tomorrow. - Assessment/Plan (1) Generalized weakness Problem: Acute (2) Abdominal pain Problem: Acute Qualifiers: Abdominal location: generalized Qualified Code(s): R10.84 - Generalized abdominal pain (3) Back pain Problem: Acute Qualifiers: Back pain location: low back pain Chronicity: acute Back pain laterality: bilateral Sciatica presence: without sciatica Qualified Code(s): M54.5 - Low back pain
[2019-07-06] MEDS ORDERED: LISINOPRIL 20 MG TABLET PO SCH (09:00)
[2019-07-06] MEDS ORDERED: CITALOPRAM HYDROBROMIDE 10 MG TABLET PO SCH (09:00)
[2019-07-06] MEDS ORDERED: FOLIC ACID 1 MG TABLET PO SCH (09:00)
[2019-07-06] MEDS ORDERED: SPIRONOLACTONE 25 MG TABLET PO SCH (09:00)
[2019-07-06] MEDS ORDERED: METOPROLOL TARTRATE 100 MG TABLET PO SCH (09:00)
[2019-07-06] MEDS ORDERED: FUROSEMIDE 20 MG TABLET PO SCH (09:00)
[2019-07-06] MEDS ORDERED: ASPIRIN 81 MG TAB.CHEW PO SCH (09:00)
[2019-07-06] MEDS: hydrALAZINE HCL 10 MG TABLET PO SCH (09:03)
[2019-07-06] MEDS: PANTOPRAZOLE SODIUM 40 MG TABLET.EC PO SCH (09:03)
[2019-07-06] MEDS ORDERED: SULFAMETHOXAZOLE/TRIMETHOPRIM 1 TAB TABLET PO SCH (09:15)
--- NOTE | 2019-07-06 11:50 | DS ---
(1) UTI (urinary tract infection) Problem: Acute Qualifiers: Urinary tract infection type: site unspecified Hematuria presence: without hematuria Qualified Code(s): N39.0 - Urinary tract infection, site not specified (2) Generalized weakness Problem: Acute (3) Abdominal pain Problem: Acute Qualifiers: Abdominal location: generalized Qualified Code(s): R10.84 - Generalized abdominal pain (4) Back pain Problem: Acute Qualifiers: Back pain location: low back pain Chronicity: acute Back pain laterality: bilateral Sciatica presence: without sciatica Qualified Code(s): M54.5 - Low back pain Date of Discharge:: 07/06/19 Description of Stay: Ilana is an 83 yo female that was admitted for weakness, abdominal pain, and back pain. She had a UA that was suspicious for UTI and the urine culture ultimately started growing Gram Negative Bacterial. Review of her prior urine cultures show previous gram negative bacteria have been sensitive to Bactrim and she was started on this. She will be discharged on 5 days of treatment. She has home health and will have them add physical therapy to her regimen to work on her weakness that may have been worsened from the UTI. Procedures Performed: none Results and Findings: Pending Mircobiology Results 07/05/19 13:18 Urine,Voided Urine Culture - Preliminary Gram Negative Bacilli Gram Negative Bacilli#2 Lab Pending Results 07/05/19 12:30: WBC 8.9, RBC 3.86 L, Hgb 10.9 L, Hct 36.3 L, MCV 94.0, MCH 28.2, MCHC 30.0 L, RDW 16.6 H, Plt Count 428, MPV 9.7, Immature Gran % (Auto) 0.30, Immature Gran # (Auto) 0.03, Neutrophils % 81.8 H, Lymphocytes % 9.5 L, Monocytes % 4.8, Eosinophils % 2.5, Basophils % 1.1 H, Nucleated RBC % 0.0, Neutrophils # 7.3 H, Lymphocytes # 0.85 L, Monocytes # 0.4, Eosinophils # 0.2, Absolute Basophils 0.1 07/05/19 12:30: Sodium 138, Plasma Sodium 138, Potassium 3.9 D, Chloride 106, Carbon Dioxide 21.7 L, Anion Gap 14.2 H, BUN 33 H, Creatinine 1.38, Est GFR (Non-Af Amer) 39 L, BUN/Creatinine Ratio 23.9 H, Random Glucose 95, Calcium 8.8, Calcium Adj for Albumin 9.5, Total Bilirubin 0.2, AST 14, ALT 9 L, Alkaline Phosphatase 112, Troponin I Less than 0.017, B-Natriuretic Peptide Greater [place] 69909 H, Total Protein 6.6, Albumin 2.7 L, Amylase 45, Lipase 103 07/05/19 13:18: Urine Color [place], Urine Appearance Cloudy, Urine pH 5.5, Ur Specific [place] 1.020, Urine Protein 100 H, Urine Glucose (UA) Negative, Urine Ketones Negative, Urine Blood 250 H, Urine Nitrate Negative, Urine Bilirubin 6 H, Urine Ictotest Positive H, Prot Sulfosalicylic Acd 2+ H, Urine Urobilinogen Normal, Ur Leukocyte Esterase 100 H, Urine RBC 25-50 H, Urine WBC 25-50 H, Ur Epithelial Cells 10-25 H, Urine Bacteria 3+ H, Urine Yeast Trace, Urine Culture Comments Culture to follow 07/05/19 13:18: Stool Occult Blood Positive H 07/05/19 14:02: Stl C.difficile Tox A&B Negative Discharge Location: Home Disposition: Home Health Service Home Health Agency: [facility] Condition: Good Discharge Activity: Activity as tolerated Discharge Diet: General/regular food Referrals: Lonnie Rice MD [Primary Care Provider] - One Week Problem Oriented Discharge Instructions to Patient/Family: Urinary Tract Infection, Adult, [id number] Additional Patient Instructions (free text): [facility] ongoing. Please call and fax discharge information to them. Add PT services to home health for lower extremity weakness. Prescriptions (Any new or edited meds): Sulfamethoxazole/Trimethoprim [Bactrim Ds] 1 tab PO BID #10 tab Transmission Status: Pending to [id number] Complete Home Medications List: Complete Home Medication List: Citalopram Hydrobromide [Celexa] 10 mg PO DAILY 04/07/18 Metoprolol Tartrate [Lopressor] 100 mg PO BID 04/07/18 Pantoprazole Sodium [Protonix] 40 mg PO BID 04/07/18 Furosemide [Lasix] 20 mg PO DAILY 01/17/19 Acetaminophen [Tylenol] 650 mg PO Q6H PRN 01/24/19 Lisinopril 20 mg PO DAILY 01/24/19 Ondansetron HCl [Zofran] 4 mg PO Q6H PRN 01/24/19 Aspirin [Aspirin Chewable] 81 mg PO DAILY 04/15/19 Spironolactone 25 mg PO DAILY 04/15/19 hydrALAZINE HCL [Apresoline] 10 mg PO BID 04/15/19 Folic Acid 1 mg PO DAILY 04/16/19 Sulfamethoxazole/Trimethoprim [Bactrim Ds] 1 tab PO BID #10 tab 07/06/19
[2019-07-06 15:15] VITALS: BP 134/75
== END 2019-07-06 15:05 | disposition home health service (06) ==
LOC: MS 11:47 → ER 11:47 → MS 17:25
PROVIDERS: ADMIT Family Medicine; ATTEND Family Medicine
DX: I48.91 Unspecified atrial fibrillation; M54.5 Low back pain; I13.10 Hypertensive heart and chronic kidney disease without heart failure, with stage 1 through stage 4 chronic kidney disease, or unspecified chronic kidney disease; B96.89 Other specified bacterial agents as the cause of diseases classified elsewhere; R10.84 Generalized abdominal pain; R53.1 Weakness; N39.0 Urinary tract infection, site not specified; N18.9 Chronic kidney disease, unspecified
CPT/HCPCS: 36415; 71020; 71046; 74019; 74020; 80053; 81001; 82150; 82272; 83519; 83690; 83880; 84484; 85025; 87040; 87077; 87086; 87186; 87493; 93005; 96374; 96375; 99285; G0378

== ENCOUNTER 2019-08-08 17:13 | Inpatient (IN) ==
[2019-08-08 17:45] LABS: Hematocrit 34.6 % (37.0-47.0); Hemoglobin 10.6 gm/dL (12.5-16.0); Mean Cell Volume 92.3 fl (78-100); Mean Corpuscular Hemoglobin 28.3 pg (27-31); Mean Corpuscular Hgb Conc 30.6 g/dl (32-36); Mean Platelet Volume 9.7 fl (8-12.5); Neutrophil # 8.9 K/mm3 (1.3-6.0); Neutrophil % 77.6 % (42-75.0); Platelet Count 308 K/mm3 (150-450); Red Blood Count 3.75 M/mm3 (4.2-5.4); Red Cell Distribution Width 17.7 % (11.5-14.0); White Blood Count 11.5 K/mm3 (4.0-10.5)
[2019-08-08 18:04] LABS: Albumin * 2.2 gm/dl (3.4-5.0); Anion Gap 11.6 mmol/L (6.8-13.8); BUN/Creatinine Ratio 24.1 (9.0-21.6); Bilirubin, Total 0.2 mg/dL (0.0-1.1); Ca. Corrected For Albumin 9.6 mg/dL (8.4-10.2); Calcium * 8.5 mg/dL (7.9-10.9); Carbon Dioxide 22.7 mmol/L (24-32.6); Potassium 6.3 mmol/L (3.4-4.6); Total Protein 5.9 gm/dL (6.2-8.2)
--- NOTE | 2019-08-08 18:07 | ERNOTE ---
ER Female HPI Date of Service: 08/08/19 Stated Complaint: UTI Time Seen by Provider: 08/08/19 17:26 Source: patient, family Exam Limitations: no limitations Immunizations: IMMUNIZATION HX Immunizations Up to Date Yes History of Influenza Vaccine Yes Hx Pneumococcal Vaccination No Allergies/Adverse Reactions: Allergies pravastatin Adverse Reaction (Mild, Verified 08/08/19 17:24) Vomiting Home Medications: HOME MEDICATIONS Citalopram Hydrobromide [Celexa] 10 mg PO DAILY 04/07/18 [Last Taken 08/06/18] Pantoprazole Sodium [Protonix] 40 mg PO BID 04/07/18 [Last Taken 02/19/19 08:00] Furosemide [Lasix] 20 mg PO DAILY 01/17/19 [Last Taken 02/19/19 08:00] Acetaminophen [Tylenol] 650 mg PO Q6H PRN 01/24/19 [Last Taken Unknown] Lisinopril 20 mg PO DAILY 01/24/19 [Last Taken 02/19/19 08:00] Ondansetron HCl [Zofran] 4 mg PO Q6H PRN 01/24/19 [Last Taken Unknown] Aspirin [Aspirin Chewable] 81 mg PO DAILY 04/15/19 [Last Taken Unknown] hydrALAZINE HCL [Apresoline] 10 mg PO BID 04/15/19 [Last Taken Unknown] Atorvastatin Calcium 20 mg PO HS 07/24/19 [Last Taken Unknown] HYDROcodone/ACETAMINOPHEN [Hydrocodon-Acetaminophen 5-325] 1 ea PO TID 07/24/19 [Last Taken Unknown] Metoprolol Succinate [Toprol Xl] 100 mg PO BID 07/24/19 [Last Taken Unknown] Docusate Sodium [Colace] 100 mg PO DAILY PRN 08/08/19 [Last Taken Unknown] Famotidine [Pepcid] 40 mg PO HS 08/08/19 [Last Taken Unknown] Potassium Chloride 40 meq PO BID 08/08/19 [Last Taken Unknown] Saccharomyces Boulardii [Florastor] 250 mg PO BID 08/08/19 [Last Taken Unknown] - History of Present Illness Narrative: patient presents with dysuria and diarrhea for 3 weeks, had dx of c-diff, took coure of atb without change Timing: Present: constant Quality: Present: moderate, dullness, fullness Onset Location: Present: suprapubic Radiation: Present: none Activities at Onset: Present: none Prior Abdominal Problems: Present: similar symptoms Sexual [place] History: Present: not active Modifying Factors - (Improves): Present: other - nothing Modifying Factors - (Worsens): Present: other - nothing Prior Treatment: Present: recently seen, treated by physician Review of Systems - Review of Systems Constitutional: Present: See HPI, weakness, fatigue, malaise EYE: Present: no symptoms reported ENT: Present: no symptoms reported Respiratory: Present: no symptoms reported Cardiology: Present: no symptoms reported Gastrointestinal/Abdominal: Present: See HPI, diarrhea, eating less, drinking less Genitourinary: Present: no symptoms reported Musculoskeletal: Present: no symptoms reported Skin: Present: no symptoms reported Neurological: Present: no symptoms reported Endocrine: Present: no symptoms reported Hematologic/Lymphatic: Present: no symptoms reported Psych: Present: no symptoms reported Medical History (Last Reviewed 08/08/19 @ 17:41 by Mi Banerjee RN) Acute renal failure (ARF) Anemia Anxiety Atrial fibrillation CAD (coronary artery disease) COPD (chronic obstructive pulmonary disease) Chronic kidney disease Dehydration Depression Esophageal stricture GERD (gastroesophageal reflux disease) HTN (hypertension) 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 Osteoarthritis UTI (urinary tract infection) Surgical History: Surgical History (Last Reviewed 08/08/19 @ 17:24 by Mi Banerjee RN) H/O heart artery stent History of hysterectomy Previous back surgery Family History: Family History (Last Reviewed 08/08/19 @ 17:24 by Mi Banerjee RN) Father Myocardial infarction Hypertension Mother Colon cancer Social History: (Last Reviewed 08/08/19 @ 17:24 by Mi Banerjee RN) Social History: household members: children current occupational status: retired Service: No Tobacco: Smoking Status: Never smoker Alcohol: alcohol intake: never Substance Use: substance use type: does not use Dietary Habits: caffeine: Yes Personal Safety: victim of physical abuse: No victim of emotional abuse: No Physical Exam - Physical Exam General Appearance: Present: mild distress, anxious Head Exam: Present: normal inspection, no evidence of injury Eye Exam: Normal inspection: bilateral, PERRL: bilateral, EOMI: bilateral Ears, Nose, Throat: Present: normal ENT inspection, normal pharynx Neck: Present: normal inspection, nontender Respiratory: Present: no respiratory distress, normal breath sounds, no accessory muscle use, chest nontender, lungs clear Cardiovascular/Chest: Present: regular rate, rhythm, no murmur, normal peripheral pulses Gastrointestinal/Abdominal: Present: normal bowel sounds, nontender, nondistended, soft, no organomegaly Back Exam: Present: normal inspection, normal range of motion, no CVA tenderness, no vertebral tenderness Extremity Exam: Present: normal inspection, non-tender, normal range of motion, no edema Neurological Exam: Present: alert, oriented, normal mood/affect, no motor/sensory deficits Skin Exam: Present: normal color, warm/dry Lymphatic Exam: Present: no adenopathy Progress - Date and Time Seen: Date and Time: 08/08/19 19:21 patient unchanged, discussed treatment with dr vanegas, accepted for admission - Results and Orders Patient's Lab Results:: I have reviewed the patient's lab results. - Vital Signs Patient's Vital Signs:: I have reviewed the patient's vital signs. Vital Signs: Vital Signs 08/08/19 17:22 08/08/19 17:36 Temperature 36.7 C 37.1 C Pulse Rate 62 66 Respiratory Rate 14 Blood Pressure 167/82 H 160/74 H O2 Sat by Pulse Oximetry 96 96 - EKG EKG #1 EKG: NSR - X-Ray X-Ray #1 X-Ray: abdomen Interpretation: Discd w/ radiologist - mucosal thicking - Progress/Reassessment Chief Complaint: Genitourinary Problem Progress:: Unchanged - Transfer of Care Expected Disposition: Admit Plan - Plan Plan: to admit to hospital Departure Clinical Impression: Acute hyperkalemia, Dehydration - Departure Disposition: Short Term Hospital Inpatient Condition: Serious Referrals: Lonnie Rice MD [Primary Care Provider] -
[2019-08-08] MEDS ORDERED: NORMAL SALINE 1,000 ML IV ONE (18:12)
[2019-08-08] MEDS ORDERED: INSULIN REGULAR, HUMAN 100 UNITS/ML VIAL IV ONE (19:05)
[2019-08-08] MEDS ORDERED: DEXTROSE 50%-WATER 50 ML SYRG IV ONE (19:06)
[2019-08-08] MEDS ORDERED: CALCIUM GLUCONATE 4.65 MEQ/10 ML VIAL IV ONE (19:06)
[2019-08-08] MEDS ORDERED: ALBUTEROL SULFATE 2.5 MG/0.5 ML VIAL.NEB IH ONE (19:07)
[2019-08-08] MEDS: NORMAL SALINE 1,000 ML IV PRN (19:40)
[2019-08-08 21:15] LABS: Urine Bilirubin Negative (NEGATIVE); Urine Blood 25 /ul (NEGATIVE); Urine Ketone Negative (NEGATIVE); Urine Nitrite Negative (NEGATIVE); Urine Protein 15 mg/dL (NEGATIVE); Urine Urobilinogen Normal (NORMAL); Urine pH 5.5 pH (5.0-7.0)
[2019-08-08 21:31] LABS: Urine Appearance Slightly Cloudy (CLEAR); Urine Bacteria 2+; Urine Color Yellow; Urine RBC 0-5 /hpf (0-5)
[2019-08-08] MEDS ORDERED: METOPROLOL SUCCINATE 100 MG TABLET.SA PO ONE (22:01)
[2019-08-08] MEDS ORDERED: METOPROLOL SUCCINATE 50 MG TABLET.SA PO ONE (22:14)
[2019-08-09] MEDS: NORMAL SALINE 1,000 ML IV PRN ×3 (03:56→20:23)
[2019-08-09 09:12] LABS: Hematocrit 33.5 % (37.0-47.0); Hemoglobin 10.2 gm/dL (12.5-16.0); Mean Cell Volume 93.3 fl (78-100); Mean Corpuscular Hemoglobin 28.4 pg (27-31); Mean Corpuscular Hgb Conc 30.4 g/dl (32-36); Mean Platelet Volume 9.8 fl (8-12.5); Neutrophil # 8.6 K/mm3 (1.3-6.0); Platelet Count 246 K/mm3 (150-450); Red Blood Count 3.59 M/mm3 (4.2-5.4); Red Cell Distribution Width 17.8 % (11.5-14.0); White Blood Count 10.1 K/mm3 (4.0-10.5)
[2019-08-09] MEDS: hydrALAZINE HCL 10 MG TABLET PO SCH ×2 (10:11→20:24)
[2019-08-09] MEDS: ASPIRIN 81 MG TAB.CHEW PO SCH (10:11)
[2019-08-09] MEDS: METOPROLOL SUCCINATE 100 MG TABLET.SA PO SCH ×2 (10:12→20:25)
[2019-08-09] MEDS: LISINOPRIL 20 MG TABLET PO SCH (10:12)
[2019-08-09] MEDS: CITALOPRAM HYDROBROMIDE 10 MG TABLET PO SCH (10:12)
[2019-08-09] MEDS: SACCHAROMYCES BOULARDII 250 MG CAPSULE PO SCH ×2 (10:12→20:24)
[2019-08-09] MEDS: PANTOPRAZOLE SODIUM 40 MG TABLET.EC PO SCH ×2 (10:12→20:24)
[2019-08-09 11:57] LABS: Albumin * 1.9 gm/dl (3.4-5.0); Anion Gap 12.8 mmol/L (6.8-13.8); Bilirubin, Total 0.1 mg/dL (0.0-1.1); Ca. Corrected For Albumin 9.4 mg/dL (8.4-10.2); Carbon Dioxide 22.3 mmol/L (24-32.6); Potassium 5.1 mmol/L (3.4-4.6); Total Protein 4.8 gm/dL (6.2-8.2)
[2019-08-09] MEDS: ACETAMINOPHEN 325 MG TABLET PO PRN (15:27)
[2019-08-09] MEDS: HYDROcodone/ACETAMINOPHEN 1 EACH TABLET PO PRN (20:23)
[2019-08-09] MEDS: ROSUVASTATIN CALCIUM 10 MG TABLET PO SCH (20:24)
[2019-08-10] MEDS: NORMAL SALINE 1,000 ML IV PRN (04:29)
[2019-08-10] MEDS: ASPIRIN 81 MG TAB.CHEW PO SCH (09:47)
[2019-08-10] MEDS: ACETAMINOPHEN 325 MG TABLET PO PRN (09:47)
[2019-08-10] MEDS: CITALOPRAM HYDROBROMIDE 10 MG TABLET PO SCH (09:47)
[2019-08-10] MEDS: SACCHAROMYCES BOULARDII 250 MG CAPSULE PO SCH ×2 (09:48→21:23)
[2019-08-10] MEDS: PANTOPRAZOLE SODIUM 40 MG TABLET.EC PO SCH ×2 (09:48→21:23)
[2019-08-10] MEDS: hydrALAZINE HCL 10 MG TABLET PO SCH ×2 (09:48→21:25)
[2019-08-10] MEDS: LISINOPRIL 20 MG TABLET PO SCH (09:48)
[2019-08-10] MEDS: METOPROLOL SUCCINATE 100 MG TABLET.SA PO SCH ×2 (09:48→21:24)
[2019-08-10] MEDS ORDERED: ALBUTEROL SULFATE 2.5 MG/0.5 ML VIAL.NEB IH ONE (10:00)
[2019-08-10] MEDS: ONDANSETRON HCL 4 MG TABLET PO PRN (10:05)
[2019-08-10] MEDS: VANCOMYCIN HCL 50 MG/ML BTL PO SCH ×3 (10:06→21:23)
[2019-08-10 12:41] LABS: Hematocrit 39.2 % (37.0-47.0); Hemoglobin 11.8 gm/dL (12.5-16.0); Mean Cell Volume 94.5 fl (78-100); Mean Corpuscular Hemoglobin 28.4 pg (27-31); Mean Corpuscular Hgb Conc 30.1 g/dl (32-36); Mean Platelet Volume 9.7 fl (8-12.5); Neutrophil # 11.7 K/mm3 (1.3-6.0); Platelet Count 318 K/mm3 (150-450); Red Blood Count 4.15 M/mm3 (4.2-5.4); Red Cell Distribution Width 17.7 % (11.5-14.0); White Blood Count 13.6 K/mm3 (4.0-10.5)
[2019-08-10 13:03] LABS: Anion Gap 12.9 mmol/L (6.8-13.8); Bilirubin, Total 0.2 mg/dL (0.0-1.1); Ca. Corrected For Albumin 9.3 mg/dL (8.4-10.2); Carbon Dioxide 20.5 mmol/L (24-32.6); Potassium 4.4 mmol/L (3.4-4.6); Total Protein 5.8 gm/dL (6.2-8.2)
[2019-08-10] MEDS: HYDROcodone/ACETAMINOPHEN 1 EACH TABLET PO PRN (21:22)
[2019-08-10] MEDS: ROSUVASTATIN CALCIUM 10 MG TABLET PO SCH (21:23)
--- NOTE | 2019-08-10 23:45 | HP ---
Chief Complaint - Chief Complaint Date of Service: 08/09/19 Time of Service: 08:30 Chief Complaint: Diarrhea, weakness History of Present Illness: Ilana is an 84 yo female that presented to the [facility] ER with complaints of continued diarrhea and worsening weakness and fatigue. She was found to have a potassium of 6.3. She has previously had C Diff which was successfully treated about a month ago. She was then diagnosed with a UTI and started on bactrim about two weeks ago. She reports the diarrhea has been constant for the last two weeks and she is gradually getting weaker. She denies fever, chills, or vomiting. She has nausea and poor appetite. She has a prior CT of the abdomen with suggestion of colon mass and there has previously been suggestion of a colovesicular fistula. 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 Osteoarthritis UTI (urinary tract infection) Surgical History: Surgical History (Last Reviewed 08/08/19 @ 21:06 by Swetha Martines RN) H/O heart artery stent History of hysterectomy Previous back surgery Family History: Family History (Last Reviewed 08/08/19 @ 21:06 by Swetha Martines RN) Father Myocardial infarction Hypertension Mother Colon cancer Social History: (Last Reviewed 08/08/19 @ 21:06 by Swetha Martines RN) Social History: household members: children current occupational status: retired Service: No Tobacco: Smoking Status: Never smoker Alcohol: alcohol intake: never Substance Use: substance use type: does not use Dietary Habits: caffeine: Yes Personal Safety: victim of physical abuse: No victim of emotional abuse: No Review Of Systems (GEN) - Review of Systems Generalized/Overall Review: Present: Weakness, Fatigue. Absent: Chills, Fever EENTM: Present: No Symptoms Reported Respiratory: Present: Cough. Absent: Shortness of Breath Cardiac: Absent: Chest Pain, Edema, Palpitations Abdominal: Present: Nausea, Diarrhea. Absent: Vomiting, Hematemesis, Abdominal Pain, Constipation, Melena, Bright blood from rectum Genitourinary: Present: No Symptoms Reported Musculoskeletal: Present: Back Pain Neurological: Present: No Symptoms Reported Skin: Present: No Symptoms Reported Endocrine: Present: No Symptoms Reported Immunizations: IMMUNIZATION HX Immunizations Up to Date Yes History of Influenza Vaccine Yes Hx Pneumococcal Vaccination No Allergies/Adverse Reactions: Allergies Allergy/AdvReac Type Severity Reaction Status Date / Time pravastatin AdvReac Mild Vomiting Verified 08/08/19 17:24 Home Medications: HOME MEDICATIONS Citalopram Hydrobromide [Celexa] 10 mg PO DAILY 04/07/18 [Last Taken 08/06/18] Pantoprazole Sodium [Protonix] 40 mg PO BID 04/07/18 [Last Taken 02/19/19 08:00] Furosemide [Lasix] 20 mg PO DAILY 01/17/19 [Last Taken 02/19/19 08:00] Acetaminophen [Tylenol] 650 mg PO Q6H PRN 01/24/19 [Last Taken Unknown] Lisinopril 20 mg PO DAILY 01/24/19 [Last Taken 02/19/19 08:00] Ondansetron HCl [Zofran] 4 mg PO Q6H PRN 01/24/19 [Last Taken Unknown] Aspirin [Aspirin Chewable] 81 mg PO DAILY 04/15/19 [Last Taken Unknown] hydrALAZINE HCL [Apresoline] 10 mg PO BID 04/15/19 [Last Taken Unknown] Atorvastatin Calcium 20 mg PO HS 07/24/19 [Last Taken Unknown] HYDROcodone/ACETAMINOPHEN [Hydrocodon-Acetaminophen 5-325] 1 ea PO TID PRN 07/24/19 [Last Taken Unknown] Metoprolol Succinate [Toprol Xl] 100 mg PO BID 07/24/19 [Last Taken Unknown] Docusate Sodium [Colace] 100 mg PO DAILY PRN 08/08/19 [Last Taken Unknown] Potassium Chloride 40 meq PO BID 08/08/19 [Last Taken Unknown] Saccharomyces Boulardii [Florastor] 250 mg PO BID 08/08/19 [Last Taken Unknown] Exam - Exam Vital Signs: Vital Signs - Last Taken Temp 37.0 C 08/10/19 16:00 Pulse 94 08/10/19 21:25 Resp 14 08/10/19 14:00 BP 188/99 H 08/10/19 21:25 Pulse Ox 97 08/10/19 14:00 Constitutional: Present: Alert, Oriented x3, Cooperative ENT Exam: Present: hearing grossly normal Respiratory: Present: lungs clear, normal breath sounds Cardiovascular/Chest: Present: regular rate, rhythm, no murmur Abdomen: Present: Normal bowel sounds, soft, nontender, nondistended, no rebound tenderness, no hepatospenomegaly, no masses Skin Exam: Present: normal color, warm/dry, no cyanosis Lymphatic: Present: no adenopathy Appearance: Present: appropriate appearance, appropriate insight Eye contact: Present: cooperative, good eye contact, normal speech Thoughts: Present: normal thought pattern, no apparent hallucination Diagnostic Studies: Abnormal Lab Results 08/10/19 08/10/19 08/10/19 Range/Units 00:50 12:34 12:34 WBC 13.6 H D (4.0-10.5) K/mm3 RBC 4.15 L (4.2-5.4) M/mm3 Hgb 11.8 L (12.5-16.0) gm/dL MCHC 30.1 L (32-36) g/dl RDW 17.7 H (11.5-14.0) % Immature Gran % (Auto) 0.50 H (0.001-0.429) % Immature Gran # (Auto) 0.07 H (0.000-0.0310) K/mm3 Neutrophils % 86.0 H (42-75.0) % Lymphocytes % 9.1 L (20-51) % Neutrophils # 11.7 H (1.3-6.0) K/mm3 Lymphocytes # 1.24 L (1.5-3.5) k/mm3 Chloride 111 H (97-106) mmol/L Carbon Dioxide 20.5 L (24-32.6) mmol/L Random Glucose 113 H (70-110) mg/dL ALT 9 L (19-67) U/L Total Protein 5.8 L (6.2-8.2) gm/dL Albumin 2.0 L (3.4-5.0) gm/dl Stl C.difficile Tox A&B Positive H (Negative) Microbiology 08/10/19 01:12 Stool Culture - Preliminary Stool No Pathogens Isolated 08/08/19 21:32 Urine Culture - Preliminary Urine,Clean Catch Gram Negative Bacilli Ruling Out Second Organism Laboratory Results WBC 13.6 K/mm3 (4.0-10.5) H D 08/10/19 12:34 RBC 4.15 M/mm3 (4.2-5.4) L 08/10/19 12:34 Hgb 11.8 gm/dL (12.5-16.0) L 08/10/19 12:34 Hct 39.2 % (37.0-47.0) 08/10/19 12:34 MCV 94.5 fl (78-100) 08/10/19 12:34 MCH 28.4 pg (27-31) 08/10/19 12:34 MCHC 30.1 g/dl (32-36) L 08/10/19 12:34 RDW 17.7 % (11.5-14.0) H 08/10/19 12:34 Plt Count 318 K/mm3 (150-450) 08/10/19 12:34 MPV 9.7 fl (8-12.5) 08/10/19 12:34 Immature Gran % (Auto) 0.50 % (0.001-0.429) H 08/10/19 12:34 Immature Gran # (Auto) 0.07 K/mm3 (0.000-0.0310) H 08/10/19 12:34 Neutrophils % 86.0 % (42-75.0) H 08/10/19 12:34 Lymphocytes % 9.1 % (20-51) L 08/10/19 12:34 Monocytes % 3.1 % (0.0-9) 08/10/19 12:34 Eosinophils % 0.6 % (0.0-3.0) 08/10/19 12:34 Basophils % 0.7 % (0.0-1.0) 08/10/19 12:34 Nucleated RBC % 0.0 k/mm3 (0-1) 08/10/19 12:34 Neutrophils # 11.7 K/mm3 (1.3-6.0) H 08/10/19 12:34 Lymphocytes # 1.24 k/mm3 (1.5-3.5) L 08/10/19 12:34 Monocytes # 0.4 k/mm3 (0.0-1.0) 08/10/19 12:34 Eosinophils # 0.1 k/mm3 (0.0-0.7) 08/10/19 12:34 Absolute Basophils 0.1 k/mm3 (0.0-0.1) 08/10/19 12:34 Sodium 140 mmol/L (132-142) 08/10/19 12:34 Plasma Sodium 140 mmol/L (130-142) 08/10/19 12:34 Potassium 4.4 mmol/L (3.4-4.6) 08/10/19 12:34 Chloride 111 mmol/L (97-106) H 08/10/19 12:34 Carbon Dioxide 20.5 mmol/L (24-32.6) L 08/10/19 12:34 Anion Gap 12.9 mmol/L (6.8-13.8) 08/10/19 12:34 BUN 18 mg/dL (3-23) 08/10/19 12:34 Creatinine 0.90 mg/dL (0.4-1.4) 08/10/19 12:34 Est GFR (Non-Af Amer) 63 mL/min (60-130) D 08/10/19 12:34 BUN/Creatinine Ratio 20.0 (9.0-21.6) 08/10/19 12:34 Random Glucose 113 mg/dL (70-110) H 08/10/19 12:34 Calcium 8.0 mg/dL (7.9-10.9) 08/10/19 12:34 Calcium Adj for Albumin 9.3 mg/dL (8.4-10.2) 08/10/19 12:34 Total Bilirubin 0.2 mg/dL (0.0-1.1) 08/10/19 12:34 AST 21 U/L (0-48) 08/10/19 12:34 ALT 9 U/L (19-67) L 08/10/19 12:34 Alkaline Phosphatase 114 U/L (50-170) 08/10/19 12:34 Total Protein 5.8 gm/dL (6.2-8.2) L 08/10/19 12:34 Albumin 2.0 gm/dl (3.4-5.0) L 08/10/19 12:34 Amylase 38 U/L (25-115) 08/08/19 17:40 Lipase 72 U/L (73-393) L 08/08/19 17:40 Urine Color Yellow 08/08/19 21:10 Urine Appearance Slightly cloudy (CLEAR) 08/08/19 21:10 Urine pH 5.5 pH (5.0-7.0) 08/08/19 21:10 Ur Specific [place] 1.020 SP.GR. (1.005-1.010) 08/08/19 21:10 Urine Protein 15 mg/dL (NEGATIVE) H 08/08/19 21:10 Urine Glucose (UA) 100 mg/dL (NEGATIVE) H 08/08/19 21:10 Urine Ketones Negative mg/dL (NEGATIVE) 08/08/19 21:10 Urine Blood 25 /ul (NEGATIVE) H 08/08/19 21:10 Urine Nitrate Negative (NEGATIVE) 08/08/19 21:10 Urine Bilirubin Negative mg/dl (NEGATIVE) 08/08/19 21:10 Prot Sulfosalicylic Acd 2+ mg/dL (0) H 08/08/19 21:10 Urine Urobilinogen Normal EU/dl (NORMAL) 08/08/19 21:10 Ur Leukocyte Esterase 100 /ul (NEGATIVE) H 08/08/19 21:10 Urine RBC 0-5 /hpf (0-5) 08/08/19 21:10 Urine WBC 5-10 /hpf (0-5) H 08/08/19 21:10 Ur Epithelial Cells None seen /hpf (0-5) 08/08/19 21:10 Urine Bacteria 2+ (NONE) H 08/08/19 21:10 Urine Culture Comments Culture to follow 08/08/19 21:10 Stl C.difficile Tox A&B Positive (Negative) H 08/10/19 00:50 Assessment/Plan - Narrative Narrative: Ilana is an 84 yo female with hyperkalemia of 6.3 with weakness. Will treat with IV fluids and hold oral potassium. Hyperkalemia is secondary to dehydration from diarrhea. Will check for C DIFF and stool culture. Due to continued diarrhea, poor appetite, and high potassium with weakness I do not believe this will be corrected quickly and will need to make sure the potassium remains stable and she is not getting further dehydrated by continued diarrhea. Expect >2 midnights to treat and maintain potassium and evaluation and treat diarrhea. - Assessment/Plan (1) Acute hyperkalemia Problem: Acute (2) Diarrhea Problem: Acute Qualifiers: Diarrhea type: unspecified type Qualified Code(s): R19.7 - Diarrhea, unspecified (3) Dehydration Problem: Acute
--- NOTE | 2019-08-10 23:52 | PN ---
Subjective - Date and Time Seen Date: 08/10/19 Time: 17:00 Subjective Narrative: Ilana reports continued diarrhea and weakness. No fever, chills. Her appetite is poor. Objective - Vitals Vitals: Last Vital Signs Temp 37.0 C 08/10/19 16:00 Pulse 94 08/10/19 21:25 Resp 14 08/10/19 14:00 BP 188/99 H 08/10/19 21:25 Pulse Ox 97 08/10/19 14:00 - Abnormal Lab Findings Abnormal Lab Findings: Abnormal Lab Results 08/10/19 08/10/19 08/10/19 Range/Units 00:50 12:34 12:34 WBC 13.6 H D (4.0-10.5) K/mm3 RBC 4.15 L (4.2-5.4) M/mm3 Hgb 11.8 L (12.5-16.0) gm/dL MCHC 30.1 L (32-36) g/dl RDW 17.7 H (11.5-14.0) % Immature Gran % (Auto) 0.50 H (0.001-0.429) % Immature Gran # (Auto) 0.07 H (0.000-0.0310) K/mm3 Neutrophils % 86.0 H (42-75.0) % Lymphocytes % 9.1 L (20-51) % Neutrophils # 11.7 H (1.3-6.0) K/mm3 Lymphocytes # 1.24 L (1.5-3.5) k/mm3 Chloride 111 H (97-106) mmol/L Carbon Dioxide 20.5 L (24-32.6) mmol/L Random Glucose 113 H (70-110) mg/dL ALT 9 L (19-67) U/L Total Protein 5.8 L (6.2-8.2) gm/dL Albumin 2.0 L (3.4-5.0) gm/dl Stl C.difficile Tox A&B Positive H (Negative) - Exam Constitutional: Present: Alert, Oriented x3, Cooperative ENT Exam: Present: hearing grossly normal Respiratory: Present: no respiratory distress, wheezing Cardiovascular/Chest: Present: regular rate, rhythm, no murmur Abdomen: Present: Normal bowel sounds, soft, nontender, nondistended Skin Exam: Present: normal color, warm/dry, no cyanosis Assessment/Plan Plan Narrative: Potassium is back to normal, will monitor, may need to restart home potassium to keep from going low. CDIFF is positive, potentially from recently being on bactrim. Started oral vancomycin. Will monitor diarrhea and potassium. If potassium stable may begin looking at discharge planning. Due to weakness may need SNF. - Problems/Diagnosis (1) Clostridium difficile diarrhea Problem: Acute (2) Acute hyperkalemia Problem: Acute
[2019-08-11] MEDS: hydrALAZINE HCL 25 MG TABLET PO SCH ×3 (05:10→21:05)
[2019-08-11] MEDS: VANCOMYCIN HCL 50 MG/ML BTL PO SCH ×4 (05:10→21:10)
[2019-08-11] MEDS: PANTOPRAZOLE SODIUM 40 MG TABLET.EC PO SCH ×2 (07:07→21:03)
[2019-08-11] MEDS: ONDANSETRON HCL 4 MG TABLET PO PRN ×2 (07:34→18:59)
[2019-08-11] MEDS: METOPROLOL SUCCINATE 100 MG TABLET.SA PO SCH ×2 (09:00→21:05)
[2019-08-11] MEDS: SACCHAROMYCES BOULARDII 250 MG CAPSULE PO SCH ×2 (09:00→21:04)
[2019-08-11] MEDS: CITALOPRAM HYDROBROMIDE 10 MG TABLET PO SCH (09:01)
[2019-08-11] MEDS: LISINOPRIL 20 MG TABLET PO SCH (09:01)
[2019-08-11] MEDS: ASPIRIN 81 MG TAB.CHEW PO SCH (09:01)
[2019-08-11] MEDS: ACETAMINOPHEN 325 MG TABLET PO PRN ×2 (09:08→22:26)
[2019-08-11] MEDS ORDERED: ALBUTEROL SULFATE/IPRATROPIUM 3 ML NEBU IH ONE (09:24)
[2019-08-11 09:50] LABS: Hematocrit 37.4 % (37.0-47.0); Hemoglobin 11.2 gm/dL (12.5-16.0); Mean Cell Volume 92.3 fl (78-100); Mean Corpuscular Hemoglobin 27.7 pg (27-31); Mean Corpuscular Hgb Conc 29.9 g/dl (32-36); Mean Platelet Volume 9.8 fl (8-12.5); Neutrophil # 14.1 K/mm3 (1.3-6.0); Platelet Count 371 K/mm3 (150-450); Red Blood Count 4.05 M/mm3 (4.2-5.4); Red Cell Distribution Width 17.8 % (11.5-14.0); White Blood Count 16.9 K/mm3 (4.0-10.5)
[2019-08-11 10:02] LABS: Albumin * 2.1 gm/dl (3.4-5.0); Anion Gap 15.3 mmol/L (6.8-13.8); Bilirubin, Total 0.3 mg/dL (0.0-1.1); Ca. Corrected For Albumin 9.6 mg/dL (8.4-10.2); Calcium * 8.4 mg/dL (7.9-10.9); Carbon Dioxide 19.2 mmol/L (24-32.6); Potassium 4.5 mmol/L (3.4-4.6); Total Protein 5.9 gm/dL (6.2-8.2)
[2019-08-11] MEDS: LEVOFLOXACIN 750 MG TABLET PO SCH (11:30)
[2019-08-11] MEDS: ROSUVASTATIN CALCIUM 10 MG TABLET PO SCH (21:04)
--- NOTE | 2019-08-11 23:15 | PN ---
Subjective - Date and Time Seen Date: 08/11/19 Time: 16:00 Subjective Narrative: Ilana reports diarrhea is a little better. She still feels short of breath. No fever, chills, or vomiting. She does report some nausea. Objective - Vitals Vitals: Last Vital Signs Temp 36.5 C 08/11/19 21:27 Pulse 93 08/11/19 21:27 Resp 22 H 08/11/19 21:27 BP 169/85 H 08/11/19 21:27 Pulse Ox 95 08/11/19 21:27 - Abnormal Lab Findings Abnormal Lab Findings: Abnormal Lab Results 08/11/19 08/11/19 Range/Units 09:36 09:36 WBC 16.9 H D (4.0-10.5) K/mm3 RBC 4.05 L (4.2-5.4) M/mm3 Hgb 11.2 L (12.5-16.0) gm/dL MCHC 29.9 L (32-36) g/dl RDW 17.8 H (11.5-14.0) % Immature Gran % (Auto) 0.50 H (0.001-0.429) % Immature Gran # (Auto) 0.09 H (0.000-0.0310) K/mm3 Neutrophils % 84.0 H (42-75.0) % Lymphocytes % 10.9 L (20-51) % Neutrophils # 14.1 H (1.3-6.0) K/mm3 Chloride 112 H (97-106) mmol/L Carbon Dioxide 19.2 L (24-32.6) mmol/L Anion Gap 15.3 H (6.8-13.8) mmol/L Est GFR (Non-Af Amer) 56 L (60-130) mL/min ALT 7 L (19-67) U/L Total Protein 5.9 L (6.2-8.2) gm/dL Albumin 2.1 L (3.4-5.0) gm/dl - Exam Constitutional: Present: Alert, Oriented x3, Cooperative ENT Exam: Present: hearing grossly normal Respiratory: Present: lungs clear, normal breath sounds, decreased breath sounds - bilateral base Cardiovascular/Chest: Present: regular rate, rhythm, no murmur Abdomen: Present: Normal bowel sounds, soft, nontender, nondistended Skin Exam: Present: normal color, warm/dry, no cyanosis Assessment/Plan Plan Narrative: Ilana is a little better today in regards to diarrhea. Continue vancomycin. WBC elevated and UA growing pseudomonas plus other bacteria. Started on levaquin due to rising WBC although this may be CDIFF related. She does not have significant symptoms for UTI so I suspect this may be asymptomatic bacteruria. Given the worsening WBC though I feel it is better to add the levaquin to cover pseudomonas and continue vanco for CDIFF. Based on prior CT I suspect that there may be a mass in the colon with fistula to bladder introducing bacteria. I discussed scoping with Ilana but she declines and feels it would be too risky to undergo any surgery or significant procedures. Blood pressure improved today with the increase of hydralazine, will continue to monitor. May increase dose further if needed. Will add incentive spirometer and cornet for shortness of breath as I believe she is getting atelectasis from decreased ambulation. Will get a chest xray tomorrow morning. No hypoxia and no significant shortness of breath on exam today. - Problems/Diagnosis (1) Acute hyperkalemia Problem: Acute (2) Diarrhea Problem: Acute Qualifiers: Diarrhea type: unspecified type Qualified Code(s): R19.7 - Diarrhea, unspecified (3) Dehydration Problem: Acute
[2019-08-12] MEDS: hydrALAZINE HCL 25 MG TABLET PO SCH (05:22)
[2019-08-12] MEDS: VANCOMYCIN HCL 50 MG/ML BTL PO SCH ×6 (05:22→22:00)
[2019-08-12] MEDS: LISINOPRIL 20 MG TABLET PO SCH (08:12)
[2019-08-12] MEDS: ONDANSETRON HCL 4 MG TABLET PO PRN (08:12)
[2019-08-12] MEDS: PANTOPRAZOLE SODIUM 40 MG TABLET.EC PO SCH ×2 (08:12→21:44)
[2019-08-12] MEDS: CITALOPRAM HYDROBROMIDE 10 MG TABLET PO SCH (08:12)
[2019-08-12] MEDS: SACCHAROMYCES BOULARDII 250 MG CAPSULE PO SCH ×2 (08:12→21:43)
[2019-08-12] MEDS: ASPIRIN 81 MG TAB.CHEW PO SCH (08:12)
[2019-08-12] MEDS: METOPROLOL SUCCINATE 100 MG TABLET.SA PO SCH ×2 (08:13→21:44)
[2019-08-12] MEDS: ACETAMINOPHEN 325 MG TABLET PO PRN ×2 (08:21→19:22)
[2019-08-12 09:42] LABS: Albumin * 2.1 gm/dl (3.4-5.0); Anion Gap 11.9 mmol/L (6.8-13.8); BUN/Creatinine Ratio 19.5 (9.0-21.6); Bilirubin, Total 0.2 mg/dL (0.0-1.1); Ca. Corrected For Albumin 9.7 mg/dL (8.4-10.2); Calcium * 8.5 mg/dL (7.9-10.9); Carbon Dioxide 24.2 mmol/L (24-32.6); Potassium 4.1 mmol/L (3.4-4.6); Total Protein 5.9 gm/dL (6.2-8.2)
[2019-08-12 09:43] LABS: Hematocrit 35.5 % (37.0-47.0); Hemoglobin 10.7 gm/dL (12.5-16.0); Mean Cell Volume 92.2 fl (78-100); Mean Corpuscular Hemoglobin 27.8 pg (27-31); Mean Corpuscular Hgb Conc 30.1 g/dl (32-36); Mean Platelet Volume 9.7 fl (8-12.5); Neutrophil # 11.5 K/mm3 (1.3-6.0); Neutrophil % 87.7 % (42-75.0); Platelet Count 325 K/mm3 (150-450); Red Blood Count 3.85 M/mm3 (4.2-5.4); Red Cell Distribution Width 17.9 % (11.5-14.0); White Blood Count 13.1 K/mm3 (4.0-10.5)
[2019-08-12] MEDS: hydrALAZINE HCL 50 MG TABLET PO SCH ×2 (13:30→21:45)
[2019-08-12] MEDS: HYDROcodone/ACETAMINOPHEN 1 EACH TABLET PO PRN ×2 (13:41→22:00)
[2019-08-12] MEDS: ALBUTEROL SULFATE/IPRATROPIUM 3 ML NEBU IH PRN ×2 (17:40→18:31)
[2019-08-12] MEDS ORDERED: DILTIAZEM HCL 5 MG/ML VIAL IV ONE (19:00)
[2019-08-12] MEDS: ROSUVASTATIN CALCIUM 10 MG TABLET PO SCH (21:43)
[2019-08-12] MEDS: DILTIAZEM HCL 30 MG TABLET PO SCH (23:27)
--- NOTE | 2019-08-12 23:38 | PN ---
Subjective - Date and Time Seen Date: 08/12/19 Time: 12:30 Subjective Narrative: Ilana reports feeling better. Chest xray done this morning shows atelectasis no obvious pneumonia. No fever, chills, nausea, or vomiting. Still having loose stool but less often. Objective - Vitals Vitals: Last Vital Signs Temp 36.7 C 08/12/19 18:51 Pulse 77 08/12/19 21:45 Resp 18 08/12/19 18:51 BP 131/69 08/12/19 21:45 Pulse Ox 95 08/12/19 16:04 - Abnormal Lab Findings Abnormal Lab Findings: Abnormal Lab Results 08/12/19 08/12/19 Range/Units 09:27 09:27 WBC 13.1 H D (4.0-10.5) K/mm3 RBC 3.85 L (4.2-5.4) M/mm3 Hgb 10.7 L (12.5-16.0) gm/dL Hct 35.5 L (37.0-47.0) % MCHC 30.1 L (32-36) g/dl RDW 17.9 H (11.5-14.0) % Immature Gran % (Auto) 0.50 H (0.001-0.429) % Immature Gran # (Auto) 0.07 H (0.000-0.0310) K/mm3 Neutrophils % 87.7 H (42-75.0) % Lymphocytes % 7.2 L (20-51) % Neutrophils # 11.5 H (1.3-6.0) K/mm3 Lymphocytes # 0.95 L (1.5-3.5) k/mm3 Plasma Sodium 144 H (130-142) mmol/L Chloride 110 H (97-106) mmol/L Est GFR (Non-Af Amer) 46 L (60-130) mL/min Random Glucose 226 H D (70-110) mg/dL ALT 15 L (19-67) U/L Total Protein 5.9 L (6.2-8.2) gm/dL Albumin 2.1 L (3.4-5.0) gm/dl - Exam Constitutional: Present: Alert, Oriented x3, Cooperative ENT Exam: Present: hearing grossly normal Respiratory: Present: decreased breath sounds - bilateral base Cardiovascular/Chest: Present: regular rate, rhythm, no murmur Abdomen: Present: Normal bowel sounds, soft, nontender, nondistended Skin Exam: Present: normal color, warm/dry, no cyanosis Assessment/Plan Plan Narrative: Ilana is an 84 yo female with: 1) CDIFF - On oral vancomycin, continue, WBC improving 2) UTI - On levaquin, WBC improving. Unsure if this is true infection vs asymptomatic bacteruria due to potential colovesicular fistula. Treated with levaquin due to the rising WBC which is now improving. 3) Weakness - Consulted PT/OT 4) Dysphagia (Witnessed choking on water) - Consulted ST 5) Social - Looking at discharge to longterm tomorrow or friday depending on strength and WBC - Problems/Diagnosis (1) Clostridium difficile diarrhea Problem: Acute (2) Acute hyperkalemia Problem: Resolved (3) Dehydration Problem: Acute (4) UTI (urinary tract infection) Problem: Acute (5) Dysphagia Problem: Acute (6) Generalized weakness Problem: Acute (7) Unsteady gait Problem: Acute (8) Malnourished Problem: Chronic Qualifiers: Malnutrition type: protein-calorie malnutrition Protein-calorie malnutrition severity: severe Qualified Code(s): E43 - Unspecified severe protein-calorie malnutrition
[2019-08-13] MEDS: VANCOMYCIN HCL 50 MG/ML BTL PO SCH ×2 (04:14→09:00)
[2019-08-13] MEDS: hydrALAZINE HCL 50 MG TABLET PO SCH (05:54)
[2019-08-13] MEDS: ASPIRIN 81 MG TAB.CHEW PO SCH (08:31)
[2019-08-13] MEDS: ACETAMINOPHEN 325 MG TABLET PO PRN (08:31)
[2019-08-13] MEDS: DILTIAZEM HCL 30 MG TABLET PO SCH (08:32)
[2019-08-13] MEDS: SACCHAROMYCES BOULARDII 250 MG CAPSULE PO SCH (08:32)
[2019-08-13] MEDS: PANTOPRAZOLE SODIUM 40 MG TABLET.EC PO SCH (08:32)
[2019-08-13] MEDS: LEVOFLOXACIN 750 MG TABLET PO SCH ×2 (08:32→10:14)
[2019-08-13] MEDS: LISINOPRIL 20 MG TABLET PO SCH (08:33)
[2019-08-13] MEDS: CITALOPRAM HYDROBROMIDE 10 MG TABLET PO SCH (08:33)
[2019-08-13] MEDS: METOPROLOL SUCCINATE 100 MG TABLET.SA PO SCH (08:33)
[2019-08-13 12:37] LABS: Hematocrit 30.7 % (37.0-47.0); Hemoglobin 9.4 gm/dL (12.5-16.0); Mean Cell Volume 92.2 fl (78-100); Mean Corpuscular Hemoglobin 28.2 pg (27-31); Mean Corpuscular Hgb Conc 30.6 g/dl (32-36); Mean Platelet Volume 9.8 fl (8-12.5); Neutrophil # 11.1 K/mm3 (1.3-6.0); Neutrophil % 87.8 % (42-75.0); Platelet Count 257 K/mm3 (150-450); Red Blood Count 3.33 M/mm3 (4.2-5.4); Red Cell Distribution Width 18.2 % (11.5-14.0); White Blood Count 12.6 K/mm3 (4.0-10.5)
--- NOTE | 2019-08-13 12:41 | DS ---
(1) Clostridium difficile diarrhea Problem: Acute (2) Acute hyperkalemia Problem: Resolved (3) Dehydration Problem: Acute (4) UTI (urinary tract infection) Problem: Acute (5) Dysphagia Problem: Acute (6) Generalized weakness Problem: Acute (7) Unsteady gait Problem: Acute (8) Malnourished Problem: Chronic Qualifiers: Malnutrition type: protein-calorie malnutrition Protein-calorie malnutrition severity: severe Qualified Code(s): E43 - Unspecified severe protein-calorie malnutrition Date of Discharge:: 08/13/19 Hospital Course: Ilana is an 84 yo female admitted for diarrhea and weakness. She has a history of C DIff, although it had resolved on last check last month. Studies did confirm that the CDIFF had returned, likely from being recently on bactrim for UTI. She was started on oral vancomycin. She had urine studies that grew pseudomonas. Unsure how symptomatic she is from the bacteruria. Her WBC was rising and she was weak, but no overt dysuria or fever. Due to the rising WBC she was started on levaquin for pseudomonas. Due to weakness she had PT and OT consulted. She was also noted to choke while drinking water and speech was consulted. Therapies recommended additional therapy for strengthening. ST recommended continued therapy with regular diet. No aspiration witnessed. Her diarrhea began to get less frequent and thicken up some, it is still loose at this time. Potassium during hospital course was high due to dehydration and was treated with IV fluids and holding her home potassium. 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 I discussed referral to general surgery or urology for colonoscopy vs uroscopy. She declines these procedures and states she would not want to do any procedures or surgeries. Recommend she only get antibiotics for UTI if she is significantly symptomatic. She will follow up with me. Procedures Performed: none Results and Findings: Lab Pending Results 08/08/19 17:40: WBC 11.5 H, RBC 3.75 L, Hgb 10.6 L, Hct 34.6 L, MCV 92.3, MCH 28.3, MCHC 30.6 L, RDW 17.7 H, Plt Count 308, MPV 9.7, Immature Gran % (Auto) 0.30, Immature Gran # (Auto) 0.04 H, Neutrophils % 77.6 H, Lymphocytes % 14.4 L, Monocytes % 5.5, Eosinophils % 1.4, Basophils % 0.8, Nucleated RBC % 0.0, Neutrophils # 8.9 H, Lymphocytes # 1.65, Monocytes # 0.6, Eosinophils # 0.2, Absolute Basophils 0.1 08/08/19 17:40: Sodium 138, Plasma Sodium 138, Potassium 6.3 H D, Chloride 110 H, Carbon Dioxide 22.7 L, Anion Gap 11.6, BUN 33 H, Creatinine 1.37, Est GFR (Non-Af Amer) 39 L D, BUN/Creatinine Ratio 24.1 H, Random Glucose 113 H, Calcium 8.5, Calcium Adj for Albumin 9.6, Total Bilirubin 0.2, AST 20, ALT 6 L, Alkaline Phosphatase 112, Total Protein 5.9 L, Albumin 2.2 L, Amylase 38, Lipase 72 L 08/08/19 21:10: Urine Color Yellow, Urine Appearance Slightly cloudy, Urine pH 5.5, Ur Specific [place] 1.020, Urine Protein 15 H, Urine Glucose (UA) 100 H, Urine Ketones Negative, Urine Blood 25 H, Urine Nitrate Negative, Urine Bilirubin Negative, Prot Sulfosalicylic Acd 2+ H, Urine Urobilinogen Normal, Ur Leukocyte Esterase 100 H, Urine RBC 0-5, Urine WBC 5-10 H, Ur Epithelial Cells None seen, Urine Bacteria 2+ H, Urine Culture Comments Culture to follow 08/09/19 09:07: WBC 10.1, RBC 3.59 L, Hgb 10.2 L, Hct 33.5 L, MCV 93.3, MCH 28.4, MCHC 30.4 L, RDW 17.8 H, Plt Count 246, MPV 9.8, Immature Gran % (Auto) 0.50 H, Immature Gran # (Auto) 0.05 H, Neutrophils % 85.0 H, Lymphocytes % 8.4 L, Monocytes % 3.2, Eosinophils % 2.3, Basophils % 0.6, Nucleated RBC % 0.0, Neutrophils # 8.6 H, Lymphocytes # 0.85 L, Monocytes # 0.3, Eosinophils # 0.2, Absolute Basophils 0.1 08/09/19 09:07: Sodium 142, Plasma Sodium 143 H, Potassium 5.1 H, Chloride 112 H, Carbon Dioxide 22.3 L, Anion Gap 12.8, BUN 23, Creatinine 1.15, Est GFR (Non- Af Amer) 48 L D, BUN/Creatinine Ratio 20.0, Random Glucose 160 H D, Calcium 8.0, Calcium Adj for Albumin 9.4, Total Bilirubin 0.1, AST 17, ALT 9 L, Alkaline Phosphatase 104, Total Protein 4.8 L, Albumin 1.9 L 08/10/19 00:50: Stl C.difficile Tox A&B Positive H 08/10/19 12:34: WBC 13.6 H D, RBC 4.15 L, Hgb 11.8 L, Hct 39.2, MCV 94.5, MCH 28.4, MCHC 30.1 L, RDW 17.7 H, Plt Count 318, MPV 9.7, Immature Gran % (Auto) 0.50 H, Immature Gran # (Auto) 0.07 H, Neutrophils % 86.0 H, Lymphocytes % 9.1 L, Monocytes % 3.1, Eosinophils % 0.6, Basophils % 0.7, Nucleated RBC % 0.0, Neutrophils # 11.7 H, Lymphocytes # 1.24 L, Monocytes # 0.4, Eosinophils # 0.1, Absolute Basophils 0.1 08/10/19 12:34: Sodium 140, Plasma Sodium 140, Potassium 4.4, Chloride 111 H, Carbon Dioxide 20.5 L, Anion Gap 12.9, BUN 18, Creatinine 0.90, Est GFR (Non-Af Amer) 63 D, BUN/Creatinine Ratio 20.0, Random Glucose 113 H, Calcium 8.0, Calcium Adj for Albumin 9.3, Total Bilirubin 0.2, AST 21, ALT 9 L, Alkaline Phosphatase 114, Total Protein 5.8 L, Albumin 2.0 L 08/11/19 09:36: WBC 16.9 H D, RBC 4.05 L, Hgb 11.2 L, Hct 37.4, MCV 92.3, MCH 27.7, MCHC 29.9 L, RDW 17.8 H, Plt Count 371, MPV 9.8, Immature Gran % (Auto) 0.50 H, Immature Gran # (Auto) 0.09 H, Neutrophils % 84.0 H, Lymphocytes % 10.9 L, Monocytes % 3.4, Eosinophils % 0.7, Basophils % 0.5, Nucleated RBC % 0.0, Neutrophils # 14.1 H, Lymphocytes # 1.84, Monocytes # 0.6, Eosinophils # 0.1, Absolute Basophils 0.1 08/11/19 09:36: Sodium 142, Plasma Sodium 142, Potassium 4.5, Chloride 112 H, Carbon Dioxide 19.2 L, Anion Gap 15.3 H, BUN 19, Creatinine 1.00, Est GFR (Non- Af Amer) 56 L, BUN/Creatinine Ratio 19.0, Random Glucose 100, Calcium 8.4, Calcium Adj for Albumin 9.6, Total Bilirubin 0.3, AST 22, ALT 7 L, Alkaline Phosphatase 116, Total Protein 5.9 L, Albumin 2.1 L 08/12/19 09:27: WBC 13.1 H D, RBC 3.85 L, Hgb 10.7 L, Hct 35.5 L, MCV 92.2, MCH 27.8, MCHC 30.1 L, RDW 17.9 H, Plt Count 325, MPV 9.7, Immature Gran % (Auto) 0.50 H, Immature Gran # (Auto) 0.07 H, Neutrophils % 87.7 H, Lymphocytes % 7.2 L, Monocytes % 3.3, Eosinophils % 0.8, Basophils % 0.5, Nucleated RBC % 0.0, Neutrophils # 11.5 H, Lymphocytes # 0.95 L, Monocytes # 0.4, Eosinophils # 0.1, Absolute Basophils 0.1 08/12/19 09:27: Sodium 142, Plasma Sodium 144 H, Potassium 4.1, Chloride 110 H, Carbon Dioxide 24.2, Anion Gap 11.9, BUN 23, Creatinine 1.18, Est GFR (Non-Af Amer) 46 L, BUN/Creatinine Ratio 19.5, Random Glucose 226 H D, Calcium 8.5, Calcium Adj for Albumin 9.7, Total Bilirubin 0.2, AST 27, ALT 15 L, Alkaline Phosphatase 128, Total Protein 5.9 L, Albumin 2.1 L Discharge Location: [facility] Disposition: [facility] Condition: Fair Level of Care: SNF Discharge Activity: Activity as tolerated Discharge Diet: General/regular food Senior Care Therapy: Physical Therapy, Occupation Therapy, Speech Therapy Referrals: Lonnie Rice MD [Primary Care Provider] - Joseph Molina DO [Staff Physician] - Two Weeks (Dr. Molina to follow at [facility]) Problem Oriented Discharge Instructions to Patient/Family: Clostridium Difficile FAQs - ORTIZ Additional Patient Instructions (free text): The patient should take small sips, no straws, and one sip at a time. The patint should also alternate between bites/sips. Continue Home oxygen at 2lpm continuous. Prescriptions (Any new or edited meds): hydrALAZINE HCL [Apresoline] 50 mg PO Q8H #90 tab Transmission Status: Pending to [facility] Levofloxacin [Levaquin] 750 mg PO Q48H #2 tab Transmission Status: Pending to [facility] Vancomycin HCl [Vancomycin] 125 mg PO Q6H #70 ml Transmission Status: Pending to [facility] Complete Home Medications List: Complete Home Medication List: Citalopram Hydrobromide [Celexa] 10 mg PO DAILY 04/07/18 Pantoprazole Sodium [Protonix] 40 mg PO BID 04/07/18 Furosemide [Lasix] 20 mg PO DAILY 01/17/19 Acetaminophen [Tylenol] 650 mg PO Q6H PRN 01/24/19 Lisinopril 20 mg PO DAILY 01/24/19 Ondansetron HCl [Zofran] 4 mg PO Q6H PRN 01/24/19 Aspirin [Aspirin Chewable] 81 mg PO DAILY 04/15/19 hydrALAZINE HCL [Apresoline] 10 mg PO BID 04/15/19 Atorvastatin Calcium 20 mg PO HS 07/24/19 HYDROcodone/ACETAMINOPHEN [Hydrocodone-Acetamin 5-325 mg] 1 ea PO TID PRN 07/24/19 Metoprolol Succinate [Toprol Xl] 100 mg PO BID 07/24/19 Docusate Sodium [Colace] 100 mg PO DAILY PRN 08/08/19 Potassium Chloride 40 meq PO BID 08/08/19 Saccharomyces Boulardii [Florastor] 250 mg PO BID 08/08/19 Levofloxacin [Levaquin] 750 mg PO Q48H #2 tab 08/13/19 Vancomycin HCl [Vancomycin] 125 mg PO Q6H #70 ml 08/13/19 hydrALAZINE HCL [Apresoline] 50 mg PO Q8H #90 tab 08/13/19
[2019-08-13 12:49] LABS: Anion Gap 9.7 mmol/L (6.8-13.8); BUN/Creatinine Ratio 20.8 (9.0-21.6); Bilirubin, Total 0.2 mg/dL (0.0-1.1); Ca. Corrected For Albumin 9.5 mg/dL (8.4-10.2); Calcium * 8.2 mg/dL (7.9-10.9); Carbon Dioxide 27.4 mmol/L (24-32.6); Potassium 4.1 mmol/L (3.4-4.6); Total Protein 5.5 gm/dL (6.2-8.2)
[2019-08-13 13:18] VITALS: BP 151/73
== END 2019-08-13 13:28 | DRG 371 ==
LOC: ER 17:13 → MS 19:20
PROVIDERS: ADMIT Family Medicine; ATTEND Family Medicine
DX: N18.9 Chronic kidney disease, unspecified; B96.20 Unspecified Escherichia coli [E. coli] as the cause of diseases classified elsewhere; R53.1 Weakness; E43 Unspecified severe protein-calorie malnutrition; B96.5 Pseudomonas (aeruginosa) (mallei) (pseudomallei) as the cause of diseases classified elsewhere; I13.10 Hypertensive heart and chronic kidney disease without heart failure, with stage 1 through stage 4 chronic kidney disease, or unspecified chronic kidney disease; E86.0 Dehydration; E87.5 Hyperkalemia; B96.1 Klebsiella pneumoniae [K. pneumoniae] as the cause of diseases classified elsewhere; N39.0 Urinary tract infection, site not specified; I48.20 Chronic atrial fibrillation, unspecified; N32.1 Vesicointestinal fistula; R26.81 Unsteadiness on feet; A04.72 Enterocolitis due to Clostridium difficile, not specified as recurrent; Z68.1 Body mass index [BMI] 19.9 or less, adult; R13.10 Dysphagia, unspecified
CPT/HCPCS: 36415; 71020; 71046; 74019; 74020; 80053; 81001; 82150; 83690; 85025; 87045; 87046; 87077; 87081; 87086; 87186; 87493; 92610; 93005; 94640; 94664; 96360; 97110; 97116; 97162; 97165; 97535; 99284

== ENCOUNTER 2019-11-28 07:41 | Observation (INO) ==
[2019-11-28] MEDS ORDERED: LABETALOL HCL 5 MG/ML VIAL IV ONE (08:05)
[2019-11-28 08:20] LABS: Hematocrit 35.2 % (37.0-47.0); Hemoglobin 10.3 gm/dL (12.5-16.0); Mean Cell Volume 89.8 fl (78-100); Mean Corpuscular Hemoglobin 26.3 pg (27-31); Mean Corpuscular Hgb Conc 29.3 g/dl (32-36); Mean Platelet Volume 9.2 fl (8-12.5); Neutrophil # 13.6 K/mm3 (1.3-6.0); Neutrophil % 87.9 % (42-75.0); Platelet Count 322 K/mm3 (150-450); Red Blood Count 3.92 M/mm3 (4.2-5.4); Red Cell Distribution Width 18.5 % (11.5-14.0); White Blood Count 15.5 K/mm3 (4.0-10.5)
--- NOTE | 2019-11-28 08:24 | ERNOTE ---
Abdominal HPI - Narrative Date of Service: 11/28/19 - General Chief Complaint: Abdominal Pain Time Seen by Provider: 11/28/19 07:54 Source: patient, EMS Exam Limitations: no limitations - Immun/Allergies/Home Medications Immunizatons: IMMUNIZATION HX Immunizations Up to Date Yes History of Influenza Vaccine Yes Hx Pneumococcal Vaccination No Allergies/Adverse Reactions: Allergies pravastatin Adverse Reaction (Mild, Verified 11/28/19 07:51) Vomiting Home Medications: HOME MEDICATIONS Citalopram Hydrobromide [Celexa] 10 mg PO DAILY 04/07/18 [Last Taken 08/06/18] Pantoprazole Sodium [Protonix] 40 mg PO BID 04/07/18 [Last Taken 02/19/19 08:00] Furosemide [Lasix] 20 mg PO DAILY 01/17/19 [Last Taken 02/19/19 08:00] Acetaminophen [Tylenol] 650 mg PO Q6H PRN 01/24/19 [Last Taken Unknown] Lisinopril 20 mg PO DAILY 01/24/19 [Last Taken 02/19/19 08:00] Ondansetron HCl [Zofran] 4 mg PO Q6H PRN 01/24/19 [Last Taken Unknown] Aspirin [Aspirin Chewable] 81 mg PO DAILY 04/15/19 [Last Taken Unknown] hydrALAZINE HCL [Apresoline] 10 mg PO BID 04/15/19 [Last Taken Unknown] Atorvastatin Calcium 20 mg PO HS 07/24/19 [Last Taken Unknown] HYDROcodone/ACETAMINOPHEN [Hydrocodone-Acetamin 5-325 mg] 1 ea PO TID PRN 07/24/19 [Last Taken Unknown] Metoprolol Succinate [Toprol Xl] 100 mg PO BID 07/24/19 [Last Taken Unknown] Docusate Sodium [Colace] 100 mg PO DAILY PRN 08/08/19 [Last Taken Unknown] Potassium Chloride 40 meq PO BID 08/08/19 [Last Taken Unknown] Saccharomyces Boulardii [Florastor] 250 mg PO BID 08/08/19 [Last Taken Unknown] Levofloxacin [Levaquin] 750 mg PO Q48H #2 tab 08/13/19 [Last Taken Unknown] Vancomycin HCl [Vancomycin] 125 mg PO Q6H #70 ml 08/13/19 [Last Taken Unknown] hydrALAZINE HCL [Apresoline] 50 mg PO Q8H #90 tab 08/13/19 [Last Taken Unknown] - History of Present Illness Narrative: patient presents to ed per ems with c/o dyspnea, dysuria, known hx copd, chf , is home dependant on o2 Timing: constant, getting worse Quality: moderate Activities at Onset: none Modifying Factors - (Improves): Present: other - nothing Modifying Factors - (Worsens): Present: exercise, urinating Associated Symptoms: Present: shortness of breath, other - suprapubic tenderness Prior Treatment: Present: recently seen, treated by physician Review of Systems - Review of Systems Constitutional: Present: See HPI, weakness, fatigue, malaise EYE: Present: no symptoms reported ENT: Present: no symptoms reported Respiratory: Present: See HPI, shortness of breath Cardiology: Present: no symptoms reported Gastrointestinal/Abdominal: Present: abdominal pain, eating less, drinking less Genitourinary: Present: See HPI, dysuria Musculoskeletal: Present: no symptoms reported Skin: Present: no symptoms reported Neurological: Present: no symptoms reported Endocrine: Present: no symptoms reported Hematologic/Lymphatic: Present: no symptoms reported Psych: Present: no symptoms reported All Other Systems: All systems neg except as marked Medical History (Last Reviewed 11/28/19 @ 07:50 by Nery Ruiz RN) Acute renal failure (ARF) Anemia Anxiety Atrial fibrillation CAD (coronary artery disease) COPD (chronic obstructive pulmonary disease) Chronic kidney disease Dehydration Depression Esophageal stricture GERD (gastroesophageal reflux disease) HTN (hypertension) 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 Osteoarthritis UTI (urinary tract infection) Surgical History: Surgical History (Last Reviewed 11/28/19 @ 07:50 by Nery Ruiz RN) H/O heart artery stent History of hysterectomy Previous back surgery Family History: Family History (Last Reviewed 11/28/19 @ 07:50 by Nery Ruiz, RN) Father Myocardial infarction Hypertension Mother Colon cancer Social History: (Last Reviewed 11/28/19 @ 07:50 by Nery Ruiz, RN) Social History: household members: children current occupational status: retired Service: No Tobacco: Smoking Status: Never smoker Alcohol: alcohol intake: never Substance Use: substance use type: does not use Dietary Habits: caffeine: Yes Personal Safety: victim of physical abuse: No victim of emotional abuse: No Physical Exam - Physical Exam General Appearance: Present: mild distress, anxious Head Exam: Present: normal inspection, no evidence of injury Eye Exam: Normal inspection: bilateral, PERRL: bilateral, EOMI: bilateral Ears, Nose, Throat: Present: normal ENT inspection, normal pharynx Neck: Present: normal inspection, nontender Respiratory: Present: rales, rhonchi Cardiovascular/Chest: Present: irregularly irregular Gastrointestinal/Abdominal: Present: normal bowel sounds, tenderness Back Exam: Present: normal inspection, normal range of motion, no CVA tenderness, no vertebral tenderness Extremity Exam: Present: normal inspection, non-tender, normal range of motion, no edema Neurological Exam: Present: alert, oriented, normal mood/affect, no motor/sensory deficits Skin Exam: Present: normal color, warm/dry Lymphatic Exam: Present: no adenopathy Progress - Date and Time Seen: Date and Time: 11/28/19 09:12 condition unchanged, case discussed with dr garcia, accepted for admission. at patient request remains a dnr - Results and Orders Patient's Lab Results:: I have reviewed the patient's lab results. - Vital Signs Patient's Vital Signs:: I have reviewed the patient's vital signs. Vital Signs: Vital Signs 11/28/19 07:44 11/28/19 08:13 Temperature 37.1 C Pulse Rate 94 96 Respiratory Rate 32 H Blood Pressure 199/101 H 185/97 H O2 Sat by Pulse Oximetry 96 - EKG EKG #1 EKG: NSR - X-Ray X-Ray #1 X-Ray: chest Interpretation: Interp. by me - chf, pulmonary edema - Progress/Reassessment Chief Complaint: Abdominal Pain Progress:: Unchanged - Transfer of Care Expected Disposition: Admit Plan - Plan Plan: to admit to observation Departure Clinical Impression: UTI (urinary tract infection), Hypertension, Congestive heart failure (CHF) - Departure Disposition: Short Term Hospital Inpatient Condition: Serious
[2019-11-28 08:39] LABS: Troponin I Less than 0.017 ng/mL (0.00-0.10)
[2019-11-28 08:40] LABS: ALT 16 U/L (19-67); AST 30 U/L (0-48); Albumin * 2.6 gm/dl (3.4-5.0); Alkaline Phosphatase * 145 U/L (50-170); Anion Gap 15.1 mmol/L (6.8-13.8); BNP * 30639 pg/mL (5-550); BUN/Creatinine Ratio 19.9 (9.0-21.6); Bilirubin, Total 0.3 mg/dL (0.0-1.1); Blood Urea Nitrogen 37 mg/dL (3-23); Ca. Corrected For Albumin 9.8 mg/dL (8.4-10.2); Carbon Dioxide 27.1 mmol/L (24-32.6); Chloride 106 mmol/L (97-106); Glucose * 139 mg/dL (70-110); Potassium 4.2 mmol/L (3.4-4.6); Sodium 144 mmol/L (132-142); Total Protein 7.4 gm/dL (6.2-8.2)
[2019-11-28 08:50] LABS: Urine Appearance Cloudy (CLEAR); Urine Bilirubin Negative (NEGATIVE); Urine Color Yellow; Urine Ketone Negative (NEGATIVE)
[2019-11-28 08:51] LABS: Urine Nitrite Positive (NEGATIVE); Urine Protein 100 mg/dL (NEGATIVE); Urine Specific Gravity 1.025 SP.GR. (1.005-1.010); Urine Urobilinogen Normal (NORMAL)
[2019-11-28 08:52] LABS: Urine Blood 150 /ul (NEGATIVE)
[2019-11-28 08:53] LABS: Urine Bacteria 4+; Urine RBC 0-5 /hpf (0-5); Urine WBC >50 /hpf (0-5)
[2019-11-28] MEDS ORDERED: LISINOPRIL 20 MG TABLET PO SCH (09:00)
[2019-11-28] MEDS ORDERED: FUROSEMIDE 10 MG/ML VIAL IV ONE ×2 (09:03→10:31)
[2019-11-28] MEDS ORDERED: cefTRIAXone SODIUM 1,000 MG/100 ML BAG IV ONE (09:04)
[2019-11-28] MEDS ORDERED: ONDANSETRON HCL/PF 2 MG/ML VIAL IV ONE (09:42)
[2019-11-28] MEDS ORDERED: ONDANSETRON HCL/PF 2 MG/ML VIAL ONE (09:42)
--- NOTE | 2019-11-28 10:33 | HP ---
Chief Complaint - Chief Complaint Date of Service: 11/28/19 Time of Service: 10:32 Chief Complaint: urinary incontinence, SOB History of Present Illness: Patient with past medical history of CHF, A. fib, dementia, rectovaginal fistula, chronic kidney disease, hypertension presented to the ED with weakness, dyspnea, and urinary incontinence. In the ED she was found to have a UTI with urinalysis showing nitrates, leuk esterase, 4+ bacteria. She also had a few loose stools and was tested for C. difficile, which is also positive. She denies recent hospitalizations, but does report multiple hospitalizations in the last year. Her chest x-ray shows bilateral pleural effusions, which were also present on her chest x-ray in August of this year. She uses oxygen at baseline and her current oxygenation is in the upper 90%. She does have a white count of 15.5. Lactate of 2.1, same on repeat. She is afebrile. She is tachypneic in the 30's, tachycardic in the lower 100's, and her blood pressure is elevated to 190/110. She received 20 mg IV lasix and labetolol in the ED. Medical History (Last Reviewed 11/28/19 @ 10:18 by Mahnaz Anthony RN) Acute renal failure (ARF) Anemia Anxiety Atrial fibrillation CAD (coronary artery disease) COPD (chronic obstructive pulmonary disease) Chronic kidney disease Dehydration Depression Esophageal stricture GERD (gastroesophageal reflux disease) HTN (hypertension) History 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 dilatation skilled nursing current use of anticoagulant therapy Osteoarthritis UTI (urinary tract infection) Surgical History: Surgical History (Last Reviewed 11/28/19 @ 10:19 by Mahnaz Anthony RN) H/O heart artery stent History of hysterectomy Previous back surgery Family History: Family History (Last Reviewed 11/28/19 @ 10:19 by Mahnaz Anthony RN) Father Myocardial infarction Hypertension Mother Colon cancer Social History: (Last Reviewed 11/28/19 @ 10:19 by Mahnaz Anthony RN) Social History: household members: children current occupational status: retired Service: No Tobacco: Smoking Status: Never smoker Alcohol: alcohol intake: never Substance Use: substance use type: does not use Dietary Habits: caffeine: Yes Personal Safety: victim of physical abuse: No victim of emotional abuse: No Review Of Systems (GEN) - Review of Systems Generalized/Overall Review: Present: Weakness Respiratory: Present: Shortness of Breath. Absent: Cough Cardiac: Absent: Chest Pain, Edema Abdominal: Present: Other - loose stools Genitourinary: Present: Burning, Incontinent Neurological: Present: Headache Skin: Present: No Symptoms Reported Immunizations: IMMUNIZATION HX Immunizations Up to Date Yes History of Influenza Vaccine Yes Hx Pneumococcal Vaccination No Allergies/Adverse Reactions: Allergies Allergy/AdvReac Type Severity Reaction Status Date / Time pravastatin AdvReac Mild Vomiting Verified 11/28/19 10:19 Home Medications: HOME MEDICATIONS Citalopram Hydrobromide [Celexa] 10 mg PO DAILY 04/07/18 [Last Taken 08/06/18] Pantoprazole Sodium [Protonix] 40 mg PO BID 04/07/18 [Last Taken 02/19/19 08:00] Furosemide [Lasix] 20 mg PO DAILY 01/17/19 [Last Taken 02/19/19 08:00] Acetaminophen [Tylenol] 650 mg PO Q6H PRN 01/24/19 [Last Taken Unknown] Lisinopril 20 mg PO DAILY 01/24/19 [Last Taken 02/19/19 08:00] Ondansetron HCl [Zofran] 4 mg PO Q6H PRN 01/24/19 [Last Taken Unknown] Aspirin [Aspirin Chewable] 81 mg PO DAILY 04/15/19 [Last Taken Unknown] hydrALAZINE HCL [Apresoline] 10 mg PO BID 04/15/19 [Last Taken Unknown] Atorvastatin Calcium 20 mg PO HS 07/24/19 [Last Taken Unknown] HYDROcodone/ACETAMINOPHEN [Hydrocodone-Acetamin 5-325 mg] 1 ea PO TID PRN 07/24/19 [Last Taken Unknown] Metoprolol Succinate [Toprol Xl] 100 mg PO BID 07/24/19 [Last Taken Unknown] Docusate Sodium [Colace] 100 mg PO DAILY PRN 08/08/19 [Last Taken Unknown] Potassium Chloride 40 meq PO BID 08/08/19 [Last Taken Unknown] Saccharomyces Boulardii [Florastor] 250 mg PO BID 08/08/19 [Last Taken Unknown] Levofloxacin [Levaquin] 750 mg PO Q48H #2 tab 08/13/19 [Last Taken Unknown] Vancomycin HCl [Vancomycin] 125 mg PO Q6H #70 ml 08/13/19 [Last Taken Unknown] hydrALAZINE HCL [Apresoline] 50 mg PO Q8H #90 tab 08/13/19 [Last Taken Unknown] Exam - Exam Vital Signs: Vital Signs - Last Taken Temp 37.1 C 11/28/19 07:44 Pulse 101 H 11/28/19 09:59 Resp 34 H 11/28/19 09:59 BP 188/94 H 11/28/19 09:59 Pulse Ox 96 11/28/19 09:59 Constitutional: Present: Alert, No distress, Elderly, Thin and frail Respiratory: Present: decreased breath sounds - bilateral bases. Absent: rales, rhonchi, wheezing Cardiovascular/Chest: Present: tachycardia Abdomen: Present: Normal bowel sounds, soft Extremity: Absent: lower extremity edema Eye contact: Present: cooperative, good eye contact Diagnostic Studies: Abnormal Lab Results 11/28/19 11/28/19 11/28/19 Range/Units 08:13 08:13 08:13 WBC 15.5 H (4.0-10.5) K/mm3 RBC 3.92 L (4.2-5.4) M/mm3 Hgb 10.3 L (12.5-16.0) gm/dL Hct 35.2 L (37.0-47.0) % MCH 26.3 L (27-31) pg MCHC 29.3 L (32-36) g/dl RDW 18.5 H (11.5-14.0) % Immature Gran % (Auto) 1.00 H (0.001-0.429) % Immature Gran # (Auto) 0.15 H (0.000-0.0310) K/mm3 Neutrophils % 87.9 H (42-75.0) % Lymphocytes % 5.7 L (20-51) % Neutrophils # 13.6 H (1.3-6.0) K/mm3 Lymphocytes # 0.88 L (1.5-3.5) k/mm3 Total CO2 (19.0-24.0) mmol/L Sodium 144 H (132-142) mmol/L Plasma Sodium 145 H (130-142) mmol/L Anion Gap 15.1 H (6.8-13.8) mmol/L BUN 37 H D (3-23) mg/dL Creatinine 1.86 H D (0.4-1.4) mg/dL Est GFR (Non-Af Amer) 27 L D (60-130) mL/min Random Glucose 139 H (70-110) mg/dL Lactic Acid, Venous 2.1 H (0.4-2.0) mmol/L ALT 16 L (19-67) U/L B-Natriuretic Peptide 70371 H (5-550) pg/mL Albumin 2.6 L (3.4-5.0) gm/dl Urine Protein (NEGATIVE) mg/dL Urine Blood (NEGATIVE) /ul Urine Nitrate (NEGATIVE) Prot Sulfosalicylic Acd (0) mg/dL Ur Leukocyte Esterase (NEGATIVE) /ul Urine WBC (0-5) /hpf Urine Bacteria (NONE) 11/28/19 11/28/19 Range/Units 08:25 08:36 WBC (4.0-10.5) K/mm3 RBC (4.2-5.4) M/mm3 Hgb (12.5-16.0) gm/dL Hct (37.0-47.0) % MCH (27-31) pg MCHC (32-36) g/dl RDW (11.5-14.0) % Immature Gran % (Auto) (0.001-0.429) % Immature Gran # (Auto) (0.000-0.0310) K/mm3 Neutrophils % (42-75.0) % Lymphocytes % (20-51) % Neutrophils # (1.3-6.0) K/mm3 Lymphocytes # (1.5-3.5) k/mm3 Total CO2 25.3 H (19.0-24.0) mmol/L Sodium (132-142) mmol/L Plasma Sodium (130-142) mmol/L Anion Gap (6.8-13.8) mmol/L BUN (3-23) mg/dL Creatinine (0.4-1.4) mg/dL Est GFR (Non-Af Amer) (60-130) mL/min Random Glucose (70-110) mg/dL Lactic Acid, Venous (0.4-2.0) mmol/L ALT (19-67) U/L B-Natriuretic Peptide (5-550) pg/mL Albumin (3.4-5.0) gm/dl Urine Protein 100 H (NEGATIVE) mg/dL Urine Blood 150 H (NEGATIVE) /ul Urine Nitrate Positive H (NEGATIVE) Prot Sulfosalicylic Acd 4+ H (0) mg/dL Ur Leukocyte Esterase 500 H (NEGATIVE) /ul Urine WBC >50 H (0-5) /hpf Urine Bacteria 4+ H (NONE) Laboratory Results WBC 15.5 K/mm3 (4.0-10.5) H 11/28/19 08:13 RBC 3.92 M/mm3 (4.2-5.4) L 11/28/19 08:13 Hgb 10.3 gm/dL (12.5-16.0) L 11/28/19 08:13 Hct 35.2 % (37.0-47.0) L 11/28/19 08:13 MCV 89.8 fl (78-100) 11/28/19 08:13 MCH 26.3 pg (27-31) L 11/28/19 08:13 MCHC 29.3 g/dl (32-36) L 11/28/19 08:13 RDW 18.5 % (11.5-14.0) H 11/28/19 08:13 Plt Count 322 K/mm3 (150-450) 11/28/19 08:13 MPV 9.2 fl (8-12.5) 11/28/19 08:13 Immature Gran % (Auto) 1.00 % (0.001-0.429) H 11/28/19 08:13 Immature Gran # (Auto) 0.15 K/mm3 (0.000-0.0310) H 11/28/19 08:13 Neutrophils % 87.9 % (42-75.0) H 11/28/19 08:13 Lymphocytes % 5.7 % (20-51) L 11/28/19 08:13 Monocytes % 3.4 % (0.0-9) 11/28/19 08:13 Eosinophils % 1.2 % (0.0-3.0) 11/28/19 08:13 Basophils % 0.8 % (0.0-1.0) 11/28/19 08:13 Nucleated RBC % 0.0 k/mm3 (0-1) 11/28/19 08:13 Neutrophils # 13.6 K/mm3 (1.3-6.0) H 11/28/19 08:13 Lymphocytes # 0.88 k/mm3 (1.5-3.5) L 11/28/19 08:13 Monocytes # 0.5 k/mm3 (0.0-1.0) 11/28/19 08:13 Eosinophils # 0.2 k/mm3 (0.0-0.7) 11/28/19 08:13 Absolute Basophils 0.1 k/mm3 (0.0-0.1) 11/28/19 08:13 pCO2 40.4 mmHg (32.0-45.0) 11/28/19 08:36 pO2 100.1 mmHg (83.0-108.0) 11/28/19 08:36 HCO3 24.1 mmol/L (21.0-28.0) 11/28/19 08:36 Total CO2 25.3 mmol/L (19.0-24.0) H 11/28/19 08:36 Base Excess -0.8 mmol/L (-2.0-3.0) 11/28/19 08:36 ABG pH 7.39 (7.35-7.45) 11/28/19 08:36 ABG O2 Sat (Measured) 97.5 % (94.0-98.0) 11/28/19 08:36 Sodium 144 mmol/L (132-142) H 11/28/19 08:13 Plasma Sodium 145 mmol/L (130-142) H 11/28/19 08:13 Potassium 4.2 mmol/L (3.4-4.6) 11/28/19 08:13 Chloride 106 mmol/L (97-106) 11/28/19 08:13 Carbon Dioxide 27.1 mmol/L (24-32.6) 11/28/19 08:13 Anion Gap 15.1 mmol/L (6.8-13.8) H 11/28/19 08:13 BUN 37 mg/dL (3-23) H D 11/28/19 08:13 Creatinine 1.86 mg/dL (0.4-1.4) H D 11/28/19 08:13 Est GFR (Non-Af Amer) 27 mL/min (60-130) L D 11/28/19 08:13 BUN/Creatinine Ratio 19.9 (9.0-21.6) 11/28/19 08:13 Random Glucose 139 mg/dL (70-110) H 11/28/19 08:13 Lactic Acid, Venous 2.1 mmol/L (0.4-2.0) H 11/28/19 08:13 Calcium 9.0 mg/dL (7.9-10.9) 11/28/19 08:13 Calcium Adj for Albumin 9.8 mg/dL (8.4-10.2) 11/28/19 08:13 Total Bilirubin 0.3 mg/dL (0.0-1.1) 11/28/19 08:13 AST 30 U/L (0-48) 11/28/19 08:13 ALT 16 U/L (19-67) L 11/28/19 08:13 Alkaline Phosphatase 145 U/L (50-170) 11/28/19 08:13 Troponin I Less than 0.017 ng/mL (0.00-0.10) 11/28/19 08:13 B-Natriuretic Peptide 81773 pg/mL (5-550) H 11/28/19 08:13 Total Protein 7.4 gm/dL (6.2-8.2) 11/28/19 08:13 Albumin 2.6 gm/dl (3.4-5.0) L 11/28/19 08:13 Urine Color Yellow 11/28/19 08:25 Urine Appearance Cloudy (CLEAR) 11/28/19 08:25 Urine pH 6.0 pH (5.0-7.0) 11/28/19 08:25 Ur Specific [place] 1.025 SP.GR. (1.005-1.010) 11/28/19 08:25 Urine Protein 100 mg/dL (NEGATIVE) H 11/28/19 08:25 Urine Glucose (UA) Negative mg/dL (NEGATIVE) 11/28/19 08:25 Urine Ketones Negative mg/dL (NEGATIVE) 11/28/19 08:25 Urine Blood 150 /ul (NEGATIVE) H 11/28/19 08:25 Urine Nitrate Positive (NEGATIVE) H 11/28/19 08:25 Urine Bilirubin Negative mg/dl (NEGATIVE) 11/28/19 08:25 Prot Sulfosalicylic Acd 4+ mg/dL (0) H 11/28/19 08:25 Urine Urobilinogen Normal EU/dl (NORMAL) 11/28/19 08:25 Ur Leukocyte Esterase 500 /ul (NEGATIVE) H 11/28/19 08:25 Urine RBC 0-5 /hpf (0-5) 11/28/19 08:25 Urine WBC >50 /hpf (0-5) H 11/28/19 08:25 Ur Epithelial Cells None seen /hpf (0-5) 11/28/19 08:25 Urine Bacteria 4+ (NONE) H 11/28/19 08:25 Urine Culture Comments Culture to follow 11/28/19 08:25 Assessment/Plan - Assessment/Plan (1) Pleural effusion Assessment: We will administer an additional 20 mg dose of IV Lasix and reassess her breathing status. She is DNR/DNI. Problem: Chronic (2) C. difficile colitis Assessment: She has had multiple episodes of C. difficile, and I am not sure she is completely clearing the infection. We will continue 125 mg p.o. vancomycin qid for 14 days, followed by 125 mg vanc bid for 7 days, then 125 mg vanc daily for 7 days, then 125 mg vanc every other day for 2-8 weeks, depending on her clinical status. Problem: Acute (3) UTI (urinary tract infection) Assessment: Chart review shows that it has been previously recommended that she not get antibiotics unless she is significantly symptomatic. She has a rectovaginal fistula, and she likely will have an ongoing UTI. She does not want to have a procedure to fix the fistula. The repeated antibiotics are contributing to her C. difficile. I am not sure that her current presentation is different from her baseline, so she could potentially go home tomorrow. However since she was uncomfortable enough to come to the ER, will treat for her UTI with Rocephin. Lactate peaked at 2.1, no need for continued checks. She does not appear acutely ill. With her elevated WBC, tachycardia, tachypnea, and UTI, she technically meets sepsis criteria, however these can be explained by her other medical problems. Procalcitonin pending. Problem: Resolved Qualifiers: Urinary tract infection type: acute cystitis Hematuria presence: without hematuria Qualified Code(s): N30.00 - Acute cystitis without hematuria (4) Dyspnea Assessment: Her dyspnea is acute on chronic. She uses oxygen at all times. She is afebrile and her oxygenation is in the upper 90s. Likely due to her pleural effusion. I am not strongly suspicious for COVID since we have an alternate diagnosis, but if she does not improve with Lasix, will swab her. Problem: Acute (5) Hypertension Assessment: Her blood pressure is very elevated today, however her home blood pressure medications include hydralazine, which is known to have rebound effect. We will continue home hydralazine and lisinopril. Problem: Chronic Qualifiers: (6) CKD (chronic kidney disease) stage 3, GFR 30-59 ml/min Assessment: Since I am giving her Lasix for her pleural effusion, I would prefer not to give her IV fluids. She does have an acute on chronic kidney injury, with her GFR of 27 and creatinine of 1.86. Recheck in a.m., and if no improvement or worsen, will give gentle fluids. It may improve with proper p.o. hydration. Problem: Chronic (7) Acute on chronic renal insufficiency Problem: Acute (8) Colovaginal fistula Problem: Chronic (9) Dementia Assessment: Dementia listed on her problem list, but she was able to answer questions appropriately. Problem: Chronic Qualifiers: Dementia type: Alzheimer's disease Alzheimer's disease onset: late-onset
[2019-11-28] MEDS: VANCOMYCIN HCL 50 MG/ML BTL PO SCH ×3 (11:46→22:58)
[2019-11-28] MEDS ORDERED: DOCUSATE SODIUM 100 MG CAPSULE PO PRN (11:47)
[2019-11-28] MEDS ORDERED: ACETAMINOPHEN 325 MG TABLET PO PRN (11:47)
[2019-11-28] MEDS ORDERED: hydrALAZINE HCL 10 MG TABLET PO SCH (12:00)
[2019-11-28] MEDS: HYDROcodone/ACETAMINOPHEN 1 EACH TABLET PO PRN ×2 (12:04→18:42)
[2019-11-28] MEDS: ONDANSETRON HCL 4 MG TABLET PO PRN (12:05)
[2019-11-28] MEDS: POTASSIUM CHLORIDE 40 MEQ/15 ML LIQUID PO SCH ×2 (12:05→16:56)
[2019-11-28] MEDS: LISINOPRIL 20 MG TABLET PO SCH (12:06)
[2019-11-28] MEDS: METOPROLOL SUCCINATE 100 MG TABLET.SA PO SCH ×2 (12:06→21:06)
[2019-11-28] MEDS: PANTOPRAZOLE SODIUM 40 MG TABLET.EC PO SCH ×2 (12:06→20:00)
[2019-11-28] MEDS: hydrALAZINE HCL 50 MG TABLET PO SCH ×2 (12:07→20:00)
[2019-11-28] MEDS ORDERED: ROSUVASTATIN CALCIUM 10 MG TABLET PO SCH (21:00)
[2019-11-29] MEDS: hydrALAZINE HCL 50 MG TABLET PO SCH ×2 (04:33→12:22)
[2019-11-29] MEDS: VANCOMYCIN HCL 50 MG/ML BTL PO SCH ×3 (04:34→16:32)
[2019-11-29] MEDS: PANTOPRAZOLE SODIUM 40 MG TABLET.EC PO SCH (07:34)
[2019-11-29] MEDS: POTASSIUM CHLORIDE 40 MEQ/15 ML LIQUID PO SCH (08:24)
[2019-11-29] MEDS: LISINOPRIL 20 MG TABLET PO SCH (08:25)
[2019-11-29] MEDS: METOPROLOL SUCCINATE 100 MG TABLET.SA PO SCH (08:33)
[2019-11-29] MEDS ORDERED: CITALOPRAM HYDROBROMIDE 10 MG TABLET PO SCH (09:00)
[2019-11-29] MEDS: ONDANSETRON HCL 4 MG TABLET PO PRN (10:44)
--- NOTE | 2019-11-29 11:49 | DS ---
(1) Pleural effusion Problem: Chronic (2) C. difficile colitis Problem: Acute (3) UTI (urinary tract infection) Problem: Resolved Qualifiers: Urinary tract infection type: acute cystitis Hematuria presence: without hematuria Qualified Code(s): N30.00 - Acute cystitis without hematuria (4) Dyspnea Problem: Chronic (5) Hypertension Problem: Chronic Qualifiers: (6) CKD (chronic kidney disease) stage 3, GFR 30-59 ml/min Problem: Chronic (7) Acute on chronic renal insufficiency Problem: Chronic (8) Colovaginal fistula Problem: Chronic (9) Dementia Problem: Chronic Qualifiers: Dementia type: Alzheimer's disease Alzheimer's disease onset: late-onset Date of Discharge:: 11/29/19 Hospital Course: Patient with PMHx of rectovaginal fistula, CHF on 2 L home O2, atrial fibrillation, dementia, CKD, hypertension presented with weakness and increased work of breathing. UA was positive for leukocyte esterase, nitrates, and 3+ bacteria and she was started on Rocephin. She also had loose stools in the ED, and c diff was positive, so she was started on 125 mg vancomycin qid. Due to her recurrent c diff, she will be DC'd on an extended vancomycin regimen. She had pleural effusions on her CXR, which were also present in the past. Her breathing improved with 40 mg IV lasix, and she did not require additional O2 from her baseline. She was discharged home after an overnight stay. Discussed her several comorbidities and multiple recent admissions. She again stated she would not want surgery to repair her colorectal fistula. It was suggested to her in the past that she will consistently have bacteria in her urine due to her fistula, and recommend only treating if she is significantly symptomatic. She has repeated c diff infections, likely from the multiple antibiotics. She is a hospice candidate, and this was discussed with her. She would like to consider a hospice referral. Per her son, this has been mentioned with her PCP in the past. Will resume her home health services. Procedures Performed: none Results and Findings: Pending Mircobiology Results 11/28/19 08:32 Blood Blood Culture - Preliminary NO GROWTH 24 HOURS 11/28/19 08:13 Blood Blood Culture - Preliminary NO GROWTH 24 HOURS 11/28/19 08:30 Urine,Clean Catch Urine Culture - Preliminary Gram Negative Bacilli Lab Pending Results 11/28/19 08:13: WBC 15.5 H, RBC 3.92 L, Hgb 10.3 L, Hct 35.2 L, MCV 89.8, MCH 26.3 L, MCHC 29.3 L, RDW 18.5 H, Plt Count 322, MPV 9.2, Immature Gran % (Auto) 1.00 H, Immature Gran # (Auto) 0.15 H, Neutrophils % 87.9 H, Lymphocytes % 5.7 L, Monocytes % 3.4, Eosinophils % 1.2, Basophils % 0.8, Nucleated RBC % 0.0, Neutrophils # 13.6 H, Lymphocytes # 0.88 L, Monocytes # 0.5, Eosinophils # 0.2, Absolute Basophils 0.1 11/28/19 08:13: Sodium 144 H, Plasma Sodium 145 H, Potassium 4.2, Chloride 106, Carbon Dioxide 27.1, Anion Gap 15.1 H, BUN 37 H D, Creatinine 1.86 H D, Est GFR (Non-Af Amer) 27 L D, BUN/Creatinine Ratio 19.9, Random Glucose 139 H, Calcium 9.0, Calcium Adj for Albumin 9.8, Total Bilirubin 0.3, AST 30, ALT 16 L, Alkaline Phosphatase 145, Troponin I Less than 0.017, B-Natriuretic Peptide 87580 H, Total Protein 7.4, Albumin 2.6 L 11/28/19 08:13: Lactic Acid, Venous 2.1 H 11/28/19 08:13: Procalcitonin 0.31 11/28/19 08:25: Urine Color Yellow, Urine Appearance Cloudy, Urine pH 6.0, Ur Specific [place] 1.025, Urine Protein 100 H, Urine Glucose (UA) Negative, Urine Ketones Negative, Urine Blood 150 H, Urine Nitrate Positive H, Urine Bilirubin Negative, Prot Sulfosalicylic Acd 4+ H, Urine Urobilinogen Normal, Ur Leukocyte Esterase 500 H, Urine RBC 0-5, Urine WBC >50 H, Ur Epithelial Cells None seen, Urine Bacteria 4+ H, Urine Culture Comments Culture to follow 11/28/19 08:36: pCO2 40.4, pO2 100.1, HCO3 24.1, Total CO2 25.3 H, Base Excess - 0.8, ABG pH 7.39, ABG O2 Sat (Measured) 97.5 11/28/19 08:52: Stl C.difficile Tox A&B Positive H 11/28/19 10:52: Lactic Acid, Venous 2.1 H Discharge Location: Home Disposition: Home Health Service Condition: Serious Discharge Activity: Activity as tolerated Discharge Diet: General/regular food Referrals: Lonnie Rice MD [Primary Care Provider] - One Week Prescriptions (Any new or edited meds): Cefdinir 300 mg PO BID #6 cap Transmission Status: Pending to [id number] guaiFENesin [Mucinex] 600 mg PO BID PRN #14 tablet.sa PRN Reason: Cough Transmission Status: Pending to [id number] Vancomycin HCl [Vancomycin] 125 mg PO Q6H #2 btl Transmission Status: Pending to [id number] Lisinopril [Zestril] 20 mg PO DAILY #30 tab Transmission Status: Pending to [id number] Complete Home Medications List: Complete Home Medication List: Citalopram Hydrobromide [Celexa] 10 mg PO DAILY 04/07/18 Pantoprazole Sodium [Protonix] 40 mg PO BID 04/07/18 Furosemide [Lasix] 20 mg PO BID 01/17/19 Acetaminophen [Tylenol] 650 mg PO Q6H PRN 01/24/19 Ondansetron HCl [Zofran] 4 mg PO Q6H PRN 01/24/19 Aspirin [Aspirin Chewable] 81 mg PO DAILY 04/15/19 Atorvastatin Calcium 20 mg PO HS 07/24/19 HYDROcodone/ACETAMINOPHEN [Hydrocodone-Acetamin 5-325 mg] 1 ea PO TID PRN 07/24/19 Metoprolol Succinate [Toprol Xl] 100 mg PO BID 07/24/19 Docusate Sodium [Colace] 100 mg PO DAILY PRN 08/08/19 Saccharomyces Boulardii [Florastor] 250 mg PO BID 08/08/19 Levofloxacin [Levaquin] 750 mg PO Q48H #2 tab 08/13/19 hydrALAZINE HCL [Apresoline] 50 mg PO Q8H #90 tab 08/13/19 LORazepam [Ativan] 0.5 mg PO Q6H PRN 11/28/19 Lisinopril [Zestril] 40 mg PO DAILY 11/28/19 Meclizine HCl 12.5 mg PO Q6H PRN 11/28/19 Mirtazapine [Remeron] 15 mg PO HS 11/28/19 Potassium Chloride 10 meq PO BID 11/28/19 Vancomycin HCl 125 mg PO Q72H 11/28/19 traMADol HCL [Tramadol HCl] 50 mg PO Q6H PRN 11/28/19 Cefdinir 300 mg PO BID #6 cap 11/29/19 Lisinopril [Zestril] 20 mg PO DAILY #30 tab 11/29/19 Vancomycin HCl [Vancomycin] 125 mg PO Q6H #2 btl 11/29/19 guaiFENesin [Mucinex] 600 mg PO BID PRN #14 tablet.sa 11/29/19
[2019-11-29] MEDS: HYDROcodone/ACETAMINOPHEN 1 EACH TABLET PO PRN (12:21)
[2019-11-29 17:37] VITALS: BP 165/94
== END 2019-11-29 17:30 | disposition home health service (06) ==
LOC: ER 07:41 → MS 07:41
PROVIDERS: ADMIT Family Medicine; ATTEND Family Medicine
DX: N30.00 Acute cystitis without hematuria; K63.2 Fistula of intestine; N18.3 Chronic kidney disease, stage 3 (moderate); F02.80 Dementia in other diseases classified elsewhere, unspecified severity, without behavioral disturbance, psychotic disturbance, mood disturbance, and anxiety; G30.1 Alzheimer's disease with late onset; J90 Pleural effusion, not elsewhere classified; I13.0 Hypertensive heart and chronic kidney disease with heart failure and stage 1 through stage 4 chronic kidney disease, or unspecified chronic kidney disease; A04.71 Enterocolitis due to Clostridium difficile, recurrent; N17.9 Acute kidney failure, unspecified
CPT/HCPCS: 36415; 36600; 71010; 71045; 80053; 81001; 82803; 83519; 83605; 83880; 84145; 84484; 85025; 87040; 87077; 87086; 87186; 87493; 93005; 94760; 96365; 96366; 96375; 96376; 97161; 99283; 99285; G0378; J2405

== ENCOUNTER 2019-12-09 20:49 | Observation (INO) ==
--- NOTE | 2019-12-09 20:56 | ERNOTE ---
Dyspnea - General Presenting Symptoms: shortness of breath Time Seen by Provider: 12/09/19 20:51 Source: patient Exam Limitations: no limitations - Immun/Allergies/Home Medications Immunizations: IMMUNIZATION HX Immunizations Up to Date Yes History of Influenza Vaccine Yes Hx Pneumococcal Vaccination No Allergies/Adverse Reactions: Allergies pravastatin Adverse Reaction (Mild, Verified 12/09/19 21:00) Vomiting Home Medications: HOME MEDICATIONS Citalopram Hydrobromide [Celexa] 10 mg PO DAILY 04/07/18 [Last Taken 08/06/18] Pantoprazole Sodium [Protonix] 40 mg PO BID 04/07/18 [Last Taken 02/19/19 08:00] Furosemide [Lasix] 20 mg PO BID 01/17/19 [Last Taken 02/19/19 08:00] Acetaminophen [Tylenol] 650 mg PO Q6H PRN 01/24/19 [Last Taken Unknown] Ondansetron HCl [Zofran] 4 mg PO Q6H PRN 01/24/19 [Last Taken Unknown] Aspirin [Aspirin Chewable] 81 mg PO DAILY 04/15/19 [Last Taken Unknown] Atorvastatin Calcium 20 mg PO HS 07/24/19 [Last Taken Unknown] HYDROcodone/ACETAMINOPHEN [Hydrocodone-Acetamin 5-325 mg] 1 ea PO TID PRN 07/24/19 [Last Taken Unknown] Metoprolol Succinate [Toprol Xl] 100 mg PO BID 07/24/19 [Last Taken Unknown] Docusate Sodium [Colace] 100 mg PO DAILY PRN 08/08/19 [Last Taken Unknown] Saccharomyces Boulardii [Florastor] 250 mg PO BID 08/08/19 [Last Taken Unknown] Levofloxacin [Levaquin] 750 mg PO Q48H #2 tab 08/13/19 [Last Taken Unknown] hydrALAZINE HCL [Apresoline] 50 mg PO Q8H #90 tab 08/13/19 [Last Taken Unknown] LORazepam [Ativan] 0.5 mg PO Q6H PRN 11/28/19 [Last Taken Unknown] Lisinopril [Zestril] 40 mg PO DAILY 11/28/19 [Last Taken Unknown] Meclizine HCl 12.5 mg PO Q6H PRN 11/28/19 [Last Taken Unknown] Mirtazapine [Remeron] 15 mg PO HS 11/28/19 [Last Taken Unknown] Potassium Chloride 10 meq PO BID 11/28/19 [Last Taken Unknown] traMADol HCL [Tramadol HCl] 50 mg PO Q6H PRN 11/28/19 [Last Taken Unknown] Cefdinir 300 mg PO BID #6 cap 11/29/19 [Last Taken Unknown] Lisinopril [Zestril] 20 mg PO DAILY #30 tab 11/29/19 [Last Taken Unknown] Vancomycin HCl 125 mg PO QID #84 cap 11/29/19 [Last Taken Unknown] Vancomycin HCl [Vancomycin] 125 mg PO Q6H #2 btl 11/29/19 [Last Taken Unknown] guaiFENesin [Mucinex] 600 mg PO BID PRN #14 tablet.sa 11/29/19 [Last Taken Unknown] - History of Present Illness Narrative: Pt has been feeling "crummy" for a few days and has increasing abdominal pain in the LLQ. She has been getting more short of breath throughout the day. She usually has 2-4 L / nc at home. She removed her O2 just prior to EMS arrival and was 82% on RA when they arrived. She was given albuterol per neb by EMS en route and is feeling a litttle better. Severity: moderate Treatment FIRST SAMPLER: paramedics, albuterol Review of Systems - Review of Systems Constitutional: Present: recent illness. Absent: fever, chills - c-diff Respiratory: Present: See HPI, shortness of breath, wheezing Gastrointestinal/Abdominal: Present: See HPI, abdominal pain Musculoskeletal: Absent: back pain, muscle pain Medical History (Last Reviewed 12/09/19 @ 21:13 by Reji Rogers DO) Acute renal failure (ARF) Anemia Anxiety Atrial fibrillation CAD (coronary artery disease) COPD (chronic obstructive pulmonary disease) Chronic kidney disease Dehydration Depression Esophageal stricture GERD (gastroesophageal reflux disease) HTN (hypertension) History 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 dilatation skilled nursing current use of anticoagulant therapy Osteoarthritis UTI (urinary tract infection) Surgical History: Surgical History (Last Reviewed 12/09/19 @ 21:13 by Reji Rogers DO) H/O heart artery stent History of hysterectomy Previous back surgery Family History: Family History (Last Reviewed 12/09/19 @ 21:13 by Reji Rogers DO) Father Myocardial infarction Hypertension Mother Colon cancer Social History: (Last Reviewed 12/09/19 @ 21:13 by Reji Rogers DO) Social History: household members: children current occupational status: retired Service: No Tobacco: Smoking Status: Never smoker Alcohol: alcohol intake: never Substance Use: substance use type: does not use Dietary Habits: caffeine: Yes Personal Safety: victim of physical abuse: No victim of emotional abuse: No Physical Exam - Physical Exam General Appearance: Present: wd/wn, alert, no apparent distress Head Exam: Present: normal inspection, no evidence of injury Neck: Present: normal inspection, nontender, supple Respiratory: Present: no respiratory distress, rales - mild throughout Cardiovascular/Chest: Present: regular rate, rhythm, no murmur Gastrointestinal/Abdominal: Present: normal bowel sounds, nontender, nondistended, soft Back Exam: Present: no vertebral tenderness Extremity Exam: Present: normal inspection, normal range of motion, no edema Neurological Exam: Present: alert, oriented, normal mood/affect Skin Exam: Present: normal color, warm/dry Progress - Results and Orders Patient's Lab Results:: I have reviewed the patient's lab results. - Vital Signs Patient's Vital Signs:: I have reviewed the patient's vital signs. - EKG EKG #1 EKG: NSR, premature ventricular contraction, nonspecific ST T wave changes EKG read: Interp. by me - X-Ray X-Ray #1 X-Ray: chest Interpretation: Interp. by me X-ray Comments: Pleural effusion with some mild pulmonary edema on the left. Right lower lobe pneumonia. X-Ray #2 X-Ray: abdomen Interpretation: Interp. by me X-ray Comments: Nonspecific bowel gas pattern. No evidence of obstruction. No free air. Significant scoliosis noted. - Progress/Reassessment Progress:: Improved Progress Note-Subjective: Spoke with the patient she states she has no abdominal pain at this time. Shortness of breath is improving. I discussed admission with her and patient is agreeable to that plan 12/09/19 23:[address] Molina he agrees with admission. Departure Clinical Impression: CHF (congestive heart failure) Qualifiers: Heart failure type: combined systolic and diastolic Heart failure chronicity: acute on chronic Qualified Code(s): I50.43 - Acute on chronic combined systolic (congestive) and diastolic (congestive) heart failure Pneumonia Qualifiers: Pneumonia type: due to unspecified organism Laterality: right Lung location: lower lobe of lung Qualified Code(s): J18.9 - Pneumonia, unspecified organism - Departure Disposition: Still a patient Condition: Stable
[2019-12-09 21:17] LABS: Hematocrit 39.8 % (37.0-47.0); Hemoglobin 11.7 gm/dL (12.5-16.0); Mean Corpuscular Hemoglobin 27.9 pg (27-31); Mean Corpuscular Hgb Conc 29.4 g/dl (32-36); Mean Platelet Volume 9.7 fl (8-12.5); Neutrophil % 87.3 % (42-75.0); Platelet Count 292 K/mm3 (150-450); Red Blood Count 4.19 M/mm3 (4.2-5.4); Red Cell Distribution Width 23.5 % (11.5-14.0); White Blood Count 14.9 K/mm3 (4.0-10.5)
[2019-12-09 21:34] LABS: ALT 16 U/L (19-67); AST 28 U/L (0-48); Albumin * 2.7 gm/dl (3.4-5.0); Alkaline Phosphatase * 171 U/L (50-170); Amylase * 61 U/L (25-115); Anion Gap 17.1 mmol/L (6.8-13.8); BNP * Greater than 35000 pg/mL (5-550); BUN/Creatinine Ratio 19.3 (9.0-21.6); Bilirubin, Total 0.2 mg/dL (0.0-1.1); Blood Urea Nitrogen 40 mg/dL (3-23); Ca. Corrected For Albumin 9.4 mg/dL (8.4-10.2); Calcium * 8.7 mg/dL (7.9-10.9); Carbon Dioxide 25.2 mmol/L (24-32.6); Chloride 105 mmol/L (97-106); Glucose * 159 mg/dL (70-110); Lipase 22 U/L (73-393); Potassium 5.3 mmol/L (3.4-4.6); Sodium 142 mmol/L (132-142); Total Protein 7.6 gm/dL (6.2-8.2); Troponin I Less than 0.017 ng/mL (0.00-0.10)
[2019-12-09] MEDS ORDERED: cefTRIAXone SODIUM 1,000 MG/100 ML BAG IV ONE (23:24)
[2019-12-09] MEDS ORDERED: FUROSEMIDE 10 MG/ML VIAL IV ONE (23:29)
[2019-12-09] MEDS: NORMAL SALINE 1,000 ML IV PRN (23:59)
[2019-12-10] MEDS ORDERED: ONDANSETRON HCL/PF 2 MG/ML VIAL IV PRN (00:48)
[2019-12-10] MEDS: METOPROLOL SUCCINATE 100 MG TABLET.SA PO SCH ×2 (01:12→09:22)
[2019-12-10] MEDS: hydrALAZINE HCL 50 MG TABLET PO SCH ×3 (01:13→16:36)
[2019-12-10] MEDS: NORMAL SALINE 1,000 ML IV PRN (02:14)
[2019-12-10] MEDS: HYDROcodone/ACETAMINOPHEN 1 EACH TABLET PO PRN ×2 (03:19→10:53)
[2019-12-10] MEDS ORDERED: ONDANSETRON HCL 4 MG TABLET PO PRN (08:07)
[2019-12-10] MEDS ORDERED: DOCUSATE SODIUM 100 MG CAPSULE PO PRN (08:07)
[2019-12-10] MEDS ORDERED: ACETAMINOPHEN 325 MG TABLET PO PRN (08:07)
[2019-12-10] MEDS ORDERED: LORazepam 0.5 MG TABLET PO PRN (08:07)
[2019-12-10] MEDS ORDERED: MECLIZINE HCL 12.5 MG TABLET PO PRN (08:07)
[2019-12-10] MEDS ORDERED: HYDROcodone/ACETAMINOPHEN 1 EACH TABLET PO PRN (08:07)
[2019-12-10] MEDS ORDERED: hydrALAZINE HCL 50 MG TABLET PO SCH (08:15)
[2019-12-10 08:43] LABS: Hematocrit 35.1 % (37.0-47.0); Hemoglobin 10.3 gm/dL (12.5-16.0); Mean Cell Volume 94.4 fl (78-100); Mean Corpuscular Hemoglobin 27.7 pg (27-31); Mean Corpuscular Hgb Conc 29.3 g/dl (32-36); Neutrophil # 7.7 K/mm3 (1.3-6.0); Neutrophil % 83.6 % (42-75.0); Platelet Count 241 K/mm3 (150-450); Red Blood Count 3.72 M/mm3 (4.2-5.4); Red Cell Distribution Width 23.3 % (11.5-14.0); White Blood Count 9.3 K/mm3 (4.0-10.5)
[2019-12-10] MEDS ORDERED: MAGNESIUM CITRATE 300 ML BTL PO ONE (08:43)
[2019-12-10 08:56] LABS: Albumin * 2.4 gm/dl (3.4-5.0); Anion Gap 12.7 mmol/L (6.8-13.8); BUN/Creatinine Ratio 18.8 (9.0-21.6); Bilirubin, Total 0.3 mg/dL (0.0-1.1); Ca. Corrected For Albumin 9.4 mg/dL (8.4-10.2); Calcium * 8.4 mg/dL (7.9-10.9); Carbon Dioxide 27.4 mmol/L (24-32.6); Potassium 5.1 mmol/L (3.4-4.6); Total Protein 6.8 gm/dL (6.2-8.2)
[2019-12-10] MEDS ORDERED: POTASSIUM CHLORIDE 10 MEQ PO SCH (09:00)
[2019-12-10] MEDS ORDERED: FUROSEMIDE 20 MG TABLET PO SCH (09:00)
[2019-12-10] MEDS ORDERED: SACCHAROMYCES BOULARDII 250 MG CAPSULE PO SCH (09:00)
[2019-12-10] MEDS ORDERED: ASPIRIN 81 MG TAB.CHEW PO SCH (09:00)
[2019-12-10] MEDS ORDERED: LISINOPRIL 40 MG TABLET PO SCH (09:00)
[2019-12-10] MEDS ORDERED: CITALOPRAM HYDROBROMIDE 10 MG TABLET PO SCH (09:00)
[2019-12-10] MEDS ORDERED: PANTOPRAZOLE SODIUM 40 MG TABLET.EC PO SCH (09:00)
[2019-12-10] MEDS ORDERED: METOPROLOL SUCCINATE 100 MG TABLET.SA PO SCH (09:00)
[2019-12-10] MEDS: VANCOMYCIN HCL 50 MG/ML BTL PO SCH ×2 (09:23→16:36)
[2019-12-10 16:42] VITALS: BP 151/92
--- NOTE | 2019-12-10 17:44 | HPDIS ---
Chief Complaint - Chief Complaint Date of Service: 12/10/19 Time of Service: 08:15 Chief Complaint: Abdominal discomfort, constipation History of Present Illness: Ilana is an 84yo female with PMH of recurrent C. Diff who had just completed her vancomycin taper earlier this week. She reports she has not been having bowel movement every day. She feels constipated and bowel movements are hard. She is not having any loose stools like when she had C. Diff. She denies fever, shortness of breath, blood in stool, or vomiting. She had abdominal xray in the ER which showed stool retention. She had a chest xray that showed pulmonary effusions and atelectasis. She had BNP of 35,000. She has chronic heart failure and BNP runs significantly elevated. She does not feel her breathing is different than usual. Medical History (Last Reviewed 12/10/19 @ 06:37 by Mahnaz Anthony RN) Acute renal failure (ARF) Anemia Anxiety Atrial fibrillation CAD (coronary artery disease) COPD (chronic obstructive pulmonary disease) Chronic kidney disease Dehydration Depression Esophageal stricture GERD (gastroesophageal reflux disease) HTN (hypertension) History 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 dilatation [employer] current use of anticoagulant therapy Osteoarthritis UTI (urinary tract infection) Surgical History: Surgical History (Last Reviewed 12/10/19 @ 06:37 by Mahnaz Anthony RN) H/O heart artery stent History of hysterectomy Previous back surgery Family History: Family History (Last Reviewed 12/10/19 @ 06:37 by Mahnaz Anthony RN) Father Myocardial infarction Hypertension Mother Colon cancer Social History: (Last Reviewed 12/10/19 @ 06:37 by Mahnaz Anthony RN) Social History: household members: children current occupational status: retired Service: No Tobacco: Smoking Status: Never smoker Alcohol: alcohol intake: never Substance Use: substance use type: does not use Dietary Habits: caffeine: Yes Personal Safety: victim of physical abuse: No victim of emotional abuse: No Review Of Systems (GEN) - Review of Systems Generalized/Overall Review: Absent: Weakness, Chills EENTM: Present: No Symptoms Reported Respiratory: Absent: Cough, Shortness of Breath Cardiac: Absent: Chest Pain, Edema Abdominal: Present: Nausea, Abdominal Pain, Constipation. Absent: Vomiting, Hematemesis Genitourinary: Present: No Symptoms Reported Neurological: Absent: Headache, Anxiety Skin: Absent: Dryness, Lesions Endocrine: Absent: Intolerance to Cold, Intolerance to Heat Immunizations: IMMUNIZATION HX Immunizations Up to Date Yes History of Influenza Vaccine Yes Hx Pneumococcal Vaccination No Allergies/Adverse Reactions: Allergies Allergy/AdvReac Type Severity Reaction Status Date / Time pravastatin AdvReac Mild Vomiting Verified 12/09/19 21:00 Home Medications: HOME MEDICATIONS Pantoprazole Sodium [Protonix] 40 mg PO BID 04/07/18 [Last Taken 12/10/19] Furosemide [Lasix] 20 mg PO BID 01/17/19 [Last Taken 12/10/19] Acetaminophen [Tylenol] 650 mg PO Q6H PRN 01/24/19 [Last Taken Unknown] Metoprolol Succinate [Toprol Xl] 100 mg PO BID 07/24/19 [Last Taken 12/10/19] Saccharomyces Boulardii [Florastor] 250 mg PO BID 08/08/19 [Last Taken 12/10/19] LORazepam [Ativan] 0.5 mg PO Q6H PRN 11/28/19 [Last Taken Unknown] Lisinopril [Zestril] 40 mg PO DAILY 11/28/19 [Last Taken 12/10/19] Meclizine HCl 12.5 mg PO Q6H PRN 11/28/19 [Last Taken Unknown] Mirtazapine [Remeron] 15 mg PO HS 11/28/19 [Last Taken 12/09/19] traMADol HCL [Tramadol HCl] 50 mg PO Q6H PRN 11/28/19 [Last Taken Unknown] Docusate Sodium [Colace] 100 mg PO BID #60 cap 12/10/19 [Last Taken Unknown] Menthol/Zinc Oxide [Calmoseptine Ointment] 113 gm TOPICAL BID PRN 12/10/19 [Last Taken Unknown] Ondansetron HCl [Zofran] 4 mg PO Q6H PRN 12/10/19 [Last Taken 12/10/19] Polyethylene Glycol 3350 [Miralax] 17 gm PO DAILY 12/10/19 [Last Taken Unknown] Vits A and D/White Pet/Lanolin [A and D Ointment] 60 gm TOPICAL BID PRN 12/10/19 [Last Taken Unknown] Exam - Exam Vital Signs: Vital Signs - Last Taken Temp 36.6 C 12/10/19 14:07 Pulse 76 12/10/19 16:36 Resp 22 H 12/10/19 14:07 BP 151/92 H 12/10/19 16:36 Pulse Ox 95 12/10/19 14:07 Constitutional: Present: Alert, Oriented x3, Cooperative Eye Exam: bilateral eye: normal inspection Respiratory: Present: no respiratory distress, decreased breath sounds - bilateral base, rhonchi Cardiovascular/Chest: Present: no murmur, irregularly irregular Peripheral Pulses: radial (R): 2+, radial (L): 2+ Abdomen: Present: Normal bowel sounds, soft, nondistended, tender - diffuse Extremity: Present: normal inspection. Absent: lower extremity edema Skin Exam: Present: normal color, warm/dry, no cyanosis Appearance: Present: appropriate appearance, appropriate insight Eye contact: Present: cooperative, good eye contact, normal speech Thoughts: Present: normal thought pattern Diagnostic Studies: Abnormal Lab Results 12/09/19 12/09/19 12/09/19 Range/Units 21:10 21:10 21:10 WBC 14.9 H (4.0-10.5) K/mm3 RBC 4.19 L (4.2-5.4) M/mm3 Hgb 11.7 L (12.5-16.0) gm/dL Hct (37.0-47.0) % MCHC 29.4 L (32-36) g/dl RDW 23.5 H (11.5-14.0) % Immature Gran % (Auto) 0.70 H (0.001-0.429) % Immature Gran # (Auto) 0.10 H (0.000-0.0310) K/mm3 Neutrophils % 87.3 H (42-75.0) % Lymphocytes % 6.3 L (20-51) % Neutrophils # 13.0 H (1.3-6.0) K/mm3 Lymphocytes # 0.93 L (1.5-3.5) k/mm3 Absolute Basophils 0.2 H (0.0-0.1) k/mm3 Sodium (132-142) mmol/L Plasma Sodium 143 H (130-142) mmol/L Potassium 5.3 H D (3.4-4.6) mmol/L Chloride (97-106) mmol/L Anion Gap 17.1 H (6.8-13.8) mmol/L BUN 40 H (3-23) mg/dL Creatinine 2.07 H (0.4-1.4) mg/dL Est GFR (Non-Af Amer) 24 L (60-130) mL/min Random Glucose 159 H (70-110) mg/dL ALT 16 L (19-67) U/L Alkaline Phosphatase 171 H (50-170) U/L B-Natriuretic Peptide Greater [place] 67694 H (5-550) pg/mL Albumin 2.7 L (3.4-5.0) gm/dl Lipase 22 L (73-393) U/L 12/10/19 12/10/19 Range/Units 08:35 08:35 WBC (4.0-10.5) K/mm3 RBC 3.72 L (4.2-5.4) M/mm3 Hgb 10.3 L (12.5-16.0) gm/dL Hct 35.1 L (37.0-47.0) % MCHC 29.3 L (32-36) g/dl RDW 23.3 H (11.5-14.0) % Immature Gran % (Auto) 0.50 H (0.001-0.429) % Immature Gran # (Auto) 0.05 H (0.000-0.0310) K/mm3 Neutrophils % 83.6 H (42-75.0) % Lymphocytes % 8.5 L (20-51) % Neutrophils # 7.7 H (1.3-6.0) K/mm3 Lymphocytes # 0.79 L (1.5-3.5) k/mm3 Absolute Basophils (0.0-0.1) k/mm3 Sodium 143 H (132-142) mmol/L Plasma Sodium 144 H (130-142) mmol/L Potassium 5.1 H (3.4-4.6) mmol/L Chloride 108 H (97-106) mmol/L Anion Gap (6.8-13.8) mmol/L BUN 37 H (3-23) mg/dL Creatinine 1.97 H (0.4-1.4) mg/dL Est GFR (Non-Af Amer) 26 L (60-130) mL/min Random Glucose 157 H (70-110) mg/dL ALT (19-67) U/L Alkaline Phosphatase (50-170) U/L B-Natriuretic Peptide (5-550) pg/mL Albumin 2.4 L (3.4-5.0) gm/dl Lipase (73-393) U/L Laboratory Results WBC 9.3 K/mm3 (4.0-10.5) D 12/10/19 08:35 RBC 3.72 M/mm3 (4.2-5.4) L 12/10/19 08:35 Hgb 10.3 gm/dL (12.5-16.0) L 12/10/19 08:35 Hct 35.1 % (37.0-47.0) L 12/10/19 08:35 MCV 94.4 fl (78-100) 12/10/19 08:35 MCH 27.7 pg (27-31) 12/10/19 08:35 MCHC 29.3 g/dl (32-36) L 12/10/19 08:35 RDW 23.3 % (11.5-14.0) H 12/10/19 08:35 Plt Count 241 K/mm3 (150-450) 12/10/19 08:35 MPV 10.0 fl (8-12.5) 12/10/19 08:35 Immature Gran % (Auto) 0.50 % (0.001-0.429) H 12/10/19 08:35 Immature Gran # (Auto) 0.05 K/mm3 (0.000-0.0310) H 12/10/19 08:35 Neutrophils % 83.6 % (42-75.0) H 12/10/19 08:35 Lymphocytes % 8.5 % (20-51) L 12/10/19 08:35 Monocytes % 6.0 % (0.0-9) 12/10/19 08:35 Eosinophils % 0.4 % (0.0-3.0) 12/10/19 08:35 Basophils % 1.0 % (0.0-1.0) 12/10/19 08:35 Nucleated RBC % 0.0 k/mm3 (0-1) 12/10/19 08:35 Neutrophils # 7.7 K/mm3 (1.3-6.0) H 12/10/19 08:35 Lymphocytes # 0.79 k/mm3 (1.5-3.5) L 12/10/19 08:35 Monocytes # 0.6 k/mm3 (0.0-1.0) 12/10/19 08:35 Eosinophils # 0.0 k/mm3 (0.0-0.7) 12/10/19 08:35 Absolute Basophils 0.1 k/mm3 (0.0-0.1) 12/10/19 08:35 Sodium 143 mmol/L (132-142) H 12/10/19 08:35 Plasma Sodium 144 mmol/L (130-142) H 12/10/19 08:35 Potassium 5.1 mmol/L (3.4-4.6) H 12/10/19 08:35 Chloride 108 mmol/L (97-106) H 12/10/19 08:35 Carbon Dioxide 27.4 mmol/L (24-32.6) 12/10/19 08:35 Anion Gap 12.7 mmol/L (6.8-13.8) 12/10/19 08:35 BUN 37 mg/dL (3-23) H 12/10/19 08:35 Creatinine 1.97 mg/dL (0.4-1.4) H 12/10/19 08:35 Est GFR (Non-Af Amer) 26 mL/min (60-130) L 12/10/19 08:35 BUN/Creatinine Ratio 18.8 (9.0-21.6) 12/10/19 08:35 Random Glucose 157 mg/dL (70-110) H 12/10/19 08:35 Calcium 8.4 mg/dL (7.9-10.9) 12/10/19 08:35 Calcium Adj for Albumin 9.4 mg/dL (8.4-10.2) 12/10/19 08:35 Total Bilirubin 0.3 mg/dL (0.0-1.1) 12/10/19 08:35 AST 40 U/L (0-48) 12/10/19 08:35 ALT 20 U/L (19-67) 12/10/19 08:35 Alkaline Phosphatase 142 U/L (50-170) 12/10/19 08:35 Troponin I Less than 0.017 ng/mL (0.00-0.10) 12/09/19 21:10 B-Natriuretic Peptide Greater than 22736 pg/mL (5-550) H 12/09/19 21:10 Total Protein 6.8 gm/dL (6.2-8.2) 12/10/19 08:35 Albumin 2.4 gm/dl (3.4-5.0) L 12/10/19 08:35 Amylase 61 U/L (25-115) 12/09/19 21:10 Lipase 22 U/L (73-393) L 12/09/19 21:10 Assessment/Plan - Narrative Narrative: Ilnaa is an 84 yo female that presented to the [facility] ER with abdominal symptoms and an xray that showed stool retention. She does have a significantly elevated BNP and chest xray with pleural effusions but I believe this to be more chronic. She reports breathing is not any different than usual and her main concern was abdominal. She will be given magnesium citrate. She has chronic respiratory failure and is on 2lpm at home continuously. She was increased to 4lpm in the ER, but I do not see significant evidence of hypoxia. I have turned her down to 2lpm during my history and physical and she remained 96% and had no dyspnea. Will monitor after magnesium citrate and potentially discharge to home this afternoon. I will change her back to observation as she does not meet acute criteria. - Assessment/Plan (1) Constipation Problem: Acute Qualifiers: Constipation type: unspecified constipation type Qualified Code(s): K59.00 - Constipation, unspecified (1) Constipation Problem: Acute Qualifiers: Constipation type: unspecified constipation type Qualified Code(s): K59.00 - Constipation, unspecified Date of Discharge:: 12/10/19 Hospital Course: Ilana was admitted initially for concerns of CHF exacerbation but upon questioning the patient her concerns are all abdominal and BNP and chest xray are more likely chronic. She was given magnesium citrate and had a bowel movement and feels better. She will be discharge to home and will be continued on her home medications with using colace twice a day instead of one. She is to hold colace if she is having loose stools. After reviewing pharmacy records it appears she has completed her outpatient courses of antibiotics for C. Diff. Procedures Performed: none Results and Findings: Lab Pending Results 12/09/19 21:10: WBC 14.9 H, RBC 4.19 L, Hgb 11.7 L, Hct 39.8, MCV 95.0, MCH 27.9, MCHC 29.4 L, RDW 23.5 H, Plt Count 292, MPV 9.7, Immature Gran % (Auto) 0.70 H, Immature Gran # (Auto) 0.10 H, Neutrophils % 87.3 H, Lymphocytes % 6.3 L, Monocytes % 3.8, Eosinophils % 0.9, Basophils % 1.0, Nucleated RBC % 0.0, Neutrophils # 13.0 H, Lymphocytes # 0.93 L, Monocytes # 0.6, Eosinophils # 0.1, Absolute Basophils 0.2 H 12/09/19 21:10: Sodium 142, Plasma Sodium 143 H, Potassium 5.3 H D, Chloride 105, Carbon Dioxide 25.2, Anion Gap 17.1 H, BUN 40 H, Creatinine 2.07 H, Est GFR (Non-Af Amer) 24 L, BUN/Creatinine Ratio 19.3, Random Glucose 159 H, Calcium 8.7, Calcium Adj for Albumin 9.4, Total Bilirubin 0.2, AST 28, ALT 16 L, Alkaline Phosphatase 171 H, Troponin I Less than 0.017, B-Natriuretic Peptide [place] 40935 H, Total Protein 7.6, Albumin 2.7 L 12/09/19 21:10: Amylase 61, Lipase 22 L 12/10/19 08:35: WBC 9.3 D, RBC 3.72 L, Hgb 10.3 L, Hct 35.1 L, MCV 94.4, MCH 27.7, MCHC 29.3 L, RDW 23.3 H, Plt Count 241, MPV 10.0, Immature Gran % (Auto) 0.50 H, Immature Gran # (Auto) 0.05 H, Neutrophils % 83.6 H, Lymphocytes % 8.5 L, Monocytes % 6.0, Eosinophils % 0.4, Basophils % 1.0, Nucleated RBC % 0.0, Neutrophils # 7.7 H, Lymphocytes # 0.79 L, Monocytes # 0.6, Eosinophils # 0.0, Absolute Basophils 0.1 12/10/19 08:35: Sodium 143 H, Plasma Sodium 144 H, Potassium 5.1 H, Chloride 108 H, Carbon Dioxide 27.4, Anion Gap 12.7, BUN 37 H, Creatinine 1.97 H, Est GFR (Non-Af Amer) 26 L, BUN/Creatinine Ratio 18.8, Random Glucose 157 H, Calcium 8.4, Calcium Adj for Albumin 9.4, Total Bilirubin 0.3, AST 40, ALT 20, Alkaline Phosphatase 142, Total Protein 6.8, Albumin 2.4 L Discharge Location: Home Disposition: Home Health Service Home Health Agency: [facility] Condition: Stable Discharge Activity: Activity as tolerated Discharge Diet: Low salt Referrals: Lonnie Rice MD [Primary Care Provider] - One Week Problem Oriented Discharge Instructions to Patient/Family: Constipation, Adult, [id number], Heart Failure, [id number] Additional Patient Instructions (free text): Patient wanting to discuss hospice with home health nurse and PCP at follow up. Resume services with [facility] at discharge. Please fax orders and call report upon discharge. Prescriptions (Any new or edited meds): Docusate Sodium [Colace] 100 mg PO BID #60 cap [id number] Complete Home Medications List: Complete Home Medication List: Pantoprazole Sodium [Protonix] 40 mg PO BID 04/07/18 Furosemide [Lasix] 20 mg PO BID 01/17/19 Acetaminophen [Tylenol] 650 mg PO Q6H PRN 01/24/19 Metoprolol Succinate [Toprol Xl] 100 mg PO BID 07/24/19 Saccharomyces Boulardii [Florastor] 250 mg PO BID 08/08/19 LORazepam [Ativan] 0.5 mg PO Q6H PRN 11/28/19 Lisinopril [Zestril] 40 mg PO DAILY 11/28/19 Meclizine HCl 12.5 mg PO Q6H PRN 11/28/19 Mirtazapine [Remeron] 15 mg PO HS 11/28/19 traMADol HCL [Tramadol HCl] 50 mg PO Q6H PRN 11/28/19 Docusate Sodium [Colace] 100 mg PO BID #60 cap 12/10/19 Menthol/Zinc Oxide [Calmoseptine Ointment] 113 gm TOPICAL BID PRN 12/10/19 Ondansetron HCl [Zofran] 4 mg PO Q6H PRN 12/10/19 Polyethylene Glycol 3350 [Miralax] 17 gm PO DAILY 12/10/19 Vits A and D/White Pet/Lanolin [A and D Ointment] 60 gm TOPICAL BID PRN 12/10/19
[2019-12-10] MEDS ORDERED: MIRTAZAPINE 15 MG TABLET PO SCH (21:00)
[2019-12-10] MEDS ORDERED: ROSUVASTATIN CALCIUM 10 MG TABLET PO SCH (21:00)
== END 2019-12-10 18:50 | disposition home health service (06) ==
LOC: ER 20:49 → INTOOBSV 23:29 → MS 23:29
PROVIDERS: ADMIT Family Medicine; ATTEND Family Medicine
DX: I13.0 Hypertensive heart and chronic kidney disease with heart failure and stage 1 through stage 4 chronic kidney disease, or unspecified chronic kidney disease; K59.00 Constipation, unspecified; N18.3 Chronic kidney disease, stage 3 (moderate); I48.20 Chronic atrial fibrillation, unspecified; J44.1 Chronic obstructive pulmonary disease with (acute) exacerbation; I50.42 Chronic combined systolic (congestive) and diastolic (congestive) heart failure
CPT/HCPCS: 36415; 71010; 71045; 74019; 74020; 80053; 82150; 83519; 83690; 83880; 84484; 85025; 87040; 93005; 94760; 96374; 99283; 99285; G0378; J2405

== ENCOUNTER 2019-12-29 11:49 | Observation (INO) ==
[2019-12-29 12:41] LABS: Urine Bilirubin Negative (NEGATIVE); Urine Blood Negative /ul (NEGATIVE); Urine Ketone Negative (NEGATIVE); Urine Nitrite Negative (NEGATIVE); Urine Protein 30 mg/dL (NEGATIVE); Urine Urobilinogen Normal (NORMAL); Urine pH 5.5 pH (5.0-7.0)
[2019-12-29 12:56] LABS: Urine Appearance Clear (CLEAR); Urine Bacteria None Seen; Urine Color Yellow; Urine RBC None Seen /hpf (0-5); Urine WBC TRACE /hpf (0-5)
[2019-12-29 13:04] LABS: Hematocrit 40.2 % (37.0-47.0); Hemoglobin 12.4 gm/dL (12.5-16.0); Mean Cell Volume 95.7 fl (78-100); Mean Corpuscular Hemoglobin 29.5 pg (27-31); Mean Corpuscular Hgb Conc 30.8 g/dl (32-36); Mean Platelet Volume 9.8 fl (8-12.5); Neutrophil # 10.3 K/mm3 (1.3-6.0); Neutrophil % 87.6 % (42-75.0); Platelet Count 268 K/mm3 (150-450); Red Cell Distribution Width 20.4 % (11.5-14.0); White Blood Count 11.8 K/mm3 (4.0-10.5)
[2019-12-29 13:27] LABS: Albumin * 2.7 gm/dl (3.4-5.0); Anion Gap 13.2 mmol/L (6.8-13.8); BUN/Creatinine Ratio 19.2 (9.0-21.6); Bilirubin, Total 0.3 mg/dL (0.0-1.1); Ca. Corrected For Albumin 9.7 mg/dL (8.4-10.2); Carbon Dioxide 26.8 mmol/L (24-32.6); Total Protein 7.5 gm/dL (6.2-8.2)
[2019-12-29] MEDS ORDERED: NORMAL SALINE 1,000 ML IV ONE (15:22)
[2019-12-29] MEDS ORDERED: METOPROLOL TARTRATE 1 MG/ML AMPUL IV ONE ×2 (16:03→16:42)
--- NOTE | 2019-12-29 17:11 | ERNOTE ---
Abdominal HPI - Narrative Date of Service: 12/29/19 - General Chief Complaint: Tachycardia Time Seen by Provider: 12/29/19 12:26 Source: patient, past records Exam Limitations: clinical condition - Immun/Allergies/Home Medications Immunizatons: IMMUNIZATION HX Immunizations Up to Date Yes History of Influenza Vaccine Yes Hx Pneumococcal Vaccination Yes Allergies/Adverse Reactions: Allergies pravastatin Adverse Reaction (Mild, Verified 12/29/19 12:15) Vomiting Home Medications: HOME MEDICATIONS Pantoprazole Sodium [Protonix] 40 mg PO BID 04/07/18 [Last Taken 12/10/19] Furosemide [Lasix] 20 mg PO BID 01/17/19 [Last Taken 12/10/19] Acetaminophen [Tylenol] 650 mg PO Q6H PRN 01/24/19 [Last Taken Unknown] Metoprolol Succinate [Toprol Xl] 100 mg PO BID 07/24/19 [Last Taken 12/10/19] Saccharomyces Boulardii [Florastor] 250 mg PO BID 08/08/19 [Last Taken 12/10/19] LORazepam [Ativan] 0.5 mg PO Q6H PRN 11/28/19 [Last Taken Unknown] Lisinopril [Zestril] 40 mg PO DAILY 11/28/19 [Last Taken 12/10/19] Meclizine HCl 12.5 mg PO Q6H PRN 11/28/19 [Last Taken Unknown] Mirtazapine [Remeron] 15 mg PO HS 11/28/19 [Last Taken 12/09/19] traMADol HCL [Tramadol HCl] 50 mg PO Q6H PRN 11/28/19 [Last Taken Unknown] Menthol/Zinc Oxide [Calmoseptine Ointment] 113 gm TOPICAL BID PRN 12/10/19 [Last Taken Unknown] Ondansetron HCl [Zofran] 4 mg PO Q6H PRN 12/10/19 [Last Taken 12/10/19] Polyethylene Glycol 3350 [Miralax] 17 gm PO DAILY 12/10/19 [Last Taken Unknown] Vits A and D/White Pet/Lanolin [A and D Ointment] 60 gm TOPICAL BID PRN 12/10/19 [Last Taken Unknown] - History of Present Illness Narrative: Ilana initially presented to the ER with chief complaint of not feeling well, dizziness and some abdominal discomfort, dysuria. She has not had fever or chills. She is vague about whether she has taken her medications today. She is tachycardia and her BP is elevated, her nurse and I asked her with various responses whether she took her metoprolol today, she initally said she thought so, then later "maybe", then shrugged her shoulders. She has a history of atrial fibrillation, but is not anticoagulated, most likely due to bleeding risk. She had to have blood transfused recently. She feels a little nauseous. She had a bout if c diff a few weeks ago, denies current diarrhea. Denies chest pain. She has home oxygen, came in without it. When her sats were hovering 89-90%, she said she does have oxygen at home, and we put her on a nasal cannula with sats improving to 97%. Timing: intermittent Quality: mild Activities at Onset: none Modifying Factors - (Improves): Present: other - nothing tried. Modifying Factors - (Worsens): Present: other - no definite precipitating factors. Associated Symptoms: Present: fatigue, nausea, loss of appetite, shortness of breath, weakness. Absent: chest pain, diaphoresis, diarrhea-gross blood, diarrhea-mucous, fever/chills, vomiting, syncope Review of Systems - Review of Systems Constitutional: Present: weakness, fatigue. Absent: fever, chills EYE: Present: no symptoms reported ENT: Present: no symptoms reported Respiratory: Present: no symptoms reported Cardiology: Present: no symptoms reported Gastrointestinal/Abdominal: Present: nausea, abdominal pain - initially reported some lower pain, maybe dysuria, vague. . Absent: vomiting, diarrhea Genitourinary: Present: dysuria Musculoskeletal: Present: no symptoms reported Skin: Present: no symptoms reported Neurological: Present: dizziness/light-headedness Endocrine: Present: no symptoms reported Hematologic/Lymphatic: Present: no symptoms reported Psych: Present: no symptoms reported All Other Systems: All systems neg except as marked Medical History (Last Reviewed 12/29/19 @ 19:40 by Lashae Drake RN) Acute renal failure (ARF) Anemia Anxiety Atrial fibrillation CAD (coronary artery disease) COPD (chronic obstructive pulmonary disease) Chronic kidney disease Dehydration Depression Esophageal stricture GERD (gastroesophageal reflux disease) HTN (hypertension) 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 Osteoarthritis UTI (urinary tract infection) Surgical History: Surgical History (Last Reviewed 12/29/19 @ 19:40 by Lashae Drake RN) H/O heart artery stent History of hysterectomy Previous back surgery Family History: Family History (Last Reviewed 12/29/19 @ 19:40 by Lashae Drake RN) Father Myocardial infarction Hypertension Mother Colon cancer Social History: (Last Reviewed 12/29/19 @ 19:40 by Lashae Drake RN) Social History: household members: children current occupational status: retired Service: No Tobacco: Smoking Status: Never smoker Alcohol: alcohol intake: never Substance Use: substance use type: does not use Dietary Habits: caffeine: Yes Personal Safety: victim of physical abuse: No victim of emotional abuse: No Physical Exam - Physical Exam General Appearance: Present: no apparent distress, thin, cachetic Head Exam: Present: normal inspection, no evidence of injury Eye Exam: Normal inspection: bilateral, PERRL: bilateral Ears, Nose, Throat: Present: normal except - - edentulous Neck: Present: normal inspection Respiratory: Present: no respiratory distress, normal breath sounds, no acc essory muscle use, lungs clear Cardiovascular/Chest: Present: no murmur, normal peripheral pulses, tachycardia Peripheral Pulses: N=norm/S=strong/W=weak/B=bound/A=absent: Dorsalis-pedis (R): Normal, Dorsalis-pedis (L): Normal Gastrointestinal/Abdominal: Present: no organomegaly, tenderness - abdomen initial exam mildly tender, lower, but without guarding or rebound. Followup exam she is a bit nauseous, but not focally tender in the abdomen. . Absent: guarding, rebound Rectal Exam: Present: deferred Extremity Exam: Present: normal except - - some ecchymoses barker, no signs of infection, no edema. , no edema. Absent: calf tenderness, joint redness, joint swelling, extremity edema Neurological Exam: Present: alert, no motor/sensory deficits. Absent: motor weakness Skin Exam: Present: normal color, warm/dry Progress - Vital Signs Vital Signs: Vital Signs 12/29/19 12:11 12/29/19 13:45 12/29/19 15:30 Temperature 37.0 C Pulse Rate 115 H 121 H 120 H Respiratory Rate 19 20 32 H Blood Pressure 150/94 H 152/106 H 177/130 H O2 Sat by Pulse Oximetry 92 L 90 L 92 L 12/29/19 16:00 12/29/19 16:13 12/29/19 16:39 Temperature 37.0 C Pulse Rate 112 H 108 H 114 H Respiratory Rate 30 H 28 H Blood Pressure 170/108 H 170/108 H 179/115 H O2 Sat by Pulse Oximetry 90 L 90 L - EKG EKG #1 EKG: atrial fibrillation - RVR. EKG read: Interp. by me EKG Comments: Atrial fib with RVR with rate 105. No acute ST-T changes. - X-Ray X-Ray #1 X-Ray: chest X-ray Comments: Moderate bilateral pleural effusions. - CT/Ultrasound CT/Ultrasound Narrative: CT scan of the abdomen and pelvis without contrast showed known right adnexal mass which has increased in size. She has diverticulosis without diverticulitis. Cholelithiasis with normal caliber bile ducts. Moderate size right and small left pleural effusion, which have been previously noted. - Progress/Reassessment Chief Complaint: Abdominal Pain Progress:: Improved Progress Note-Subjective: 12/29/19 17:17 Tachycardia has improved with IV metoprolol. Oxygen sat has hovered around 90% on room air, Ilana reports that she has home oxygen that she uses most of the time. 12/30/19 09:48 12/29/19 19:30 Continues with tachycardia, although has improved, a-fib with RVR. She has previously been noted to have atrial fibrillation, but is no longer on anticoagulation, presumably due to excessive bleeding risk. Question medication compliance. Will request admission for observation and reinstitution of her normal meds to control BP and rate. Departure Clinical Impression: Pleural effusion, CKD (chronic kidney disease) stage 3, GFR 30-59 ml/min, Hypertension, Generalized weakness Atrial fibrillation Qualifiers: Atrial fibrillation type: chronic Qualified Code(s): I48.2 - Chronic atrial fibrillation Abdominal pain Qualifiers: Abdominal location: generalized Qualified Code(s): R10.84 - Generalized abdominal pain Cholelithiasis Qualifiers: Cholelithiasis location: gallbladder Cholecystitis presence: without cholecystitis Biliary obstruction: without biliary obstruction Qualified Code(s): K80.20 - Calculus of gallbladder without cholecystitis without obstruction - Departure Disposition: Short Term Hospital Inpatient Condition: Fair
[2019-12-29] MEDS ORDERED: METOPROLOL TARTRATE 100 MG TABLET PO ONE (17:27)
[2019-12-29] MEDS ORDERED: LISINOPRIL 10 MG TABLET PO ONE (18:09)
[2019-12-29] MEDS ORDERED: ACETAMINOPHEN 500 MG TABLET PO PRN (19:41)
[2019-12-29] MEDS ORDERED: LORazepam 0.5 MG TABLET PO PRN (19:41)
[2019-12-29] MEDS ORDERED: ONDANSETRON HCL 4 MG TABLET PO PRN (19:41)
[2019-12-29] MEDS ORDERED: MECLIZINE HCL 12.5 MG TABLET PO PRN (19:41)
[2019-12-29] MEDS ORDERED: traMADol HCL 50 MG TABLET PO PRN (19:44)
--- NOTE | 2019-12-29 20:07 | HP ---
Chief Complaint - Chief Complaint Date of Service: 12/29/19 Time of Service: 19:55 Chief Complaint: I feel nauseated and dizzy History of Present Illness: 84-year-old female with past medical history of acute renal failure, anemia, anxiety disorder, atrial fibrillation on long-term anticoagulation, coronary artery disease, chronic kidney disease, COPD on oxygen supplementation, depression, GERD, hypertension, osteoarthritis, was evaluated in the ER for ongoing nausea abdominal pain and dizziness for the past few days. Patient was evaluated by physical exam and labs which demonstrated a mildly elevated WBCs and worsening renal function. Upon reviewing the patient's records it appears that her renal function has been fluctuating is on a downward trend. Patient is on multiple medications to control her blood pressure and her heart rate given her history of atrial fibrillation and when asked she says she took the medications yesterday but not today because she was out of her home all day. It is not clear if the patient was referred to a time in the ER but she says she did not get today's doses. She also complains of nausea and poor appetite and says she has not been eating much. Clinically the patient appears to be mildly dehydrated. Abdominal imaging was negative for any concerning findings and aside from the patient's irregular heart rhythm and elevated heart rate there were no other concerning findings that can explain her symptoms. She denies any fever or chills or any other symptoms aside from the ones mentioned above. 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 Osteoarthritis UTI (urinary tract infection) Surgical History: Surgical History (Last Reviewed 12/29/19 @ 19:40 by Lashae Drake RN) H/O heart artery stent History of hysterectomy Previous back surgery Family History: Family History (Last Reviewed 12/29/19 @ 19:40 by Lashae Drake RN) Father Myocardial infarction Hypertension Mother Colon cancer Social History: (Last Reviewed 12/29/19 @ 19:40 by Lashae Drake RN) Social History: household members: children current occupational status: retired Service: No Tobacco: Smoking Status: Never smoker Alcohol: alcohol intake: never Substance Use: substance use type: does not use Dietary Habits: caffeine: Yes Personal Safety: victim of physical abuse: No victim of emotional abuse: No Peds Patient Hx - Developmental: No Pertinent Hx Peds Patient Hx - Medical: No Pertinent Hx Peds Patient Hx - Cardiac/Respiratory: No Pertinent Hx Peds Patient Hx - Surgical: No Surgical History Patient History - Cancer: No Hx of Cancer Review Of Systems (GEN) - Review of Systems Generalized/Overall Review: Present: No Symptoms Reported EENTM: Present: No Symptoms Reported Respiratory: Present: No Symptoms Reported Cardiac: Present: No Symptoms Reported Abdominal: Present: Nausea, Abdominal Pain Genitourinary: Present: No Symptoms Reported Musculoskeletal: Present: No Symptoms Reported Neurological: Present: No Symptoms Reported Skin: Present: No Symptoms Reported Endocrine: Present: No Symptoms Reported Immunizations: IMMUNIZATION HX Immunizations Up to Date Yes History of Influenza Vaccine Yes Hx Pneumococcal Vaccination Yes Allergies/Adverse Reactions: Allergies Allergy/AdvReac Type Severity Reaction Status Date / Time pravastatin AdvReac Mild Vomiting Verified 12/29/19 12:15 Home Medications: HOME MEDICATIONS Pantoprazole Sodium [Protonix] 40 mg PO BID 04/07/18 [Last Taken 12/10/19] Furosemide [Lasix] 20 mg PO BID 01/17/19 [Last Taken 12/10/19] Acetaminophen [Tylenol] 650 mg PO Q6H PRN 01/24/19 [Last Taken Unknown] Metoprolol Succinate [Toprol Xl] 100 mg PO BID 07/24/19 [Last Taken 12/10/19] Saccharomyces Boulardii [Florastor] 250 mg PO BID 08/08/19 [Last Taken 12/10/19] LORazepam [Ativan] 0.5 mg PO Q6H PRN 11/28/19 [Last Taken Unknown] Lisinopril [Zestril] 40 mg PO DAILY 11/28/19 [Last Taken 12/10/19] Meclizine HCl 12.5 mg PO Q6H PRN 11/28/19 [Last Taken Unknown] Mirtazapine [Remeron] 15 mg PO HS 11/28/19 [Last Taken 12/09/19] traMADol HCL [Tramadol HCl] 50 mg PO Q6H PRN 11/28/19 [Last Taken Unknown] Docusate Sodium [Colace] 100 mg PO BID #60 cap 12/10/19 [Last Taken Unknown] Menthol/Zinc Oxide [Calmoseptine Ointment] 113 gm TOPICAL BID PRN 12/10/19 [Last Taken Unknown] Ondansetron HCl [Zofran] 4 mg PO Q6H PRN 12/10/19 [Last Taken 12/10/19] Polyethylene Glycol 3350 [Miralax] 17 gm PO DAILY 12/10/19 [Last Taken Unknown] Vits A and D/White Pet/Lanolin [A and D Ointment] 60 gm TOPICAL BID PRN 12/10/19 [Last Taken Unknown] Exam - Exam Vital Signs: Vital Signs - Last Taken Temp 36.4 C 12/29/19 19:19 Pulse 118 H 12/29/19 19:19 Resp 18 12/29/19 19:19 BP 170/107 H 12/29/19 19:19 Pulse Ox 96 12/29/19 19:19 Constitutional: Present: Alert, Oriented x3, Cooperative, Well developed, No distress, Elderly, Thin and frail ENT Exam: Present: normal ENT inspection, hearing grossly normal, pharynx normal, TMs normal Eye Exam: bilateral eye: normal inspection, PERRL, EOMI Neck: Present: non-tender, full range of motion, supple, normal inspection, trachea midline Back Exam: Present: normal inspection, no CVA tenderness, no vertebral tenderness Breasts: Present: Exam deferred Respiratory: Present: chest non-tender, lungs clear, normal breath sounds, no respiratory distress, no accessory muscle use Cardiovascular/Chest: Present: normal peripheral pulses, no chest tenderness, no edema, no gallop, no JVD, no murmur, no rub, irregularly irregular Peripheral Pulses: carotid (R): 3+, carotid (L): 3+, femoral (R): 3+, femoral (L): 3+ Abdomen: Present: Normal bowel sounds, soft, nontender, nondistended, no rebound tenderness, no hepatospenomegaly, no masses /Rectal: Present: Exam deferred Extremity: Present: normal range of motion, non-tender, normal inspection, no pedal edema, no calf tenderness, normal capillary refill, pelvis stable Skin Exam: Present: normal color, warm/dry, no cyanosis Lymphatic: Present: no adenopathy Neurologic: Present: display maker II-XII nml as tested, normal cerebellar test, no motor/sensory deficits, alert, normal mood/affect, oriented x 3 Appearance: Present: appropriate appearance, appropriate insight, neat, no memory impairment Eye contact: Present: cooperative, good eye contact, normal speech Thoughts: Present: normal thought pattern Diagnostic Studies: Abnormal Lab Results 12/29/19 12/29/19 12/29/19 Range/Units 12:34 12:59 12:59 WBC 11.8 H (4.0-10.5) K/mm3 Hgb 12.4 L (12.5-16.0) gm/dL MCHC 30.8 L (32-36) g/dl RDW 20.4 H (11.5-14.0) % Immature Gran # (Auto) 0.05 H (0.000-0.0310) K/mm3 Neutrophils % 87.6 H (42-75.0) % Lymphocytes % 7.2 L (20-51) % Neutrophils # 10.3 H (1.3-6.0) K/mm3 Lymphocytes # 0.85 L (1.5-3.5) k/mm3 BUN 39 H (3-23) mg/dL Creatinine 2.03 H (0.4-1.4) mg/dL Est GFR (Non-Af Amer) 25 L (60-130) mL/min Random Glucose 134 H (70-110) mg/dL ALT 5 L (19-67) U/L Albumin 2.7 L (3.4-5.0) gm/dl Lipase (73-393) U/L Urine Protein 30 H (NEGATIVE) mg/dL Urine WBC Trace H (0-5) /hpf 12/29/19 Range/Units 12:59 WBC (4.0-10.5) K/mm3 Hgb (12.5-16.0) gm/dL MCHC (32-36) g/dl RDW (11.5-14.0) % Immature Gran # (Auto) (0.000-0.0310) K/mm3 Neutrophils % (42-75.0) % Lymphocytes % (20-51) % Neutrophils # (1.3-6.0) K/mm3 Lymphocytes # (1.5-3.5) k/mm3 BUN (3-23) mg/dL Creatinine (0.4-1.4) mg/dL Est GFR (Non-Af Amer) (60-130) mL/min Random Glucose (70-110) mg/dL ALT (19-67) U/L Albumin (3.4-5.0) gm/dl Lipase 22 L (73-393) U/L Urine Protein (NEGATIVE) mg/dL Urine WBC (0-5) /hpf Laboratory Results WBC 11.8 K/mm3 (4.0-10.5) H 12/29/19 12:59 RBC 4.20 M/mm3 (4.2-5.4) 12/29/19 12:59 Hgb 12.4 gm/dL (12.5-16.0) L 12/29/19 12:59 Hct 40.2 % (37.0-47.0) 12/29/19 12:59 MCV 95.7 fl (78-100) 12/29/19 12:59 MCH 29.5 pg (27-31) 12/29/19 12:59 MCHC 30.8 g/dl (32-36) L 12/29/19 12:59 RDW 20.4 % (11.5-14.0) H 12/29/19 12:59 Plt Count 268 K/mm3 (150-450) 12/29/19 12:59 MPV 9.8 fl (8-12.5) 12/29/19 12:59 Immature Gran % (Auto) 0.40 % (0.001-0.429) 12/29/19 12:59 Immature Gran # (Auto) 0.05 K/mm3 (0.000-0.0310) H 12/29/19 12:59 Neutrophils % 87.6 % (42-75.0) H 12/29/19 12:59 Lymphocytes % 7.2 % (20-51) L 12/29/19 12:59 Monocytes % 3.6 % (0.0-9) 12/29/19 12:59 Eosinophils % 0.3 % (0.0-3.0) 12/29/19 12:59 Basophils % 0.9 % (0.0-1.0) 12/29/19 12:59 Nucleated RBC % 0.0 k/mm3 (0-1) 12/29/19 12:59 Neutrophils # 10.3 K/mm3 (1.3-6.0) H 12/29/19 12:59 Lymphocytes # 0.85 k/mm3 (1.5-3.5) L 12/29/19 12:59 Monocytes # 0.4 k/mm3 (0.0-1.0) 12/29/19 12:59 Eosinophils # 0.0 k/mm3 (0.0-0.7) 12/29/19 12:59 Absolute Basophils 0.1 k/mm3 (0.0-0.1) 12/29/19 12:59 Sodium 138 mmol/L (132-142) 12/29/19 12:59 Plasma Sodium 139 mmol/L (130-142) 12/29/19 12:59 Potassium 4.0 mmol/L (3.4-4.6) 12/29/19 12:59 Chloride 102 mmol/L (97-106) 12/29/19 12:59 Carbon Dioxide 26.8 mmol/L (24-32.6) 12/29/19 12:59 Anion Gap 13.2 mmol/L (6.8-13.8) 12/29/19 12:59 BUN 39 mg/dL (3-23) H 12/29/19 12:59 Creatinine 2.03 mg/dL (0.4-1.4) H 12/29/19 12:59 Est GFR (Non-Af Amer) 25 mL/min (60-130) L 12/29/19 12:59 BUN/Creatinine Ratio 19.2 (9.0-21.6) 12/29/19 12:59 Random Glucose 134 mg/dL (70-110) H 12/29/19 12:59 Calcium 9.0 mg/dL (7.9-10.9) 12/29/19 12:59 Calcium Adj for Albumin 9.7 mg/dL (8.4-10.2) 12/29/19 12:59 Total Bilirubin 0.3 mg/dL (0.0-1.1) 12/29/19 12:59 AST 17 U/L (0-48) 12/29/19 12:59 ALT 5 U/L (19-67) L 12/29/19 12:59 Alkaline Phosphatase 139 U/L (50-170) 12/29/19 12:59 Troponin I Less than 0.017 ng/mL (0.00-0.10) 12/29/19 12:59 Total Protein 7.5 gm/dL (6.2-8.2) 12/29/19 12:59 Albumin 2.7 gm/dl (3.4-5.0) L 12/29/19 12:59 Lipase 22 U/L (73-393) L 12/29/19 12:59 Urine Color Yellow 12/29/19 12:34 Urine Appearance Clear (CLEAR) 12/29/19 12:34 Urine pH 5.5 pH (5.0-7.0) 12/29/19 12:34 Ur Specific [place] 1.020 SP.GR. (1.005-1.010) 12/29/19 12:34 Urine Protein 30 mg/dL (NEGATIVE) H 12/29/19 12:34 Urine Glucose (UA) Negative mg/dL (NEGATIVE) 12/29/19 12:34 Urine Ketones Negative mg/dL (NEGATIVE) 12/29/19 12:34 Urine Blood Negative /ul (NEGATIVE) 12/29/19 12:34 Urine Nitrate Negative (NEGATIVE) 12/29/19 12:34 Urine Bilirubin Negative mg/dl (NEGATIVE) 12/29/19 12:34 Prot Sulfosalicylic Acd 1+ mg/dL (0) 12/29/19 12:34 Urine Urobilinogen Normal EU/dl (NORMAL) 12/29/19 12:34 Ur Leukocyte Esterase Negative /ul (NEGATIVE) 12/29/19 12:34 Urine RBC None seen /hpf (0-5) 12/29/19 12:34 Urine WBC Trace /hpf (0-5) H 12/29/19 12:34 Ur Epithelial Cells None seen /hpf (0-5) 12/29/19 12:34 Urine Bacteria None seen (NONE) 12/29/19 12:34 Urine Culture Comments Culture to follow 12/29/19 12:34 Assessment/Plan - Narrative Narrative: Patient was evaluated medical chart was reviewed and decision to admit for observation for diagnosis of atrial fibrillation with rapid ventricular response was made. Patient had to be treated with multiple doses of IV beta-jade in order to control her heart rate however her heart rate as well as blood pressure remains significantly elevated. She will need inpatient treatment and close monitoring until the situation resolves. She was placed on telemetry monitoring to watch her vitals. Currently the patient appears comfortable but reports lack of appetite. We will continue to encourage her to eat and drink in order to avoid dehydration. - Assessment/Plan (1) Atrial fibrillation with RVR Problem: Acute (2) Hypertension Problem: Chronic (3) Acute kidney injury superimposed on CKD Problem: Acute (4) Dehydration Problem: Acute
[2019-12-29] MEDS ORDERED: DOCUSATE SODIUM 100 MG CAPSULE PO SCH (21:00)
[2019-12-29] MEDS ORDERED: MIRTAZAPINE 15 MG TABLET PO SCH (21:00)
[2019-12-29] MEDS: METOPROLOL SUCCINATE 100 MG TABLET.SA PO SCH (21:24)
[2019-12-29] MEDS: SACCHAROMYCES BOULARDII 250 MG CAPSULE PO SCH (21:24)
[2019-12-29] MEDS: LISINOPRIL 40 MG TABLET PO SCH (21:24)
[2019-12-29] MEDS: FUROSEMIDE 20 MG TABLET PO SCH (21:25)
[2019-12-30] MEDS ORDERED: PANTOPRAZOLE SODIUM 20 MG TABLET.DR PO SCH (07:00)
[2019-12-30] MEDS ORDERED: POLYETHYLENE GLYCOL 3350 17 GM PACKET PO SCH (09:00)
[2019-12-30] MEDS: METOPROLOL SUCCINATE 100 MG TABLET.SA PO SCH (09:29)
[2019-12-30] MEDS: SACCHAROMYCES BOULARDII 250 MG CAPSULE PO SCH (09:29)
[2019-12-30] MEDS: LISINOPRIL 40 MG TABLET PO SCH (09:29)
[2019-12-30] MEDS: FUROSEMIDE 20 MG TABLET PO SCH (09:29)
--- NOTE | 2019-12-30 09:30 | DS ---
(1) Atrial fibrillation with RVR Problem: Resolved (2) Hypertension Problem: Chronic (3) Acute kidney injury superimposed on CKD Problem: Acute (4) Dehydration Problem: Acute (5) Abdominal pain Problem: Acute Qualifiers: Date of Discharge:: 12/30/19 Hospital Course: 84-year-old female admitted for abdominal pain, mild dehydration, atrial fibrillation with rapid ventricular response was evaluated at bedside was found to be afebrile and in no acute distress. After multiple administrations of medications to control the patient's heart rate, we are able to achieve rate controlled. Patient maintained stable vitals and reports resolution of her abdominal pain and says she only has residual abdominal discomfort. Patient is on multiple medications to treat her chronic constipation and given the fact that she admits to not eating or drinking much in the past few days it is very possible that her abdominal pain came from constipation. She was also counseled the importance of being compliant with her medications and taking them as prescribed because there is a high likelihood that the patient did not take her beta-blockers on time which cause the rate to increase and lose control. She was instructed to follow-up with her PCP in 3 to 5 days. Procedures Performed: none Results and Findings: Pending Mircobiology Results 12/29/19 12:34 Urine,Catheterized Urine Culture - Preliminary No Growth Lab Pending Results 12/29/19 12:34: Urine Color Yellow, Urine Appearance Clear, Urine pH 5.5, Ur Specific [place] 1.020, Urine Protein 30 H, Urine Glucose (UA) Negative, Urine Ketones Negative, Urine Blood Negative, Urine Nitrate Negative, Urine Bilirubin Negative, Prot Sulfosalicylic Acd 1+, Urine Urobilinogen Normal, Ur Leukocyte Esterase Negative, Urine RBC None seen, Urine WBC Trace H, Ur Epithelial Cells None seen, Urine Bacteria None seen, Urine Culture Comments Culture to follow 12/29/19 12:59: WBC 11.8 H, RBC 4.20, Hgb 12.4 L, Hct 40.2, MCV 95.7, MCH 29.5, MCHC 30.8 L, RDW 20.4 H, Plt Count 268, MPV 9.8, Immature Gran % (Auto) 0.40, Immature Gran # (Auto) 0.05 H, Neutrophils % 87.6 H, Lymphocytes % 7.2 L, Monocytes % 3.6, Eosinophils % 0.3, Basophils % 0.9, Nucleated RBC % 0.0, Neutrophils # 10.3 H, Lymphocytes # 0.85 L, Monocytes # 0.4, Eosinophils # 0.0, Absolute Basophils 0.1 12/29/19 12:59: Sodium 138, Plasma Sodium 139, Potassium 4.0, Chloride 102, Carbon Dioxide 26.8, Anion Gap 13.2, BUN 39 H, Creatinine 2.03 H, Est GFR (Non- Af Amer) 25 L, BUN/Creatinine Ratio 19.2, Random Glucose 134 H, Calcium 9.0, Calcium Adj for Albumin 9.7, Total Bilirubin 0.3, AST 17, ALT 5 L, Alkaline Phosphatase 139, Total Protein 7.5, Albumin 2.7 L 12/29/19 12:59: Troponin I Less than 0.017 12/29/19 12:59: Lipase 22 L Discharge Location: Home Disposition: Home self-care Condition: Fair Face to Face Encounter completed per [facility] Guidelines: No Discharge Activity: Activity as tolerated Discharge Diet: General/regular food Referrals: Lonnie Rice MD [Primary Care Provider] - Additional Patient Instructions (free text): [facility] on going, please call and fax discharge information to them. Complete Home Medications List: Complete Home Medication List: Pantoprazole Sodium [Protonix] 40 mg PO BID 04/07/18 Furosemide [Lasix] 20 mg PO BID 01/17/19 Acetaminophen [Tylenol] 650 mg PO Q6H PRN 01/24/19 Metoprolol Succinate [Toprol Xl] 100 mg PO BID 07/24/19 Saccharomyces Boulardii [Florastor] 250 mg PO BID 08/08/19 LORazepam [Ativan] 0.5 mg PO Q6H PRN 11/28/19 Lisinopril [Zestril] 40 mg PO DAILY 11/28/19 Meclizine HCl 12.5 mg PO Q6H PRN 11/28/19 Mirtazapine [Remeron] 15 mg PO HS 11/28/19 traMADol HCL [Tramadol HCl] 50 mg PO Q6H PRN 11/28/19 Menthol/Zinc Oxide [Calmoseptine Ointment] 113 gm TOPICAL BID PRN 12/10/19 Ondansetron HCl [Zofran] 4 mg PO Q6H PRN 12/10/19 Polyethylene Glycol 3350 [Miralax] 17 gm PO DAILY 12/10/19 Vits A and D/White Pet/Lanolin [A and D Ointment] 60 gm TOPICAL BID PRN 12/10/19
[2019-12-30 10:13] VITALS: BP 148/64
== END 2019-12-30 10:30 | disposition home health service (06) ==
LOC: ER 11:49 → MS 11:49
PROVIDERS: ADMIT Family Medicine; ATTEND Family Medicine
DX: R10.84 Generalized abdominal pain; E86.0 Dehydration; K59.00 Constipation, unspecified; N18.3 Chronic kidney disease, stage 3 (moderate); I48.20 Chronic atrial fibrillation, unspecified; N17.9 Acute kidney failure, unspecified; K80.20 Calculus of gallbladder without cholecystitis without obstruction; I12.9 Hypertensive chronic kidney disease with stage 1 through stage 4 chronic kidney disease, or unspecified chronic kidney disease
CPT/HCPCS: 36415; 71010; 71045; 74176; 80053; 81001; 83690; 84484; 85025; 87086; 93005; 96361; 96374; 96376; 99285; G0378

== ENCOUNTER 2020-04-29 07:30 | Inpatient (IN) ==
--- NOTE | 2020-04-29 08:19 | ERNOTE ---
Medical Problem HPI - Narrative Date of Service: 04/29/20 - General Chief Complaint: General Assessment Time Seen by Provider: 04/29/20 08:06 Source: patient Exam Limitations: no limitations - Immun/Allergies/Home Medications Immunizations: IMMUNIZATION HX Immunizations Up to Date Yes History of Influenza Vaccine Yes Hx Pneumococcal Vaccination Yes Allergies/Adverse Reactions: Allergies pravastatin Adverse Reaction (Mild, Verified 01/18/20 17:14) Vomiting Home Medications: HOME MEDICATIONS Pantoprazole Sodium [Protonix] 40 mg PO BID 04/07/18 [Last Taken 12/10/19] Furosemide [Lasix] 20 mg PO BID 01/17/19 [Last Taken 12/10/19] Acetaminophen [Tylenol] 650 mg PO Q6H PRN 01/24/19 [Last Taken Unknown] Metoprolol Succinate [Toprol Xl] 100 mg PO BID 07/24/19 [Last Taken 12/10/19] Saccharomyces Boulardii [Florastor] 250 mg PO BID 08/08/19 [Last Taken 12/10/19] LORazepam [Ativan] 0.5 mg PO Q6H PRN 11/28/19 [Last Taken Unknown] Lisinopril [Zestril] 40 mg PO DAILY 11/28/19 [Last Taken 12/10/19] Meclizine HCl 12.5 mg PO Q6H PRN 11/28/19 [Last Taken Unknown] Mirtazapine [Remeron] 15 mg PO HS 11/28/19 [Last Taken 12/09/19] traMADol HCL [Tramadol HCl] 50 mg PO Q6H PRN 11/28/19 [Last Taken Unknown] Menthol/Zinc Oxide [Calmoseptine Ointment] 113 gm TOPICAL BID PRN 12/10/19 [Last Taken Unknown] Ondansetron HCl [Zofran] 4 mg PO Q6H PRN 12/10/19 [Last Taken 12/10/19] Polyethylene Glycol 3350 [Miralax] 17 gm PO DAILY 12/10/19 [Last Taken Unknown] Vits A and D/White Pet/Lanolin [A and D Ointment] 60 gm TOPICAL BID PRN 12/10/19 [Last Taken Unknown] Ciprofloxacin HCl [Cipro] 500 mg PO BID #20 tab 01/18/20 [Last Taken Unknown] Docusate Sodium [Colace] 100 mg PO BID 01/18/20 [Last Taken Unknown] - History of Present History Narrative: Patient presents to the ED for progressive generalized weakness. This has been increasing over the last 2 days especially. Generalized in nature. Denies acute focal weakness. Mild increased SOB. No chest pain, no abdominal pain. Lives at home and used home oxygen. No difficulty urinating. She denies trauma. Uses home oxygen. Does not feel like she can eat or drink. No vomiting Timing: constant, getting worse Severity: severe Modifying Factors - (Improves): Present: other - nothing Modifying Factors - (Worsens): Present: other - nothing Review of Systems - Review of Systems Constitutional: Absent: fever EYE: Present: no symptoms reported ENT: Absent: sore throat Respiratory: Present: See HPI Cardiology: Absent: chest pain Gastrointestinal/Abdominal: Absent: abdominal pain Genitourinary: Absent: dysuria Neurological: Present: weakness All Other Systems: All systems neg except as marked Medical History (Last Reviewed 04/29/20 @ 08:41 by Suresh Wei MD) Acute renal failure (ARF) Anemia Anxiety Atrial fibrillation CAD (coronary artery disease) COPD (chronic obstructive pulmonary disease) Chronic kidney disease Dehydration Depression Esophageal stricture GERD (gastroesophageal reflux disease) HTN (hypertension) History 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 dilatation assisted current use of anticoagulant therapy Osteoarthritis UTI (urinary tract infection) Surgical History: Surgical History (Last Reviewed 04/29/20 @ 08:41 by Suresh Wei MD) H/O heart artery stent History of hysterectomy Previous back surgery Family History: Family History (Last Reviewed 04/29/20 @ 08:41 by Suresh Wei MD) Father Myocardial infarction Hypertension Mother Colon cancer Social History: (Last Reviewed 04/29/20 @ 08:41 by Suresh Wei MD) Social History: household members: children current occupational status: retired Service: No Tobacco: Smoking Status: Never smoker Alcohol: alcohol intake: never Substance Use: substance use type: does not use Dietary Habits: caffeine: Yes Personal Safety: victim of physical abuse: No victim of emotional abuse: No Physical Exam - Physical Exam General Appearance: Present: alert, no apparent distress, cachetic Head Exam: Present: normal inspection, no evidence of injury Eye Exam: Normal inspection: bilateral, PERRL: bilateral Ears, Nose, Throat: Present: normal ENT inspection Neck: Present: normal inspection Respiratory: Present: no respiratory distress, normal breath sounds, no accessory muscle use. 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 No acute unilateral focal motor or sensory deficits. Skin Exam: Present: normal color, warm/dry Progress - Results and Orders Patient's Lab Results:: I have reviewed the patient's lab results. - Vital Signs Patient's Vital Signs:: I have reviewed the patient's vital signs. Vital Signs: Vital Signs 04/29/20 07:41 Temperature 36.7 C Pulse Rate 80 Respiratory Rate 33 H Blood Pressure 176/98 H O2 Sat by Pulse Oximetry 99 - EKG EKG #1 EKG: NSR EKG read: Interp. by me EKG Comments: NSR rate 77. Non-specific ST/T wave changes. no STEMI noted. - X-Ray X-Ray #1 X-Ray: chest Interpretation: Interp. by me X-ray Comments: No real time radiology reads. I personally reviewed portable CXR image. Mild pulml vasc congestion and RLL infiltrate. - Progress/Reassessment Chief Complaint: General Assessment Progress Note-Subjective: 04/29/20 10:43 IV antibiotics given. IV lasix. She will need to stay in the hospital and she understands this. I spoke with Dr Xiong who will admit the patient to the hospital. Departure Clinical Impression: CHF exacerbation, FTT (failure to thrive) in adult, Pneumonia, Generalized weakness - Departure Disposition: Short Term Hospital Inpatient Condition: Fair Referrals: Lonnie Rice MD [Primary Care Provider] -
[2020-04-29] MEDS: NORMAL SALINE 1,000 ML IV ONE ×2 (08:20→14:19)
[2020-04-29 08:40] LABS: Hematocrit 41.3 % (37.0-47.0); Hemoglobin 12.3 gm/dL (12.5-16.0); Mean Cell Volume 106.4 fl (78-100); Mean Corpuscular Hemoglobin 31.7 pg (27-31); Mean Corpuscular Hgb Conc 29.8 g/dl (32-36); Neutrophil # 9.3 K/mm3 (1.3-6.0); Neutrophil % 81.1 % (42-75.0); Platelet Count 230 K/mm3 (150-450); Red Blood Count 3.88 M/mm3 (4.2-5.4); Red Cell Distribution Width 13.7 % (11.5-14.0); White Blood Count 11.5 K/mm3 (4.0-10.5)
[2020-04-29] MEDS ORDERED: cefTRIAXone SODIUM 1,000 MG/100 ML BAG IV ONE (08:50)
[2020-04-29 09:01] LABS: Troponin I 0.037 ng/mL (0.00-0.10)
[2020-04-29 09:06] LABS: Albumin * 2.9 gm/dl (3.4-5.0); Anion Gap 10.4 mmol/L (6.8-13.8); BUN/Creatinine Ratio 36.5 (9.0-21.6); Bilirubin, Total 0.3 mg/dL (0.0-1.1); Ca. Corrected For Albumin 10.6 mg/dL (8.4-10.2); Potassium 4.4 mmol/L (3.4-4.6)
[2020-04-29] MEDS ORDERED: AZITHROMYCIN 500 MG in DEXTROSE 5 % IN WATER 250 ML IV ONE ×2 (09:15)
[2020-04-29 09:24] LABS: Urine Appearance Clear (CLEAR); Urine Bilirubin Negative (NEGATIVE); Urine Blood Negative /ul (NEGATIVE); Urine Color Yellow; Urine Ketone Negative (NEGATIVE); Urine Protein 100 mg/dL (NEGATIVE); Urine Urobilinogen Normal (NORMAL); Urine pH 5.5 pH (5.0-7.0)
[2020-04-29 09:25] LABS: Urine Nitrite Negative (NEGATIVE)
[2020-04-29 09:25] LABS: BNP * Greater than 35000 pg/mL (5-550); Magnesium 2.4 mg/dL (1.2-2.8)
[2020-04-29 09:26] LABS: Urine Bacteria None Seen; Urine RBC None Seen /hpf (0-5); Urine WBC 0-5 /hpf (0-5)
[2020-04-29] MEDS ORDERED: FUROSEMIDE 10 MG/ML VIAL IV ONE (09:39)
[2020-04-29] MEDS ORDERED: VITS A AND D/WHITE PET/LANOLIN 60 APPL TUBE TP PRN (12:23)
[2020-04-29] MEDS ORDERED: MECLIZINE HCL 12.5 MG TABLET PO PRN (12:23)
[2020-04-29] MEDS ORDERED: Menthol/Zinc Oxide [Calmoseptine Ointment] TP PRN (12:23)
[2020-04-29] MEDS ORDERED: ENOXAPARIN SODIUM 40 MG/0.4 ML SYRG SC SCH (12:30)
[2020-04-29] MEDS ORDERED: ENOXAPARIN SODIUM 30 MG/0.3 ML SYRG SC SCH (12:45)
[2020-04-29] MEDS: SILVER SULFADIAZINE 50 APPL JAR TP SCH (13:10)
--- NOTE | 2020-04-29 13:15 | HP ---
Chief Complaint - Chief Complaint Date of Service: 04/29/20 Time of Service: 12:52 Chief Complaint: I have weakness and cough. History of Present Illness: 84-year-old female with past medical history of CHF, coronary artery disease, atrial fibrillation, CKD 3, anxiety disorder, GERD, hypertension, was brought to the ER for evaluation of worsening generalized weakness and cough over the past few days. 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 The patient reports over the past several days she has not been able to eat due to poor appetite and poor oral intake. She reports significant nausea for which she was recently prescribed an antiemetic. The patient also says she was treated for C. difficile a while ago but cannot recall how long ago, but she denies recent diarrhea. She also complains of worsening shortness of breath over the past several days despite her supplemental oxygen. Evaluation of the patient reveals significant weight loss and emaciation, the patient appears malnourished and underweight. When asked if she has been eating she says no she tries but she cannot much. She was also found to have superficial skin tears with ulceration of the skin tear on the left lower extremity. These ulcers were covered with bandages which look like they were recently changed. She is also currently on p.o. antibiotics with Cipro but she is not sure why she was prescribed this. It is very possible that this was for her skin ulcers. The patient appeared dehydrated and in need of hydration however given her history of CHF, IV hydration will have to be very conservative and cautious to avoid fluid overload. She has a long history of chronic kidney disease and her GFR is slightly lower than her previous so she would benefit from cautious hydration. 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 Osteoarthritis UTI (urinary tract infection) Surgical History: Surgical History (Last Reviewed 04/29/20 @ 12:18 by Edna Aguiar RN) H/O heart artery stent History of hysterectomy Previous back surgery Family History: Family History (Last Reviewed 04/29/20 @ 12:18 by Edna Aguiar RN) Father Myocardial infarction Hypertension Mother Colon cancer Social History: (Last Reviewed 04/29/20 @ 12:18 by Edna Aguiar RN) Social History: household members: children current occupational status: retired Service: No Tobacco: Smoking Status: Never smoker Alcohol: alcohol intake: never Substance Use: substance use type: does not use Dietary Habits: caffeine: Yes Personal Safety: victim of physical abuse: No victim of emotional abuse: No Peds Patient Hx - Developmental: No Pertinent Hx Peds Patient Hx - Medical: No Pertinent Hx Peds Patient Hx - Cardiac/Respiratory: No Pertinent Hx Peds Patient Hx - Surgical: No Surgical History Patient History - Cancer: No Hx of Cancer Review Of Systems (GEN) - Review of Systems Generalized/Overall Review: Present: Weakness EENTM: Present: No Symptoms Reported Respiratory: Present: Cough, Shortness of Breath Cardiac: Present: No Symptoms Reported Abdominal: Present: Nausea Genitourinary: Present: No Symptoms Reported Musculoskeletal: Present: No Symptoms Reported Neurological: Present: No Symptoms Reported Skin: Present: Lesions - Superficial skin tears on lower extremities Endocrine: Present: No Symptoms Reported Immunizations: IMMUNIZATION HX Immunizations Up to Date Yes History of Influenza Vaccine Yes Hx Pneumococcal Vaccination Yes Allergies/Adverse Reactions: Allergies Allergy/AdvReac Type Severity Reaction Status Date / Time pravastatin AdvReac Mild Vomiting Verified 04/29/20 12:19 Home Medications: HOME MEDICATIONS Pantoprazole Sodium [Protonix] 40 mg PO BID 04/07/18 [Last Taken 12/10/19] Furosemide [Lasix] 20 mg PO BID 01/17/19 [Last Taken 12/10/19] Acetaminophen [Tylenol] 650 mg PO Q6H PRN 01/24/19 [Last Taken Unknown] Metoprolol Succinate [Toprol Xl] 100 mg PO BID 07/24/19 [Last Taken 12/10/19] Saccharomyces Boulardii [Florastor] 250 mg PO BID 08/08/19 [Last Taken 12/10/19] LORazepam [Ativan] 0.5 mg PO Q6H PRN 11/28/19 [Last Taken Unknown] Lisinopril [Zestril] 40 mg PO DAILY 11/28/19 [Last Taken 12/10/19] Meclizine HCl 12.5 mg PO Q6H PRN 11/28/19 [Last Taken Unknown] Mirtazapine [Remeron] 15 mg PO HS 11/28/19 [Last Taken 12/09/19] traMADol HCL [Tramadol HCl] 50 mg PO Q6H PRN 11/28/19 [Last Taken Unknown] Menthol/Zinc Oxide [Calmoseptine Ointment] 113 gm TOPICAL BID PRN 12/10/19 [Last Taken Unknown] Ondansetron HCl [Zofran] 4 mg PO Q6H PRN 12/10/19 [Last Taken 12/10/19] Polyethylene Glycol 3350 [Miralax] 17 gm PO DAILY 12/10/19 [Last Taken Unknown] Vits A and D/White Pet/Lanolin [A and D Ointment] 60 gm TOPICAL BID PRN 12/10/19 [Last Taken Unknown] Ciprofloxacin HCl [Cipro] 500 mg PO BID #20 tab 01/18/20 [Last Taken Unknown] Docusate Sodium [Colace] 100 mg PO BID 01/18/20 [Last Taken Unknown] Exam - Exam Vital Signs: Vital Signs - Last Taken Temp 36.7 C 04/29/20 07:41 Pulse 81 04/29/20 10:44 Resp 26 H 04/29/20 10:44 BP 127/83 04/29/20 10:44 Pulse Ox 100 04/29/20 10:44 Constitutional: Present: Alert, Oriented x3, Cooperative, No distress, Elderly, Thin and frail ENT Exam: Present: normal ENT inspection, hearing grossly normal, pharynx normal, TMs normal Eye Exam: bilateral eye: normal inspection, PERRL, EOMI Neck: Present: non-tender, full range of motion, supple, normal inspection, trachea midline Back Exam: Present: normal inspection, no CVA tenderness, no vertebral tenderness Breasts: Present: Exam deferred Respiratory: Present: chest non-tender, lungs clear, normal breath sounds, no respiratory distress, no accessory muscle use Cardiovascular/Chest: Present: normal peripheral pulses, no chest tenderness, no edema, no gallop, no JVD, no murmur, irregularly irregular Peripheral Pulses: dorsalis-pedis (R): 2+, dorsalis-pedis (L): 2+ Abdomen: Present: Normal bowel sounds, soft, nontender, nondistended, no rebound tenderness, no hepatospenomegaly, no masses /Rectal: Present: Exam deferred Extremity: Present: normal range of motion, non-tender, normal inspection, no pedal edema, no calf tenderness Skin Exam: Present: other - Skin tears on lateral aspect of both lower extremities, with ulceration of superficial skin tear on left lower extremity. Generalized circumferential discoloration with multiple hematomas on lower extremities. 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, normal cerebellar test, no motor/sensory deficits, alert, normal mood/affect, oriented x 3 Appearance: Present: appropriate appearance, neat, no memory impairment, disheveled Eye contact: Present: cooperative, good eye contact, normal speech Thoughts: Present: normal thought pattern, no apparent hallucination Diagnostic Studies: Abnormal Lab Results 04/29/20 04/29/20 04/29/20 Range/Units 08:30 08:30 08:30 WBC 11.5 H (4.0-10.5) K/mm3 RBC 3.88 L (4.2-5.4) M/mm3 Hgb 12.3 L (12.5-16.0) gm/dL MCV 106.4 H (78-100) fl MCH 31.7 H (27-31) pg MCHC 29.8 L (32-36) g/dl Immature Gran # (Auto) 0.04 H (0.000-0.0310) K/mm3 Neutrophils % 81.1 H (42-75.0) % Lymphocytes % 12.1 L (20-51) % Neutrophils # 9.3 H (1.3-6.0) K/mm3 Lymphocytes # 1.39 L (1.5-3.5) k/mm3 BUN 62 H D (3-23) mg/dL Creatinine 1.70 H (0.4-1.4) mg/dL Est GFR (Non-Af Amer) 30 L (60-130) mL/min BUN/Creatinine Ratio 36.5 H (9.0-21.6) Random Glucose 116 H (70-110) mg/dL Calcium Adj for Albumin 10.6 H (8.4-10.2) mg/dL Alkaline Phosphatase 183 H (50-170) U/L B-Natriuretic Peptide Greater than 88873 H (5-550) pg/mL Albumin 2.9 L (3.4-5.0) gm/dl Lipase 29 L (73-393) U/L Urine Protein (NEGATIVE) mg/dL Prot Sulfosalicylic Acd (0) mg/dL 04/29/20 Range/Units 09:05 WBC (4.0-10.5) K/mm3 RBC (4.2-5.4) M/mm3 Hgb (12.5-16.0) gm/dL MCV (78-100) fl MCH (27-31) pg MCHC (32-36) g/dl Immature Gran # (Auto) (0.000-0.0310) K/mm3 Neutrophils % (42-75.0) % Lymphocytes % (20-51) % Neutrophils # (1.3-6.0) K/mm3 Lymphocytes # (1.5-3.5) k/mm3 BUN (3-23) mg/dL Creatinine (0.4-1.4) mg/dL Est GFR (Non-Af Amer) (60-130) mL/min BUN/Creatinine Ratio (9.0-21.6) Random Glucose (70-110) mg/dL Calcium Adj for Albumin (8.4-10.2) mg/dL Alkaline Phosphatase (50-170) U/L B-Natriuretic Peptide (5-550) pg/mL Albumin (3.4-5.0) gm/dl Lipase (73-393) U/L Urine Protein 100 H (NEGATIVE) mg/dL Prot Sulfosalicylic Acd 2+ H (0) mg/dL Laboratory Results WBC 11.5 K/mm3 (4.0-10.5) H 04/29/20 08:30 RBC 3.88 M/mm3 (4.2-5.4) L 04/29/20 08:30 Hgb 12.3 gm/dL (12.5-16.0) L 04/29/20 08:30 Hct 41.3 % (37.0-47.0) 04/29/20 08:30 MCV 106.4 fl (78-100) H 04/29/20 08:30 MCH 31.7 pg (27-31) H 04/29/20 08:30 MCHC 29.8 g/dl (32-36) L 04/29/20 08:30 RDW 13.7 % (11.5-14.0) 04/29/20 08:30 Plt Count 230 K/mm3 (150-450) 04/29/20 08:30 MPV 10.0 fl (8-12.5) 04/29/20 08:30 Immature Gran % (Auto) 0.30 % (0.001-0.429) 04/29/20 08:30 Immature Gran # (Auto) 0.04 K/mm3 (0.000-0.0310) H 04/29/20 08:30 Neutrophils % 81.1 % (42-75.0) H 04/29/20 08:30 Lymphocytes % 12.1 % (20-51) L 04/29/20 08:30 Monocytes % 4.4 % (0.0-9) 04/29/20 08:30 Eosinophils % 1.4 % (0.0-3.0) 04/29/20 08: Basophils % 0.7 % (0.0-1.0) 04/29/20 08:30 Nucleated RBC % 0.0 k/mm3 (0-1) 04/29/20 08:30 Neutrophils # 9.3 K/mm3 (1.3-6.0) H 04/29/20 08:30 Lymphocytes # 1.39 k/mm3 (1.5-3.5) L 04/29/20 08:30 Monocytes # 0.5 k/mm3 (0.0-1.0) 04/29/20 08:30 Eosinophils # 0.2 k/mm3 (0.0-0.7) 04/29/20 08:30 Absolute Basophils 0.1 k/mm3 (0.0-0.1) 04/29/20 08:30 Sodium 142 mmol/L (132-142) 04/29/20 08:30 Plasma Sodium 142 mmol/L (130-142) 04/29/20 08:30 Potassium 4.4 mmol/L (3.4-4.6) D 04/29/20 08:30 Chloride 105 mmol/L (97-106) 04/29/20 08:30 Carbon Dioxide 31.0 mmol/L (24-32.6) 04/29/20 08:30 Anion Gap 10.4 mmol/L (6.8-13.8) 04/29/20 08:30 BUN 62 mg/dL (3-23) H D 04/29/20 08:30 Creatinine 1.70 mg/dL (0.4-1.4) H 04/29/20 08:30 Est GFR (Non-Af Amer) 30 mL/min (60-130) L 04/29/20 08:30 BUN/Creatinine Ratio 36.5 (9.0-21.6) H 04/29/20 08:30 Random Glucose 116 mg/dL (70-110) H 04/29/20 08:30 Lactic Acid, Venous 1.0 mmol/L (0.4-2.0) 04/29/20 08:30 Calcium 10.0 mg/dL (7.9-10.9) 04/29/20 08:30 Calcium Adj for Albumin 10.6 mg/dL (8.4-10.2) H 04/29/20 08:30 Magnesium 2.4 mg/dL (1.2-2.8) 04/29/20 08:30 Total Bilirubin 0.3 mg/dL (0.0-1.1) 04/29/20 08:30 AST 25 U/L (0-48) 04/29/20 08:30 ALT 35 U/L (19-67) 04/29/20 08:30 Alkaline Phosphatase 183 U/L (50-170) H 04/29/20 08:30 Troponin I 0.037 ng/mL (0.00-0.10) 04/29/20 08:30 B-Natriuretic Peptide Greater than 76032 pg/mL (5-550) H 04/29/20 08:30 Total Protein 7.0 gm/dL (6.2-8.2) 04/29/20 08:30 Albumin 2.9 gm/dl (3.4-5.0) L 04/29/20 08:30 Lipase 29 U/L (73-393) L 04/29/20 08:30 Procalcitonin 0.16 ng/mL (0.05-0.50) 04/29/20 08:30 Urine Color Yellow 04/29/20 09:05 Urine Appearance Clear (CLEAR) 04/29/20 09:05 Urine pH 5.5 pH (5.0-7.0) 04/29/20 09:05 Ur Specific [place] 1.020 SP.GR. (1.005-1.010) 04/29/20 09:05 Urine Protein 100 mg/dL (NEGATIVE) H 04/29/20 09:05 Urine Glucose (UA) Negative mg/dL (NEGATIVE) 04/29/20 09:05 Urine Ketones Negative mg/dL (NEGATIVE) 04/29/20 09:05 Urine Blood Negative /ul (NEGATIVE) 04/29/20 09:05 Urine Nitrate Negative (NEGATIVE) 04/29/20 09:05 Urine Bilirubin Negative mg/dl (NEGATIVE) 04/29/20 09:05 Prot Sulfosalicylic Acd 2+ mg/dL (0) H 04/29/20 09:05 Urine Urobilinogen Normal EU/dl (NORMAL) 04/29/20 09:05 Ur Leukocyte Esterase Negative /ul (NEGATIVE) 04/29/20 09:05 Urine RBC None seen /hpf (0-5) 04/29/20 09:05 Urine WBC 0-5 /hpf (0-5) 04/29/20 09:05 Ur Epithelial Cells 0-5 /hpf (0-5) 04/29/20 09:05 Urine Bacteria None seen (NONE) 04/29/20 09:05 Urine Culture Comments No culture indicated 04/29/20 09:05 SARS-CoV-2 (PCR) Not detected (NotDetected) 04/29/20 10:00 Assessment/Plan - Narrative Narrative: Patient was evaluated medical chart was reviewed and decision to admit to [facility] for observation of right lower lobe pneumonia, dehydration, and CHF exacerbation was made. We will keep the patient overnight to treat her with dual antibiotic therapy for her pneumonia and soft cautious IV hydration. We will also continue treating her with her diuretics to avoid fluid overload. The patient is currently taking p.o. Cipro but she does not recall why she was prescribed this, I suspect it is to treat the ulcer on her left lower extremity. We will continue the Cipro in addition to the antibiotics that were added today for proper coverage. Repeat labs have been ordered for tomorrow morning to reevaluate renal function and electrolytes as well as leukocytosis. This patient appears to live and a poor social situation that will need to be investigated based on her appearance and medical condition. - Assessment/Plan (1) Colovaginal fistula Problem: Chronic (2) Atrial fibrillation Problem: Chronic Qualifiers: (3) Dementia Problem: Chronic (4) Leukocytosis Problem: Acute Qualifiers: (5) CKD (chronic kidney disease) stage 3, GFR 30-59 ml/min Problem: Chronic (6) Malnourished Problem: Chronic Qualifiers: (7) CHF exacerbation Problem: Resolved (8) Severe malnutrition Problem: Chronic (9) Dehydration Problem: Acute (10) Acute on chronic renal failure Problem: Acute Qualifiers: Chronic kidney disease stage: stage 3 (moderate) (11) Ulcers of both lower extremities, limited to breakdown of skin Problem: Chronic
[2020-04-29] MEDS: CIPROFLOXACIN HCL 500 MG TABLET PO SCH ×2 (13:20→20:33)
[2020-04-29] MEDS: METOPROLOL SUCCINATE 100 MG TABLET.SA PO SCH ×3 (13:20→22:27)
[2020-04-29] MEDS: LISINOPRIL 40 MG TABLET PO SCH (13:20)
[2020-04-29] MEDS: ACETAMINOPHEN 500 MG TABLET PO PRN (14:15)
[2020-04-29] MEDS ORDERED: METOPROLOL TARTRATE 1 MG/ML AMPUL IV ONE ×2 (19:08→23:53)
[2020-04-29] MEDS: LORazepam 0.5 MG TABLET PO PRN (19:24)
[2020-04-29] MEDS: SACCHAROMYCES BOULARDII 250 MG CAPSULE PO SCH (20:33)
[2020-04-29] MEDS: DOCUSATE SODIUM 100 MG CAPSULE PO SCH (20:33)
[2020-04-29] MEDS: PANTOPRAZOLE SODIUM 40 MG TABLET.EC PO SCH (20:34)
[2020-04-29] MEDS: FUROSEMIDE 20 MG TABLET PO SCH (20:34)
[2020-04-29] MEDS: MIRTAZAPINE 15 MG TABLET PO SCH (20:34)
[2020-04-29] MEDS: traMADol HCL 50 MG TABLET PO PRN (20:35)
[2020-04-29] MEDS: ONDANSETRON HCL 4 MG TABLET PO PRN (22:27)
[2020-04-30] MEDS: ACETAMINOPHEN 500 MG TABLET PO PRN ×4 (00:09→23:21)
[2020-04-30 07:05] LABS: Hematocrit 39.3 % (37.0-47.0); Hemoglobin 11.6 gm/dL (12.5-16.0); Mean Cell Volume 107.1 fl (78-100); Mean Corpuscular Hemoglobin 31.6 pg (27-31); Mean Corpuscular Hgb Conc 29.5 g/dl (32-36); Mean Platelet Volume 10.7 fl (8-12.5); Neutrophil # 8.5 K/mm3 (1.3-6.0); Neutrophil % 79.4 % (42-75.0); Platelet Count 208 K/mm3 (150-450); Red Blood Count 3.67 M/mm3 (4.2-5.4); Red Cell Distribution Width 13.9 % (11.5-14.0); White Blood Count 10.6 K/mm3 (4.0-10.5)
[2020-04-30 07:20] LABS: Albumin * 2.5 gm/dl (3.4-5.0); Anion Gap 7.9 mmol/L (6.8-13.8); BUN/Creatinine Ratio 37.3 (9.0-21.6); Bilirubin, Total 0.3 mg/dL (0.0-1.1); Ca. Corrected For Albumin 10.6 mg/dL (8.4-10.2); Calcium * 9.7 mg/dL (7.9-10.9); Carbon Dioxide 33.6 mmol/L (24-32.6); Potassium 4.5 mmol/L (3.4-4.6); Total Protein 6.4 gm/dL (6.2-8.2)
[2020-04-30] MEDS: PANTOPRAZOLE SODIUM 40 MG TABLET.EC PO SCH ×2 (07:43→20:41)
[2020-04-30] MEDS: CIPROFLOXACIN HCL 500 MG TABLET PO SCH ×2 (08:07→20:40)
[2020-04-30] MEDS: METOPROLOL SUCCINATE 100 MG TABLET.SA PO SCH (08:07)
[2020-04-30] MEDS: POLYETHYLENE GLYCOL 3350 17 GM PACKET PO SCH (08:07)
[2020-04-30] MEDS: LISINOPRIL 40 MG TABLET PO SCH (08:07)
[2020-04-30] MEDS: SACCHAROMYCES BOULARDII 250 MG CAPSULE PO SCH ×2 (08:08→20:39)
[2020-04-30] MEDS: DOCUSATE SODIUM 100 MG CAPSULE PO SCH ×2 (08:08→20:40)
[2020-04-30] MEDS: FUROSEMIDE 20 MG TABLET PO SCH ×2 (08:08→20:40)
[2020-04-30] MEDS: SILVER SULFADIAZINE 50 APPL JAR TP SCH (08:08)
[2020-04-30] MEDS: AZITHROMYCIN 250 MG TABLET PO SCH (08:08)
[2020-04-30] MEDS: ONDANSETRON HCL 4 MG TABLET PO PRN ×2 (09:08→15:35)
[2020-04-30] MEDS: ENOXAPARIN SODIUM 30 MG/0.3 ML SYRG SC SCH (11:56)
--- NOTE | 2020-04-30 12:51 | PN ---
Subjective - Date and Time Seen Date: 04/30/20 Time: 12:40 Subjective Narrative: My shortness of breath has improved but sometime my heart races. Objective Objective Narrative: 84-year-old female admitted for CHF exacerbation, KASEY on CKD, and dehydration was evaluated at bedside was found to be afebrile and in no acute distress. Patient's dyspnea has improved although she reports occasional shortness of breath with exertion. Her blood pressure and heart rate has been an issue since admission, she goes in and out of atrial fibrillation. With beta-blockers both p.o. and IV we are able to achieve rate control and the patient is now and sinus rhythm. She denies any shortness of breath but says sometimes her heart races. Her blood pressure was elevated yesterday evening as well as this morning so her metoprolol dose was increased. We will keep the patient on machine setter sheet metal to watch heart rate and rhythm. Labs this morning revealed improvement of her leukocytosis and response to the dual antibiotic therapy however she now has hypernatremia. This is most likely due to the IV normal saline we were given her to treat her dehydration, But now that her appetite is improving and she is increasing her oral intake we will discontinue the IV fluids to avoid worsening electrolyte imbalance. Her renal function however has improved since admission. Repeat labs have been ordered for tomorrow morning to reevaluate electrolytes and leukocytosis. - Review of Systems Generalized/Overall Review: Reports: Weakness EENTM: Reports: No Symptoms Reported Respiratory: Reports: Shortness of Breath Cardiac: Reports: No Symptoms Reported Abdominal: Reports: No Symptoms Reported Genitourinary Symptoms: Reports: No Symptoms Reported Musculoskeletal Complaints: Reports: No Symptoms Reported Neurological: Reports: No Symptoms Reported Skin: Reports: Other - Skin ulcers on lower extremities Endocrine: Reports: No Symptoms Reported - Vitals Vitals: Last Vital Signs Temp 36.2 C 04/30/20 07:35 Pulse 77 04/30/20 10:30 Resp 20 04/30/20 10:18 BP 160/90 H 04/30/20 10:18 Pulse Ox 92 L 04/30/20 10:18 - Abnormal Lab Findings Abnormal Lab Findings: Abnormal Lab Results 04/30/20 04/30/20 Range/Units 06:35 06:35 WBC 10.6 H (4.0-10.5) K/mm3 RBC 3.67 L (4.2-5.4) M/mm3 Hgb 11.6 L (12.5-16.0) gm/dL MCV 107.1 H (78-100) fl MCH 31.6 H (27-31) pg MCHC 29.5 L (32-36) g/dl Neutrophils % 79.4 H (42-75.0) % Lymphocytes % 13.8 L (20-51) % Neutrophils # 8.5 H (1.3-6.0) K/mm3 Lymphocytes # 1.47 L (1.5-3.5) k/mm3 Sodium 145 H (132-142) mmol/L Plasma Sodium 145 H (130-142) mmol/L Chloride 108 H (97-106) mmol/L Carbon Dioxide 33.6 H (24-32.6) mmol/L BUN 59 H (3-23) mg/dL Creatinine 1.58 H (0.4-1.4) mg/dL Est GFR (Non-Af Amer) 33 L (60-130) mL/min BUN/Creatinine Ratio 37.3 H (9.0-21.6) Random Glucose 131 H (70-110) mg/dL Calcium Adj for Albumin 10.6 H (8.4-10.2) mg/dL Alkaline Phosphatase 208 H (50-170) U/L Albumin 2.5 L (3.4-5.0) gm/dl - Exam Constitutional: Present: Alert, Oriented x3, Cooperative, No distress, Other - Patient appears extremely malnourished, Elderly, Thin and frail ENT Exam: Present: normal ENT inspection, hearing grossly normal Neck: Present: non-tender, full range of motion, supple, normal inspection, trachea midline Breasts: Present: Exam deferred Respiratory: Present: chest non-tender, normal breath sounds, no respiratory distress, no accessory muscle use, decreased breath sounds Cardiovascular/Chest: Present: normal peripheral pulses, regular rate, rhythm, no chest tenderness, no edema, no gallop, no JVD, no murmur, no rub Abdomen: Present: Normal bowel sounds, soft, nontender, nondistended, no rebound tenderness, no hepatospenomegaly, no masses /Rectal: Present: Exam deferred Extremity: Present: normal range of motion, non-tender, no pedal edema, no calf tenderness, normal capillary refill, pelvis stable Skin Exam: Present: normal color, warm/dry, no cyanosis, other - Superficial skin ulcers on both lower extremities Lymphatic: Present: no adenopathy Neurologic: Present: parimutuel cashier II-XII nml as tested, no motor/sensory deficits, alert, normal mood/affect, oriented x 3 Appearance: Present: appropriate appearance, appropriate insight, neat, no memory impairment, disheveled Eye contact: Present: cooperative, good eye contact, normal speech Thoughts: Present: normal thought pattern, no apparent hallucination Assessment/Plan Plan Narrative: Follow-up labs have been ordered for tomorrow morning for reevaluation of the patient's electrolytes as well as leukocytosis. She will be kept on telemetry monitoring to watch blood pressure as well as heart rate and rhythm. In the meantime metoprolol dose have been increased for better control of heart rate and BP. 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
[2020-04-30] MEDS ORDERED: ONDANSETRON HCL 4 MG TABLET PO ONE (18:45)
[2020-04-30] MEDS: METOPROLOL SUCCINATE 50 MG TABLET.SA PO SCH ×2 (19:16→20:41)
[2020-04-30] MEDS: LORazepam 0.5 MG TABLET PO PRN (19:17)
[2020-04-30] MEDS: MIRTAZAPINE 15 MG TABLET PO SCH (20:40)
[2020-04-30] MEDS ORDERED: METOPROLOL TARTRATE 1 MG/ML AMPUL IV PRN (23:37)
[2020-05-01 06:48] LABS: Hematocrit 40.1 % (37.0-47.0); Hemoglobin 11.8 gm/dL (12.5-16.0); Mean Cell Volume 107.8 fl (78-100); Mean Corpuscular Hemoglobin 31.7 pg (27-31); Mean Corpuscular Hgb Conc 29.4 g/dl (32-36); Mean Platelet Volume 10.5 fl (8-12.5); Neutrophil # 7.7 K/mm3 (1.3-6.0); Neutrophil % 80.5 % (42-75.0); Platelet Count 184 K/mm3 (150-450); Red Blood Count 3.72 M/mm3 (4.2-5.4); Red Cell Distribution Width 13.9 % (11.5-14.0); White Blood Count 9.6 K/mm3 (4.0-10.5)
[2020-05-01] MEDS: ONDANSETRON HCL 4 MG TABLET PO PRN ×3 (06:53→21:01)
[2020-05-01] MEDS: PANTOPRAZOLE SODIUM 40 MG TABLET.EC PO SCH ×2 (06:56→21:04)
[2020-05-01 06:59] LABS: BUN/Creatinine Ratio 38.8 (9.0-21.6); Carbon Dioxide 33.5 mmol/L (24-32.6); Potassium 4.5 mmol/L (3.4-4.6)
[2020-05-01 07:00] LABS: Albumin * 2.6 gm/dl (3.4-5.0); Bilirubin, Total 0.3 mg/dL (0.0-1.1); Ca. Corrected For Albumin 10.7 mg/dL (8.4-10.2); Calcium * 9.9 mg/dL (7.9-10.9); Total Protein 6.5 gm/dL (6.2-8.2)
[2020-05-01] MEDS: ACETAMINOPHEN 500 MG TABLET PO PRN ×3 (07:58→23:58)
[2020-05-01] MEDS: LISINOPRIL 40 MG TABLET PO SCH (08:01)
[2020-05-01] MEDS: SACCHAROMYCES BOULARDII 250 MG CAPSULE PO SCH ×2 (08:01→21:02)
[2020-05-01] MEDS: AZITHROMYCIN 250 MG TABLET PO SCH (08:02)
[2020-05-01] MEDS: CIPROFLOXACIN HCL 500 MG TABLET PO SCH (08:03)
[2020-05-01] MEDS: METOPROLOL SUCCINATE 50 MG TABLET.SA PO SCH ×2 (08:04→21:03)
[2020-05-01] MEDS: DOCUSATE SODIUM 100 MG CAPSULE PO SCH ×2 (08:05→21:05)
[2020-05-01] MEDS: FUROSEMIDE 20 MG TABLET PO SCH ×2 (08:05→21:04)
[2020-05-01] MEDS: SILVER SULFADIAZINE 50 APPL JAR TP SCH (08:07)
[2020-05-01] MEDS: POLYETHYLENE GLYCOL 3350 17 GM PACKET PO SCH (08:07)
[2020-05-01] MEDS ORDERED: cloNIDine 0.1 MG PATCH.TDWK TD SCH (11:15)
--- NOTE | 2020-05-01 11:16 | PN ---
Subjective - Date and Time Seen Date: 05/01/20 Time: 11:18 Subjective Narrative: My shortness of breath has improved. Objective Objective Narrative: 84-year-old female admitted for CHF exacerbation, KASEY on CKD, infected ulcer of left lower extremity, and dehydration was evaluated at bedside was found to be afebrile and in no acute distress. Patient continues to show clinical improvement however her blood pressure continues to be an issue despite increasing her metoprolol yesterday. Her BP went up higher than 160/100 last night despite multiple antihypertensives, therefore I am adding Catapres patch in an effort to control BP better. Her heart rate however has been controlled but she continues to go in and out of A. fib. The patient continues to have anxiety that is worse in the evenings on bedtime but will manage this with the current anxiolytic. Currently we are arranging hospice services that is to start upon discharge. The patient will need home services with nursing care as well as a home health aide to assist in her care. Labs this morning revealed transaminitis which is new but given her worsening CHF it is not surprising. But again uses her leukocytosis has resolved there has been no occurrence of fever. - Review of Systems Generalized/Overall Review: Reports: Weakness EENTM: Reports: No Symptoms Reported Respiratory: Reports: Shortness of Breath Cardiac: Reports: No Symptoms Reported Abdominal: Reports: No Symptoms Reported Genitourinary Symptoms: Reports: No Symptoms Reported Musculoskeletal Complaints: Reports: No Symptoms Reported Neurological: Reports: No Symptoms Reported Skin: Reports: No Symptoms Reported Endocrine: Reports: No Symptoms Reported - Vitals Vitals: Last Vital Signs Temp 36.5 C 05/01/20 06:51 Pulse 95 05/01/20 08:05 Resp 18 05/01/20 06:51 BP 150/85 H 05/01/20 08:05 Pulse Ox 95 05/01/20 06:51 - Abnormal Lab Findings Abnormal Lab Findings: Abnormal Lab Results 05/01/20 05/01/20 Range/Units 06:35 06:35 RBC 3.72 L (4.2-5.4) M/mm3 Hgb 11.8 L (12.5-16.0) gm/dL MCV 107.8 H (78-100) fl MCH 31.7 H (27-31) pg MCHC 29.4 L (32-36) g/dl Immature Gran % (Auto) 0.70 H (0.001-0.429) % Immature Gran # (Auto) 0.07 H (0.000-0.0310) K/mm3 Neutrophils % 80.5 H (42-75.0) % Lymphocytes % 11.1 L (20-51) % Neutrophils # 7.7 H (1.3-6.0) K/mm3 Lymphocytes # 1.07 L (1.5-3.5) k/mm3 Sodium 146 H (132-142) mmol/L Plasma Sodium 147 H (130-142) mmol/L Chloride 107 H (97-106) mmol/L Carbon Dioxide 33.5 H (24-32.6) mmol/L BUN 62 H (3-23) mg/dL Creatinine 1.60 H (0.4-1.4) mg/dL Est GFR (Non-Af Amer) 33 L (60-130) mL/min BUN/Creatinine Ratio 38.8 H (9.0-21.6) Random Glucose 147 H (70-110) mg/dL Calcium Adj for Albumin 10.7 H (8.4-10.2) mg/dL AST 114 H (0-48) U/L ALT 113 H (19-67) U/L Alkaline Phosphatase 258 H (50-170) U/L Albumin 2.6 L (3.4-5.0) gm/dl - Exam Constitutional: Present: Alert, Oriented x3, Cooperative, Well developed, No distress, Elderly ENT Exam: Present: normal ENT inspection, hearing grossly normal, pharynx normal, TMs normal Neck: Present: non-tender, full range of motion, supple, normal inspection, trachea midline Breasts: Present: Exam deferred Respiratory: Present: decreased breath sounds Cardiovascular/Chest: Present: no chest tenderness, no edema, no gallop, no JVD, no murmur, no rub, irregularly irregular Abdomen: Present: Normal bowel sounds, soft, nontender, nondistended, no rebound tenderness, no hepatospenomegaly, no masses /Rectal: Present: Exam deferred Extremity: Present: normal range of motion, non-tender, normal inspection, no pedal edema, no calf tenderness, normal capillary refill, pelvis stable Skin Exam: Present: normal color, warm/dry, no cyanosis, other - Superficial ulcers on lateral aspect of lower extremities. Neurologic: Present: medical sales associate II-XII nml as tested, normal cerebellar test, no motor/sensory deficits, alert, normal mood/affect, oriented x 3 Appearance: Present: appropriate appearance, appropriate insight, neat, no memory impairment Eye contact: Present: cooperative, good eye contact, normal speech Thoughts: Present: normal thought pattern, no apparent hallucination Assessment/Plan Plan Narrative: We will keep the patient for an additional day of intrahospital care to continue managing her CHF and elevated blood pressures. Home health services are being arranged for better care of the patient at home and to avoid future hospitalizations. Catapres patches were added to her treatment for better control of her blood pressures. Antibiotics except Cipro for her infected ulcer with discontinued due to improvement in her coughing and respiratory function and to be due to stress on her kidneys. She also has a new elevation in her transaminases which I think might be related to the ceftriaxone she was on, therefore the medication was discontinued. Repeat labs have been ordered for tomorrow morning for reevaluation. 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
[2020-05-01] MEDS: ENOXAPARIN SODIUM 30 MG/0.3 ML SYRG SC SCH (12:07)
[2020-05-01] MEDS: METOPROLOL TARTRATE 1 MG/ML AMPUL IV PRN (14:17)
[2020-05-01] MEDS: LORazepam 0.5 MG TABLET PO PRN ×2 (15:29→23:58)
[2020-05-01] MEDS: traMADol HCL 50 MG TABLET PO PRN (19:12)
[2020-05-01] MEDS: MIRTAZAPINE 15 MG TABLET PO SCH (21:04)
[2020-05-02] MEDS: METOPROLOL TARTRATE 1 MG/ML AMPUL IV PRN ×2 (03:50→07:28)
[2020-05-02] MEDS: PANTOPRAZOLE SODIUM 40 MG TABLET.EC PO SCH (07:27)
[2020-05-02] MEDS: ONDANSETRON HCL 4 MG TABLET PO PRN (07:28)
[2020-05-02] MEDS: METOPROLOL SUCCINATE 50 MG TABLET.SA PO SCH (08:09)
[2020-05-02] MEDS: DOCUSATE SODIUM 100 MG CAPSULE PO SCH (08:10)
[2020-05-02] MEDS: LORazepam 0.5 MG TABLET PO PRN (08:10)
[2020-05-02] MEDS: FUROSEMIDE 20 MG TABLET PO SCH (08:10)
[2020-05-02] MEDS: SACCHAROMYCES BOULARDII 250 MG CAPSULE PO SCH (08:11)
[2020-05-02] MEDS: SILVER SULFADIAZINE 50 APPL JAR TP SCH (08:11)
[2020-05-02] MEDS: POLYETHYLENE GLYCOL 3350 17 GM PACKET PO SCH (08:11)
[2020-05-02] MEDS: LISINOPRIL 40 MG TABLET PO SCH (08:11)
[2020-05-02] MEDS ORDERED: CIPROFLOXACIN HCL 500 MG TABLET PO SCH (09:00)
[2020-05-02] MEDS ORDERED: METOPROLOL SUCCINATE 100 MG TABLET.SA PO SCH (09:00)
[2020-05-02 09:21] LABS: Albumin * 2.8 gm/dl (3.4-5.0); Anion Gap 10.3 mmol/L (6.8-13.8); BUN/Creatinine Ratio 39.5 (9.0-21.6); Bilirubin, Total 0.3 mg/dL (0.0-1.1); Ca. Corrected For Albumin 10.6 mg/dL (8.4-10.2); Carbon Dioxide 31.7 mmol/L (24-32.6); Total Protein 7.1 gm/dL (6.2-8.2)
[2020-05-02] MEDS ORDERED: METOPROLOL SUCCINATE 50 MG TABLET.SA PO ONE (09:25)
--- NOTE | 2020-05-02 10:07 | DS ---
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 Patient shows some improvement this morning, her breathing is much better and she has better lung sounds. However she reports feeling lousy all over and appears down. When asked for the patient explained further she is not able to express exactly what she is feeling but my impression is this is more a mood issue than a somatic symptom. Her blood pressure has improved with the addition of Catapres and another increase of her metoprolol and she remains in sinus rhythm. I will discharge the patient home where she will continue home health services with [facility] which she insists on keeping. Hospice care was discussed with the patient but she refused if it meant leaving [facility]. [facility] was contacted and it was explained to them that the patient is in need of hospice care and has a low life expectancy due to her chronic conditions specifically her advanced CHF. They expressed that although they do not offer hospice services they will request comfortable as possible and address all issues that they can. Her sodium levels were mildly elevated on yesterday's labs but I am not very concerned about this because she was hydrated with normal saline which might explain the bump in sodium levels. Labs this morning revealed an improvement irises normal saline was discontinued. Patient is to continue on her routine medications so all of them will be reconciled on her discharge today. She is to also follow-up with her PCP in the next week. Procedures Performed: none Results and Findings: Pending Mircobiology Results 04/29/20 08:45 Blood Blood Culture - Preliminary NO GROWTH AFTER 48 HOURS 04/29/20 08:30 Blood Blood Culture - Preliminary NO GROWTH AFTER 48 HOURS Lab Pending Results 04/29/20 08:30: WBC 11.5 H, RBC 3.88 L, Hgb 12.3 L, Hct 41.3, MCV 106.4 H, MCH 31.7 H, MCHC 29.8 L, RDW 13.7, Plt Count 230, MPV 10.0, Immature Gran % (Auto) 0.30, Immature Gran # (Auto) 0.04 H, Neutrophils % 81.1 H, Lymphocytes % 12.1 L, Monocytes % 4.4, Eosinophils % 1.4, Basophils % 0.7, Nucleated RBC % 0.0, Neutrophils # 9.3 H, Lymphocytes # 1.39 L, Monocytes # 0.5, Eosinophils # 0.2, Absolute Basophils 0.1 04/29/20 08:30: Sodium 142, Plasma Sodium 142, Potassium 4.4 D, Chloride 105, Carbon Dioxide 31.0, Anion Gap 10.4, BUN 62 H D, Creatinine 1.70 H, Est GFR (Non-Af Amer) 30 L, BUN/Creatinine Ratio 36.5 H, Random Glucose 116 H, Calcium 10.0, Calcium Adj for Albumin 10.6 H, Total Bilirubin 0.3, AST 25, ALT 35, Alkaline Phosphatase 183 H, Troponin I 0.037, Total Protein 7.0, Albumin 2.9 L, Lipase 29 L 04/29/20 08:30: Lactic Acid, Venous 1.0 04/29/20 08:30: Procalcitonin 0.16 04/29/20 08:30: Magnesium 2.4, B-Natriuretic Peptide Greater than 80974 H 04/29/20 09:05: Urine Color Yellow, Urine Appearance Clear, Urine pH 5.5, Ur Specific [place] 1.020, Urine Protein 100 H, Urine Glucose (UA) Negative, Urine Ketones Negative, Urine Blood Negative, Urine Nitrate Negative, Urine Bilirubin Negative, Prot Sulfosalicylic Acd 2+ H, Urine Urobilinogen Normal, Ur Leukocyte Esterase Negative, Urine RBC None seen, Urine WBC 0-5, Ur Epithelial Cells 0-5, Urine Bacteria None seen, Urine Culture Comments No culture indicated 04/29/20 10:00: SARS-CoV-2 (PCR) Not detected 04/29/20 15:53: Stl C.difficile Tox A&B Negative 04/30/20 06:35: WBC 10.6 H, RBC 3.67 L, Hgb 11.6 L, Hct 39.3, MCV 107.1 H, MCH 31.6 H, MCHC 29.5 L, RDW 13.9, Plt Count 208, MPV 10.7, Immature Gran % (Auto) 0.30, Immature Gran # (Auto) 0.03, Neutrophils % 79.4 H, Lymphocytes % 13.8 L, Monocytes % 5.4, Eosinophils % 0.4, Basophils % 0.7, Nucleated RBC % 0.0, Neutrophils # 8.5 H, Lymphocytes # 1.47 L, Monocytes # 0.6, Eosinophils # 0.0, Absolute Basophils 0.1 04/30/20 06:35: Sodium 145 H, Plasma Sodium 145 H, Potassium 4.5, Chloride 108 H, Carbon Dioxide 33.6 H, Anion Gap 7.9, BUN 59 H, Creatinine 1.58 H, Est GFR (Non-Af Amer) 33 L, BUN/Creatinine Ratio 37.3 H, Random Glucose 131 H, Calcium 9.7, Calcium Adj for Albumin 10.6 H, Total Bilirubin 0.3, AST 43, ALT 46, Alkaline Phosphatase 208 H, Total Protein 6.4, Albumin 2.5 L 05/01/20 06:35: WBC 9.6, RBC 3.72 L, Hgb 11.8 L, Hct 40.1, MCV 107.8 H, MCH 31.7 H, MCHC 29.4 L, RDW 13.9, Plt Count 184, MPV 10.5, Immature Gran % (Auto) 0.70 H, Immature Gran # (Auto) 0.07 H, Neutrophils % 80.5 H, Lymphocytes % 11.1 L, Monocytes % 5.8, Eosinophils % 1.2, Basophils % 0.7, Nucleated RBC % 0.0, Neutrophils # 7.7 H, Lymphocytes # 1.07 L, Monocytes # 0.6, Eosinophils # 0.1, Absolute Basophils 0.1 05/01/20 06:35: Sodium 146 H, Plasma Sodium 147 H, Potassium 4.5, Chloride 107 H, Carbon Dioxide 33.5 H, Anion Gap 10.0, BUN 62 H, Creatinine 1.60 H, Est GFR (Non-Af Amer) 33 L, BUN/Creatinine Ratio 38.8 H, Random Glucose 147 H, Calcium 9.9, Calcium Adj for Albumin 10.7 H, Total Bilirubin 0.3, AST 114 H, ALT 113 H, Alkaline Phosphatase 258 H, Total Protein 6.5, Albumin 2.6 L 05/02/20 09:04: Sodium 143 H, Plasma Sodium 144 H, Potassium 5.0 H, Chloride 106, Carbon Dioxide 31.7, Anion Gap 10.3, BUN 70 H, Creatinine 1.77 H, Est GFR (Non-Af Amer) 29 L, BUN/Creatinine Ratio 39.5 H, Random Glucose 187 H, Calcium 10.0, Calcium Adj for Albumin 10.6 H, Total Bilirubin 0.3, AST 155 H, ALT 184 H, Alkaline Phosphatase 349 H, Total Protein 7.1, Albumin 2.8 L Discharge Location: Home Disposition: Home Health Service Home Health Agency: [facility] Condition: Stable Face to Face Encounter completed per [facility] Guidelines: No Discharge Activity: Activity as tolerated Discharge Diet: General/regular food Prescriptions (Any new or edited meds): cloNIDine [Catapres-TTS 1] 0.1 mg TD Q7D #7 patch.tdwk Transmission Status: Sent to [id number] Saccharomyces Boulardii [Florastor] 250 mg PO BID #30 cap Transmission Status: Pending to [facility] Furosemide [Lasix] 20 mg PO BID #60 Silver Sulfadiazine [Silvadene] 1 appl TOPICAL DAILY #1 jar Transmission Status: Pending to [facility] Metoprolol Succinate [Toprol Xl] 200 mg PO BID #60 tablet.sa Transmission Status: Pending to [facility] Complete Home Medications List: Complete Home Medication List: Pantoprazole Sodium [Protonix] 40 mg PO BID 04/07/18 Acetaminophen [Tylenol] 650 mg PO Q6H PRN 01/24/19 LORazepam [Ativan] 0.5 mg PO Q6H PRN 11/28/19 Lisinopril [Zestril] 40 mg PO DAILY 11/28/19 Meclizine HCl 12.5 mg PO Q6H PRN 11/28/19 Mirtazapine [Remeron] 15 mg PO HS 11/28/19 traMADol HCL [Tramadol HCl] 50 mg PO Q6H PRN 11/28/19 Ondansetron HCl [Zofran] 4 mg PO Q6H PRN 12/10/19 Famotidine 40 mg PO HS 04/30/20 Potassium Chloride [Klor-Con M10] 10 meq PO BID 04/30/20 Sucralfate [Carafate] 1 gm PO QID 04/30/20 Calmoseptine Ointment 05/01/20 Colace 100 mg PO PRN 05/01/20 Florastor 250 mg PO BID 05/01/20 Vancocin HCl 125 mg PO Q3D 05/01/20 Vitamin A And D Ointment 05/01/20 Furosemide [Lasix] 20 mg PO BID #60 05/02/20 Metoprolol Succinate [Toprol Xl] 200 mg PO BID #60 tablet.sa 05/02/20 Saccharomyces Boulardii [Florastor] 250 mg PO BID #30 cap 05/02/20 Silver Sulfadiazine [Silvadene] 1 appl TOPICAL DAILY #1 jar 05/02/20 cloNIDine [Catapres-TTS 1] 0.1 mg TD Q7D #7 patch.tdwk 05/02/20 Forms: Patient Portal Registration
[2020-05-02] MEDS: ENOXAPARIN SODIUM 30 MG/0.3 ML SYRG SC SCH (11:25)
[2020-05-02 13:01] VITALS: BP 151/80
== END 2020-05-02 13:15 | disposition home health service (06) | DRG 291 ==
LOC: MS 07:30 → ER 07:30 → MS 11:54
PROVIDERS: ADMIT Family Medicine; ATTEND Family Medicine
DX: Z11.59 Encounter for screening for other viral diseases; I13.0 Hypertensive heart and chronic kidney disease with heart failure and stage 1 through stage 4 chronic kidney disease, or unspecified chronic kidney disease; I48.91 Unspecified atrial fibrillation; R62.7 Adult failure to thrive; N18.3 Chronic kidney disease, stage 3 (moderate); N82.3 Fistula of vagina to large intestine; N17.9 Acute kidney failure, unspecified; E87.0 Hyperosmolality and hypernatremia; L97.811 Non-pressure chronic ulcer of other part of right lower leg limited to breakdown of skin; F03.90 Unspecified dementia, unspecified severity, without behavioral disturbance, psychotic disturbance, mood disturbance, and anxiety; J18.9 Pneumonia, unspecified organism; E86.0 Dehydration; I50.9 Heart failure, unspecified; R53.1 Weakness; E43 Unspecified severe protein-calorie malnutrition; L97.821 Non-pressure chronic ulcer of other part of left lower leg limited to breakdown of skin; I25.10 Atherosclerotic heart disease of native coronary artery without angina pectoris

== ENCOUNTER 2020-05-30 03:20 | Observation (INO) ==
--- NOTE | 2020-05-30 03:45 | ERNOTE ---
Medical Problem HPI - General Time Seen by Provider: 05/30/20 03:36 Source: patient, family Exam Limitations: no limitations - Immun/Allergies/Home Medications Immunizations: IMMUNIZATION HX Immunizations Up to Date Yes History of Influenza Vaccine Yes Hx Pneumococcal Vaccination Yes Allergies/Adverse Reactions: Allergies pravastatin Adverse Reaction (Mild, Verified 05/30/20 03:35) Vomiting Home Medications: HOME MEDICATIONS Acetaminophen [Tylenol] 650 mg PO Q6H PRN 01/24/19 [Last Taken Unknown] Lisinopril [Zestril] 40 mg PO DAILY 11/28/19 [Last Taken 12/10/19] Meclizine HCl 12.5 mg PO Q6H PRN 11/28/19 [Last Taken Unknown] Mirtazapine [Remeron] 15 mg PO HS 11/28/19 [Last Taken 12/09/19] Famotidine 40 mg PO HS 04/30/20 [Last Taken Unknown] Florastor 250 mg PO BID 05/01/20 [Last Taken Unknown] Furosemide [Lasix] 20 mg PO BID #60 05/02/20 [Last Taken Unknown] Metoprolol Succinate [Toprol Xl] 200 mg PO BID #60 tablet.sa 05/02/20 [Last Taken Unknown] cloNIDine [Catapres-TTS 1] 0.1 mg TD Q7D #7 patch.tdwk 05/02/20 [Last Taken Unknown] Omeprazole 40 mg PO DAILY 05/30/20 [Last Taken Unknown] - History of Present History Narrative: Patient presents per private car with weakness and malaise. Patient son states she has been in multiple times for UTI and dehydration. Patient states she had onset of symptoms approximately 2 hours [employer] Timing: getting worse Severity: moderate Review of Systems - Review of Systems Constitutional: Present: See HPI, fatigue, malaise. Absent: recent illness, fever, chills ENT: Absent: nose congestion, nasal drainage Respiratory: Present: shortness of breath. Absent: cough Cardiology: Absent: edema Gastrointestinal/Abdominal: Absent: nausea, vomiting Genitourinary: Absent: dysuria Musculoskeletal: Present: back pain, muscle pain Neurological: Present: headache, dizziness/light-headedness Endocrine: Absent: excessive sweating, flushing Medical History (Last Reviewed 05/30/20 @ 03:43 by Reji Rogers DO) Acute renal failure (ARF) Anemia Anxiety Atrial fibrillation CAD (coronary artery disease) COPD (chronic obstructive pulmonary disease) Chronic kidney disease Dehydration Depression Esophageal stricture GERD (gastroesophageal reflux disease) HTN (hypertension) History 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 Osteoarthritis UTI (urinary tract infection) Surgical History: Surgical History (Last Reviewed 05/30/20 @ 03:43 by Reji Rogers DO) H/O heart artery stent History of hysterectomy Previous back surgery Family History: Family History (Last Reviewed 05/30/20 @ 03:43 by Reji Rogers DO) Father Myocardial infarction Hypertension Mother Colon cancer Social History: (Last Reviewed 05/30/20 @ 03:43 by Reji Rogers DO) Social History: household members: children current occupational status: retired Service: No Tobacco: Smoking Status: Never smoker Alcohol: alcohol intake: never Substance Use: substance use type: does not use Dietary Habits: caffeine: Yes Personal Safety: victim of physical abuse: No victim of emotional abuse: No Physical Exam - Physical Exam General Appearance: Present: wd/wn, alert, mild distress Head Exam: Present: normal inspection, no evidence of injury Eye Exam: Normal inspection: bilateral Ears, Nose, Throat: Present: normal ENT inspection Neck: Present: normal inspection, nontender, supple Respiratory: Present: no respiratory distress, normal breath sounds, no accessory muscle use Cardiovascular/Chest: Present: regular rate, rhythm, no murmur Gastrointestinal/Abdominal: Present: normal bowel sounds, soft, tenderness - Left upper quadrant Back Exam: Present: no vertebral tenderness, CVA tenderness (L). Absent: CVA tenderness (R) Extremity Exam: Present: normal except - - Very thin, no edema Neurological Exam: Present: alert, oriented, normal mood/affect Skin Exam: Present: normal color, warm/dry Progress - Results and Orders Patient's Lab Results:: I have reviewed the patient's lab results. Results and Orders: Laboratory Tests 05/30/20 05/30/20 05/30/20 04:10 04:10 04:10 WBC 12.8 H Hgb 12.8 Hct 45.1 Plt Count 196 Sodium 144 H Potassium 3.9 D Chloride 104 Carbon Dioxide 33.3 H BUN 66 H Creatinine 1.87 H Random Glucose 141 H Lactic Acid, Venous 4.4 H* Calcium 10.2 Total Bilirubin 0.3 AST 39 ALT 40 Alkaline Phosphatase 232 H Urine Color Urine Appearance Urine pH Ur Specific [place] Urine Glucose (UA) Urine Ketones Urine Blood Urine Nitrate Urine Bilirubin Ur Leukocyte Esterase 05/30/20 04:30 WBC Hgb Hct Plt Count Sodium Potassium Chloride Carbon Dioxide BUN Creatinine Random Glucose Lactic Acid, Venous Calcium Total Bilirubin AST ALT Alkaline Phosphatase Urine Color Yellow Urine Appearance Clear Urine pH 6.0 Ur Specific [place] 1.025 Urine Glucose (UA) Negative Urine Ketones Negative Urine Blood Negative Urine Nitrate Negative Urine Bilirubin Negative Ur Leukocyte Esterase Negative - Vital Signs Patient's Vital Signs:: I have reviewed the patient's vital signs. - X-Ray X-Ray #1 X-Ray: abdomen Interpretation: Interp. by me X-ray Comments: Mild to moderate stool throughout the colon. No free air, no air-fluid levels, no evidence for obstruction. Severe scoliosis of the thoracolumbar spine noted - CT/Ultrasound CT/Ultrasound Narrative: CT abdomen pelvis with oral contrast only due to reduced kidney function IMPRESSION: 5.5 cm cystic mass right aspect of the pelvis, present previously and not significantly changed. Peripheral margins are relatively smooth and there is no adjacent induration of fat but this still could represent an abscess with possible fistulous communication to the sigmoid colon which is very irregular. Alternatively this could represent a right ovarian mass. Surgical consult may be warranted. Prominent focal thickening in the colon near the rectosigmoid junction for which neoplasm is not excluded. Moderate to marked sigmoid diverticulosis also noted. A few mild air-fluid levels in bowel could represent a mild ileus. Numerous other findings likely incidental in this setting but include small and moderate pleural effusions with basilar atelectasis and/or consolidation and possible minimal ascites around the lower edge of the liver. Small gallstones with mild gallbladder distention. Electronically signed by Roseanna Mitchell MD. - Progress/Reassessment Progress Note-Subjective: 05/30/20 08:[address] Molina he agrees with admission and sepsis protocol and no surgical consult at this time as there is no clear surgical need at this point Departure Clinical Impression: Sepsis Qualifiers: Sepsis type: sepsis due to unspecified organism Sepsis acute organ dysfunction status: with acute organ dysfunction Severe sepsis acute organ dysfunction type: critical illness myopathy Severe sepsis shock status: without septic shock Qualified Code(s): A41.9 - Sepsis, unspecified organism Abdominal pain Qualifiers: Abdominal location: left upper quadrant Qualified Code(s): R10.12 - Left upper quadrant pain - Departure Disposition: Still a patient Condition: Stable
[2020-05-30 04:18] LABS: Hematocrit 45.1 % (37.0-47.0); Hemoglobin 12.8 gm/dL (12.5-16.0); Mean Cell Volume 108.9 fl (78-100); Mean Corpuscular Hemoglobin 30.9 pg (27-31); Mean Corpuscular Hgb Conc 28.4 g/dl (32-36); Mean Platelet Volume 10.7 fl (8-12.5); Neutrophil # 9.3 K/mm3 (1.3-6.0); Neutrophil % 72.4 % (42-75.0); Platelet Count 196 K/mm3 (150-450); Red Blood Count 4.14 M/mm3 (4.2-5.4); Red Cell Distribution Width 13.2 % (11.5-14.0); White Blood Count 12.8 K/mm3 (4.0-10.5)
[2020-05-30 04:42] LABS: Urine Bilirubin Negative (NEGATIVE); Urine Blood Negative /ul (NEGATIVE); Urine Ketone Negative (NEGATIVE); Urine Nitrite Negative (NEGATIVE); Urine Protein 100 mg/dL (NEGATIVE); Urine Specific Gravity 1.025 SP.GR. (1.005-1.010); Urine Urobilinogen Normal (NORMAL)
[2020-05-30 04:49] LABS: Urine Appearance Clear (CLEAR); Urine Bacteria None Seen; Urine Color Yellow; Urine RBC None Seen /hpf (0-5); Urine WBC 0-5 /hpf (0-5)
[2020-05-30] MEDS ORDERED: NORMAL SALINE 1,000 ML IV PRN (04:59)
[2020-05-30 05:12] LABS: Albumin * 2.8 gm/dl (3.4-5.0); Anion Gap 10.6 mmol/L (6.8-13.8); BUN/Creatinine Ratio 35.3 (9.0-21.6); Bilirubin, Total 0.3 mg/dL (0.0-1.1); Ca. Corrected For Albumin 10.8 mg/dL (8.4-10.2); Calcium * 10.2 mg/dL (7.9-10.9); Carbon Dioxide 33.3 mmol/L (24-32.6); Potassium 3.9 mmol/L (3.4-4.6); Total Protein 7.4 gm/dL (6.2-8.2)
[2020-05-30] MEDS ORDERED: DIATRIZOATE MEGLUMINE, SODIUM 30 ML BTL PO ONE (05:36)
[2020-05-30] MEDS ORDERED: cefTRIAXone SODIUM 1,000 MG/100 ML BAG IV ONE (05:37)
[2020-05-30] MEDS ORDERED: metroNIDAZOLE/SODIUM CHLORIDE 500 MG/100 ML BAG IV ONE (08:37)
[2020-05-30] MEDS ORDERED: MECLIZINE HCL 12.5 MG TABLET PO PRN (09:06)
--- NOTE | 2020-05-30 09:09 | HP ---
Chief Complaint - Chief Complaint Date of Service: 05/30/20 Time of Service: 09:09 Chief Complaint: Blah History of Present Illness: Ilana is an 84 yo female with history of colovesicular fistula with recurrent UTIs. She has frequent hospitalizations for UTIs and dehydration. She reports over the past week getting progressively more "blah". She has no focal symptoms. She denies dysuria, fever, chills, nausea, or vomiting. She reports she does not eat or drink like she should as she has poor appetite. She denies shortness of breath or change in bowel function. Chest xray, abdominal xray, and abdominal CT were performed in the ER, but the report does not appear significantly changed from priors. Her blood work shows elevated wbc, sodium, and lactate. She does not have a real focus of infection however and these labs could be elevated with dehydration. Urine is unremarkable. 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 Osteoarthritis UTI (urinary tract infection) Surgical History: Surgical History (Last Reviewed 05/30/20 @ 09:35 by Isabella Brown RN) H/O heart artery stent History of hysterectomy Previous back surgery Family History: Family History (Last Reviewed 05/30/20 @ 09:35 by Isabella Brown RN) Father Myocardial infarction Hypertension Mother Colon cancer Social History: (Last Reviewed 05/30/20 @ 09:35 by Isabella Brown RN) Social History: household members: children current occupational status: retired Service: No Tobacco: Smoking Status: Never smoker Alcohol: alcohol intake: never Substance Use: substance use type: does not use Dietary Habits: caffeine: Yes Personal Safety: victim of physical abuse: No victim of emotional abuse: No Review Of Systems (GEN) - Review of Systems Generalized/Overall Review: Present: Weakness, Fatigue, Weight loss. Absent: Chills, Fever, Diaphoresis EENTM: Present: No Symptoms Reported Respiratory: Absent: Cough, Shortness of Breath Cardiac: Absent: Chest Pain, Edema, Palpitations Abdominal: Absent: Nausea, Vomiting, Abdominal Pain, Constipation, Diarrhea Genitourinary: Absent: Burning, Frequency Musculoskeletal: Present: No Symptoms Reported Neurological: Present: No Symptoms Reported Skin: Present: No Symptoms Reported Immunizations: IMMUNIZATION HX Immunizations Up to Date Yes History of Influenza Vaccine Yes Hx Pneumococcal Vaccination Yes Allergies/Adverse Reactions: Allergies Allergy/AdvReac Type Severity Reaction Status Date / Time pravastatin AdvReac Mild Vomiting Verified 05/30/20 09:36 Home Medications: HOME MEDICATIONS Acetaminophen [Tylenol] 650 mg PO Q6H PRN 01/24/19 [Last Taken Unknown] Lisinopril [Zestril] 40 mg PO DAILY 11/28/19 [Last Taken 12/10/19] Meclizine HCl 12.5 mg PO TID 11/28/19 [Last Taken Unknown] Mirtazapine [Remeron] 15 mg PO HS 11/28/19 [Last Taken 12/09/19] Furosemide [Lasix] 20 mg PO BID #60 05/02/20 [Last Taken Unknown] Metoprolol Succinate [Toprol Xl] 200 mg PO BID #60 tablet.sa 05/02/20 [Last Taken Unknown] cloNIDine [Catapres-TTS 1] 0.1 mg TD Q7D #7 patch.tdwk 05/02/20 [Last Taken Unknown] Docusate Sodium [Colace] 100 mg PO Q2D PRN 05/30/20 [Last Taken Unknown] Famotidine [Pepcid] 40 mg PO HS 05/30/20 [Last Taken Unknown] Omeprazole 40 mg PO DAILY 05/30/20 [Last Taken Unknown] Saccharomyces Boulardii [Florastor] 250 mg PO HS 05/30/20 [Last Taken Unknown] Exam - Exam Vital Signs: Vital Signs - Last Taken Temp 36.5 C 05/30/20 03:46 Pulse 69 05/30/20 06:00 Resp 19 05/30/20 06:00 BP 175/81 H 05/30/20 06:00 Pulse Ox 98 05/30/20 06:00 Constitutional: Present: Alert, Oriented x3, Cooperative, No distress, Thin and frail ENT Exam: Present: hearing grossly normal Eye Exam: bilateral eye: normal inspection Respiratory: Present: chest non-tender, lungs clear, normal breath sounds Cardiovascular/Chest: Present: regular rate, rhythm, no murmur Abdomen: Present: Normal bowel sounds, soft, nontender, nondistended Skin Exam: Present: normal color, warm/dry, no cyanosis Appearance: Present: appropriate appearance, appropriate insight Eye contact: Present: cooperative, good eye contact, normal speech Thoughts: Present: normal thought pattern, no apparent hallucination Diagnostic Studies: Abnormal Lab Results 05/30/20 05/30/20 05/30/20 Range/Units 04:10 04:10 04:10 WBC 12.8 H (4.0-10.5) K/mm3 RBC 4.14 L (4.2-5.4) M/mm3 MCV 108.9 H (78-100) fl MCHC 28.4 L (32-36) g/dl Immature Gran % (Auto) 0.50 H (0.001-0.429) % Immature Gran # (Auto) 0.07 H (0.000-0.0310) K/mm3 Lymphocytes % 17.9 L (20-51) % Neutrophils # 9.3 H (1.3-6.0) K/mm3 Sodium 144 H (132-142) mmol/L Plasma Sodium 145 H (130-142) mmol/L Carbon Dioxide 33.3 H (24-32.6) mmol/L BUN 66 H (3-23) mg/dL Creatinine 1.87 H (0.4-1.4) mg/dL Est GFR (Non-Af Amer) 27 L (60-130) mL/min BUN/Creatinine Ratio 35.3 H (9.0-21.6) Random Glucose 141 H (70-110) mg/dL Lactic Acid, Venous 4.4 H* (0.4-2.0) mmol/L Calcium Adj for Albumin 10.8 H (8.4-10.2) mg/dL Alkaline Phosphatase 232 H (50-170) U/L Albumin 2.8 L (3.4-5.0) gm/dl Lipase 29 L (73-393) U/L Urine Protein (NEGATIVE) mg/dL Prot Sulfosalicylic Acd (0) mg/dL 05/30/20 05/30/20 Range/Units 04:30 06:55 WBC (4.0-10.5) K/mm3 RBC (4.2-5.4) M/mm3 MCV (78-100) fl MCHC (32-36) g/dl Immature Gran % (Auto) (0.001-0.429) % Immature Gran # (Auto) (0.000-0.0310) K/mm3 Lymphocytes % (20-51) % Neutrophils # (1.3-6.0) K/mm3 Sodium (132-142) mmol/L Plasma Sodium (130-142) mmol/L Carbon Dioxide (24-32.6) mmol/L BUN (3-23) mg/dL Creatinine (0.4-1.4) mg/dL Est GFR (Non-Af Amer) (60-130) mL/min BUN/Creatinine Ratio (9.0-21.6) Random Glucose (70-110) mg/dL Lactic Acid, Venous 3.4 H* (0.4-2.0) mmol/L Calcium Adj for Albumin (8.4-10.2) mg/dL Alkaline Phosphatase (50-170) U/L Albumin (3.4-5.0) gm/dl Lipase (73-393) U/L Urine Protein 100 H (NEGATIVE) mg/dL Prot Sulfosalicylic Acd 4+ H (0) mg/dL Laboratory Results WBC 12.8 K/mm3 (4.0-10.5) H 05/30/20 04:10 RBC 4.14 M/mm3 (4.2-5.4) L 05/30/20 04:10 Hgb 12.8 gm/dL (12.5-16.0) 05/30/20 04:10 Hct 45.1 % (37.0-47.0) 05/30/20 04:10 MCV 108.9 fl (78-100) H 05/30/20 04:10 MCH 30.9 pg (27-31) 05/30/20 04:10 MCHC 28.4 g/dl (32-36) L 05/30/20 04:10 RDW 13.2 % (11.5-14.0) 05/30/20 04:10 Plt Count 196 K/mm3 (150-450) 05/30/20 04:10 MPV 10.7 fl (8-12.5) 05/30/20 04:10 Immature Gran % (Auto) 0.50 % (0.001-0.429) H 05/30/20 04:10 Immature Gran # (Auto) 0.07 K/mm3 (0.000-0.0310) H 05/30/20 04:10 Neutrophils % 72.4 % (42-75.0) 05/30/20 04:10 Lymphocytes % 17.9 % (20-51) L 05/30/20 04:10 Monocytes % 6.5 % (0.0-9) 05/30/20 04:10 Eosinophils % 1.7 % (0.0-3.0) 05/30/20 04:10 Basophils % 1.0 % (0.0-1.0) 05/30/20 04:10 Nucleated RBC % 0.0 k/mm3 (0-1) 05/30/20 04:10 Neutrophils # 9.3 K/mm3 (1.3-6.0) H 05/30/20 04:10 Lymphocytes # 2.30 k/mm3 (1.5-3.5) 05/30/20 04:10 Monocytes # 0.8 k/mm3 (0.0-1.0) 05/30/20 04:10 Eosinophils # 0.2 k/mm3 (0.0-0.7) 05/30/20 04:10 Absolute Basophils 0.1 k/mm3 (0.0-0.1) 05/30/20 04:10 Sodium 144 mmol/L (132-142) H 05/30/20 04:10 Plasma Sodium 145 mmol/L (130-142) H 05/30/20 04:10 Potassium 3.9 mmol/L (3.4-4.6) D 05/30/20 04:10 Chloride 104 mmol/L (97-106) 05/30/20 04:10 Carbon Dioxide 33.3 mmol/L (24-32.6) H 05/30/20 04:10 Anion Gap 10.6 mmol/L (6.8-13.8) 05/30/20 04:10 BUN 66 mg/dL (3-23) H 05/30/20 04:10 Creatinine 1.87 mg/dL (0.4-1.4) H 05/30/20 04:10 Est GFR (Non-Af Amer) 27 mL/min (60-130) L 05/30/20 04:10 BUN/Creatinine Ratio 35.3 (9.0-21.6) H 05/30/20 04:10 Random Glucose 141 mg/dL (70-110) H 05/30/20 04:10 Lactic Acid, Venous 3.4 mmol/L (0.4-2.0) H* 05/30/20 06:55 Calcium 10.2 mg/dL (7.9-10.9) 05/30/20 04:10 Calcium Adj for Albumin 10.8 mg/dL (8.4-10.2) H 05/30/20 04:10 Total Bilirubin 0.3 mg/dL (0.0-1.1) 05/30/20 04:10 AST 39 U/L (0-48) 05/30/20 04:10 ALT 40 U/L (19-67) 05/30/20 04:10 Alkaline Phosphatase 232 U/L (50-170) H 05/30/20 04:10 Total Protein 7.4 gm/dL (6.2-8.2) 05/30/20 04:10 Albumin 2.8 gm/dl (3.4-5.0) L 05/30/20 04:10 Amylase 54 U/L (25-115) 05/30/20 04:10 Lipase 29 U/L (73-393) L 05/30/20 04:10 Urine Color Yellow 05/30/20 04:30 Urine Appearance Clear (CLEAR) 05/30/20 04:30 Urine pH 6.0 pH (5.0-7.0) 05/30/20 04:30 Ur Specific [place] 1.025 SP.GR. (1.005-1.010) 05/30/20 04:30 Urine Protein 100 mg/dL (NEGATIVE) H 05/30/20 04:30 Urine Glucose (UA) Negative mg/dL (NEGATIVE) 05/30/20 04:30 Urine Ketones Negative mg/dL (NEGATIVE) 05/30/20 04:30 Urine Blood Negative /ul (NEGATIVE) 05/30/20 04:30 Urine Nitrate Negative (NEGATIVE) 05/30/20 04:30 Urine Bilirubin Negative mg/dl (NEGATIVE) 05/30/20 04:30 Prot Sulfosalicylic Acd 4+ mg/dL (0) H 05/30/20 04:30 Urine Urobilinogen Normal EU/dl (NORMAL) 05/30/20 04:30 Ur Leukocyte Esterase Negative /ul (NEGATIVE) 05/30/20 04:30 Urine RBC None seen /hpf (0-5) 05/30/20 04:30 Urine WBC 0-5 /hpf (0-5) 05/30/20 04:30 Ur Epithelial Cells None seen /hpf (0-5) 05/30/20 04:30 Urine Bacteria None seen (NONE) 05/30/20 04:30 Urine Culture Comments Culture to follow 05/30/20 04:30 Assessment/Plan - Narrative Narrative: Ilana is an 84 yo female with known colonic fistula and poor oral intake. She admits to not eating and drinking well enough lately and has felt blah. Her sodium, WBC, and lactate are elevated. I do not see evidence of an obvious infections source. She was given rocephin in the ER for possible abdominal abscess or pneumonia, but CT is not significantly changed from prior and chest xray findings may be atelectasis for lack of movement. She does not have significant clinical symptoms and vitals are fairly normal with the exception of an elevated blood pressure. I believe her not feeling well and lab abnormalities could be explained from dehydration. I will continue IV fluids and will repeat labs and monitor for signs of infection. Will admit to observation and plan to discharge to home tomorrow, unless an obvious infection presents itself or her condition worsens. - Assessment/Plan (1) Moderate dehydration Problem: Acute (2) Hypernatremia Problem: Acute (3) Colonic fistula Problem: Chronic
[2020-05-30] MEDS ORDERED: cloNIDine 0.1 MG PATCH.TDWK TD SCH (09:15)
[2020-05-30] MEDS: NORMAL SALINE 1,000 ML IV PRN ×2 (09:47→19:16)
[2020-05-30] MEDS: LISINOPRIL 40 MG TABLET PO SCH (10:05)
[2020-05-30] MEDS: METOPROLOL SUCCINATE 100 MG TABLET.SA PO SCH ×2 (10:05→21:12)
[2020-05-30] MEDS: ACETAMINOPHEN 325 MG TABLET PO PRN (16:24)
[2020-05-30] MEDS ORDERED: KETOROLAC TROMETHAMINE 30 MG/ML VIAL IV ONE (18:07)
[2020-05-30] MEDS ORDERED: FAMOTIDINE 20 MG TABLET PO SCH (21:00)
[2020-05-30] MEDS ORDERED: MIRTAZAPINE 15 MG TABLET PO SCH (21:00)
[2020-05-30] MEDS: SACCHAROMYCES BOULARDII 250 MG CAPSULE PO SCH (21:12)
[2020-05-31] MEDS: NORMAL SALINE 1,000 ML IV PRN (03:34)
[2020-05-31] MEDS ORDERED: PANTOPRAZOLE SODIUM 40 MG TABLET.EC PO SCH (07:00)
[2020-05-31] MEDS: METOPROLOL SUCCINATE 100 MG TABLET.SA PO SCH ×2 (07:32→09:10)
[2020-05-31] MEDS: SACCHAROMYCES BOULARDII 250 MG CAPSULE PO SCH ×2 (07:33→09:10)
[2020-05-31] MEDS: LISINOPRIL 40 MG TABLET PO SCH ×2 (07:38→09:11)
[2020-05-31 08:34] LABS: Hematocrit 42.4 % (37.0-47.0); Hemoglobin 12.6 gm/dL (12.5-16.0); Mean Cell Volume 106.3 fl (78-100); Mean Corpuscular Hemoglobin 31.6 pg (27-31); Mean Corpuscular Hgb Conc 29.7 g/dl (32-36); Mean Platelet Volume 10.3 fl (8-12.5); Neutrophil # 8.2 K/mm3 (1.3-6.0); Neutrophil % 80.4 % (42-75.0); Platelet Count 238 K/mm3 (150-450); Red Blood Count 3.99 M/mm3 (4.2-5.4); Red Cell Distribution Width 13.3 % (11.5-14.0); White Blood Count 10.2 K/mm3 (4.0-10.5)
[2020-05-31] MEDS ORDERED: ONDANSETRON 8 MG TAB.RAPDIS PO PRN (08:38)
[2020-05-31 08:48] LABS: Albumin * 2.6 gm/dl (3.4-5.0); Anion Gap 12.6 mmol/L (6.8-13.8); BUN/Creatinine Ratio 31.8 (9.0-21.6); Bilirubin, Total 0.5 mg/dL (0.0-1.1); Ca. Corrected For Albumin 10.1 mg/dL (8.4-10.2); Calcium * 9.3 mg/dL (7.9-10.9); Carbon Dioxide 27.4 mmol/L (24-32.6); Total Protein 6.8 gm/dL (6.2-8.2)
[2020-05-31] MEDS ORDERED: FLU VACC QS2020-21(6MOS UP)/PF 60 MCG/0.5 ML SYRINGE IM ONE (09:00)
[2020-05-31] MEDS ORDERED: hydrALAZINE HCL 20 MG/ML VIAL IV ONE (10:28)
[2020-05-31] MEDS ORDERED: amLODIPine BESYLATE 10 MG TABLET PO SCH (10:30)
[2020-05-31] MEDS ORDERED: ONDANSETRON HCL/PF 2 MG/ML VIAL IV PRN (11:35)
[2020-05-31] MEDS: MORPHINE SULFATE 2 MG/ML DISP.SYRIN IV PRN ×5 (11:37→17:49)
[2020-05-31] MEDS: ATROPINE SULFATE 50 DROP BTL SL PRN ×3 (12:12→17:48)
[2020-05-31] MEDS: MORPHINE SULFATE 10 MG/0.5 ML SYRINGE PO PRN (20:47)
--- NOTE | 2020-05-31 23:21 | PN ---
Subjective - Date and Time Seen Date: 05/31/20 Time: 09:00 Subjective Narrative: Ilana reports that she wants to . 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 She reports chest pain and difficulty breathing. She does not have interest in eating or drinking. Objective - Vitals Vitals: Last Vital Signs Temp 36.5 C 05/31/20 06:08 Pulse 88 05/31/20 12:01 Resp 20 05/31/20 12:01 BP 184/102 H 05/31/20 12:01 Pulse Ox 95 05/31/20 12:01 - Abnormal Lab Findings Abnormal Lab Findings: Abnormal Lab Results 05/31/20 05/31/20 Range/Units 08:29 08:29 RBC 3.99 L (4.2-5.4) M/mm3 MCV 106.3 H (78-100) fl MCH 31.6 H (27-31) pg MCHC 29.7 L (32-36) g/dl Neutrophils % 80.4 H (42-75.0) % Lymphocytes % 13.2 L (20-51) % Basophils % 1.3 H (0.0-1.0) % Neutrophils # 8.2 H (1.3-6.0) K/mm3 Lymphocytes # 1.35 L (1.5-3.5) k/mm3 Sodium 145 H (132-142) mmol/L Plasma Sodium 146 H (130-142) mmol/L Chloride 109 H (97-106) mmol/L BUN 49 H (3-23) mg/dL Creatinine 1.54 H (0.4-1.4) mg/dL Est GFR (Non-Af Amer) 34 L D (60-130) mL/min BUN/Creatinine Ratio 31.8 H (9.0-21.6) Random Glucose 180 H (70-110) mg/dL AST 180 H (0-48) U/L ALT 173 H (19-67) U/L Alkaline Phosphatase 447 H (50-170) U/L Albumin 2.6 L (3.4-5.0) gm/dl - Exam Constitutional: Present: Alert, Oriented x3, Thin and frail ENT Exam: Present: hearing grossly normal Cardiovascular/Chest: Present: regular rate, rhythm Abdomen: Present: Normal bowel sounds, soft, nontender, nondistended Skin Exam: Present: normal color, warm/dry, no cyanosis Lymphatic: Present: no adenopathy Assessment/Plan Plan Narrative: Ilana wishes to give up. She does not feel like eating or drinking and will continue to get dehydrated at home. Will consult hospice. She is rapidly declining and is now having dyspnea. Will make comfort cares and give morphine prn for pain or dypnea. - Problems/Diagnosis (1) Moderate dehydration Problem: Acute (2) Hypernatremia Problem: Acute (3) Colonic fistula Problem: Chronic (4) Comfort measures only status Problem: Acute (5) FTT (failure to thrive) in adult Problem: Acute
[2020-06-01] MEDS: ATROPINE SULFATE 50 DROP BTL SL PRN (00:41)
[2020-06-01] MEDS: MORPHINE SULFATE 10 MG/0.5 ML SYRINGE PO PRN ×3 (00:41→16:36)
[2020-06-01] MEDS ORDERED: diphenhydrAMINE HCL 50 MG/ML VIAL IV PRN (07:51)
--- NOTE | 2020-06-01 23:56 | PN ---
Subjective - Date and Time Seen Date: 06/01/20 Time: 15:30 Subjective Narrative: Ilana is resting comfortably. No needs per nursing. Plans for Ilana to go to [facility] tomorrow with hospice. Objective - Vitals Vitals: Last Vital Signs Temp 36.8 C 06/01/20 06:57 Pulse 87 06/01/20 06:57 Resp 24 H 06/01/20 06:57 BP 142/80 06/01/20 06:57 Pulse Ox 90 L 06/01/20 06:57 - Exam Constitutional: Present: Obtunded Respiratory: Present: lungs clear, normal breath sounds Cardiovascular/Chest: Present: regular rate, rhythm, no edema, no murmur Abdomen: Present: Normal bowel sounds, soft, nontender, nondistended Skin Exam: Present: normal color, warm/dry, no cyanosis Assessment/Plan Plan Narrative: Ilana will be admitted to hospice. She is comfortable and on morphine for pain and dyspnea. Will plan to discharge to [facility] with hospice tomorrow. - Problems/Diagnosis (1) Moderate dehydration Problem: Acute (2) Hypernatremia Problem: Acute (3) Colonic fistula Problem: Chronic (4) Comfort measures only status Problem: Acute (5) FTT (failure to thrive) in adult Problem: Acute
[2020-06-02] MEDS: ACETAMINOPHEN 325 MG TABLET PO PRN (08:14)
--- NOTE | 2020-06-02 09:42 | DS ---
(1) Moderate dehydration Problem: Acute (2) Hypernatremia Problem: Acute (3) Colonic fistula Problem: Chronic (4) Comfort measures only status Problem: Acute (5) FTT (failure to thrive) in adult Problem: Acute (6) Hospice care Problem: Acute Date of Discharge:: 06/02/20 Hospital Course: Ilana is an 84 yo female with colonic fistula, chronic diastolic heart failure, malnourishment, and weakness who was admitted for dehydration. She reports she wants to . She agreed to hospice and was made comfort cares. She has had dyspnea due to CHF and was given morphine prn for chest discomfort and dyspnea. She medications have been adjusted to confort care only. She will be going to [facility] with [facility]. She is using oxygen for comfort. Procedures Performed: none Results and Findings: Pending Mircobiology Results 05/30/20 09:09 Blood Blood Culture - Preliminary NO GROWTH AFTER 48 HOURS 05/30/20 04:50 Blood Blood Culture - Preliminary NO GROWTH AFTER 48 HOURS Lab Pending Results 05/30/20 04:10: WBC 12.8 H, RBC 4.14 L, Hgb 12.8, Hct 45.1, MCV 108.9 H, MCH 30.9, MCHC 28.4 L, RDW 13.2, Plt Count 196, MPV 10.7, Immature Gran % (Auto) 0.50 H, Immature Gran # (Auto) 0.07 H, Neutrophils % 72.4, Lymphocytes % 17.9 L, Monocytes % 6.5, Eosinophils % 1.7, Basophils % 1.0, Nucleated RBC % 0.0, Neutrophils # 9.3 H, Lymphocytes # 2.30, Monocytes # 0.8, Eosinophils # 0.2, Absolute Basophils 0.1 05/30/20 04:10: Sodium 144 H, Plasma Sodium 145 H, Potassium 3.9 D, Chloride 104, Carbon Dioxide 33.3 H, Anion Gap 10.6, BUN 66 H, Creatinine 1.87 H, Est GFR (Non-Af Amer) 27 L, BUN/Creatinine Ratio 35.3 H, Random Glucose 141 H, Calcium 10.2, Calcium Adj for Albumin 10.8 H, Total Bilirubin 0.3, AST 39, ALT 40, Alkaline Phosphatase 232 H, Total Protein 7.4, Albumin 2.8 L, Amylase 54, Lipase 29 L 10/27/20 04:10: Lactic Acid, Venous 4.4 H* 05/30/20 04:30: Urine Color Yellow, Urine Appearance Clear, Urine pH 6.0, Ur Specific [place] 1.025, Urine Protein 100 H, Urine Glucose (UA) Negative, Urine Ketones Negative, Urine Blood Negative, Urine Nitrate Negative, Urine Bilirubin Negative, Prot Sulfosalicylic Acd 4+ H, Urine Urobilinogen Normal, Ur Leukocyte Esterase Negative, Urine RBC None seen, Urine WBC 0-5, Ur Epithelial Cells None seen, Urine Bacteria None seen, Urine Culture Comments Culture to follow 05/30/20 06:55: Lactic Acid, Venous 3.4 H* 05/31/20 08:29: WBC 10.2 D, RBC 3.99 L, Hgb 12.6, Hct 42.4, MCV 106.3 H, MCH 31.6 H, MCHC 29.7 L, RDW 13.3, Plt Count 238, MPV 10.3, Immature Gran % (Auto) 0.30, Immature Gran # (Auto) 0.03, Neutrophils % 80.4 H, Lymphocytes % 13.2 L, Monocytes % 3.7, Eosinophils % 1.1, Basophils % 1.3 H, Nucleated RBC % 0.0, Neutrophils # 8.2 H, Lymphocytes # 1.35 L, Monocytes # 0.4, Eosinophils # 0.1, Absolute Basophils 0.1 05/31/20 08:29: Sodium 145 H, Plasma Sodium 146 H, Potassium 4.0, Chloride 109 H, Carbon Dioxide 27.4, Anion Gap 12.6, BUN 49 H, Creatinine 1.54 H, Est GFR (Non-Af Amer) 34 L D, BUN/Creatinine Ratio 31.8 H, Random Glucose 180 H, Calcium 9.3, Calcium Adj for Albumin 10.1, Total Bilirubin 0.5, AST 180 H, ALT 173 H, Alkaline Phosphatase 447 H, Total Protein 6.8, Albumin 2.6 L Discharge Location: [facility] Disposition: Hospice Home Home Health Agency: [facility] Hospice Condition: Stable Discharge Activity: Activity as tolerated Discharge Diet: General/regular food Referrals: Joseph Molina DO [Staff Physician] - (To follow with hospice at [place], patient does not need clinic appointment) Problem Oriented Discharge Instructions to Patient/Family: Failure to Thrive, Adult, [id number], Dehydration, Adult, [id number] Additional Patient Instructions (free text): To [facility] status with [facility], please call and fax [facility] and [facility] Prescriptions (Any new or edited meds): diphenhydrAMINE HCL [Benadryl] 25 mg PO Q6H PRN #30 cap PRN Reason: Itching Transmission Status: Pending to [facility] Docusate Sodium [Colace] 100 mg PO DAILY PRN #30 PRN Reason: Constipation Atropine Sulfate [Isopto Atropine 1%] 2 drp SUBLINGUAL Q2H PRN #1 btl PRN Reason: secretions Transmission Status: Pending to [facility] Lorazepam 1 mg PO Q1H #30 oral.conc Transmission Status: Sent to [facility] Meclizine HCl 12.5 mg PO TID PRN #30 PRN Reason: Vertigo Morphine Sulfate [Morphine Sulfate Conc. Oral Solution] 5 mg PO Q1H PRN #30 ml PRN Reason: dyspnea or pain Transmission Status: Received by [facility] Famotidine [Pepcid] 40 mg PO BID PRN #60 PRN Reason: heart burn Ondansetron [Zofran Odt] 8 mg PO Q4H PRN #30 tab.rapdis PRN Reason: Nausea And Vomiting Transmission Status: Pending to [facility] Complete Home Medications List: Complete Home Medication List: Acetaminophen [Tylenol] 650 mg PO Q6H PRN 01/24/19 Atropine Sulfate [Isopto Atropine 1%] 2 drp SUBLINGUAL Q2H PRN #1 btl 06/02/20 Docusate Sodium [Colace] 100 mg PO DAILY PRN #30 06/02/20 Famotidine [Pepcid] 40 mg PO BID PRN #60 06/02/20 Lorazepam 1 mg PO Q1H #30 oral.conc 30/20 Meclizine HCl 12.5 mg PO TID PRN #30 30/20 Morphine Sulfate [Morphine Sulfate Conc. Oral Solution] 5 mg PO Q1H PRN #30 ml 06/02/ Ondansetron [Zofran Odt] 8 mg PO Q4H PRN #30 tab.rapdis 06/02/20 diphenhydrAMINE HCL [Benadryl] 25 mg PO Q6H PRN #30 cap 06/02/20
[2020-06-02 11:11] VITALS: BP 169/93
== END 2020-06-02 11:28 | disposition hospice, home (50) ==
LOC: ER 03:20 → MS 08:35 → INTOOBSV 08:35 → MS 08:36
PROVIDERS: ADMIT Family Medicine; ATTEND Family Medicine